=== PATIENT | female | born 1955 | race Caucasian/White ===

== ENCOUNTER → 2016-11-28 | Outpatient (CLI) | payer BC, MEDICARE ==
[~2016-11-28] MED LIST: /CIPR75TA OR; /LINE60TA OR; ACET65TA; ACET65TA OR; ALDA25TA PO; ALDA25TA2 OR; ALDA25TA2 PO; ALPR0.25; AMILORIDE; AUGM875T27 PO; AZIT250T3 PO; BABY81CH; BABY81CH OR; BACT800T; BISA5TAB PO; CALCTAB88 PO; CLEO300C2 PO; CLIN150C OR; ERYTOIN8 OU; FAMO20TA2; FELO10TA; FERR325T OR; FERR325T PO; FEXO30TA OR; FURO40TA2 PO; HUMALOG; INSULANT SC; INSULANT SQ; INSULIN; ISOS60TA2 OR; ISOS60TA2 PO; ITRACONAZOLE PO; K-TA10TA OR; KEPPRA OR; LASI40TA OR; LEVA750T OR; LEVE15SO PO; LINZ290C PO; MAGN64TASA PO; MEDR4PAK PO; MONT10TA2 PO; OMEP20TA7 OR; OMEP40CA2 PO; PERIDEX RINSE MT; POTA10CA PO; PRED10TA2; PRED20TA OR; SING10TA31; SING10TA31 OR; SPIR25TA2 OR; SPORANOX; SPORANOX OR; VALA1TAB PO; VALT500T PO; VERA120C3 OR; VERA240T OR; VERA24TASA PO; VITMTA PO; XOPE1.252; XOPE1.252 IN; ZITH250T; [UNRECOGNIZED DRUG - CODE] PO; [UNRECOGNIZED DRUG - OTHER]; [UNRECOGNIZED DRUG - OTHER] OR
[2016-11-28 18:33] LABS: BASO # 0.1 K/mm3 (0.0-0.2); EOS % 0.3 % (0.0-3.0); LARGE UNSTAINED CELL # 0.3 K/mm3 (0.0-0.4); LARGE UNSTAINED CELL % 2.6 % (0.0-4.0); LYMPH # 2.1 K/mm3 (1.5-4.5); LYMPH % 17.1 % (24.0-44.0); MEAN CORPUSCULAR HEMOGLOBIN 29.6 pg (27.0-33.0); MEAN CORPUSCULAR HGB CONC 31.9 g/dl (32.0-36.5); MONO # 0.6 K/mm3 (0.0-0.8); MONO % 5.6 % (0.0-5.0); NEUTROPHILS # 7.8 K/mm3 (1.8-7.7); NEUTROPHILS % 73.4 % (36.0-66.0); PLATELET COUNT, AUTOMATED 199 k/mm3 (150-450); RED CELL DISTRIBUTION WIDTH 12.9 % (11.5-14.5); WHITE BLOOD COUNT 10.6 K/mm3 (4.0-10.0)
[2016-11-28 19:00] LABS: ALBUMIN 2.3 GM/DL (3.2-5.2); ALKALINE PHOSPHATASE 157 U/L (45-117); ALT/SGPT 22 U/L (12-78); ANION GAP 6 MEQ/L (8-16); AST/SGOT 20 U/L (15-37); BILIRUBIN,TOTAL 0.3 MG/DL (0.2-1.0); BLOOD UREA NITROGEN 8 MG/DL (7-18); CALCIUM LEVEL 7.8 MG/DL (8.5-10.1); CARBON DIOXIDE LEVEL 37 MEQ/L (21-32); CHLORIDE LEVEL 92 MEQ/L (98-107); CREATININE FOR GFR 0.74 MG/DL (0.55-1.02); GLOMERULAR FILTRATION RATE > 60.0 (>51); GLUCOSE, FASTING 105 MG/DL (70-105); POTASSIUM SERUM 4.1 MEQ/L (3.5-5.1); SODIUM LEVEL 135 MEQ/L (136-145); TOTAL PROTEIN 5.6 GM/DL (6.4-8.2)
== END ==
LOC: M LAB 17:16
PROVIDERS: ATTEND Nurse Practitioner Family
DX: E46 Unspecified protein-calorie malnutrition (principal)

== ENCOUNTER → 2016-12-19 | Outpatient (REF) | payer BC, MEDICARE ==
[2016-12-19 13:58] LABS: MEAN CORPUSCULAR HEMOGLOBIN 31.9 pg (27.0-33.0); MEAN CORPUSCULAR HGB CONC 32.9 g/dl (32.0-36.5); MEAN CORPUSCULAR VOLUME 96.7 fl (80.0-96.0); RED CELL DISTRIBUTION WIDTH 14.2 % (11.5-14.5); WHITE BLOOD COUNT 8.5 K/mm3 (4.0-10.0)
[2016-12-19 14:25] LABS: ALBUMIN 2.9 GM/DL (3.2-5.2); ALBUMIN/GLOBULIN RATIO 0.76 (1.00-1.93); ALKALINE PHOSPHATASE 181 U/L (45-117); ALT/SGPT 37 U/L (12-78); ANION GAP 7 MEQ/L (8-16); AST/SGOT 22 U/L (15-37); BILIRUBIN,TOTAL 0.3 MG/DL (0.2-1.0); BLOOD UREA NITROGEN 25 MG/DL (7-18); CALCIUM LEVEL 8.7 MG/DL (8.5-10.1); CARBON DIOXIDE LEVEL 35 MEQ/L (21-32); CHLORIDE LEVEL 95 MEQ/L (98-107); CREATININE FOR GFR 0.49 MG/DL (0.55-1.02); GLOMERULAR FILTRATION RATE > 60.0 (>51); GLUCOSE, FASTING 134 MG/DL (70-105); MAGNESIUM LEVEL 2.6 MG/DL (1.8-2.4); POTASSIUM SERUM 4.5 MEQ/L (3.5-5.1); SODIUM LEVEL 137 MEQ/L (136-145); TOTAL PROTEIN 6.7 GM/DL (6.4-8.2)
== END ==
LOC: M SHH 13:32
PROVIDERS: ATTEND Surgery
DX: E63.9 Nutritional deficiency, unspecified (principal); T73.0XXA Starvation, initial encounter

== ENCOUNTER → 2017-01-02 | Outpatient (REF) | payer BC, MEDICARE ==
[2017-01-02 13:46] LABS: MEAN CORPUSCULAR HEMOGLOBIN 31.4 pg (27.0-33.0); MEAN CORPUSCULAR HGB CONC 32.7 g/dl (32.0-36.5); MEAN CORPUSCULAR VOLUME 95.8 fl (80.0-96.0); RED CELL DISTRIBUTION WIDTH 13.7 % (11.5-14.5); WHITE BLOOD COUNT 7.3 K/mm3 (4.0-10.0)
[2017-01-02 14:16] LABS: ALBUMIN 3.1 GM/DL (3.2-5.2); ALBUMIN/GLOBULIN RATIO 0.91 (1.00-1.93); ALKALINE PHOSPHATASE 152 U/L (45-117); ALT/SGPT 37 U/L (12-78); ANION GAP 6 MEQ/L (8-16); AST/SGOT 27 U/L (15-37); BILIRUBIN,TOTAL 0.2 MG/DL (0.2-1.0); BLOOD UREA NITROGEN 12 MG/DL (7-18); CALCIUM LEVEL 8.2 MG/DL (8.5-10.1); CARBON DIOXIDE LEVEL 39 MEQ/L (21-32); CHLORIDE LEVEL 93 MEQ/L (98-107); CREATININE FOR GFR 0.61 MG/DL (0.55-1.02); GLOMERULAR FILTRATION RATE > 60.0 (>51); GLUCOSE, FASTING 107 MG/DL (70-105); MAGNESIUM LEVEL 2.4 MG/DL (1.8-2.4); PHOSPHORUS LEVEL 3.9 MG/DL (2.5-4.9); POTASSIUM SERUM 4.1 MEQ/L (3.5-5.1); SODIUM LEVEL 138 MEQ/L (136-145); TOTAL PROTEIN 6.5 GM/DL (6.4-8.2)
== END ==
LOC: M SHH 13:15
PROVIDERS: ATTEND Surgery
DX: E63.9 Nutritional deficiency, unspecified (principal); T73.0XXA Starvation, initial encounter

== ENCOUNTER → 2017-01-16 | Outpatient (REF) | payer BC, MEDICARE ==
[2017-01-16 18:21] LABS: ALBUMIN 3.3 GM/DL (3.2-5.2); ALBUMIN/GLOBULIN RATIO 0.94 (1.00-1.93); ALKALINE PHOSPHATASE 211 U/L (45-117); ALT/SGPT 50 U/L (12-78); ANION GAP 9 MEQ/L (8-16); AST/SGOT 35 U/L (15-37); BILIRUBIN,TOTAL 0.3 MG/DL (0.2-1.0); BLOOD UREA NITROGEN 10 MG/DL (7-18); CALCIUM LEVEL 8.7 MG/DL (8.5-10.1); CARBON DIOXIDE LEVEL 40 MEQ/L (21-32); CHLORIDE LEVEL 87 MEQ/L (98-107); GLOMERULAR FILTRATION RATE > 60.0 (>51); GLUCOSE, FASTING 129 MG/DL (70-105); MAGNESIUM LEVEL 2.4 MG/DL (1.8-2.4); PHOSPHORUS LEVEL 3.3 MG/DL (2.5-4.9); POTASSIUM SERUM 3.8 MEQ/L (3.5-5.1); SODIUM LEVEL 136 MEQ/L (136-145); TOTAL PROTEIN 6.8 GM/DL (6.4-8.2)
[2017-01-16 18:37] LABS: MEAN CORPUSCULAR HEMOGLOBIN 33.5 pg (27.0-33.0); MEAN CORPUSCULAR HGB CONC 34.2 g/dl (32.0-36.5); RED CELL DISTRIBUTION WIDTH 12.9 % (11.5-14.5); WHITE BLOOD COUNT 9.2 K/mm3 (4.0-10.0)
== END ==
LOC: M SHH 16:02 → M LAB REF 16:02
PROVIDERS: ATTEND Surgery
DX: E63.9 Nutritional deficiency, unspecified (principal); T73.0XXA Starvation, initial encounter

== ENCOUNTER → 2017-04-01 | Outpatient (REF) | payer BC, MEDICARE | LOC: M LAB REF 13:32 | PROVIDERS: ATTEND Internal Medicine Pulmonary Disease | DX: J47.9 Bronchiectasis, uncomplicated (principal) ==

== ENCOUNTER 2017-07-26 07:16 | Emergency (ER) | payer BC, MEDICARE ==
[~2017-07-26] VITALS: Ht 152.4 cm; Wt 49.5 kg
[~2017-07-26 07:16] MED LIST changes: -AUGM875T27 PO; +AUGM875T28 PO; +AZIT-12 PO; -AZIT250T3 PO; +FERR1TAB8 PO; -FERR325T PO; -VALA1TAB PO; +VALA1TAB2 PO
[2017-07-26] MEDS ORDERED: OXYGEN (07:30)
--- NOTE | 2017-07-26 08:17 | REP ---
CT of the brain without IV contrast: There are no comparisons. There is no subdural hematoma or epidural hematoma. There is no edema, mass effect or midline shift. Ventricles are normal size and midline. The cortical stripe is unremarkable. There is no other intracranial hemorrhage. There is opacification of the left sphenoid sinus compatible with sinusitis. The remainder of the visualized paranasal sinuses are unremarkable. The visualized mastoid air cells opacified bilaterally. This could be congenital variation. There are no air-fluid levels. This is unchanged from a maxillofacial CT dated 03/23/2016. Signed by Tejas Zendejas MD 07/26/2017 08:08 A
[2017-07-26 08:21] LABS: BASO % 0.4 % (0.0-1.0); EOS # 0.2 K/mm3 (0.0-0.50); EOS % 2.9 % (0.0-3.0); LARGE UNSTAINED CELL # 0.1 K/mm3 (0.0-0.4); LARGE UNSTAINED CELL % 1.1 % (0.0-4.0); LYMPH # 0.8 K/mm3 (1.5-4.5); LYMPH % 9.8 % (24.0-44.0); MEAN CORPUSCULAR HEMOGLOBIN 30.2 pg (27.0-33.0); MEAN CORPUSCULAR HGB CONC 32.2 g/dl (32.0-36.5); MONO # 0.4 K/mm3 (0.0-0.8); MONO % 5.7 % (0.0-5.0); NEUTROPHILS # 5.8 K/mm3 (1.8-7.7); NEUTROPHILS % 80.1 % (36.0-66.0); PLATELET COUNT, AUTOMATED 225 k/mm3 (150-450); RED CELL DISTRIBUTION WIDTH 12.9 % (11.5-14.5); WHITE BLOOD COUNT 7.3 K/mm3 (4.0-10.0)
[2017-07-26 08:33] LABS: BLOOD UREA NITROGEN 7 MG/DL (7-18); CALCIUM LEVEL 8.2 MG/DL (8.8-10.2); CHLORIDE LEVEL 91 MEQ/L (98-107); CREATININE FOR GFR 0.55 MG/DL (0.55-1.02); GLOMERULAR FILTRATION RATE > 60.0 (>45); GLUCOSE, FASTING 101 MG/DL (80-110); POTASSIUM SERUM 4.1 MEQ/L (3.5-5.1); SODIUM LEVEL 139 MEQ/L (136-145)
--- NOTE | 2017-07-26 08:54 | REP ---
Lumbar spine CT study without contrast: History: History of a fall. Coccyx pain. Comparison CT data is from October 15, 2013. Technique: Helical scanning is acquired. 4 mm contiguous axial slices are reformatted. Coronal and sagittal multiplanar re-formation images are generated. The scan range extends from mid T12 to mid S2. Findings: There is old partial collapse of the superior endplate of the L4 vertebral body unchanged from the 2013 prior study. Otherwise, vertebral body heights are preserved. Alignment is normal. There is degenerative disc disease at L3-4 with disc space narrowing and osteophyte formation. This is unchanged from the 2013 study as well. Degenerative disc changes with vacuum phenomenon are seen in the L5-S1 disc level. Some posterior osteophytic ridging is seen at L4-5. No paravertebral soft-tissue mass is seen. There are surgical clips adjacent to the aortic bifurcation and scattered in the abdomen. Pedicles and posterior elements are intact. Facets are normally aligned. No fracture is seen. There is central disc bulging at L4-5 producing mild central canal stenosis. No other abnormal disc protrusion is seen. A very small sliver of left pleural fluid is noted. Impression: 1. Old partial collapse of the superior endplate of L4. No acute fracture seen. 2. Degenerative disc changes L3-4, L4-5 and L5-S1. 3. Tiny sliver of left pleural fluid. 4. The study extends down to the mid second sacral segment. The coccyx is not included in the field of view of CT lumbar spine exam. Signed by Kenneth Handley MD 07/26/2017 09:09 A
[2017-07-26 09:09] LABS: CARBON DIOXIDE LEVEL 49 MEQ/L (21-32)
[2017-07-26] MEDS ORDERED: PERCOCET 5MG/325MG TAB PO ONE (09:15)
[2017-07-26 09:55] VITALS: BP 110/56
--- NOTE | 2017-07-26 09:55 | REP ---
SACRUM AND COCCYX: Three views of the sacrum and coccyx are performed. No fracture or dislocation is visualized. There are metallic clips in the right pelvis and in the lower abdomen. IMPRESSION: No radiographic evidence of sacral or coccyx fracture. Signed by Tejas Kate MD 07/26/2017 01:41 P
== END 2017-07-26 10:06 | disposition home or self-care (01) ==
LOC: M ED 07:16 → EDBD 07:16 → M ED 10:06
DX: M54.9 Dorsalgia, unspecified (principal); W18.11XA Fall from or off toilet without subsequent striking against object, initial encounter; Y92.091 Bathroom in other non-institutional residence as the place of occurrence of the external cause; Y93.89 Activity, other specified; Y99.9 Unspecified external cause status

== ENCOUNTER 2017-07-28 06:12 | Inpatient (IN) | payer BC, MEDICARE ==
[~2017-07-28] VITALS: Ht 152.4 cm; Wt 48.3 kg
[~2017-07-28 06:12] MED LIST changes: +OXYGEN
[2017-07-28] MEDS ORDERED: NS 500 ML IV ONE (06:45)
[2017-07-28] MEDS ORDERED: METOCLOPRAMIDE INJ 10MG/2ML VIAL (J2765) IV ONE (06:45)
[2017-07-28 07:18] LABS: VENOUS BASE EXCESS 12.8 (-2.0-2.0); VENOUS PARTIAL PRESSURE CO2 83.7 mmHg (38.0-50.0); VENOUS PARTIAL PRESSURE O2 36.3 mmHg (30.0-50.0); VENOUS STANDARD HCO3 35.7 MEQ/L; VENOUS TOTAL CO2 45.2 MEQ/L (24.0-28.0)
[2017-07-28 07:21] LABS: BASO % 0.6 % (0.0-1.0); EOS # 0.1 K/mm3 (0.0-0.50); EOS % 1.8 % (0.0-3.0); LARGE UNSTAINED CELL # 0.1 K/mm3 (0.0-0.4); LARGE UNSTAINED CELL % 1.8 % (0.0-4.0); LYMPH # 0.5 K/mm3 (1.5-4.5); LYMPH % 7.4 % (24.0-44.0); MEAN CORPUSCULAR HEMOGLOBIN 31.5 pg (27.0-33.0); MEAN CORPUSCULAR HGB CONC 33.8 g/dl (32.0-36.5); MEAN CORPUSCULAR VOLUME 93.2 fl (80.0-96.0); MONO # 0.5 K/mm3 (0.0-0.8); MONO % 6.4 % (0.0-5.0); NEUTROPHILS # 5.7 K/mm3 (1.8-7.7); NEUTROPHILS % 81.9 % (36.0-66.0); PLATELET COUNT, AUTOMATED 202 k/mm3 (150-450); RED CELL DISTRIBUTION WIDTH 12.7 % (11.5-14.5); WHITE BLOOD COUNT 6.9 K/mm3 (4.0-10.0)
[2017-07-28 07:45] LABS: ALBUMIN 2.5 GM/DL (3.2-5.2); ALBUMIN/GLOBULIN RATIO 0.78 (1.00-1.93); ALKALINE PHOSPHATASE 142 U/L (45-117); ALT/SGPT 22 U/L (12-78); AMYLASE 49 U/L (25-115); ANION GAP 5 MEQ/L (8-16); AST/SGOT 23 U/L (15-37); BILIRUBIN,DIRECT 0.2 MG/DL (0.0-0.2); BILIRUBIN,TOTAL 0.4 MG/DL (0.2-1.0); BLOOD UREA NITROGEN 9 MG/DL (7-18); CALCIUM LEVEL 8.5 MG/DL (8.8-10.2); CARBON DIOXIDE LEVEL 43 MEQ/L (21-32); CHLORIDE LEVEL 90 MEQ/L (98-107); CREATININE FOR GFR 0.57 MG/DL (0.55-1.02); GLOMERULAR FILTRATION RATE > 60.0 (>45); GLUCOSE, FASTING 101 MG/DL (80-110); POTASSIUM SERUM 4.2 MEQ/L (3.5-5.1); SODIUM LEVEL 138 MEQ/L (136-145); TOTAL PROTEIN 5.7 GM/DL (6.4-8.2)
--- NOTE | 2017-07-28 08:02 | REP ---
PA and lateral chest: Comparison is with 12/26/2015. There is pleural thickening with effacement of the posterior sulcus on the left on the lateral view with increased density in the adjacent lung. All as interval changes. There is chronic diffuse bilateral interstitial coarsening, unchanged, compatible with fibrosis. Cardiac size is normal. There is a vertebroplasty at the approximate T6 vertebral body. The sara are mildly enlarged, however this is unchanged. No masses are identified. There is diffuse demineralization. Impression: Infiltrate and small effusion/pleural thickening in the posterior sulcus of the left lung. Pulmonary fibrosis. Vertebroplasty. Chronically enlarged sara. Signed by Tejas Zendejas MD 07/28/2017 07:53 A
[2017-07-28] MEDS ORDERED: PERCOCET 5MG/325MG TAB PO ONE (08:45)
[2017-07-28] MEDS: DOCUSATE SODIUM 100 MG CAP PO SCH ×2 (09:00→20:33)
[2017-07-28] MEDS: VERAPAMIL 120 MG SR TAB PO SCH (09:00)
[2017-07-28] MEDS: MAGNESIUM CHLORIDE 64 MG TABCR (SLO MAG) PO SCH ×2 (09:00→20:31)
[2017-07-28] MEDS: OMEPRAZOLE 20 MG CAP PO SCH ×2 (09:00→20:32)
[2017-07-28] MEDS: FUROSEMIDE 40 MG TAB PO SCH ×2 (09:00→20:32)
[2017-07-28] MEDS: SPIRONOLACTONE 25 MG TAB PO SCH (09:00)
[2017-07-28] MEDS: levETIRAcetam 250MG TABLET (KEPPRA) PO SCH ×2 (09:00→20:32)
[2017-07-28] MEDS ORDERED: BACTRIM 160MG/800MG DS TAB PO SCH (09:00)
--- NOTE | 2017-07-28 09:45 | REP ---
CT of the chest without IV contrast: Comparisons are the PA and lateral chest performed earlier today and chest CT of 12/10/2008. There is advanced a bronchiectasis throughout the right and left lungs diffusely, significantly progressed from the prior study. There is diffuse interstitial thickening, bronchiectasis, compatible with fibrosis. There is a focal "tree in bud" pattern in the lingula, left lower lobe, and right lower lobe compatible with pneumonitis. There is almost complete collapse of the right middle lobe, however, this appears unchanged from the prior study. There is a 5 mm nodule, pleural-based, posterior laterally in the lingula on image 59 adjacent to the major fissure, unchanged, likely a granuloma. There is a surgical staple line medially in the left upper lobe and a surgical staple line posterolaterally in the left lower lobe. These are unchanged. There is focal parenchymal density adjacent to the surgical staple line in the left lower lobe as an interval change, likely resulting in the density on the plain film study earlier today. There is a small left pleural effusion, not present on the comparison CT, similar to that described on the plain film study earlier today. There is a vertebroplasty of the T6 vertebral body, unchanged from the comparison CT. Impression: Chronic bronchiectasis that has significantly progressed. Focal new parenchymal density in the left lower lobe and new small left pleural effusion, not present on the comparison CT. Tree-in-bud pattern in the lingula, left lower lobe and right lower lobe compatible with pneumonitis. Surgical staple lines in the left upper lobe left lower lobe, unchanged from the prior CT. T6 vertebroplasty, unchanged. Comparison is the CT on 12/10/08. Signed by Tejas Zendejas MD 07/28/2017 09:36 A
[2017-07-28] MEDS ORDERED: PIPERACILLIN/TAZOBACTAM SOD 3.375 GM in D5W MINI-BAG PLUS 50 ML IV ONE (10:30)
[2017-07-28] MEDS ORDERED: BACTRIM 160MG/800MG DS TAB PO ONE (10:30)
[2017-07-28] MEDS ORDERED: KEPP1TAB PO (10:36)
[2017-07-28] MEDS ORDERED: FURO40TA2 PO (10:36)
[2017-07-28] MEDS ORDERED: SPOR1CAP PO (10:37)
[2017-07-28] MEDS ORDERED: ALBU1.25 INH (10:39)
[2017-07-28] MEDS ORDERED: ALBUTEROL SULFATE 2.5 MG/0.5 ML INH NEB SOLN INH PRN (12:15)
[2017-07-28] MEDS: PERCOCET 5MG/325MG TAB PO PRN ×2 (14:14→20:33)
--- NOTE | 2017-07-28 14:27 | REP ---
MRI lumbar spine without contrast: History: Back pain after a fall. Increased low back pain. Comparison CT study of the lumbar spine July 26, 2017. Technique: Sagittal and axial T1 and T2-weighted scans are acquired in the usual fashion with and without fat saturation. Sequences include spin echo, turbo spin-echo, and STIR imaging sequences. MRI findings: There is a mild recent compression fracture deformity at the superior endplate of the L1 vertebral body. This is not visible on the July 26, 2017 study. There is some cortical buckling and slight loss of vertebral body height which has taken place since that scan. There is approximately 25-30% loss of anterior vertebral body height visible today at L1 and there is 4 mm of retropulsion effacing the ventral subarachnoid space. No evidence of epidural collection to suggest hematoma. Conus medullaris is not compressed and terminates at the L1 level. No other acute fracture is seen. There is some prevertebral edema on STIR images at the L1 level. No evidence of extra vertebral hematoma. There is degenerative disc narrowing at L1-L2 with minimal diffuse disc bulging. At L2-3 there is minimal diffuse disc bulging but no other abnormality. The L3-4 level shows right posterolateral disc bulging and mild right foraminal disc bulging. No significant neural foraminal encroachment is seen. At L4-5, there is posterior osteophytic ridging and diffuse disc bulging indenting the ventral margin of the thecal sac as seen on CT. Some ligamentum flavum and facet hypertrophy is noted. No neural foraminal narrowing. At L5-S1, there is mild facet hypertrophy bilaterally. No other significant finding. Impression: Acute mild wedge compression fracture deformity at the L1 vertebral body with 25-30% loss of vertebral body height and 4 mm of retropulsion from buckling of the posterior cortex. There has been loss of vertebral body height and buckling since the July 26, 2017 CT. In addition, there are degenerative spondylosis changes. There is no evidence of epidural hematoma. Signed by Kenneth Handley MD 07/28/2017 03:22 P
[2017-07-28] MEDS: ISOSORBIDE MON. (IMDUR) 60 MG XR TAB PO SCH (15:54)
[2017-07-28] MEDS: BISACODYL 5 MG TAB PO SCH (15:54)
[2017-07-28 16:00] VITALS: BP 134/75
[2017-07-28] MEDS ORDERED: NS 1,000 ML IV SCH (16:30)
--- NOTE | 2017-07-28 16:59 | HPEPDOC ---
[facility] Medical History & Physical Date of Admission Jul 28, 2017 Primary Care Physician: Jr Bravo Collins Attending Physician: LAKISHA SCHUMACHER MD History and Physical PRIMARY CARE PROVIDER: Dr. Bravo ATTENDING: Dr. 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 Patient states that 3 days ago she was shaving her legs with a razor with one leg elevated, fell to the side, after which her lower back started to hurt. She presented to the ED, had a CAT scan of her lumbar spine, and was sent home. Patient states she still has lower back pain, which has not subsided. No lower extremity weakness. No alarming signs or symptoms. No perianal anesthesia. Patient denies chest pain/shortness of breath/palpitations. No worsening of her chronic cough. No fevers or chills. No sick contacts. The patient initially had a chest x-ray followed by CAT scan in the ED, and was initially thought to have pneumonia. ED physician had spoken to Dr. Price the patient's test manager with recommendations to start Bactrim twice a day, tobramycin twice a day, as well as Zosyn continuous infusion. I have consulted Dr. Barnard, and given the absence of symptoms of pneumonia, as she has spoken with Dr. Price in the plan now is to discontinue the antibiotics and observe the patient. She will have a sputum culture in the meantime. PAST MEDICAL HISTORY: As per HPI PAST SURGICAL HISTORY: Lung biopsy, multiple chemotherapy port, cholecystectomy , appendectomy, gastrojejunal surgery for duodenal stricture, HYST SOCIAL HISTORY: Denies tobacco, alcohol, illicit drugs. FAMILY HISTORY: F- Heart Dz, Sister- pulm HTN, IgE def. ALLERGIES: Please see below. REVIEW OF SYSTEMS: HEENT: Denies sore throat/headache CARDIOVASCULAR: Denies chest pain/palpitations RESPIRATORY: Denies shortness of breath. + cough GASTROINTESTINAL: Denies nausea/vomiting GENITOURINARY: Denies dysuria/urinary urgency. MUSCULOSKELETAL: Denies myalgias/arthralgias NEUROLOGICAL: Denies any focal weakness HOME MEDICATIONS: Please see below. PHYSICAL EXAMINATION: Vitals: (see below) General: No acute distress, laying comfortably in bed. HEENT: Moist mucous membranes. Neck: No JVD or lymphadenopathy Cardiac: RRR, No murmurs Pulm: Coarse crackles right base. + rhonchi/ exp wheezing. Abd: NT/ND + BS Ext: No edema or cyanosis. Strength 5/5 BLE. DTR 2+ b/l. Babinski negative. LABORATORY DATA: See below. IMAGING: CT Chest 07/28/17 Impression: Chronic bronchiectasis that has significantly progressed. Focal new parenchymal density in the left lower lobe and new small left pleural effusion, not present on the comparison CT. Tree-in-bud pattern in the lingula, left lower lobe and right lower lobe compatible with pneumonitis. Surgical staple lines in the left upper lobe left lower lobe, unchanged from the prior CT. T6 vertebroplasty, unchanged. Comparison is the CT on 12/10/08. MRI Lumbar Spine 07/28/17 Impression: Acute mild wedge compression fracture deformity at the L1 vertebral body with 25-30% loss of vertebral body height and 4 mm of retropulsion from buckling of the posterior cortex. There has been loss of vertebral body height and buckling since the July 26, 2017 CT. In addition, there are degenerative spondylosis changes. There is no evidence of epidural hematoma. MICROBIOLOGY: Please see below. ASSESSMENT/PLAN: 1. Progressive bronchiectasis obliterans being evaluated for Lung transplant. H/ o multiple lung infections on Azithro outpt. Prior intubation with an extensive ICU stay. Follows with Dr. Price in [place]. 2. Possible pneumonia vs pneumonitis, although the CAT scan only notes pneumonitis, the patient has no changes in their sputum, no changes in cough or shortness of breath, afebrile, no leukocytosis. Dr. Ignacio has spoken to Dr. Price who recommends starting the patient on Bactrim twice a day, Zosyn continuous infusion of 13.5 g over 24 hours, and IV tobramycin [address] Barnard has spoken to Dr. Price given absence of symptoms, with plan to d/c Abx and observe. 3. Acute Mild Wedge Compression Fx. Strength/sensation preserved. DTR 2+. No alarming symptoms. Pain control. PT. Spoke with Dr. Chandra with recommendations for a TLSO brace for 3 months, and he will follow up with the patient in 2 weeks in the office. 4. Diabetes mellitus- continue current insulin. Sliding scale insulin. 5. Hypertension- controlled continue current meds 6. Chronic aspergillosis 7. History of IgG immunodeficiency subclass 4- patient states she had tried infusions of immunoglobulins and did not tolerate them very well 8. History of iron deficiency anemia 9. History of seizure disorder on Keppra 10. History of zoster Due to prophylaxis- Lovenox Prognosis guarded Vital Signs Vital Signs Date Time Temp Pulse Resp B/P (MAP) Pulse Ox O2 Delivery O2 Flow Rate FiO2 07/28/17 15:54 108/54 07/28/17 15:01 96.6 73 22 Nasal Cannula 4.0 07/28/17 14:37 97 Laboratory Data Labs 24H Laboratory Tests 2 07/28/17 07:09: White Blood Count 6.9, Red Blood Count 4.11, Hemoglobin 12.9, Hematocrit 38.3, Mean Corpuscular Volume 93.2, Mean Corpuscular Hemoglobin 31.5, Mean Corpuscular Hemoglobin Concent 33.8, Red Cell Distribution Width 12.7, Platelet Count 202, Neutrophils (%) (Auto) 81.9H, Lymphocytes (%) (Auto) 7.4L, Monocytes (%) (Auto) 6.4H, Eosinophils (%) (Auto) 1.8, Basophils (%) (Auto) 0.6, Neutrophils # (Auto) 5.7, Lymphocytes # (Auto) 0.5L, Monocytes # (Auto) 0.5, Eosinophils # (Auto) 0.1, Basophils # (Auto) 0.0, Large Unclassified Cells % 1.8 , Large Unclassified Cells # 0.1, Blood Gas Bicarbonate Standard 35.7, Venous Blood pH 7.325L, Venous Blood Partial Pressure CO2 83.7H, Venous Blood Partial Pressure O2 36.3, Venous Blood Total Carbon Dioxide 45.2H, Venous Blood HCO3 42.6H, Venous Blood Oxygen Saturation 65.0, Venous Blood Base Excess 12.8H, Anion Gap 5L, Glomerular Filtration Rate > 60.0, Calcium Level 8.5L, Aspartate Amino Transf (AST/SGOT) 23, Alanine Aminotransferase (ALT/SGPT) 22, Alkaline Phosphatase 142H, Total Bilirubin 0.4, Direct Bilirubin 0.2, C-Reactive Protein , Quantitative 2.12H, Total Protein 5.7L, Albumin 2.5L, Albumin/Globulin Ratio 0.78L, Amylase Level 49, Lipase 76 07/28/17 08:01: Urine Appearance HAZY, Urine Color YELLOW, Urine pH 5.0, Urine Specific [place] 1.020, Urine Protein NEGATIVE, Urine Glucose (UA) NEGATIVE, Urine Ketones NEGATIVE, Urine Urobilinogen 0.2, Urine Bilirubin NEGATIVE, Urine Leukocyte Esterase 2+H, Urine Blood NEGATIVE, Urine Nitrite NEGATIVE, Urine WBC (Auto) 14H , Urine RBC (Auto) 3, Urine Hyaline Casts (Auto) 12, Urine Bacteria (Auto) NEGATIVE, Urine Squamous Epithelial Cells 1, Urine Mucus (Auto) SMALL, Urine Sperm (Auto) CBC/BMP Laboratory Tests 07/28/17 07:09 Red Blood Count 4.11, Mean Corpuscular Volume 93.2, Mean Corpuscular Hemoglobin 31.5, Mean Corpuscular Hemoglobin Concent 33.8, Red Cell Distribution Width 12.7 , Neutrophils (%) (Auto) 81.9 H, Lymphocytes (%) (Auto) 7.4 L, Monocytes (%) ( Auto) 6.4 H, Eosinophils (%) (Auto) 1.8, Basophils (%) (Auto) 0.6, Neutrophils # (Auto) 5.7, Lymphocytes # (Auto) 0.5 L, Monocytes # (Auto) 0.5, Eosinophils # (Auto) 0.1, Basophils # (Auto) 0.0 Microbiology Microbiology 07/28/17 Blood Culture, Received Pending 07/28/17 Blood Culture, Received Pending 07/28/17 Urine Culture, Received Pending Home Medications Scheduled (Calcium Citrate + 315-200 mg-Unit) 1 Tab Tab, 1 TAB PO QPM Azithromycin (Azithromycin) 250 Mg Tab, 250 MG PO QHS Bisacodyl (Bisacodyl EC) 5 Mg Tab, 10 MG PO DAILY Ferrous Sulfate (Ferrous Sulfate) 325 Mg Tab, 325 MG PO QHS Furosemide (Furosemide) 40 Mg Tab, 40 MG PO BID Insulin Glargine (Lantus) 1 Units/0.01 Ml Susp, 7 UNITS SC QHS Isosorbide Mononitrate (Isosorbide Mononitrate ER) 60 Mg Tab, 60 MG PO DAILY Itraconazole (Sporanox) 100 Mg Cap, 200 MG PO QHS Levetiracetam (Keppra) 500 Mg Tab, 500 MG PO BID Linaclotide Base (Linzess) 290 Mcg Cap, 290 MCG PO DAILY Magnesium Chloride (Mag64) 64 Mg Tabcr, 128 MG PO BID Montelukast Sodium (Montelukast Sodium) 10 Mg Tab, 10 MG PO QHS Multivitamins *[facility] STOCKED* (Thera M Plus *[facility] STOCKED*) 1 Tab Tab, 1 TAB PO QPM Omeprazole (Omeprazole) 40 Mg Cap, 40 MG PO BID Potassium Chloride (Klor-Con M10) 10 Meq Tabcr, 20 MEQ PO BID Spironolactone (Aldactone) 25 Mg Tab, 25 MG PO DAILY Verapamil HCl (Verapamil HCl ER) 240 Mg Tabcr, 240 MG PO DAILY Scheduled PRN Albuterol Sulfate (Albuterol Sulfate) 1.25 Mg/3 Ml Neb, 1.25 MG INH BID PRN for SHORTNESS OF BREATH Allergies Coded Allergies: Bacitracin (Verified Allergy, Unknown, 02/12/13) Replaces BACITRACIN/NE Polymyxin B (Verified Allergy, Unknown, 02/12/13) Replaces BACITRACIN/NE Cilastatin (Unverified Adverse Reaction, Mild, PRIMAXIN CAUSES VOMITING, ) Replaces PRIMAXIN IV Erythromycin (Verified Adverse Reaction, Mild, DIARRHEA, N/V, 02/12/13) Quinolones (Verified Adverse Reaction, Mild, TEQUIN - DIARRHEA, N/V, ) N/V LAKISHA SCHUMACHER MD Jul 28, 2017 16:59
[2017-07-28] MEDS ORDERED: PIPERACILLIN IV SCH (17:00)
[2017-07-28] MEDS ORDERED: TAZOBACTAM SOD IV SCH (17:00)
[2017-07-28] MEDS ORDERED: D5W IV SCH ×2 (17:00→18:00)
[2017-07-28] MEDS: NAPROXEN 250 MG TAB PO SCH (17:39)
[2017-07-28] MEDS ORDERED: TOBRAMYCIN SULF IV SCH (18:00)
[2017-07-28] MEDS: ONDANSETRON 4MG/2ML VIAL (J2405) IV PRN (18:14)
[2017-07-28 20:00] VITALS: BP 112/59
[2017-07-28] MEDS: MULTIVITAMINS/MINERALS THERAP 1 TAB PO SCH (20:32)
[2017-07-28] MEDS: ITRACONAZOLE 100 MG CAP (SPORANOX) PO SCH (20:32)
[2017-07-28] MEDS: AZITHROMYCIN 250 MG TAB PO SCH (20:32)
[2017-07-28] MEDS: MONTELUKAST 10 MG TAB PO SCH (20:32)
[2017-07-28] MEDS: LEVEMIR (INSULIN DETEMIR) 1 UNITS/0.01ML SC SCH (20:33)
[2017-07-28] MEDS ORDERED: FERROUS SULFATE 325MG TAB PO SCH (21:00)
--- NOTE | 2017-07-28 22:33 | CR.PDOC ---
[facility] Consultation Consultation DATE OF CONSULTATION: Jul 28, 2017 at 06:12 PRIMARY CARE PHYSICIAN: Dr. Bravo LINE BUILDER: Dr. Price REFERRING PROVIDER: Dr. Schumacher ATTENDING PHYSICIAN: Dr. Randy Barnard REASON FOR CONSULTATION/CHIEF COMPLAINT: Antibiotic infusion. HISTORY OF PRESENT ILLNESS: Ms. Olsen is a 62-year-old female presents to [facility]'s emergency Department with mechanical fall. Past medical history significant for chronic aspergillosis, IgG immunodeficiency, bronchiectasis, on 4 L of oxygen via nasal cannula. She is followed by Dr. Santana Price in [place], [place]. He was previously the patient's daughters cystic fibrosis physician, but has since taken over the patient's care. Patient's daughter approximately 6 years ago at the age of 30, one day after her birthday. Patient states that she is in the process of being evaluated for a possible lung transplant. She states that she only have 20% of remaining viable left lung. Patient is on Pulmozyme, albuterol nebulizer , and azithromycin chronically. She's been on azithromycin for approximately 7 years with no adverse affects to her hearing. She states that she has never been on steroids chronically. She states that she has a cough with increased production of dark green phlegm, but reports that her breathing is otherwise stable. She usually produces phlegm, but this is a change in color for her. She denies fever, night sweats, chills, joint pain, or muscle pain. She recently saw Dr. Price in June and he started her on Pulmozyme. Reason for the patient's current admission is that she sustained a mechanical fall at home a couple days ago. She states that she was shaving and had her leg balanced up on the toilet and she lost her balance and fell. She sustained multiple bruises, one to her arm that she was not aware of and a couple on her back. She notes that she grazed her head, but did not lose consciousness, bowel , or bladder incontinence. She initially presented to [facility] s emergency Department for evaluation. Imaging was obtained and was negative. Patient was discharged with Tylenol for pain. At home patient experienced persistent low back pain along with nausea and vomiting. Patient denies hemoptysis or hematemesis. Admits to a runny nose, but it is not consistent. Patient returned again to [facility]'s emergency Department and was admitted for further medical management. States that up until recently her appetite has been normal; however, over the last day or two her appetite has been diminished and she has only been consuming fluids. Denies dysphagia or odynophagia. Denies weight changes. Reports progressive weakness in lower extremities without numbness, tingling, or altered sensation. Patient does report feeling tired. She notes right ankle and foot edema that she noticed on Monday which has since resolved. She denies extended immobility, but does state that over the years she has been less functionally mobile due to her underlying pulmonary disease Evaluation in the emergency department included obtaining vital signs which are stable, hematologic assessment which is stable, electrolyte assessment which was stable, a chest x-ray which revealed "Infiltrate and small effusion/pleural thickening in the posterior sulcus of the left lung. Pulmonary fibrosis. Vertebroplasty. Chronically enlarged sara." CT of the chest was obtained and revealed "Chronic bronchiectasis that has significantly progressed. Focal new parenchymal density in the left lower lobe and new small left pleural effusion, not present on the comparison CT. Tree-in-bud pattern in the lingula, left lower lobe and right lower lobe compatible with pneumonitis. Surgical staple lines in the left upper lobe left lower lobe, unchanged from the prior CT. T6 vertebroplasty, unchanged." Blood and urine cultures are pending. Reason for consultation is to determine the need for antibiotic infusion. Please see recommendations below. ALLERGIES: Please see below. HOME MEDICATIONS: Please see below. PAST MEDICAL HISTORY: 1. Chronic aspergillosis. 2. IgG immunodeficiency. 3. Bronchiectasis. 4. Congestive heart failure. 5. Hypertension. 6. Gastroesophageal reflux disease. 7. Coronary artery disease. 8. Seizure disorder. 9. Hypokalemia. 10. Iron deficiency anemia. 11. Epidermal inclusion cyst. 12. History fo squamous papilloma. 13. History of Herpes Zoster Virus in V1 dermatome. 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 15. Preseptal cellulitis. PAST SURGICAL HISTORY: 1. Cholecystectomy. 2. Appendectomy. 3. Upper gastrointestinal endoscopy. 4. Colonoscopy. 5. Duodenal nodule biopsy. 6. Gastric biopsy. 7. Rectal biopsy. 8. Left lower back nodule excision. 9. Left port-a-cath insertion. 10. Right port-a-cath removal. FAMILY HISTORY: Father: , 84, heart disease Mother: Alive, 86, diabetes mellitus, hypertension Siblings: - Sister: Alive, 61, healthy - Brother: Alive, 59, cardiac valve replacement - Brother: , 32, suicide - Sister: , 32, Ig deficiency Children: - Daughter, , 30, CF SOCIAL HISTORY: Marital status and/or living arrangements: Lives with Children: - Daughter, , 30, CF Pets: None Employment: Previously employment with disabled persons Travel: [place], [place] Exposures: Aspergillus (2003), ground zero (2000) Tobacco use: Never ETOH: Never Illicit drug use: Never IV drug use: Never REVIEW OF SYSTEMS: CONSTITUTIONAL: Denies fever, night sweats, chills. HEENT: Denies headache, blurry vision, diplopia, transient vision loss, tinnitus , transient hearing loss. CARDIOVASCULAR: Denies chest pain, palpitations. RESPIRATORY: Admits to cough productive of dark green phlegm; denies orthopnea, PND, shortness of breath. GENITOURINARY: Denies dysuria, hematuria, urinary frequency, urinary urgency. MUSCULOSKELETAL: Admits to back pain; denies musculoskeletal pain, joint pain. GASTROINTESTINAL: Admits to nausea, vomiting, abdominal pain secondary to mechanical fall; denies constipation, diarrhea, melena, hematochezia, hematemesis, hemoptysis. SKIN: Admits to right ankle and foot edema now resolved, multiple ecchymoses secondary to mechanical fall; denies skin rashes. NEUROLOGICAL: Denies numbness, tingling, altered sensation. PSYCHIATRIC: Denies emotional lability. ENDOCRINE: Admits to decreased appetite. HEMATOLOGIC/LYMPHATIC: Admits to easy, but explainable bruising; denies skin rashes. ALLERGIC/IMMUNOLOGIC: Admits to a runny nose. PHYSICAL EXAMINATION: VITAL SIGNS: Please see below. GENERAL APPEARANCE: Somewhat frail appearing female, alert and conversant, pleasant, in no acute distress. HEENT: Atraumatic, normocephalic, PERRL, EOMI, wears spectacles, lips are somewhat dry, oral mucosa appears pink and moist, tongue is midline, nasal septum appears midline, nares are patent. RESPIRATORY: Crackles and rhonchi appreciated throughout, but most prominent in the right upper lobe. CARDIOVASCULAR: Regular rate and rhythm, normal S1 and S2, systolic murmur grade II/ appreciated best over the third intercostal space on the left. ABDOMEN: Soft, flat, tender to palpation, bowel sounds appreciated, without guarding or rebound. EXTREMITIES: Warm, dry, intact, without edema; oblong brown ecchymosis noted on the right upper forearm on the ulnar aspect approximately 4 inches in its longest diameter proximal to the wrist; semi-circular red-purple ecchymosis noted on the posterior left shoulder approximately 1 inch proximal to the shoulder; a smaller oval brown-yellow ecchymosis noted on the back left of midline at approximately T4. NEUROLOGICAL: CN II-XII grossly intact. PSYCHIATRIC: Alert and conversant, pleasant. LABORATORY DATA: Please see below. IMAGING: Chest x-ray, two-view IMPRESSION: Infiltrate and small effusion/pleural thickening in the posterior sulcus of the left lung. Pulmonary fibrosis. Vertebroplasty. Chronically enlarged sara. CT chest without contrast IMPRESSION: Chronic bronchiectasis that has significantly progressed. Focal new parenchymal density in the left lower lobe and new small left pleural effusion, not present on the comparison CT. Tree-in-bud pattern in the lingula, left lower lobe and right lower lobe compatible with pneumonitis. Surgical staple lines in the left upper lobe left lower lobe, unchanged from the prior CT. T6 vertebroplasty, unchanged. ASSESSMENT/PLAN: Ms. Olsen is a 62-year-old female with past medical history significant for chronic aspergillosis, bronchiectasis, on 4 L of oxygen by nasal cannula who presents with a mechanical fall, but secondary to her underlying chronic medical conditions and cough with increased sputum production of green phlegm infectious disease was consulted for recommendations regarding continuous antibiotic infusion. After evaluating patient and discussing case with Dr. Price, patient's shipwright helper, it was determined the patient appears to currently be at baseline and to continue current medical management including patient's azithromycin and nebulized albuterol. It is not recommended at this time to start the patient on any other antibiotics unless the patient's clinical picture changes. No steroids indicated at this time. Have requested records from Dr. Price. Obtaining immunoglobin levels, gram stain and culture, and fungal smear and culture. Thank you for the consult. Vital Signs/I&O Vital Signs Date Time Temp Pulse Resp B/P (MAP) Pulse Ox O2 Delivery O2 Flow Rate FiO2 07/28/17 20:33 20 07/28/17 18:52 Nasal Cannula 4.0 07/28/17 16:00 98.0 68 134/75 (94) 95 I&O- Last 24 Hours up to 6 AM 07/29/17 06:00 Intake Total 550 ml Output Total 100 ml Balance 450 ml Laboratory Data Labs 24H Laboratory Tests 2 07/28/17 07:09: White Blood Count 6.9, Red Blood Count 4.11, Hemoglobin 12.9, Hematocrit 38.3, Mean Corpuscular Volume 93.2, Mean Corpuscular Hemoglobin 31.5, Mean Corpuscular Hemoglobin Concent 33.8, Red Cell Distribution Width 12.7, Platelet Count 202, Neutrophils (%) (Auto) 81.9H, Lymphocytes (%) (Auto) 7.4L, Monocytes (%) (Auto) 6.4H, Eosinophils (%) (Auto) 1.8, Basophils (%) (Auto) 0.6, Neutrophils # (Auto) 5.7, Lymphocytes # (Auto) 0.5L, Monocytes # (Auto) 0.5, Eosinophils # (Auto) 0.1, Basophils # (Auto) 0.0, Large Unclassified Cells % 1.8 , Large Unclassified Cells # 0.1, Blood Gas Bicarbonate Standard 35.7, Venous Blood pH 7.325L, Venous Blood Partial Pressure CO2 83.7H, Venous Blood Partial Pressure O2 36.3, Venous Blood Total Carbon Dioxide 45.2H, Venous Blood HCO3 42.6H, Venous Blood Oxygen Saturation 65.0, Venous Blood Base Excess 12.8H, Anion Gap 5L, Glomerular Filtration Rate > 60.0, Calcium Level 8.5L, Aspartate Amino Transf (AST/SGOT) 23, Alanine Aminotransferase (ALT/SGPT) 22, Alkaline Phosphatase 142H, Total Bilirubin 0.4, Direct Bilirubin 0.2, C-Reactive Protein , Quantitative 2.12H, Total Protein 5.7L, Albumin 2.5L, Albumin/Globulin Ratio 0.78L, Amylase Level 49, Lipase 76 07/28/17 08:01: Urine Appearance HAZY, Urine Color YELLOW, Urine pH 5.0, Urine Specific Byron 1.020, Urine Protein NEGATIVE, Urine Glucose (UA) NEGATIVE, Urine Ketones NEGATIVE, Urine Urobilinogen 0.2, Urine Bilirubin NEGATIVE, Urine Leukocyte Esterase 2+H, Urine Blood NEGATIVE, Urine Nitrite NEGATIVE, Urine WBC (Auto) 14H , Urine RBC (Auto) 3, Urine Hyaline Casts (Auto) 12, Urine Bacteria (Auto) NEGATIVE, Urine Squamous Epithelial Cells 1, Urine Mucus (Auto) SMALL, Urine Sperm (Auto) 07/28/17 16:46: Immunoglobulin G (Chem) 934, Immunoglobulin A 165.0, Immunoglobulin M 181 07/28/17 17:13: Bedside Glucose (Misc Panel) 125H CBC/BMP Laboratory Tests 07/28/17 07:09 Red Blood Count 4.11, Mean Corpuscular Volume 93.2, Mean Corpuscular Hemoglobin 31.5, Mean Corpuscular Hemoglobin Concent 33.8, Red Cell Distribution Width 12.7 , Neutrophils (%) (Auto) 81.9 H, Lymphocytes (%) (Auto) 7.4 L, Monocytes (%) ( Auto) 6.4 H, Eosinophils (%) (Auto) 1.8, Basophils (%) (Auto) 0.6, Neutrophils # (Auto) 5.7, Lymphocytes # (Auto) 0.5 L, Monocytes # (Auto) 0.5, Eosinophils # (Auto) 0.1, Basophils # (Auto) 0.0 Microbiology Microbiology 07/28/17 Blood Culture, Received Pending 07/28/17 Blood Culture, Received Pending 07/28/17 Urine Culture, Received Pending Allergies Coded Allergies: Bacitracin (Verified Allergy, Unknown, 02/12/13) Replaces BACITRACIN/NE Polymyxin B (Verified Allergy, Unknown, 02/12/13) Replaces BACITRACIN/NE Cilastatin (Unverified Adverse Reaction, Mild, PRIMAXIN CAUSES VOMITING, ) Replaces PRIMAXIN IV Erythromycin (Verified Adverse Reaction, Mild, DIARRHEA, N/V, 02/12/13) Quinolones (Verified Adverse Reaction, Mild, TEQUIN - DIARRHEA, N/V, ) N/V Home Medications Scheduled (Calcium Citrate + 315-200 mg-Unit) 1 Tab Tab, 1 TAB PO QPM, (Reported) Azithromycin (Azithromycin) 250 Mg Tab, 250 MG PO QHS, (Reported) Bisacodyl (Bisacodyl EC) 5 Mg Tab, 10 MG PO DAILY, (Reported) Ferrous Sulfate (Ferrous Sulfate) 325 Mg Tab, 325 MG PO QHS, (Reported) Furosemide (Furosemide) 40 Mg Tab, 40 MG PO BID, (Reported) Insulin Glargine (Lantus) 1 Units/0.01 Ml Susp, 7 UNITS SC QHS, (Reported) Isosorbide Mononitrate (Isosorbide Mononitrate ER) 60 Mg Tab, 60 MG PO DAILY, ( Reported) Itraconazole (Sporanox) 100 Mg Cap, 200 MG PO QHS, (Reported) Levetiracetam (Keppra) 500 Mg Tab, 500 MG PO BID, (Reported) Linaclotide Base (Linzess) 290 Mcg Cap, 290 MCG PO DAILY, (Reported) Magnesium Chloride (Mag64) 64 Mg Tabcr, 128 MG PO BID, (Reported) Montelukast Sodium (Montelukast Sodium) 10 Mg Tab, 10 MG PO QHS, (Reported) Multivitamins *[facility] STOCKED* (Thera M Plus *[facility] STOCKED*) 1 Tab Tab, 1 TAB PO QPM , (Reported) Omeprazole (Omeprazole) 40 Mg Cap, 40 MG PO BID, (Reported) Potassium Chloride (Klor-Con M10) 10 Meq Tabcr, 20 MEQ PO BID, (Reported) Spironolactone (Aldactone) 25 Mg Tab, 25 MG PO DAILY, #30 Verapamil HCl (Verapamil HCl ER) 240 Mg Tabcr, 240 MG PO DAILY, (Reported) Scheduled PRN Albuterol Sulfate (Albuterol Sulfate) 1.25 Mg/3 Ml Neb, 1.25 MG INH BID PRN for SHORTNESS OF BREATH, (Reported) RUSH VANCE-I Jul 28, 2017 21:47
[2017-07-29] VITALS (12 sets, daily range): BP systolic 96–117; BP diastolic 53–67; O2SAT 90
[2017-07-29] MEDS: PERCOCET 5MG/325MG TAB PO PRN ×2 (05:16→10:59)
[2017-07-29 06:02] LABS: ANION GAP 6 MEQ/L (8-16); BLOOD UREA NITROGEN 11 MG/DL (7-18); CALCIUM LEVEL 7.8 MG/DL (8.8-10.2); CARBON DIOXIDE LEVEL 31 MEQ/L (21-32); CHLORIDE LEVEL 98 MEQ/L (98-107); CREATININE FOR GFR 0.61 MG/DL (0.55-1.02); GLOMERULAR FILTRATION RATE > 60.0 (>45); GLUCOSE, FASTING 88 MG/DL (80-110); POTASSIUM SERUM 3.9 MEQ/L (3.5-5.1); SODIUM LEVEL 135 MEQ/L (136-145)
[2017-07-29 06:08] LABS: BASO % 0.4 % (0.0-1.0); EOS # 0.1 K/mm3 (0.0-0.50); EOS % 1.6 % (0.0-3.0); LARGE UNSTAINED CELL # 0.2 K/mm3 (0.0-0.4); LARGE UNSTAINED CELL % 3.5 % (0.0-4.0); LYMPH # 0.6 K/mm3 (1.5-4.5); LYMPH % 10.9 % (24.0-44.0); MEAN CORPUSCULAR HEMOGLOBIN 30.9 pg (27.0-33.0); MEAN CORPUSCULAR HGB CONC 31.9 g/dl (32.0-36.5); MEAN CORPUSCULAR VOLUME 96.9 fl (80.0-96.0); MONO # 0.4 K/mm3 (0.0-0.8); MONO % 6.8 % (0.0-5.0); NEUTROPHILS # 4.1 K/mm3 (1.8-7.7); NEUTROPHILS % 76.8 % (36.0-66.0); PLATELET COUNT, AUTOMATED 148 k/mm3 (150-450); RED CELL DISTRIBUTION WIDTH 12.6 % (11.5-14.5); WHITE BLOOD COUNT 5.4 K/mm3 (4.0-10.0)
[2017-07-29] MEDS ORDERED: MORPHINE 2 MG/ML 1ML SYRINGE IV PRN (09:15)
[2017-07-29] MEDS: levETIRAcetam 250MG TABLET (KEPPRA) PO SCH (09:39)
[2017-07-29] MEDS: DOCUSATE SODIUM 100 MG CAP PO SCH ×2 (09:39→21:00)
[2017-07-29] MEDS: OMEPRAZOLE 20 MG CAP PO SCH ×2 (09:39→21:00)
[2017-07-29] MEDS: SPIRONOLACTONE 25 MG TAB PO SCH (09:39)
[2017-07-29] MEDS: BISACODYL 5 MG TAB PO SCH (09:39)
[2017-07-29] MEDS: NAPROXEN 250 MG TAB PO SCH ×2 (09:39→21:00)
[2017-07-29] MEDS: VERAPAMIL 120 MG SR TAB PO SCH (09:40)
[2017-07-29] MEDS: MAGNESIUM CHLORIDE 64 MG TABCR (SLO MAG) PO SCH ×2 (09:40→21:00)
[2017-07-29] MEDS: FUROSEMIDE 40 MG TAB PO SCH ×2 (09:40→21:00)
[2017-07-29] MEDS: ISOSORBIDE MON. (IMDUR) 60 MG XR TAB PO SCH (09:40)
[2017-07-29] MEDS: ALBUTEROL SULFATE 2.5 MG/0.5 ML INH NEB SOLN INH SCH ×3 (11:04→19:20)
--- NOTE | 2017-07-29 13:34 | IPNPDOC ---
Text Note Date of Service The patient was seen on 07/29/17. NOTE Subjective: Feels well. No change in resp symptoms. Back pain well controlled. PHYSICAL EXAMINATION: Vitals: (see below) General: No acute distress, laying comfortably in bed. HEENT: Moist mucous membranes. Neck: No JVD or lymphadenopathy Cardiac: RRR, No murmurs Pulm: Coarse crackles right base. + rhonchi/ exp wheezing. Abd: NT/ND + BS Ext: No edema or cyanosis. Strength 5/5 BLE. DTR 2+ b/l. Babinski negative. LABORATORY DATA: See below. IMAGING: CT Chest 07/28/17 Impression: Chronic bronchiectasis that has significantly progressed. Focal new parenchymal density in the left lower lobe and new small left pleural effusion, not present on the comparison CT. Tree-in-bud pattern in the lingula, left lower lobe and right lower lobe compatible with pneumonitis. Surgical staple lines in the left upper lobe left lower lobe, unchanged from the prior CT. T6 vertebroplasty, unchanged. Comparison is the CT on 12/10/08. MRI Lumbar Spine 07/28/17 Impression: Acute mild wedge compression fracture deformity at the L1 vertebral body with 25-30% loss of vertebral body height and 4 mm of retropulsion from buckling of the posterior cortex. There has been loss of vertebral body height and buckling since the July 26, 2017 CT. In addition, there are degenerative spondylosis changes. There is no evidence of epidural hematoma. MICROBIOLOGY: Please see below. ASSESSMENT/PLAN: 1. Progressive bronchiectasis obliterans being evaluated for Lung transplant. H/ o multiple lung infections on Azithro outpt. Prior intubation with an extensive ICU stay. Follows with Dr. Price in [place]. 2. Possible pneumonia vs pneumonitis, although the CAT scan only notes pneumonitis, the patient has no changes in their sputum, no changes in cough or shortness of breath, afebrile, no leukocytosis. Dr. Ignacio has spoken to Dr. Price who recommends starting the patient on Bactrim twice a day, Zosyn continuous infusion of 13.5 g over 24 hours, and IV tobramycin [address] Barnard has spoken to Dr. Price given absence of symptoms, with plan to d/c Abx and observe. 3. Acute Mild Wedge Compression Fx. Strength/sensation preserved. DTR 2+. No alarming symptoms. Pain control. PT. Spoke with Dr. Chandra with recommendations for a TLSO brace for 3 months, and he will follow up with the patient in 2 weeks in the office. Pt has been measured for brace last night. 4. Diabetes mellitus- continue current insulin. Sliding scale insulin. 5. Hypertension- controlled continue current meds 6. Chronic aspergillosis 7. History of IgG immunodeficiency subclass 4- patient states she had tried infusions of immunoglobulins and did not tolerate them very well 8. History of iron deficiency anemia 9. History of seizure disorder on Keppra 10. History of zoster Due to prophylaxis- Lovenox Prognosis guarded VS,Fishbone, I+O VS, Fishbone, I+O Laboratory Tests 07/29/17 05:09 Red Blood Count 4.05, Mean Corpuscular Volume 96.9 H, Mean Corpuscular Hemoglobin 30.9, Mean Corpuscular Hemoglobin Concent 31.9 L, Red Cell Distribution Width 12.6, Neutrophils (%) (Auto) 76.8 H, Lymphocytes (%) (Auto) 10.9 L, Monocytes (%) (Auto) 6.8 H, Eosinophils (%) (Auto) 1.6, Basophils (%) ( Auto) 0.4, Neutrophils # (Auto) 4.1, Lymphocytes # (Auto) 0.6 L, Monocytes # ( Auto) 0.4, Eosinophils # (Auto) 0.1, Basophils # (Auto) 0.0, Calcium Level 7.8 L Vital Signs Date Time Temp Pulse Resp B/P (MAP) Pulse Ox O2 Delivery O2 Flow Rate FiO2 07/29/17 12:00 98.5 79 20 117/58 (77) 90 Room Air 07/29/17 07:41 4.0 I&O- Last 24 Hours up to 6 AM 07/30/17 06:00 Intake Total 1060 ml Output Total 100 ml Balance 960 ml LAKISHA GUERRERO MD Jul 29, 2017 13:34
[2017-07-29] MEDS: ONDANSETRON 4MG/2ML VIAL (J2405) IV PRN ×3 (14:33→22:22)
[2017-07-29 17:00] LABS: ABG BASE EXCESS 2.5 (-2.0-2.0); ABG HCO3 34.8 MEQ/L (22.0-26.0); ABG STANDARD HCO3 26.2 MEQ/L (22.0-26.0); ABG TOTAL CO2 38.1 MEQ/L (23.0-31.0)
[2017-07-29 17:02] LABS: ABG PARTIAL PRESSURE CO2 106.8 mmHg (35.0-45.0); ABG PARTIAL PRESSURE O2 43.1 mmHg (75.0-100.0); ABG pH (ARTERIAL) 7.131 UNITS (7.350-7.450)
[2017-07-29 17:25] LABS: ABG BASE EXCESS 3.8 (-2.0-2.0); ABG HCO3 34.7 MEQ/L (22.0-26.0); ABG PARTIAL PRESSURE O2 57.8 mmHg (75.0-100.0); ABG STANDARD HCO3 27.6 MEQ/L (22.0-26.0); ABG TOTAL CO2 37.6 MEQ/L (23.0-31.0)
[2017-07-29 17:26] LABS: ABG pH (ARTERIAL) 7.189 UNITS (7.350-7.450)
[2017-07-29 17:27] LABS: ABG PARTIAL PRESSURE CO2 93.2 mmHg (35.0-45.0)
[2017-07-29 18:25] LABS: MEAN CORPUSCULAR HEMOGLOBIN 31.2 pg (27.0-33.0); MEAN CORPUSCULAR HGB CONC 32.6 g/dl (32.0-36.5); MEAN CORPUSCULAR VOLUME 95.8 fl (80.0-96.0); RED CELL DISTRIBUTION WIDTH 12.6 % (11.5-14.5); WHITE BLOOD COUNT 8.9 K/mm3 (4.0-10.0)
[2017-07-29 18:45] LABS: ANION GAP 8 MEQ/L (8-16); BLOOD UREA NITROGEN 14 MG/DL (7-18); CALCIUM LEVEL 7.3 MG/DL (8.8-10.2); CARBON DIOXIDE LEVEL 33 MEQ/L (21-32); CHLORIDE LEVEL 94 MEQ/L (98-107); CREATININE FOR GFR 0.89 MG/DL (0.55-1.02); GLOMERULAR FILTRATION RATE > 60.0 (>45); GLUCOSE, FASTING 211 MG/DL (80-110); POTASSIUM SERUM 3.7 MEQ/L (3.5-5.1); SODIUM LEVEL 135 MEQ/L (136-145)
[2017-07-29] MEDS: D5W IV SCH ×2 (19:56→21:02)
[2017-07-29] MEDS: TOBRAMYCIN SULF IV SCH (19:56)
[2017-07-29] MEDS: MULTIVITAMINS/MINERALS THERAP 1 TAB PO SCH (21:00)
[2017-07-29] MEDS: ITRACONAZOLE 100 MG CAP (SPORANOX) PO SCH (21:00)
[2017-07-29] MEDS: AZITHROMYCIN 250 MG TAB PO SCH (21:00)
[2017-07-29] MEDS: LEVEMIR (INSULIN DETEMIR) 1 UNITS/0.01ML SC SCH (21:00)
[2017-07-29] MEDS: PIPERACILLIN IV SCH (21:02)
[2017-07-29] MEDS: TAZOBACTAM SOD IV SCH (21:02)
[2017-07-29 21:10] LABS: ABG BASE EXCESS 8.1 (-2.0-2.0); ABG HCO3 38.5 MEQ/L (22.0-26.0); ABG PARTIAL PRESSURE O2 64.8 mmHg (75.0-100.0); ABG STANDARD HCO3 31.8 MEQ/L (22.0-26.0); ABG TOTAL CO2 41.2 MEQ/L (23.0-31.0); ABG pH (ARTERIAL) 7.251 UNITS (7.350-7.450)
[2017-07-29 21:12] LABS: ABG PARTIAL PRESSURE CO2 89.5 mmHg (35.0-45.0)
--- NOTE | 2017-07-29 21:32 | CCN ---
DATE: 07/29/2017 CRITICAL CARE NOTE: I was called to the intensive care unit to evaluate this 62-year-old female with acute respiratory failure. She has a complex past pulmonary history , has immunoglobulin deficiency, and has had a history of recurring bronchopulmonary infections resulting in bronchiectasis and severe lung scarring. She is oxygen dependent at baseline. Admitted on 07/28 after a fall. She was having low back pain and was found to have a lumbar fracture. She received narcotic analgesics for her pain, was found to be of depressed level of consciousness, and an arterial blood gas was found quite abnormal. She has been transferred now to the intensive care unit. OBJECTIVE: VITAL SIGNS: Her temperature is 97.8, pulse rate 80, respirations 28, blood pressure 117/58. HEENT: Oral mucosa is pink. Her pupils are large and react to light. NECK: Neck is supple without meningismus. CARDIAC: Heart sounds are regular without appreciable murmur. LUNGS: Breath sounds, crepitant rales throughout. Air exchange is appreciated in all lobes. There are no rhonchi. The chest is symmetric. Moves minimally with respiratory effort. ABDOMEN: Soft with intact bowel sounds. Extremities: Show no significant edema. LABORATORY DATA: Diagnostic studies reviewed. Her chest x-ray shows diffuse fibrosis. White cell count is 8.9, hemoglobin 12.8, hematocrit 39.9, platelet count 169,000. Sodium 135, potassium 3.7, chloride 94, CO2 33, BUN 14, creatinine 0.89, glucose 211. Arterial blood gas showed a pH 7.13, pCO2 106, pO2 43. ASSESSMENT: 1. The primary problem requiring critical attention is acute hypoxic and hypercarbic respiratory failure. Will initiate noninvasive ventilation, recheck an arterial blood gas. If her hypercarbia persists or worsens, she may require intubation, and formal mechanical ventilatory support. 2. Lumbar pain. We will need to avoid narcotics due to respiratory suppression. She has been given nonsteroidal; perhaps a topical nonsteroidal would be helpful. 3. Infectious disease consultation has been obtained and multiple antibiotics are infusing. Sputum cultures are pending. 4. Deep venous thrombosis (DVT) prophylaxis will be necessary as she is now bed-bound. Will initiate subcutaneous heparin. 5. The patient is receiving ulcer prophylaxis. I have updated the family at bedside and will initiate aggressive supportive measures. One hour and 27 minutes were spent in provision of bedside critical care and coordination exclusive of any procedure time. [facility]
[2017-07-29] MEDS: HEPARIN SOD (PORCINE) 5000 UNITS/ML VIAL SQ SCH (22:33)
[2017-07-29] MEDS: FERROUS SULFATE 325MG TAB PO SCH (23:00)
[2017-07-30] VITALS (9 sets, daily range): BP systolic 90–139; BP diastolic 52–63; O2SAT 91–92
[2017-07-30] MEDS: ALBUTEROL SULFATE 2.5 MG/0.5 ML INH NEB SOLN INH SCH ×7 (00:19→23:20)
[2017-07-30] MEDS: MONTELUKAST 10 MG TAB PO SCH ×2 (00:34→20:05)
[2017-07-30] MEDS: BACTRIM 160MG/800MG DS TAB PO SCH ×4 (00:34→20:06)
[2017-07-30] MEDS: levETIRAcetam 250MG TABLET (KEPPRA) PO SCH ×4 (00:35→20:09)
[2017-07-30] MEDS: ONDANSETRON 4MG/2ML VIAL (J2405) IV PRN ×2 (02:50→07:49)
[2017-07-30 05:04] LABS: BASO % 0.4 % (0.0-1.0); EOS % 0.3 % (0.0-3.0); LARGE UNSTAINED CELL # 0.1 K/mm3 (0.0-0.4); LARGE UNSTAINED CELL % 1.4 % (0.0-4.0); LYMPH # 0.8 K/mm3 (1.5-4.5); LYMPH % 10.1 % (24.0-44.0); MEAN CORPUSCULAR HEMOGLOBIN 31.5 pg (27.0-33.0); MEAN CORPUSCULAR HGB CONC 33.3 g/dl (32.0-36.5); MEAN CORPUSCULAR VOLUME 94.5 fl (80.0-96.0); MONO # 0.3 K/mm3 (0.0-0.8); NEUTROPHILS # 6.7 K/mm3 (1.8-7.7); NEUTROPHILS % 83.8 % (36.0-66.0); PLATELET COUNT, AUTOMATED 196 k/mm3 (150-450); RED CELL DISTRIBUTION WIDTH 12.4 % (11.5-14.5)
[2017-07-30 05:13] LABS: ANION GAP 5 MEQ/L (8-16); BLOOD UREA NITROGEN 19 MG/DL (7-18); CALCIUM LEVEL 7.8 MG/DL (8.8-10.2); CARBON DIOXIDE LEVEL 37 MEQ/L (21-32); CHLORIDE LEVEL 94 MEQ/L (98-107); CREATININE FOR GFR 0.97 MG/DL (0.55-1.02); GLOMERULAR FILTRATION RATE > 60.0 (>45); GLUCOSE, FASTING 152 MG/DL (80-110); POTASSIUM SERUM 4.1 MEQ/L (3.5-5.1); SODIUM LEVEL 136 MEQ/L (136-145)
[2017-07-30] MEDS: HEPARIN SOD (PORCINE) 5000 UNITS/ML VIAL SQ SCH ×3 (06:15→21:42)
[2017-07-30 06:20] LABS: ABG BASE EXCESS 8.3 (-2.0-2.0); ABG HCO3 38.9 MEQ/L (22.0-26.0); ABG PARTIAL PRESSURE O2 85.3 mmHg (75.0-100.0); ABG STANDARD HCO3 32.1 MEQ/L (22.0-26.0); ABG TOTAL CO2 41.7 MEQ/L (23.0-31.0)
[2017-07-30 06:27] LABS: ABG pH (ARTERIAL) 7.243 UNITS (7.350-7.450)
[2017-07-30 06:28] LABS: ABG PARTIAL PRESSURE CO2 92.2 mmHg (35.0-45.0)
[2017-07-30] MEDS ORDERED: GLUCAGON FOR INJ 1 MG VIAL (J1610) SC PRN ×2 (08:30→16:45)
[2017-07-30] MEDS ORDERED: GLUCOSE 4 GM CHEW TABLET PO PRN ×2 (08:30→16:45)
[2017-07-30] MEDS: OMEPRAZOLE 20 MG CAP PO SCH ×2 (08:35→19:40)
[2017-07-30] MEDS: TOBRAMYCIN SULF IV SCH ×3 (08:35→20:05)
[2017-07-30] MEDS: D5W IV SCH ×4 (08:35→21:42)
[2017-07-30] MEDS: ISOSORBIDE MON. (IMDUR) 60 MG XR TAB PO SCH ×2 (08:36→09:00)
[2017-07-30] MEDS: NAPROXEN 250 MG TAB PO SCH ×2 (09:00→20:07)
[2017-07-30] MEDS: DOCUSATE SODIUM 100 MG CAP PO SCH (09:00)
[2017-07-30] MEDS: BISACODYL 5 MG TAB PO SCH (09:00)
[2017-07-30] MEDS: MAGNESIUM CHLORIDE 64 MG TABCR (SLO MAG) PO SCH ×2 (09:00→19:40)
[2017-07-30] MEDS: FUROSEMIDE 40 MG TAB PO SCH (09:00)
[2017-07-30] MEDS: VERAPAMIL 120 MG SR TAB PO SCH (09:00)
[2017-07-30] MEDS ORDERED: BISACODYL 10 MG SUPP PR ONE (10:00)
[2017-07-30] MEDS: SPIRONOLACTONE 25 MG TAB PO SCH (10:06)
[2017-07-30] MEDS: PROMETHAZINE INJ 25 MG/ML VIAL (J2550) IV PRN (10:13)
[2017-07-30] MEDS: FUROSEMIDE 40 MG/4 ML VIAL (J1940) IV SCH ×2 (11:08→17:02)
[2017-07-30 11:26] LABS: ABG BASE EXCESS 9.4 (-2.0-2.0); ABG HCO3 38.4 MEQ/L (22.0-26.0); ABG PARTIAL PRESSURE O2 131.7 mmHg (75.0-100.0); ABG STANDARD HCO3 33.2 MEQ/L (22.0-26.0); ABG TOTAL CO2 40.8 MEQ/L (23.0-31.0)
[2017-07-30 11:31] LABS: ABG PARTIAL PRESSURE CO2 78.1 mmHg (35.0-45.0)
[2017-07-30] MEDS ORDERED: HumaLOG INSULIN (NovoLOG) PER UNIT SC SCH ×2 (12:00→21:00)
[2017-07-30] MEDS ORDERED: ISOVUE-370 76% 100ML VIAL (Q9967) As Ordered ONE (12:02)
--- NOTE | 2017-07-30 13:20 | REP ---
CHEST, SINGLE VIEW: Single AP view of the chest is performed and compared to prior study of 07/28/2017. Diffuse interstitial fibrosis is again noted. Confluent parenchymal opacities in the lung bases are essentially unchanged with possibly some slight worsening laterally in the left lung base. Cardiomediastinal silhouette is unchanged. IMPRESSION: Essentially stable exam. Signed by Tejas Kate MD 07/30/2017 07:04 P
--- NOTE | 2017-07-30 13:22 | REP ---
KUB ABDOMEN: Portable KUB film of abdomen and pelvis demonstrates moderate air filled distention in the colon diffusely. No dilated small bowel loops are seen. Scattered metallic clips are seen in the abdomen and pelvis. There are mild degenerative changes of the spine. Signed by Tejas Kate MD 07/30/2017 07:15 P
--- NOTE | 2017-07-30 13:22 | REP ---
PORTABLE CHEST: AP portable view of the chest is performed and compared to prior study of 07/29/2017. Patchy parenchymal opacities bilaterally are stable. The cardiomediastinal silhouette is unchanged. IMPRESSION: Stable exam. Signed by Tejas Kate MD 07/30/2017 07:14 P
--- NOTE | 2017-07-30 13:23 | CCN ---
DATE: 07/30/2017 CRITICAL CARE NOTE The patient is seen in the intensive care unit on noninvasive ventilation. This is hospital day #2. She has been on-off the pressure therapy through the night due to nausea and vomiting. When she is not using pressure therapy, her oxygen saturations precipitously fall. At bedside, she is responsive but somnolent. Her temperature is 97.8, pulse rate is 84, respirations 16, blood pressure 108/52. Intake and output for the past 24 hours: 2168 in and 675 out; since midnight 62 and 105 out. She is ill appearing. Her oral mucosa somewhat dry. There is no stridor over the trachea. No adenopathy in the neck. Jugular veins are somewhat distended. Carotid upstroke sluggish. Heart: Sounds regular without appreciable murmur. Breath sounds are diminished globally with crepitance in the bases, left slightly greater than right. chest is symmetric. There is some accessory muscle use, less so with pressure therapy. Abdomen is soft. There are some bowel sounds. Extremities: Show changes of chronic edema. Pulses are diminished but palpable. DIAGNOSTIC STUDIES: Sodium is 136, potassium 4.1, chloride 94, CO2 37, BUN 19, creatinine 0.97, glucose 152. Her calcium is 7.8. Beta natriuretic peptide 2091. White cell count is 8, hemoglobin 12.7, hematocrit 38.2, platelet count 196,000. Differential: White cell count shows 83.8% neutrophils. Arterial blood gases this morning show a pH of 7.24, pCO2 92, pO2 85, this despite noninvasive ventilatory support. Her urine culture shows Pseudomonas. Sputum showed no bacteria and few white cells. Blood cultures are negatives times two. Her chest x-ray shows some interstitial prominence today, more so than yesterday. Formal report is pending. MEDICATIONS REVIEW: The patient is on tobramycin, Zosyn, azithromycin, Sporanox and Septra. She is receiving nebulized albuterol and just prior to my visiting her, received Phenergan for persistence of nausea and vomiting. The primary problem requiring critical attention is acute hypoxic and hypercarbic respiratory failure. The patient has responded to noninvasive positive pressure ventilation, but suboptimally we will adjust the settings and recheck arterial blood gases. Pulmonary edema. I suspect a component of her poor lung compliance is related to interstitial edema, and I have discussed diuretic therapy with the hospitalist. Nausea and vomiting. The patient has had extensive gastrointestinal (GI) surgery according to her . She has just received Phenergan and having discussed this with the hospitalist service, imaging in the abdomen may be necessary. From an infectious disease standpoint, an infectious disease (ID) consult has been placed and multiple antibiotics are infusing. Deep vein thrombosis (DVT) and ulcer prophylaxis are in place. The patient's condition is critical. Pending repeat blood gas sampling, intubation mechanical ventilation may be necessary. Her prognosis is guarded to poor. 1 hour and 15 minutes was spent in the provision of bedside critical care and coordination in exclusion of any time spent doing procedures. STACEY
--- NOTE | 2017-07-30 13:29 | IPNPDOC ---
Text Note Date of Service The patient was seen on 07/30/17. NOTE Subjective: The patient became increasingly lethargic, short of breath, with a productive cough yesterday. She was found to have hypercapnic respiratory failure and was placed on BiPAP. The patient was also transferred to the ICU and Dr. López was consulted for management of her BiPAP. Have also spoken to Dr. Price yesterday with recommendations to restart her antibiotics. This morning, the patient's hypercapnia slightly improving. She is complaining of persistent nausea and vomiting. No abdominal pain. PHYSICAL EXAMINATION: Vitals: (see below) General: No acute distress, laying comfortably in bed. HEENT: Moist mucous membranes. Neck: No JVD or lymphadenopathy Cardiac: RRR, No murmurs Pulm: Coarse crackles bilaterally.. Mild exp wheezing. Abd: NT/ND + BS Ext: No edema or cyanosis. Strength 5/5 BLE. DTR 2+ b/l. Babinski negative. LABORATORY DATA: See below. IMAGING: CT Chest 07/28/17 Impression: Chronic bronchiectasis that has significantly progressed. Focal new parenchymal density in the left lower lobe and new small left pleural effusion, not present on the comparison CT. Tree-in-bud pattern in the lingula, left lower lobe and right lower lobe compatible with pneumonitis. Surgical staple lines in the left upper lobe left lower lobe, unchanged from the prior CT. T6 vertebroplasty, unchanged. Comparison is the CT on 12/10/08. MRI Lumbar Spine 07/28/17 Impression: Acute mild wedge compression fracture deformity at the L1 vertebral body with 25-30% loss of vertebral body height and 4 mm of retropulsion from buckling of the posterior cortex. There has been loss of vertebral body height and buckling since the July 26, 2017 CT. In addition, there are degenerative spondylosis changes. There is no evidence of epidural hematoma. MICROBIOLOGY: Please see below. ASSESSMENT/PLAN: 1. Acute hypercapnic respiratory failure requiring BiPAP - transfer to ICU. Progressive bronchiectasis obliterans being evaluated for Lung transplant. H/o multiple lung infections on Azithro outpt. Prior intubation with an extensive ICU stay. Follows with Dr. Price in [place]. We will avoid narcotics, as the patient's respiratory status is very labile, and she frequently becomes hypercapnic. Her normal BiPAP settings are 20/6. Dr. Reis has been consulted for management of her BiPAP. 2. Possible pneumonia vs pneumonitis- given acute decline in the patient's respiratory status, the patient as well as restarted, as initially recommended by Dr. Price given absence of symptoms, 3. Acute Mild Wedge Compression Fx. Strength/sensation preserved. DTR 2+. No alarming symptoms. Pain control with Tylenol and NSAIDs. Lidocaine patch. PT. Spoke with Dr. Chandra with recommendations for a TLSO brace for 3 months, and he will follow up with the patient in 2 weeks in the office. 4. Diabetes mellitus- continue current insulin. Sliding scale insulin. 5. Hypertension- controlled continue current meds 6. Chronic aspergillosis 7. History of IgG immunodeficiency subclass 4- patient states she had tried infusions of immunoglobulins and did not tolerate them very well 8. History of iron deficiency anemia 9. History of seizure disorder on Keppra 10. History of zoster 11. Persistent nausea and vomiting. Patient likely has ileus versus small bowel obstruction. Abdominal x-ray distended colon. We'll send patient for CAT scan of abdomen pelvis. Will likely need NG tube. 12. Pulmonary congestion- BNP elevated. Chest x-ray with pulmonary congestion. Patient was unable to take her by mouth Lasix. We'll change diuretics to IV Lasix. Due to prophylaxis- Lovenox Prognosis guarded The patient is a high risk for intubation. VS,Fishbone, I+O VS, Fishbone, I+O Laboratory Tests 07/29/17 18:11 Red Blood Count 4.09, Mean Corpuscular Volume 95.8, Mean Corpuscular Hemoglobin 31.2, Mean Corpuscular Hemoglobin Concent 32.6, Red Cell Distribution Width 12.6 , Calcium Level 7.3 L 07/30/17 04:20 Red Blood Count 4.04, Mean Corpuscular Volume 94.5, Mean Corpuscular Hemoglobin 31.5, Mean Corpuscular Hemoglobin Concent 33.3, Red Cell Distribution Width 12.4 , Calcium Level 7.8 L, Neutrophils (%) (Auto) 83.8 H, Lymphocytes (%) (Auto) 10.1 L, Monocytes (%) (Auto) 4.0, Eosinophils (%) (Auto) 0.3, Basophils (%) ( Auto) 0.4, Neutrophils # (Auto) 6.7, Lymphocytes # (Auto) 0.8 L, Monocytes # ( Auto) 0.3, Eosinophils # (Auto) 0.0, Basophils # (Auto) 0.0 Vital Signs Date Time Temp Pulse Resp B/P (MAP) Pulse Ox O2 Delivery O2 Flow Rate FiO2 07/30/17 12:00 96 26 135/60 (85) 96 NIPPV (BIPAP/CPAP) 40 07/30/17 08:00 97.0 07/29/17 16:00 4.0 I&O- Last 24 Hours up to 6 AM 07/31/17 06:00 Intake Total 0 ml Output Total 230 ml Balance -230 ml LAKISHA GUERRERO MD Jul 30, 2017 13:29
--- NOTE | 2017-07-30 14:37 | REP ---
CT ABDOMEN AND PELVIS WITH IV CONTRAST: TECHNIQUE: Axial contrast enhanced images from the lung bases to the pubic symphysis using 100 mL Isovue 370 intravenous contrast material with multiplanar reformations. Small effusions are seen in the visualized lung bases with adjacent bibasilar atelectasis/infiltrate. The liver is unremarkable. The patient has had a prior cholecystectomy. There is no biliary dilatation. Chronic lateral capsular calcifications are seen in the spleen. Bilateral adrenal gland thickening is stable. Pancreas is unremarkable. There is a small cyst seen in the upper pole of the right kidney. There is no hydronephrosis. There is moderate atherosclerotic calcification of the abdominal aorta without aneurysm. I do not see significant adenopathy in the abdomen or pelvis. There is no free air or free fluid. No bowel wall thickening is seen. There is moderate air distention of the colon. No small bowel obstruction is seen. There is no mesenteric edema. The urinary bladder is moderately distended. I see no pelvic mass. IMPRESSION: Bibasilar infiltrates and effusions. Colonic distention of a moderate degree. There is also moderate distention of the urinary bladder. There is no evidence of small bowel obstruction. There is no free air or free fluid. No adenopathy. Signed by Tejas Kate MD 07/30/2017 07:18 P
[2017-07-30] MEDS ORDERED: DEXTROSE 50% 50 ML SYRINGE IV PRN (16:45)
--- NOTE | 2017-07-30 17:35 | ECGEPIP ---
Stationary ECG Study [facility] Test Date: 2017-07-29 Pat Name: ANA CALZADA Department: Room: [place] [address] Gender: F Black Top Raker: : [id number] Requested By: LAKISHA GUERRERO Order Number: [id number] Reading MD: Chuckie Sanderson Measurements Intervals [place] Rate: 83 P: 34 MS: 195 QRS: 53 QRSD: 79 T: 55 QT: 363 QTc: 427 Interpretive Statements Normal sinus rhythm Delayed anterior R wave progression Compared to prior tracing of 11/27/2015, T wave inversion in lead V2 is new Electronically Signed On 07-30-2017 17:34:55 EDT by Chuckie Sanderson
[2017-07-30] MEDS: HumaLOG INSULIN (NovoLOG) PER UNIT SC SCH ×2 (17:54→23:50)
[2017-07-30] MEDS: MULTIVITAMINS/MINERALS THERAP 1 TAB PO SCH (19:41)
[2017-07-30] MEDS: DOCUSATE SOD LIQ 100MG/10ML UDC PO SCH (20:05)
[2017-07-30] MEDS: ITRACONAZOLE 100 MG CAP (SPORANOX) PO SCH (20:06)
[2017-07-30] MEDS: AZITHROMYCIN 250 MG TAB PO SCH (20:06)
[2017-07-30] MEDS: LEVEMIR (INSULIN DETEMIR) 1 UNITS/0.01ML SC SCH (20:07)
[2017-07-30] MEDS: PIPERACILLIN IV SCH (21:42)
[2017-07-30] MEDS: TAZOBACTAM SOD IV SCH (21:42)
[2017-07-30] MEDS: FERROUS SULFATE 325MG TAB PO SCH (21:56)
[2017-07-31] VITALS: BP 119/56
[2017-07-31] MEDS: DEXTROSE 50% 50 ML SYRINGE IV PRN ×3 (00:58→12:46)
[2017-07-31] MEDS: ALBUTEROL SULFATE 2.5 MG/0.5 ML INH NEB SOLN INH SCH ×6 (03:36→23:28)
[2017-07-31 04:00] VITALS: BP 106/51
[2017-07-31 04:49] LABS: BASO # 0.1 K/mm3 (0.0-0.2); BASO % 0.6 % (0.0-1.0); EOS # 0.1 K/mm3 (0.0-0.50); EOS % 0.5 % (0.0-3.0); LARGE UNSTAINED CELL # 0.2 K/mm3 (0.0-0.4); LARGE UNSTAINED CELL % 1.8 % (0.0-4.0); LYMPH # 1.4 K/mm3 (1.5-4.5); LYMPH % 11.6 % (24.0-44.0); MEAN CORPUSCULAR HEMOGLOBIN 31.5 pg (27.0-33.0); MEAN CORPUSCULAR HGB CONC 33.4 g/dl (32.0-36.5); MEAN CORPUSCULAR VOLUME 94.3 fl (80.0-96.0); MONO # 0.7 K/mm3 (0.0-0.8); MONO % 5.9 % (0.0-5.0); NEUTROPHILS # 9.3 K/mm3 (1.8-7.7); NEUTROPHILS % 79.6 % (36.0-66.0); PLATELET COUNT, AUTOMATED 256 k/mm3 (150-450); RED CELL DISTRIBUTION WIDTH 12.8 % (11.5-14.5); WHITE BLOOD COUNT 11.6 K/mm3 (4.0-10.0)
[2017-07-31 04:55] LABS: ANION GAP 4 MEQ/L (8-16); BLOOD UREA NITROGEN 20 MG/DL (7-18); CARBON DIOXIDE LEVEL 43 MEQ/L (21-32); CHLORIDE LEVEL 92 MEQ/L (98-107); CREATININE FOR GFR 0.87 MG/DL (0.55-1.02); GLOMERULAR FILTRATION RATE > 60.0 (>45); POTASSIUM SERUM 3.2 MEQ/L (3.5-5.1); SODIUM LEVEL 139 MEQ/L (136-145)
[2017-07-31 05:11] LABS: GLUCOSE, FASTING 35 MG/DL (80-110)
[2017-07-31] MEDS: HumaLOG INSULIN (NovoLOG) PER UNIT SC SCH ×3 (05:16→17:41)
[2017-07-31] MEDS ORDERED: KCL 40MEQ IN D5/NS 1000ML 1,000 ML IV SCH (05:30)
[2017-07-31] MEDS: HEPARIN SOD (PORCINE) 5000 UNITS/ML VIAL SQ SCH ×3 (05:38→22:06)
--- NOTE | 2017-07-31 05:43 | ECHO ---
DATE OF PROCEDURE: 07/30/2017 AGE: 62 GENDER: Female REFERRING PHYSICIAN: Dr. Adelfo Schumacher. HEIGHT: 60 inches. WEIGHT: 116 pounds. BODY SURFACE AREA: 1.48 sq m. INPATIENT: Intensive care unit (ICU) Room 3202. INDICATION: Edema. Elevated BNP level. MEASUREMENTS: 2D MEASUREMENTS: RV - 4.1 cm LV- 4.1 cm Septum - 1.1 cm Posterior wall - 1.1 cm Aortic root - 2.8 cm LA - 3.6 cm LVEF - 65% DOPPLER MEASUREMENTS: AV - 1.7 m/s LVOT - 1.2 m/s LVOT diameter - 1.9 cm MV-E: 70 A: 88 EA ratio 0.8 Early mitral deacceleration time - 285 ms E-prime - 8.7 A-prime - 13 E/E prime ratio 8 Estimated pulmonary arterial wedge pressure - 15 mmHg PV - 0.8 m/s Pulmonary artery acceleration time - 62 ms PASP - 55 mmHg IVC - 1.7 cm COMMENTS: Normal sinus rhythm without intraventricular conduction disturbance. Left atrial size upper limits of normal. Normal left ventricular size. Right heart chambers were upper limits of normal to borderline increased in size. Pulmonary trunk appeared to be slightly dilated. Normal left ventricular wall thickness. On real-time imaging from the parasternal and apical projections, the proximal portion of this interventricular septum appeared to be flattened suggestive of degree of RV pressure overload. Other left ventricular wall segments move normally or were hyperkinetic. Normal-appearing mitral valvular apparatus and leaflet excursion with no posterior systolic buckling. Three equal size aortic cusps with marginally thickened cusp edges but adequate cusp separation. Normal aortic root size. No apparent intracardiac mass with minuscule posterior echo-free space - question physiologic pericardial. Color flow Doppler study taken from the parasternal and apical projection showed very mild tricuspid but no mitral or aortic insufficiency. There was also a very mild degree of pulmonic insufficiency. Guided continuous wave Doppler of her aortic valve showed a normal peak systolic velocity against LV outflow tract obstruction. Pulsed and continuous wave Doppler of her LV inflow tract taken from the apical four-chamber projection showed normal diastolic filling velocities against mitral stenosis. There was some more prominent late diastolic/atrial dependent filling pattern. A degree of LV diastolic dysfunction was further confirmed by a prolonged early mitral deceleration time and tissue Doppler of her mitral annulus. However, her current estimated mean left atrial pressure was upper limits of normal. Pulsed and continuous wave Doppler of her pulmonary trunk showed a normal peak systolic velocity against RV outflow tract obstruction. However, her early mitral deceleration time was significantly abbreviated consistent with an elevated pulmonary vascular resistance. We attempted to further estimate her right ventricular systolic pressure using guided continuous wave Doppler of her tricuspid valve but could not get a clear spectral envelope. Her inferior vena cava at this time was normal in size with normal respiratory collapse against an elevated central venous pressure. CONCLUSIONS: 1. Normal left ventricular size and wall thickness with localized proximal septal wall motion abnormality - question RV pressure overload, yet preserved global resting left ventricular systolic function. 2. Left atrial size upper limits of normal with Doppler evidence of impairment of LV diastolic function but current estimated mean left atrial pressure upper limits of normal. 3. Borderline right heart chamber enlargement with mildly dilated pulmonary trunk and Doppler sign of at least moderate pulmonary hypertension. 4. Current IVC size was normal with normal respiratory collapse against an elevated central venous pressure. 5. Mild aortic valvular sclerosis without functional valvular abnormality. cc: Amanda Barnard MD
[2017-07-31 06:03] LABS: ABG BASE EXCESS 12.7 (-2.0-2.0); ABG HCO3 41.6 MEQ/L (22.0-26.0); ABG PARTIAL PRESSURE O2 106.8 mmHg (75.0-100.0); ABG STANDARD HCO3 36.4 MEQ/L (22.0-26.0); ABG TOTAL CO2 44.2 MEQ/L (23.0-31.0); ABG pH (ARTERIAL) 7.318 UNITS (7.350-7.450)
[2017-07-31 08:00] VITALS: BP 117/58
[2017-07-31] MEDS: MAGNESIUM CHLORIDE 64 MG TABCR (SLO MAG) PO SCH ×4 (09:00→20:25)
[2017-07-31] MEDS ORDERED: INFLUENZA QUADRIVALENT PF VACCINE 0.5ML SYRINGE (90686) IM ONE (09:00)
--- NOTE | 2017-07-31 09:24 | REP ---
Portable chest, 07/31/2017, 07:13 a.m., single AP view the patient semi upright: Comparison 07/30/2017. The patient is rotated. There are bilateral infiltrates, not significantly change taking into consideration patient position. Cardiac size is normal. There has been interval placement of a nasogastric tube terminating satisfactorily in the upper abdomen. Signed by Tejas Zendejas MD 07/31/2017 09:16 A
[2017-07-31] MEDS: FUROSEMIDE 40 MG/4 ML VIAL (J1940) IV SCH (09:29)
[2017-07-31] MEDS: TOBRAMYCIN SULF IV SCH (09:29)
[2017-07-31] MEDS: OMEPRAZOLE 20 MG CAP PO SCH (09:29)
[2017-07-31] MEDS: DOCUSATE SOD LIQ 100MG/10ML UDC PO SCH ×2 (09:29→20:06)
[2017-07-31] MEDS: D5W IV SCH ×2 (09:29→20:06)
[2017-07-31] MEDS: BACTRIM 160MG/800MG DS TAB PO SCH (09:30)
[2017-07-31] MEDS: BISACODYL 5 MG TAB PO SCH (09:30)
[2017-07-31] MEDS: NAPROXEN 250 MG TAB PO SCH ×2 (09:30→20:05)
[2017-07-31] MEDS: levETIRAcetam 250MG TABLET (KEPPRA) PO SCH ×2 (09:30→20:05)
[2017-07-31] MEDS: ONDANSETRON 4MG/2ML VIAL (J2405) IV PRN (11:07)
[2017-07-31] MEDS: PANTOPRAZOLE 40MG INJ (PROTONIX) (C9113) IV SCH (11:07)
[2017-07-31 12:03] VITALS: BP 126/58
[2017-07-31] MEDS ORDERED: GASTROGRAFIN SOLUTION 30ML PO ONE (12:30)
[2017-07-31] MEDS ORDERED: GASTROGRAFIN SOLUTION 30ML (Q9963) PO ONE (13:00)
--- NOTE | 2017-07-31 15:13 | IPNPDOC ---
Text Note Date of Service The patient was seen on 07/31/17. NOTE Subjective: Pt had episodes of hypoglycemia this am. Had received levemir last night. On D5NS now. Resp status slightly improved. No N/V. This morning, the patient's hypercapnia slightly improving. She is complaining of persistent nausea and vomiting. No abdominal pain. PHYSICAL EXAMINATION: Vitals: (see below) General: No acute distress, laying comfortably in bed. HEENT: Moist mucous membranes. Neck: No JVD or lymphadenopathy Cardiac: RRR, No murmurs Pulm: Coarse crackles bilaterally.. Mild exp wheezing. On BIPAP Abd: NT/ND + BS Ext: No edema or cyanosis. Strength 5/5 BLE. DTR 2+ b/l. Babinski negative. LABORATORY DATA: See below. IMAGING: CT Chest 07/28/17 Impression: Chronic bronchiectasis that has significantly progressed. Focal new parenchymal density in the left lower lobe and new small left pleural effusion, not present on the comparison CT. Tree-in-bud pattern in the lingula, left lower lobe and right lower lobe compatible with pneumonitis. Surgical staple lines in the left upper lobe left lower lobe, unchanged from the prior CT. T6 vertebroplasty, unchanged. Comparison is the CT on 12/10/08. MRI Lumbar Spine 07/28/17 Impression: Acute mild wedge compression fracture deformity at the L1 vertebral body with 25-30% loss of vertebral body height and 4 mm of retropulsion from buckling of the posterior cortex. There has been loss of vertebral body height and buckling since the July 26, 2017 CT. In addition, there are degenerative spondylosis changes. There is no evidence of epidural hematoma. MICROBIOLOGY: Please see below. ASSESSMENT/PLAN: 1. Acute hypercapnic respiratory failure requiring BiPAP - transfer to ICU. Progressive bronchiectasis obliterans being evaluated for Lung transplant. H/o multiple lung infections on Azithro outpt. Prior intubation with an extensive ICU stay. Follows with Dr. Price in [place]. We will avoid narcotics, as the patient's respiratory status is very labile, and she frequently becomes hypercapnic. Her normal BiPAP settings are 20/6. Dr. Reis has been consulted for management of her BiPAP. 2. PNA- given acute decline in the patient's respiratory status, the patient as well as restarted, as initially recommended by Dr. Price given absence of symptoms, consulted for Abx management. 3. Acute Mild Wedge Compression Fx. Strength/sensation preserved. DTR 2+. No alarming symptoms. Pain control with Tylenol and NSAIDs. Lidocaine patch. PT. Spoke with Dr. Chandra with recommendations for a TLSO brace for 3 months, and he will follow up with the patient in 2 weeks in the office. 4. Diabetes mellitus- Hypoglycemia this am. D/c levemir. SSI. Change D5NS to D5W 100cc/hr. BS q2h. 5. Hypertension- controlled continue current meds 6. H/o Aspergillosis 7. History of IgG immunodeficiency subclass 4- patient states she had tried infusions of immunoglobulins and did not tolerate them very well 8. History of iron deficiency anemia 9. History of seizure disorder on Keppra 10. History of zoster 11. Persistent nausea and vomiting. Patient likely has ileus versus small bowel obstruction. Abdominal x-ray distended colon. We'll send patient for CAT scan of abdomen pelvis. Will likely need NG tube. 12. Pulmonary congestion- BNP elevated. Chest x-ray with pulmonary congestion. Patient was unable to take her by mouth Lasix. Cont IV Lasix. 13. Colonic distention - spoke with Dr. Sellers, who believes this is more from the distended bladder. A isaac was placed yesterday. N/V resolved. 14. Abn finding of CAT scan abdomen and pelvis. Discuss with Dr. Kate who believes that this has been there on prior CAT scans and does not represent an acute abnormality nor is an abscess. It is the duodenal bulb. Due to prophylaxis- Lovenox Prognosis guarded The patient is a high risk for intubation. VS,Fishbone, I+O VS, Fishbone, I+O Laboratory Tests 07/31/17 04:12 Red Blood Count 4.03, Mean Corpuscular Volume 94.3, Mean Corpuscular Hemoglobin 31.5, Mean Corpuscular Hemoglobin Concent 33.4, Red Cell Distribution Width 12.8 , Neutrophils (%) (Auto) 79.6 H, Lymphocytes (%) (Auto) 11.6 L, Monocytes (%) ( Auto) 5.9 H, Eosinophils (%) (Auto) 0.5, Basophils (%) (Auto) 0.6, Neutrophils # (Auto) 9.3 H, Lymphocytes # (Auto) 1.4 L, Monocytes # (Auto) 0.7, Eosinophils # (Auto) 0.1, Basophils # (Auto) 0.1, Calcium Level 8.0 L Vital Signs Date Time Temp Pulse Resp B/P (MAP) Pulse Ox O2 Delivery O2 Flow Rate FiO2 07/31/17 13:52 18 97 Nasal Cannula 4.0 07/31/17 13:00 40 07/31/17 12:03 98.0 88 126/58 (80) I&O- Last 24 Hours up to 6 AM 08/01/17 06:00 Intake Total 120 ml Output Total 575 ml Balance -455 ml LAKISHA GUERRERO MD Jul 31, 2017 15:13
[2017-07-31] MEDS ORDERED: FLEET ENEMA PR ONE (15:15)
[2017-07-31] MEDS: D5W 1,000 ML IV SCH (15:42)
[2017-07-31 15:44] VITALS: BP 142/66
[2017-07-31 15:45] LABS: BLOOD UREA NITROGEN 18 MG/DL (7-18); CALCIUM LEVEL 8.1 MG/DL (8.8-10.2); CHLORIDE LEVEL 93 MEQ/L (98-107); CREATININE FOR GFR 0.74 MG/DL (0.55-1.02); GLOMERULAR FILTRATION RATE > 60.0 (>45); GLUCOSE, FASTING 52 MG/DL (80-110); MAGNESIUM LEVEL 2.4 MG/DL (1.8-2.4); POTASSIUM SERUM 3.4 MEQ/L (3.5-5.1); SODIUM LEVEL 139 MEQ/L (136-145)
[2017-07-31 16:08] LABS: CARBON DIOXIDE LEVEL 47 MEQ/L (21-32)
--- NOTE | 2017-07-31 19:25 | IPN ---
DATE: 07/31/2017 Mrs. Olsen was transferred to the ICU over the weekend due to respiratory distress. She was on BiPap but now she is back to 4 liters nasal cannula. She also was having abdominal pain, nausea and vomiting and hypoglycemia. She had an NG tube placed for bowel obstruction. PHYSICAL EXAMINATION: On physical exam she is a pleasant frail looking female in no acute distress. Temperature is 98.5, pulse 78, respirations 18, blood pressure 142/66, O2 sat 95% on 4 liters nasal cannula. Heart: Normal S1-S2. No murmurs appreciated. Lungs: Exterior rhonchi bilaterally, coarse expiratory wheezes on 4 liters nasal cannula. Abdomen is soft, mildly tender. Bowel sounds normoactive. She has an NG tube with 600 mL of green bilious fluid in the canister from this morning over the past 8 hours. Extremities: No clubbing, cyanosis or edema. Oropharynx dry. IMAGING: CT chest showed chronic bronchiectasis with a new parenchymal density in the left lower lobe and left pleural effusion. CT done prior was in 2008. Chest x-ray done on 07/31/2017 which was portable, again bilateral infiltrate not significantly changed. NG tube in place. CT of the abdomen done on 07/30 showed colonic distension of moderate degree and distended urinary bladder. A Mckee catheter has been placed and she has good urine output. LABORATORY DATA: White count is 11.6, hemoglobin 12.7, hematocrit 38, platelets 256, 79% neutrophils, 11% lymphocytes, 6% monocytes. Sodium 139, potassium 3.4, chloride 93, bicarb 47, BUN 18, creatinine 0.7, glucose 52. this morning was 35, calcium 8.1, magnesium 2.4, CRP 2.5. Urine culture had Pseudomonas aeruginosa. Blood cultures two sets were no growth after 72 hours. Sputum was of good quality, a few white cells, no organisms or seen. IMPRESSION: 1. Acute hypercapnic respiratory failure that required BiPap now back to 4 liters nasal cannula. Her sputum was of good quality but no organisms are seen, culture is still pending. Continue IV Zosyn and tobramycin pending the results of culture. Discontinue by mouth Bactrim. There is no gram positive on the sputum. 2. Possible mild pneumonia on new CT findings on IV Zosyn and tobramycin, although her respiratory compromise could have been related to her abdominal distension causing respiratory distress as she is very frail and has very little reserve. 3. Fracture. The patient waiting for a brace to be able to get out of bed. 4. Urinary retention. The patient now has a Mckee catheter. Will need to discontinue his an as the patient is feeling better and out of bed. Urine has Pseudomonas and that should be covered with Zosyn and tobramycin at this point. Urinalysis had 14 white cells, +2 esterase. PLAN: Continue with IV Zosyn and tobramycin pending results of sputum culture, will de-escalate therapy based on clinical improvement. Discontinue Bactrim. 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 Does not seem to be the problem currently. Conservative management for bowel obstruction with NG tube.
[2017-07-31 20:00] VITALS: BP 106/50
[2017-07-31] MEDS: ITRACONAZOLE 100 MG CAP (SPORANOX) PO SCH (20:04)
[2017-07-31] MEDS: MULTIVITAMINS/MINERALS THERAP 1 TAB PO SCH ×2 (20:05→20:26)
[2017-07-31] MEDS: MONTELUKAST 10 MG TAB PO SCH (20:05)
[2017-07-31] MEDS: AZITHROMYCIN 250 MG TAB PO SCH (20:05)
[2017-07-31] MEDS: PIPERACILLIN IV SCH (20:06)
[2017-07-31] MEDS: TAZOBACTAM SOD IV SCH (20:06)
[2017-07-31] MEDS: FERROUS SULFATE 325MG TAB PO SCH (22:07)
[2017-08-01] VITALS (7 sets, daily range): BP systolic 90–140; BP diastolic 42–63
[2017-08-01] MEDS: D5W 1,000 ML IV SCH (01:00)
[2017-08-01] MEDS: ALBUTEROL SULFATE 2.5 MG/0.5 ML INH NEB SOLN INH SCH ×6 (03:26→23:13)
--- NOTE | 2017-08-01 04:14 | REP ---
Clinical: Nausea and vomiting. Comparison: 07/30/2017. Findings: Lung bases demonstrate chronic fibroatelectatic changes, scarring and bronchiectasis along with acute bibasilar atelectasis and small pleural effusions which may be slightly increased from prior examination. Liver, spleen, pancreas, bilateral adrenal glands and kidneys are relatively normal / stable for noncontrast evaluation. The enteric system including stomach, small bowel and colon appear relatively normal and without evidence for obstruction or acute inflammatory process. Pelvis demonstrates a Mckee catheter and gas in partially collapsed bladder along with evidence for prior hysterectomy. No ascites. No free air. No significant adenopathy or obvious focal mass lesion. Moderate atherosclerotic changes of the aorta and vasculature without aneurysm. Musculoskeletal structures demonstrate age-related changes without focal osseous abnormality. Impression: 1. Chronic pleuroparenchymal changes with small bilateral superimposed acute atelectasis and pleural effusions minimally increased from prior examination. 2. No acute abdominopelvic pathology appreciated. Signed by Rafael Chapa MD 08/01/2017 04:05 A
[2017-08-01 05:14] LABS: BASO % 0.4 % (0.0-1.0); EOS # 0.1 10^3/uL (0.0-0.50); EOS % 0.8 % (0.0-3.0); IMMATURE GRANULOCYTE % 0.8 % (0-0); LYMPH % 14.2 % (24.0-44.0); MEAN CORPUSCULAR HGB CONC 33.8 g/dl (32.0-36.5); MEAN CORPUSCULAR VOLUME 97.9 fl (80.0-96.0); MONO # 0.7 10^3/uL (0.0-0.8); MONO % 9.6 % (0.0-5.0); NEUTROPHILS # 5.3 10^3/uL (1.8-7.7); NEUTROPHILS % 74.2 % (36.0-66.0); PLATELET COUNT, AUTOMATED 168 10^3/uL (150-450); RED CELL DISTRIBUTION WIDTH 13.3 % (11.5-14.5); WHITE BLOOD COUNT 7.2 10^3/uL (4.0-10.0)
[2017-08-01 05:38] LABS: ANION GAP 4 MEQ/L (8-16); BLOOD UREA NITROGEN 18 MG/DL (7-18); CALCIUM LEVEL 7.8 MG/DL (8.8-10.2); CARBON DIOXIDE LEVEL 40 MEQ/L (21-32); CHLORIDE LEVEL 88 MEQ/L (98-107); CREATININE FOR GFR 0.73 MG/DL (0.55-1.02); GLOMERULAR FILTRATION RATE > 60.0 (>45); GLUCOSE, FASTING 99 MG/DL (80-110); POTASSIUM SERUM 2.9 MEQ/L (3.5-5.1); SODIUM LEVEL 132 MEQ/L (136-145)
[2017-08-01] MEDS: HEPARIN SOD (PORCINE) 5000 UNITS/ML VIAL SQ SCH ×3 (05:45→21:51)
[2017-08-01] MEDS: HumaLOG INSULIN (NovoLOG) PER UNIT SC SCH ×4 (05:46→17:48)
[2017-08-01] MEDS ORDERED: POTASSIUM CHLORIDE 10% LIQ 20 MEQ/15 ML UDC NG ONE ×2 (06:00→13:00)
[2017-08-01 06:09] LABS: ABG HCO3 43.7 MEQ/L (22.0-26.0); ABG PARTIAL PRESSURE O2 117.9 mmHg (75.0-100.0); ABG STANDARD HCO3 40.9 MEQ/L (22.0-26.0); ABG TOTAL CO2 45.7 MEQ/L (23.0-31.0); ABG pH (ARTERIAL) 7.444 UNITS (7.350-7.450)
[2017-08-01 06:10] LABS: ABG PARTIAL PRESSURE CO2 65.2 mmHg (35.0-45.0)
--- NOTE | 2017-08-01 08:36 | REP ---
Portable chest, 08/01/2017, 07:23 a.m., single AP view, patient sitting: Comparison is 07/31/2017. There are diffuse bilateral infiltrates, unchanged. Cardiac size is normal. The nasogastric tube tip remains in satisfactory location in the upper abdomen. Kyphoplasty of a thoracic vertebral body is again identified, unchanged. Impression: There is no significant interval change. Signed by Tejas Zendejas MD 08/01/2017 08:29 A
[2017-08-01] MEDS: MAGNESIUM CHLORIDE 64 MG TABCR (SLO MAG) PO SCH ×3 (09:00→20:05)
[2017-08-01] MEDS: VERAPAMIL 120 MG SR TAB PO SCH (09:00)
[2017-08-01] MEDS: levETIRAcetam 250MG TABLET (KEPPRA) PO SCH ×2 (09:08→20:00)
[2017-08-01] MEDS: BISACODYL 5 MG TAB PO SCH (09:08)
[2017-08-01] MEDS: ISOSORBIDE MON. (IMDUR) 60 MG XR TAB PO SCH (09:08)
[2017-08-01] MEDS: DOCUSATE SOD LIQ 100MG/10ML UDC PO SCH ×2 (09:08→20:00)
[2017-08-01] MEDS: FUROSEMIDE 40 MG/4 ML VIAL (J1940) IV SCH (09:09)
[2017-08-01] MEDS: PANTOPRAZOLE 40MG INJ (PROTONIX) (C9113) IV SCH (09:09)
[2017-08-01 13:39] LABS: BASO # 0.1 10^3/uL (0.0-0.2); BASO % 0.6 % (0.0-1.0); EOS % 0.4 % (0.0-3.0); IMMATURE GRANULOCYTE % 0.9 % (0-0); LYMPH # 1.1 10^3/uL (1.5-4.5); LYMPH % 13.7 % (24.0-44.0); MEAN CORPUSCULAR HGB CONC 34.9 g/dl (32.0-36.5); MEAN CORPUSCULAR VOLUME 97.4 fl (80.0-96.0); MONO # 0.7 10^3/uL (0.0-0.8); MONO % 8.7 % (0.0-5.0); NEUTROPHILS # 5.9 10^3/uL (1.8-7.7); NEUTROPHILS % 75.7 % (36.0-66.0); PLATELET COUNT, AUTOMATED 209 10^3/uL (150-450); RED CELL DISTRIBUTION WIDTH 14.2 % (11.5-14.5); WHITE BLOOD COUNT 7.8 10^3/uL (4.0-10.0)
[2017-08-01 13:59] LABS: ANION GAP 5 MEQ/L (8-16); BLOOD UREA NITROGEN 16 MG/DL (7-18); CALCIUM LEVEL 8.2 MG/DL (8.8-10.2); CARBON DIOXIDE LEVEL 40 MEQ/L (21-32); CHLORIDE LEVEL 87 MEQ/L (98-107); CREATININE FOR GFR 0.68 MG/DL (0.55-1.02); GLOMERULAR FILTRATION RATE > 60.0 (>45); GLUCOSE, FASTING 92 MG/DL (80-110); POTASSIUM SERUM 3.6 MEQ/L (3.5-5.1); SODIUM LEVEL 132 MEQ/L (136-145)
[2017-08-01 14:12] LABS: IgG SERUM (part of Subclasses) 966 mg/dL (700-1600); IgG Subclass 1 379 mg/dL (248-810); IgG Subclass 2 115 mg/dL (130-555); IgG Subclass 3 58 mg/dL (15-102); IgG Subclass 4 < 1 mg/dL (2-96)
--- NOTE | 2017-08-01 14:47 | IPNPDOC ---
Text Note Date of Service The patient was seen on 08/01/17. 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 She was evaluated in the ER initially and then sent home, however she return to the ER with persistent back pain and was found to have an acute fracture of L1. Patient was admitted for pneumonia, and antibiotics were selected based on her Angio Technologist's recommendation (Dr. Price). Dr. Barnard and Dr. López were consulted. Patient was seen and examined at the bedside. She notes that she is still having back pain, she has been measured for a TLSO brace and will have it placed later today. She notes her nausea is resolving. Will clamp the NG tube today and evaluate. If no issues will have NG tube removed today. Objective: Vitals (See below) General: Lying in bed, no acute distress, comfortable, AAOx3 HEENT: NC, AT CVS: RRR, +S1S2 Lungs: Poor inspiratory effort, Course lung sounds bilaterally, + wheezing Abdomen: Soft, ND, NT Extremities: - Edema, - Calf tenderness Assessment and plan: Acute Hypercapnic respiratory failure on chronic hypoxic respiratory failure - likely 2/2 progressive bronchiolitis obliterans - Had worsening of her breathing requiring BIPAP support - Her currently BIPAP machine is not functioning properly - Hx of multiple lung infections as an outpatient, is currently being evaluate for Lung transplant - ABG 08/01: improvement in pCO2, pH normalized - Labs indicate chronic pCO2 retention - CT chest 07/28: chronic bronchiectasis, significantly progressed, focal new parenchymal density in LLL and new small L pleural effusion, tree-in-bud pattern in lingula / LLL / RLL - compatible with pneumonitis - c/w Zosyn infusion and Tobramycin - Dr. Barnard and Dr. López on consult; appreciate their input Bronchiolitis obliterans - Follows with Dr. Price (Angio Technologist) in [place] - c/w Singulair, Albuterol Pneumonia; likely 2/2 HCAP in susceptible host - see above Pulmonary congestion - 2/2 fluid overload - Elevated BNP - Has remained negative fluid balance throughout hospitalization - c/w Furosemide 40 IV q24 Acute L1 Wedge Compression Fracture - Case was discussed with neurosurgery Dr. Roth; advised for TLSO brace - Currently has had measurements taken, plan for establishing today - will f/u outpatient with Neurosurgery - c/w Pain control with NSAIDS / Lidocaine patch - c/w PT after brace Nausea and Vomiting - Advised that she is not feeling nauseous at this time, has had bowel movements and passed flatus - CT abdomen / pelvis 08/01: chronic pleuroparenchymal changes with small b/l superimposed acute atelectasis, no acute abdominopelvic pathology - XR / CT abdomen + pelvis 07/30: Colonic distention / Bladder distention; Case was discussed with Dr. Sellers, who believes this is more from the distended bladder - s/p NG tube placement - Will clamp NG tube and evaluate symptoms; if no recurrence of symptoms will have NG tube removed Bladder distention - likely 2/2 urinary retention - s/p Mckee catheter Macrocytic anemia - Hg remains stable - f/u H&H at 1300 improved DM2 - 2/2 corticosteroids - c/w ISS; s/p Levemir - Episodes of hypoglycemia - c/w q2 hour glucose checks - Has been started on Dextrose based fluids HTN - BP well controlled - c/w Isosorbide mononitrate and Verapamil Chronic Aspergillosis - c/w Itraconazole Hx of IgG immunodeficiency - Subclass 4 - Could not tolerate Immunoglobulin infusions in past, as per patient Hx of Seizure disorder - c/w Keppra Hx of Zoster GI prophylaxis - c/w Protonix IV DVT prophylaxis - Restarted Heparin VS,Fishbone, I+O VS, Fishbone, I+O Laboratory Tests 07/31/17 15:11 Calcium Level 8.1 L 08/01/17 04:54 Calcium Level 7.8 L, Red Blood Count 3.27 L, Mean Corpuscular Volume 97.9 H, Mean Corpuscular Hemoglobin 33.0, Mean Corpuscular Hemoglobin Concent 33.8, Red Cell Distribution Width 13.3, Neutrophils (%) (Auto) 74.2 H, Lymphocytes (%) ( Auto) 14.2 L, Monocytes (%) (Auto) 9.6 H, Eosinophils (%) (Auto) 0.8, Basophils (%) (Auto) 0.4, Neutrophils # (Auto) 5.3, Lymphocytes # (Auto) 1.0 L, Monocytes # (Auto) 0.7, Eosinophils # (Auto) 0.1, Basophils # (Auto) 0.0 08/01/17 13:16 Calcium Level 8.2 L, Red Blood Count 3.50 L, Mean Corpuscular Volume 97.4 H, Mean Corpuscular Hemoglobin 34.0 H, Mean Corpuscular Hemoglobin Concent 34.9, Red Cell Distribution Width 14.2, Neutrophils (%) (Auto) 75.7 H, Lymphocytes (% ) (Auto) 13.7 L, Monocytes (%) (Auto) 8.7 H, Eosinophils (%) (Auto) 0.4, Basophils (%) (Auto) 0.6, Neutrophils # (Auto) 5.9, Lymphocytes # (Auto) 1.1 L, Monocytes # (Auto) 0.7, Eosinophils # (Auto) 0.0, Basophils # (Auto) 0.1 Vital Signs Date Time Temp Pulse Resp B/P (MAP) Pulse Ox O2 Delivery O2 Flow Rate FiO2 08/01/17 12:30 NIPPV (BIPAP/CPAP) 40 08/01/17 11:45 98.1 93 18 110/58 (75) 96 2.0 I&O- Last 24 Hours up to 6 AM 08/02/17 06:00 Intake Total 671.2 ml Output Total 1650 ml Balance -978.8 ml JAZMYN GARRISON MD Aug 01, 2017 14:47
[2017-08-01] MEDS: DEXTROSE 50% 50 ML SYRINGE IV PRN (18:03)
[2017-08-01] MEDS: D5W/0.45% SODIUM CHLORIDE 1,000 ML IV SCH (18:47)
[2017-08-01] MEDS: D5W IV SCH ×2 (18:49→18:50)
[2017-08-01] MEDS: TOBRAMYCIN SULF IV SCH (18:49)
[2017-08-01] MEDS: TAZOBACTAM SOD IV SCH (18:50)
[2017-08-01] MEDS: PIPERACILLIN IV SCH (18:50)
[2017-08-01] MEDS: MONTELUKAST 10 MG TAB PO SCH (20:00)
[2017-08-01] MEDS: ITRACONAZOLE 100 MG CAP (SPORANOX) PO SCH (20:00)
[2017-08-01] MEDS: MULTIVITAMINS/MINERALS THERAP 1 TAB PO SCH ×2 (20:00→20:06)
[2017-08-01] MEDS: AZITHROMYCIN 250 MG TAB PO SCH (20:00)
[2017-08-01] MEDS: FERROUS SULFATE 325MG TAB PO SCH (22:03)
[2017-08-02] VITALS: BP 93/48
[2017-08-02] MEDS: ALBUTEROL SULFATE 2.5 MG/0.5 ML INH NEB SOLN INH SCH ×6 (03:19→23:32)
[2017-08-02 04:00] VITALS: BP 125/61
[2017-08-02] MEDS: HEPARIN SOD (PORCINE) 5000 UNITS/ML VIAL SQ SCH ×3 (05:09→21:10)
[2017-08-02 05:23] LABS: BASO % 0.5 % (0.0-1.0); EOS % 0.5 % (0.0-3.0); LYMPH % 15.6 % (24.0-44.0); MEAN CORPUSCULAR HGB CONC 33.6 g/dl (32.0-36.5); MEAN CORPUSCULAR VOLUME 95.3 fl (80.0-96.0); MONO # 0.7 10^3/uL (0.0-0.8); MONO % 11.8 % (0.0-5.0); NEUTROPHILS # 4.3 10^3/uL (1.8-7.7); NEUTROPHILS % 70.6 % (36.0-66.0); PLATELET COUNT, AUTOMATED 187 10^3/uL (150-450); RED CELL DISTRIBUTION WIDTH 12.7 % (11.5-14.5); WHITE BLOOD COUNT 6.1 10^3/uL (4.0-10.0)
[2017-08-02 05:41] LABS: ABG HCO3 41.2 MEQ/L (22.0-26.0); ABG PARTIAL PRESSURE CO2 58.7 mmHg (35.0-45.0); ABG PARTIAL PRESSURE O2 92.9 mmHg (75.0-100.0); ABG STANDARD HCO3 38.9 MEQ/L (22.0-26.0); ABG pH (ARTERIAL) 7.464 UNITS (7.350-7.450)
[2017-08-02 05:45] LABS: ANION GAP 1 MEQ/L (8-16); BLOOD UREA NITROGEN 11 MG/DL (7-18); CARBON DIOXIDE LEVEL 42 MEQ/L (21-32); CHLORIDE LEVEL 91 MEQ/L (98-107); CREATININE FOR GFR 0.52 MG/DL (0.55-1.02); GLOMERULAR FILTRATION RATE > 60.0 (>45); GLUCOSE, FASTING 105 MG/DL (80-110); POTASSIUM SERUM 3.6 MEQ/L (3.5-5.1); SODIUM LEVEL 134 MEQ/L (136-145)
[2017-08-02] MEDS: HumaLOG INSULIN (NovoLOG) PER UNIT SC SCH ×5 (06:00→21:00)
[2017-08-02] MEDS: D5W/0.45% SODIUM CHLORIDE 1,000 ML IV SCH (06:21)
[2017-08-02 08:00] VITALS: BP 117/57
[2017-08-02] MEDS: levETIRAcetam 250MG TABLET (KEPPRA) PO SCH ×2 (08:07→21:11)
[2017-08-02] MEDS: BISACODYL 5 MG TAB PO SCH (08:08)
[2017-08-02] MEDS: ISOSORBIDE MON. (IMDUR) 60 MG XR TAB PO SCH (08:08)
[2017-08-02] MEDS: FUROSEMIDE 40 MG/4 ML VIAL (J1940) IV SCH (08:09)
[2017-08-02] MEDS: PANTOPRAZOLE 40MG INJ (PROTONIX) (C9113) IV SCH (08:09)
[2017-08-02] MEDS: DOCUSATE SOD LIQ 100MG/10ML UDC PO SCH ×2 (08:09→21:00)
--- NOTE | 2017-08-02 08:16 | REP ---
Portable chest, 06:45 a.m., single AP view, the patient semi upright: Comparison is 08/01/2017. The bilateral infiltrates are unchanged. Nasogastric tube is in satisfactory location, unchanged. Cardiac size is normal. The left costophrenic angle is mildly effaced compatible with a small left pleural effusion. There has been interval placement of a right upper extremity PICC line with the tip in the superior vena cava. Impression: No interval change except for interval placement of a right upper extremity PICC line. Signed by Tejas Zendejas MD 08/02/2017 08:08 A
[2017-08-02] MEDS: VERAPAMIL 120 MG SR TAB PO SCH (08:57)
[2017-08-02] MEDS: MAGNESIUM CHLORIDE 64 MG TABCR (SLO MAG) PO SCH ×2 (08:58→21:10)
--- NOTE | 2017-08-02 09:31 | REP ---
RIGHT PICC LINE PLACEMENT: The procedure was performed by RAINER Aldana, under the direct supervision of Dr. Kate. The procedure along with its risks, benefits and complications were discussed with the patient prior to the examination. Informed consent was obtained both verbally and written. The patient was identified in the interventional suite and placed in a supine position. The right arm was prepped and draped in the usual sterile fashion. A procedural time out was performed to ensure that the correct patient, site and procedure were being performed. Under ultrasound guidance, the right basilic vein was punctured. A thin guidewire was introduced. The needle was removed and local infiltrative anesthesia was achieved using 2% lidocaine. A break away sheath was placed. Under fluoroscopic observation and via the break away sheath, a 33.5 cm, 5.5 Croatian dual lumen PICC line was placed with its tip at the junction of the distal superior vena cava. The catheter was flushed with heparinized saline and affixed to the patient's skin. The patient tolerated the procedure well and had no immediate complications. IMPRESSION: Uncomplicated placement of right double lumen PICC line. Fluoroscopy time of 0.5 minutes. Reviewed by RAINER Parker 08/02/2017 04:30 PEdited and Signed by Tejas Kate MD 08/02/2017 05:00 P
[2017-08-02] MEDS: ONDANSETRON 4MG/2ML VIAL (J2405) IV PRN (09:35)
--- NOTE | 2017-08-02 11:10 | IPNPDOC ---
Text Note Date of Service The patient was seen on 08/02/17. 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 She was evaluated in the ER initially and then sent home, however she return to the ER with persistent back pain and was found to have an acute fracture of L1. Patient was admitted for pneumonia, and antibiotics were selected based on her Educational/Development Assistant's recommendation (Dr. Price). Dr. Barnard and Dr. López were consulted. Patient was seen and examined at the bedside. her NG tube was clamped yesterday and she notes that she has not had any nausea or vomiting. She notes her breathing is doing better at this time. Objective: Vitals (See below) General: Lying in bed, no acute distress, comfortable, AAOx3 HEENT: NC, AT CVS: RRR, +S1S2 Lungs: Poor inspiratory effort, Course lung sounds bilaterally, mild wheezing Abdomen: Soft, ND, NT Extremities: - Edema, - Calf tenderness Assessment and plan: s/p Acute Hypercapnic respiratory failure on chronic hypoxic respiratory failure - likely 2/2 progressive bronchiolitis obliterans - Had worsening of her breathing requiring BIPAP support in ICU; - She was able to use her own BIPAP machine overnight without issues - Hx of multiple lung infections as an outpatient, is currently being evaluate for Lung transplant - ABG continues to improve and labs indicate chronic pCO2 retention - Sputum culture 07/29: Achromobacter Denitrificans - CT chest 07/28: chronic bronchiectasis, significantly progressed, focal new parenchymal density in LLL and new small L pleural effusion, tree-in-bud pattern in lingula / LLL / RLL - compatible with pneumonitis - c/w Zosyn infusion and Tobramycin - Dr. Barnard and Dr. López on consult; appreciate their input - Will discuss with Dr. Barnard about discontinuing Tobramycin Bronchiolitis obliterans - Follows with Dr. Price (Educational/Development Assistant) in [place] - c/w Singulair, Albuterol Pneumonia; likely 2/2 HCAP in susceptible host - see above Pulmonary congestion - 2/2 fluid overload - Elevated BNP - Has remained negative fluid balance throughout hospitalization - c/w Furosemide 40 IV q24 Acute L1 Wedge Compression Fracture - Case was discussed with neurosurgery Dr. Roth; advised for TLSO brace - Currently has had measurements taken; however brace is still not available at this time - will f/u outpatient with Neurosurgery - c/w Pain control with NSAIDS / Lidocaine patch - c/w PT after brace has been put on s/p Nausea and Vomiting - Reports resolution of N&V, Has passed flatus, No additional bowel movements today - CT abdomen / pelvis 08/01: chronic pleuroparenchymal changes with small b/l superimposed acute atelectasis, no acute abdominopelvic pathology - XR / CT abdomen + pelvis 07/30: Colonic distention / Bladder distention; Case was discussed with Dr. Sellers, who believes this is more from the distended bladder - NG tube to be removed today - Will start clear liquid diet and advance as tolerated Bladder distention - likely 2/2 urinary retention - s/p Mckee catheter Macrocytic anemia - Hg remains stable DM2 - 2/2 corticosteroids - c/w ISS; s/p Levemir - Episodes of hypoglycemia - c/w q4 hour glucose checks - Has been started on Dextrose based fluids; will continue for now and re- evaluate after diet has commenced HTN - BP on lower side of normal - c/w Isosorbide mononitrate and Verapamil - Majority of BP medications not given because BP has been below holding parameters Chronic Aspergillosis - c/w Itraconazole Hx of IgG immunodeficiency - Subclass 4 - Could not tolerate Immunoglobulin infusions in past, as per patient Hx of Seizure disorder - c/w Keppra Hx of Zoster GI prophylaxis - c/w Protonix IV DVT prophylaxis - c/w Heparin Disposition: - Will transfer to PCU status at this point VS,Jimmybone, I+O VS, Fishbone, I+O Laboratory Tests 08/01/17 13:16 Red Blood Count 3.50 L, Mean Corpuscular Volume 97.4 H, Mean Corpuscular Hemoglobin 34.0 H, Mean Corpuscular Hemoglobin Concent 34.9, Red Cell Distribution Width 14.2, Neutrophils (%) (Auto) 75.7 H, Lymphocytes (%) (Auto) 13.7 L, Monocytes (%) (Auto) 8.7 H, Eosinophils (%) (Auto) 0.4, Basophils (%) ( Auto) 0.6, Neutrophils # (Auto) 5.9, Lymphocytes # (Auto) 1.1 L, Monocytes # ( Auto) 0.7, Eosinophils # (Auto) 0.0, Basophils # (Auto) 0.1, Calcium Level 8.2 L 08/02/17 05:06 Red Blood Count 3.22 L, Mean Corpuscular Volume 95.3, Mean Corpuscular Hemoglobin 32.0, Mean Corpuscular Hemoglobin Concent 33.6, Red Cell Distribution Width 12.7, Neutrophils (%) (Auto) 70.6 H, Lymphocytes (%) (Auto) 15.6 L, Monocytes (%) (Auto) 11.8 H, Eosinophils (%) (Auto) 0.5, Basophils (%) ( Auto) 0.5, Neutrophils # (Auto) 4.3, Lymphocytes # (Auto) 1.0 L, Monocytes # ( Auto) 0.7, Eosinophils # (Auto) 0.0, Basophils # (Auto) 0.0, Calcium Level 8.0 L Vital Signs Date Time Temp Pulse Resp B/P (MAP) Pulse Ox O2 Delivery O2 Flow Rate FiO2 08/02/17 08:08 117/57 08/02/17 08:00 98.4 89 18 96 High Flow Cannula 2.0 08/01/17 12:30 40 I&O- Last 24 Hours up to 6 AM 08/03/17 05:59 Intake Total 62.4 ml Output Total 725 ml Balance -662.6 ml JAZMYN GARRISON MD Aug 02, 2017 11:10
[2017-08-02 12:00] VITALS: BP 121/57
[2017-08-02 16:00] VITALS: BP 125/58
[2017-08-02] MEDS: SODIUM CHLORIDE 0.9% INJ 10 ML SYR IV SCH (18:22)
[2017-08-02] MEDS ORDERED: TOBRAMYCIN SULF IV SCH (19:00)
[2017-08-02] MEDS ORDERED: D5W IV SCH (19:00)
[2017-08-02 20:00] VITALS: BP 94/52
[2017-08-02] MEDS: D5W IV SCH (21:10)
[2017-08-02] MEDS: PIPERACILLIN IV SCH (21:10)
[2017-08-02] MEDS: TAZOBACTAM SOD IV SCH (21:10)
[2017-08-02] MEDS: ITRACONAZOLE 100 MG CAP (SPORANOX) PO SCH (21:11)
[2017-08-02] MEDS: MULTIVITAMINS/MINERALS THERAP 1 TAB PO SCH (21:11)
[2017-08-02] MEDS: MONTELUKAST 10 MG TAB PO SCH (21:11)
[2017-08-02] MEDS: FERROUS SULFATE 325MG TAB PO SCH (23:03)
[2017-08-03] VITALS: BP 125/58
[2017-08-03] MEDS: ALBUTEROL SULFATE 2.5 MG/0.5 ML INH NEB SOLN INH SCH ×6 (03:30→23:42)
[2017-08-03 04:00] VITALS: BP 112/53
[2017-08-03] MEDS: HEPARIN SOD (PORCINE) 5000 UNITS/ML VIAL SQ SCH ×3 (05:05→21:20)
[2017-08-03] MEDS: SODIUM CHLORIDE 0.9% INJ 10 ML SYR IV SCH ×2 (05:06→17:16)
[2017-08-03 05:53] LABS: BASO % 0.4 % (0.0-1.0); EOS # 0.1 10^3/uL (0.0-0.50); EOS % 1.4 % (0.0-3.0); IMMATURE GRANULOCYTE % 1.4 % (0-0); LYMPH # 0.9 10^3/uL (1.5-4.5); LYMPH % 17.6 % (24.0-44.0); MEAN CORPUSCULAR HEMOGLOBIN 34.2 pg (27.0-33.0); MEAN CORPUSCULAR HGB CONC 34.7 g/dl (32.0-36.5); MEAN CORPUSCULAR VOLUME 98.7 fl (80.0-96.0); MONO # 0.6 10^3/uL (0.0-0.8); MONO % 12.7 % (0.0-5.0); NEUTROPHILS # 3.3 10^3/uL (1.8-7.7); NEUTROPHILS % 66.5 % (36.0-66.0); PLATELET COUNT, AUTOMATED 161 10^3/uL (150-450); RED CELL DISTRIBUTION WIDTH 14.3 % (11.5-14.5); WHITE BLOOD COUNT 4.9 10^3/uL (4.0-10.0)
[2017-08-03 06:11] LABS: ANION GAP 3 MEQ/L (8-16); BLOOD UREA NITROGEN 7 MG/DL (7-18); CALCIUM LEVEL 8.1 MG/DL (8.8-10.2); CARBON DIOXIDE LEVEL 41 MEQ/L (21-32); CHLORIDE LEVEL 89 MEQ/L (98-107); GLOMERULAR FILTRATION RATE > 60.0 (>45); GLUCOSE, FASTING 88 MG/DL (80-110); POTASSIUM SERUM 2.9 MEQ/L (3.5-5.1); SODIUM LEVEL 133 MEQ/L (136-145)
[2017-08-03] MEDS ORDERED: POTASSIUM CHLORIDE 10 MEQ SR TABLET PO ONE ×2 (06:30→13:00)
[2017-08-03] MEDS: HumaLOG INSULIN (NovoLOG) PER UNIT SC SCH ×4 (07:11→21:00)
--- NOTE | 2017-08-03 07:25 | REP ---
Clinical: Using. Pulmonary edema. Comparison: 08/02/2017. Findings: Mediastinum and cardiac silhouette are within normal limits and stable. Right PICC line with tip in the SVC. The lung cheek demonstrate diffuse chronic interstitial markings which may reflect mild interstitial edema along with small patchy left lower lobe infiltrate. Findings may be minimally improved when compared to prior examination. No new acute consolidation, pneumothorax or definite pleural effusion. Skeletal structures intact. Impression: Chronic interstitial changes. Cannot exclude mild pulmonary edema or subtle left lower lobe infiltrate. Findings may be minimally improved when compared to prior examination. Signed by Rafael Chapa MD 08/03/2017 07:18 A
[2017-08-03 08:00] VITALS: BP 107/52
[2017-08-03] MEDS: DOCUSATE SOD LIQ 100MG/10ML UDC PO SCH (08:18)
[2017-08-03] MEDS: BISACODYL 5 MG TAB PO SCH (08:18)
[2017-08-03] MEDS: VERAPAMIL 120 MG SR TAB PO SCH (08:19)
[2017-08-03] MEDS: PANTOPRAZOLE 40MG TAB (PROTONIX) PO SCH (09:17)
[2017-08-03] MEDS: FUROSEMIDE 40 MG TAB PO SCH (09:17)
[2017-08-03] MEDS: levETIRAcetam 250MG TABLET (KEPPRA) PO SCH ×2 (09:17→21:18)
[2017-08-03] MEDS: ISOSORBIDE MON. (IMDUR) 60 MG XR TAB PO SCH (09:18)
[2017-08-03] MEDS: MAGNESIUM CHLORIDE 64 MG TABCR (SLO MAG) PO SCH ×2 (09:18→21:19)
[2017-08-03 12:00] VITALS: BP 110/56
[2017-08-03 12:57] LABS: ANION GAP 2 MEQ/L (8-16); BLOOD UREA NITROGEN 7 MG/DL (7-18); CALCIUM LEVEL 8.2 MG/DL (8.8-10.2); CARBON DIOXIDE LEVEL 42 MEQ/L (21-32); CHLORIDE LEVEL 90 MEQ/L (98-107); CREATININE FOR GFR 0.41 MG/DL (0.55-1.02); GLOMERULAR FILTRATION RATE > 60.0 (>45); GLUCOSE, FASTING 130 MG/DL (80-110); POTASSIUM SERUM 3.7 MEQ/L (3.5-5.1); SODIUM LEVEL 134 MEQ/L (136-145)
--- NOTE | 2017-08-03 13:08 | IPNPDOC ---
Text Note Date of Service The patient was seen on 08/03/17. 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 She was evaluated in the ER initially and then sent home, however she return to the ER with persistent back pain and was found to have an acute fracture of L1. Patient was admitted for pneumonia, and antibiotics were selected based on her Adoption Agent's recommendation (Dr. Price). Dr. Barnard and Dr. López were consulted. Patient was seen and examined at the bedside. She noted that her breathing is doing better. She has received her back brace yesterday at 500PM and will be starting physical therapy today. Objective: Vitals (See below) General: Lying in bed, no acute distress, comfortable, AAOx3 HEENT: NC, AT CVS: RRR, +S1S2 Lungs: Poor inspiratory effort, No wheezing appreciated Abdomen: Soft, ND, NT Extremities: - Edema, - Calf tenderness Assessment and plan: s/p Acute Hypercapnic respiratory failure on chronic hypoxic respiratory failure - likely 2/2 progressive bronchiolitis obliterans - Had worsening of her breathing requiring BIPAP support in ICU; however now back to home CPAP use - Hx of multiple lung infections and being evaluate for Lung transplant as outpatient - Sputum culture 07/29: Achromobacter Denitrificans - CT chest 07/28: chronic bronchiectasis, significantly progressed, focal new parenchymal density in LLL and new small L pleural effusion, tree-in-bud pattern in lingula / LLL / RLL - compatible with pneumonitis - c/w Zosyn infusion (DDay #6); s/p Tobramycin and TMP-SMX - Dr. Barnard and Dr. López on consult; appreciate their input Bronchiolitis obliterans - Follows with Dr. Price (Adoption Agent) in [place] - c/w Singulair, Albuterol Pneumonia; likely 2/2 HCAP in susceptible host - see above Pulmonary congestion - 2/2 fluid overload - Elevated BNP - Has remained negative fluid balance throughout hospitalization - c/w Furosemide 40 IV q24; will switch to PO lasix now (only QD, not BID) Acute L1 Wedge Compression Fracture - Case was discussed with neurosurgery Dr. Roth; advised for TLSO brace - Brace has arrived and will continue with physical therapy today - will f/u outpatient with Neurosurgery - c/w Pain control with NSAIDS / Lidocaine patch - c/w PT and progress as tolerated s/p Nausea and Vomiting - Reports resolution of N&V, Has passed flatus, No additional bowel movements today - CT abdomen / pelvis 08/01: chronic pleuroparenchymal changes with small b/l superimposed acute atelectasis, no acute abdominopelvic pathology - XR / CT abdomen + pelvis 07/30: Colonic distention / Bladder distention; Case was discussed with Dr. Sellers, who believes this is more from the distended bladder - s/p NG tube - Diet advanced to full liquids and continue to advance as tolerated Bladder distention - likely 2/2 urinary retention - s/p Mckee catheter Macrocytic anemia - Hg remains stable DM2 - 2/2 corticosteroids - c/w ISS; s/p Levemir - s/p Episodes of hypoglycemia - c/w glucose checks ACHS - s/p Dextrose based fluids HTN - BP on lower side of normal - c/w Isosorbide mononitrate and Verapamil - Majority of BP medications not given because BP has been below holding parameters Chronic Aspergillosis - c/w Itraconazole Hx of IgG immunodeficiency - Subclass 4 - Could not tolerate Immunoglobulin infusions in past, as per patient Hx of Seizure disorder - c/w Keppra Hx of Zoster GI prophylaxis - c/w Protonix PO DVT prophylaxis - c/w Heparin Disposition: - Will need to work with physical therapy and determine dispo based on progression VSIggy, I+O VS, Iggy, I+O Laboratory Tests 08/03/17 05:12 Red Blood Count 2.98 L, Mean Corpuscular Volume 98.7 H, Mean Corpuscular Hemoglobin 34.2 H, Mean Corpuscular Hemoglobin Concent 34.7, Red Cell Distribution Width 14.3, Neutrophils (%) (Auto) 66.5 H, Lymphocytes (%) (Auto) 17.6 L, Monocytes (%) (Auto) 12.7 H, Eosinophils (%) (Auto) 1.4, Basophils (%) ( Auto) 0.4, Neutrophils # (Auto) 3.3, Lymphocytes # (Auto) 0.9 L, Monocytes # ( Auto) 0.6, Eosinophils # (Auto) 0.1, Basophils # (Auto) 0.0, Calcium Level 8.1 L 08/03/17 11:58 Calcium Level 8.2 L Vital Signs Date Time Temp Pulse Resp B/P (MAP) Pulse Ox O2 Delivery O2 Flow Rate FiO2 08/03/17 12:00 99.0 101 22 110/56 (74) 96 High Flow Cannula 2.0 08/01/17 12:30 40 I&O- Last 24 Hours up to 6 AM 08/04/17 06:00 Intake Total 580 ml Output Total 455 ml Balance 125 ml JAZMYN GARRISON MD Aug 03, 2017 13:08
[2017-08-03] MEDS ORDERED: POTASSIUM CHLORIDE 10 MEQ SR TABLET As Ordered ONE (15:15)
[2017-08-03 19:59] VITALS: O2SAT 100
[2017-08-03 20:00] VITALS: BP 107/46
[2017-08-03] MEDS: MONTELUKAST 10 MG TAB PO SCH (21:19)
[2017-08-03] MEDS: MULTIVITAMINS/MINERALS THERAP 1 TAB PO SCH (21:19)
[2017-08-03] MEDS: ITRACONAZOLE 100 MG CAP (SPORANOX) PO SCH (21:19)
[2017-08-03] MEDS: TAZOBACTAM SOD IV SCH (21:20)
[2017-08-03] MEDS: D5W IV SCH (21:20)
[2017-08-03] MEDS: PIPERACILLIN IV SCH (21:20)
[2017-08-03] MEDS: FERROUS SULFATE 325MG TAB PO SCH (23:37)
[2017-08-04] VITALS: BP 106/54
[2017-08-04] MEDS: ALBUTEROL SULFATE 2.5 MG/0.5 ML INH NEB SOLN INH SCH ×6 (03:31→23:11)
[2017-08-04 04:00] VITALS: BP 115/58
[2017-08-04] MEDS: SODIUM CHLORIDE 0.9% INJ 10 ML SYR IV SCH ×2 (05:30→17:38)
[2017-08-04] MEDS: HEPARIN SOD (PORCINE) 5000 UNITS/ML VIAL SQ SCH ×3 (05:31→21:16)
[2017-08-04 05:56] LABS: BASO % 0.8 % (0.0-1.0); EOS # 0.1 10^3/uL (0.0-0.50); EOS % 1.2 % (0.0-3.0); IMMATURE GRANULOCYTE % 1.8 % (0-0); LYMPH # 0.9 10^3/uL (1.5-4.5); LYMPH % 18.4 % (24.0-44.0); MEAN CORPUSCULAR HEMOGLOBIN 31.6 pg (27.0-33.0); MEAN CORPUSCULAR HGB CONC 32.7 g/dl (32.0-36.5); MEAN CORPUSCULAR VOLUME 96.6 fl (80.0-96.0); MONO # 0.6 10^3/uL (0.0-0.8); MONO % 12.3 % (0.0-5.0); NEUTROPHILS # 3.2 10^3/uL (1.8-7.7); NEUTROPHILS % 65.5 % (36.0-66.0); PLATELET COUNT, AUTOMATED 181 10^3/uL (150-450); RED CELL DISTRIBUTION WIDTH 12.6 % (11.5-14.5); WHITE BLOOD COUNT 4.9 10^3/uL (4.0-10.0)
[2017-08-04 06:01] LABS: ANION GAP 0 MEQ/L (8-16); BLOOD UREA NITROGEN 6 MG/DL (7-18); CALCIUM LEVEL 8.1 MG/DL (8.8-10.2); CARBON DIOXIDE LEVEL 42 MEQ/L (21-32); CHLORIDE LEVEL 92 MEQ/L (98-107); GLOMERULAR FILTRATION RATE > 60.0 (>45); GLUCOSE, FASTING 95 MG/DL (80-110); POTASSIUM SERUM 4.4 MEQ/L (3.5-5.1); SODIUM LEVEL 134 MEQ/L (136-145)
[2017-08-04] MEDS: HumaLOG INSULIN (NovoLOG) PER UNIT SC SCH ×4 (07:30→20:55)
[2017-08-04 08:00] VITALS: BP 126/60
[2017-08-04] MEDS: ISOSORBIDE MON. (IMDUR) 60 MG XR TAB PO SCH (08:16)
[2017-08-04] MEDS: levETIRAcetam 250MG TABLET (KEPPRA) PO SCH ×2 (08:17→21:15)
[2017-08-04] MEDS: FUROSEMIDE 40 MG TAB PO SCH (08:17)
[2017-08-04] MEDS: PANTOPRAZOLE 40MG TAB (PROTONIX) PO SCH (08:17)
[2017-08-04] MEDS: VERAPAMIL 120 MG SR TAB PO SCH (08:18)
[2017-08-04] MEDS: MAGNESIUM CHLORIDE 64 MG TABCR (SLO MAG) PO SCH ×2 (08:18→21:16)
[2017-08-04] MEDS: PROMETHAZINE INJ 25 MG/ML VIAL (J2550) IV PRN (08:25)
[2017-08-04] MEDS: ACETAMINOPHEN TAB 650MG DOSE (2X325MG) PO PRN ×2 (10:02→21:17)
[2017-08-04 10:19] LABS: ABG BASE EXCESS 14.9 (-2.0-2.0); ABG HCO3 40.9 MEQ/L (22.0-26.0); ABG PARTIAL PRESSURE CO2 56.8 mmHg (35.0-45.0); ABG PARTIAL PRESSURE O2 75.2 mmHg (75.0-100.0); ABG STANDARD HCO3 38.7 MEQ/L (22.0-26.0); ABG TOTAL CO2 42.6 MEQ/L (23.0-31.0); ABG pH (ARTERIAL) 7.475 UNITS (7.350-7.450)
[2017-08-04 12:00] VITALS: BP 97/52
--- NOTE | 2017-08-04 14:37 | IPNPDOC ---
Text Note Date of Service The patient was seen on 08/04/17. 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 She was evaluated in the ER initially and then sent home, however she return to the ER with persistent back pain and was found to have an acute fracture of L1. Patient was admitted for pneumonia, and antibiotics were selected based on her Head Of Mobile's recommendation (Dr. Price). Dr. Barnard and Dr. López were consulted. Patient was seen and examined at the bedside. She was seen sitting up in her chair wearing her TLSO brace and tolerating it. She will continue to work with physical therapy today. Objective: Vitals (See below) General: Lying in bed, no acute distress, comfortable, AAOx3 HEENT: NC, AT CVS: RRR, +S1S2 Lungs: Poor inspiratory effort, No wheezing appreciated Abdomen: Soft, ND, NT Extremities: - Edema, - Calf tenderness Assessment and plan: s/p Acute Hypercapnic respiratory failure on chronic hypoxic respiratory failure - likely 2/2 progressive bronchiolitis obliterans - Had worsening of her breathing requiring BIPAP support in ICU; however now back to home CPAP use - Hx of multiple lung infections and being evaluate for Lung transplant as outpatient - Sputum culture 07/29: Achromobacter Denitrificans - CT chest 07/28: chronic bronchiectasis, significantly progressed, focal new parenchymal density in LLL and new small L pleural effusion, tree-in-bud pattern in lingula / LLL / RLL - compatible with pneumonitis - c/w Zosyn infusion (Day #7 of 7); s/p Tobramycin and TMP-SMX - Dr. Barnard and Dr. López on consult; appreciate their input Bronchiolitis obliterans - Follows with Dr. Price (Head Of Mobile) in [place] - c/w Singulair, Albuterol Pneumonia; likely 2/2 HCAP in susceptible host - see above Pulmonary congestion - 2/2 fluid overload - Elevated BNP - Has remained negative fluid balance throughout hospitalization - c/w Furosemide 40 PO QD, s/p IV Furosemide Acute L1 Wedge Compression Fracture - Case was discussed with neurosurgery Dr. Roth; advised for TLSO brace - Patient was unable to tolerate TLSO brace yesterday because it was too tight yesterday - TLSO has been modified and adjustments to straps have been made; patient better tolerating it today - will f/u outpatient with Neurosurgery - c/w Pain control with NSAIDS / Lidocaine patch - c/w PT and progress as tolerated s/p Nausea and Vomiting - CT abdomen / pelvis 08/01: chronic pleuroparenchymal changes with small b/l superimposed acute atelectasis, no acute abdominopelvic pathology - XR / CT abdomen + pelvis 07/30: Colonic distention / Bladder distention; Case was discussed with Dr. Sellers, who believes this is more from the distended bladder - s/p NG tube - c/w Soft mechanical diet Bladder distention - likely 2/2 urinary retention - s/p Mckee catheter Macrocytic anemia - Hg remains stable DM2 - 2/2 corticosteroids - c/w ISS; s/p Levemir - s/p Episodes of hypoglycemia - c/w glucose checks ACHS - s/p Dextrose based fluids HTN - BP on lower side of normal - c/w Isosorbide mononitrate and Verapamil (Holding parameters continued; majority held) Chronic Aspergillosis - c/w Itraconazole Hx of IgG immunodeficiency - Subclass 4 - Could not tolerate Immunoglobulin infusions in past, as per patient Hx of Seizure disorder - c/w Keppra Hx of Zoster GI prophylaxis - c/w Protonix PO DVT prophylaxis - c/w Heparin Disposition: - Will need to work with physical therapy and determine disposition based on progression Iggy HELM, I+O VSIggy, I+O Laboratory Tests 08/04/17 05:35 Red Blood Count 3.23 L, Mean Corpuscular Volume 96.6 H, Mean Corpuscular Hemoglobin 31.6, Mean Corpuscular Hemoglobin Concent 32.7, Red Cell Distribution Width 12.6, Neutrophils (%) (Auto) 65.5, Lymphocytes (%) (Auto) 18.4 L, Monocytes (%) (Auto) 12.3 H, Eosinophils (%) (Auto) 1.2, Basophils (%) ( Auto) 0.8, Neutrophils # (Auto) 3.2, Lymphocytes # (Auto) 0.9 L, Monocytes # ( Auto) 0.6, Eosinophils # (Auto) 0.1, Basophils # (Auto) 0.0, Calcium Level 8.1 L Vital Signs Date Time Temp Pulse Resp B/P (MAP) Pulse Ox O2 Delivery O2 Flow Rate FiO2 08/04/17 12:00 BIPAP/CPAP 4.0 08/04/17 12:00 97.4 116 24 97/52 (67) 97 08/01/17 12:30 40 I&O- Last 24 Hours up to 6 AM 08/05/17 06:00 Intake Total 600 ml Output Total 1000 ml Balance -400 ml JAZMYN GARRISON MD Aug 04, 2017 14:37
[2017-08-04 16:00] VITALS: BP 120/55
[2017-08-04] MEDS: MULTIVITAMINS/MINERALS THERAP 1 TAB PO SCH (21:15)
[2017-08-04] MEDS: MONTELUKAST 10 MG TAB PO SCH (21:15)
[2017-08-04] MEDS: ITRACONAZOLE 100 MG CAP (SPORANOX) PO SCH (21:15)
[2017-08-04] MEDS: AZITHROMYCIN 250 MG TAB PO SCH (21:15)
[2017-08-04] MEDS: TAZOBACTAM SOD IV SCH (21:16)
[2017-08-04] MEDS: PIPERACILLIN IV SCH (21:16)
[2017-08-04] MEDS: D5W IV SCH (21:16)
[2017-08-04 22:00] VITALS: BP 119/58
[2017-08-04] MEDS: FERROUS SULFATE 325MG TAB PO SCH (22:24)
[2017-08-05 03:00] VITALS: BP 101/55
[2017-08-05] MEDS: HEPARIN SOD (PORCINE) 5000 UNITS/ML VIAL SQ SCH ×3 (05:38→22:21)
[2017-08-05] MEDS: SODIUM CHLORIDE 0.9% INJ 10 ML SYR IV SCH ×2 (05:38→18:00)
[2017-08-05 05:56] LABS: MEAN CORPUSCULAR HEMOGLOBIN 31.2 pg (27.0-33.0); MEAN CORPUSCULAR HGB CONC 32.9 g/dl (32.0-36.5); MEAN CORPUSCULAR VOLUME 94.8 fl (80.0-96.0); RED CELL DISTRIBUTION WIDTH 12.5 % (11.5-14.5); WHITE BLOOD COUNT 5.6 10^3/uL (4.0-10.0)
[2017-08-05 06:00] VITALS: BP 104/51
[2017-08-05 06:18] LABS: ANION GAP 4 MEQ/L (8-16); BLOOD UREA NITROGEN 8 MG/DL (7-18); CALCIUM LEVEL 8.5 MG/DL (8.8-10.2); CARBON DIOXIDE LEVEL 39 MEQ/L (21-32); CHLORIDE LEVEL 90 MEQ/L (98-107); CREATININE FOR GFR 0.52 MG/DL (0.55-1.02); GLOMERULAR FILTRATION RATE > 60.0 (>45); GLUCOSE, FASTING 84 MG/DL (80-110); POTASSIUM SERUM 3.8 MEQ/L (3.5-5.1); SODIUM LEVEL 133 MEQ/L (136-145)
[2017-08-05] MEDS: HumaLOG INSULIN (NovoLOG) PER UNIT SC SCH ×4 (07:25→21:00)
[2017-08-05] MEDS: VERAPAMIL 120 MG SR TAB PO SCH (07:30)
[2017-08-05] MEDS: ALBUTEROL SULFATE 2.5 MG/0.5 ML INH NEB SOLN INH SCH ×4 (07:33→19:46)
[2017-08-05] MEDS: levETIRAcetam 250MG TABLET (KEPPRA) PO SCH ×2 (08:52→20:15)
[2017-08-05] MEDS: FUROSEMIDE 40 MG TAB PO SCH (08:52)
[2017-08-05] MEDS: PANTOPRAZOLE 40MG TAB (PROTONIX) PO SCH (08:52)
[2017-08-05] MEDS: ISOSORBIDE MON. (IMDUR) 60 MG XR TAB PO SCH (08:53)
[2017-08-05] MEDS: MAGNESIUM CHLORIDE 64 MG TABCR (SLO MAG) PO SCH ×2 (08:59→20:14)
[2017-08-05 10:00] VITALS: BP 114/68
--- NOTE | 2017-08-05 11:04 | IPNPDOC ---
Text Note Date of Service The patient was seen on 08/05/17. 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 She was evaluated in the ER initially and then sent home, however she return to the ER with persistent back pain and was found to have an acute fracture of L1. Patient was admitted for pneumonia, and antibiotics were selected based on her School Childcare Attendant's recommendation (Dr. Price). Dr. Barnard and Dr. López were consulted. Patient was seen and examined at the bedside. She notes that she has been tolerating the brace and working with physical therapy. Yesterday her was concerned about her back. He was not present at bedside when I discussed with her and her mother about the neurosurgical plan, they expressed understanding of the plan and are content. Objective: Vitals (See below) General: Lying in bed, no acute distress, comfortable, AAOx3 HEENT: NC, AT CVS: RRR, +S1S2 Lungs: Poor inspiratory effort, No wheezing appreciated Abdomen: Soft, ND, NT Extremities: - Edema, - Calf tenderness Assessment and plan: s/p Acute Hypercapnic respiratory failure on chronic hypoxic respiratory failure - likely 2/2 progressive bronchiolitis obliterans - Required additional BIPAP support initially in ICU; now resolved and on home BIPAP settings - Currently beign evaluate as an outpatient for lung transplant - Sputum culture 07/29: Achromobacter Denitrificans - CT chest 07/28: chronic bronchiectasis, significantly progressed, focal new parenchymal density in LLL and new small L pleural effusion, tree-in-bud pattern in lingula / LLL / RLL - compatible with pneumonitis - c/w Zosyn infusion (Day #8); s/p Tobramycin and TMP-SMX - Dr. Barnard and Dr. López on consult; appreciate their input Bronchiolitis obliterans - Follows with Dr. Price (School Childcare Attendant) in [place] - c/w Singulair and Albuterol Pneumonia; likely 2/2 HCAP in susceptible host - see above Pulmonary congestion - 2/2 fluid overload - Elevated BNP - Has remained negative fluid balance throughout hospitalization - c/w Furosemide 40 PO QD, s/p IV Furosemide Acute L1 Wedge Compression Fracture - Case was discussed with neurosurgery Dr. Roth; advised for TLSO brace - c/w Adjust TLSO brace and physical therapy until clearance provided - c/w Pain control with NSAIDS / Lidocaine patch - will f/u outpatient with Neurosurgery s/p Nausea and Vomiting - CT abdomen / pelvis 08/01: chronic pleuroparenchymal changes with small b/l superimposed acute atelectasis, no acute abdominopelvic pathology - XR / CT abdomen + pelvis 07/30: Colonic distention / Bladder distention; Case was discussed with Dr. Sellers, who believes this is more from the distended bladder - s/p NG tube - c/w Soft mechanical diet Bladder distention - likely 2/2 urinary retention - s/p Mckee catheter Macrocytic anemia - Hg remains stable DM2 - 2/2 corticosteroids - s/p Episodes of hypoglycemia - c/w ISS; s/p Levemir HTN - BP on lower side of normal - c/w Isosorbide mononitrate and Verapamil (Holding parameters continued; majority held) Chronic Aspergillosis - c/w Itraconazole Hx of IgG immunodeficiency - Subclass 4 - Could not tolerate Immunoglobulin infusions in past, as per patient Hx of Seizure disorder - c/w Keppra Hx of Zoster GI prophylaxis - c/w Protonix DVT prophylaxis - c/w Heparin Disposition: - c/w TLSO brace and physical therapy VS,Fishbone, I+O VS, Fishbone, I+O Laboratory Tests 08/05/17 05:47 Red Blood Count 3.27 L, Mean Corpuscular Volume 94.8, Mean Corpuscular Hemoglobin 31.2, Mean Corpuscular Hemoglobin Concent 32.9, Red Cell Distribution Width 12.5, Calcium Level 8.5 L Vital Signs Date Time Temp Pulse Resp B/P (MAP) Pulse Ox O2 Delivery O2 Flow Rate FiO2 08/05/17 08:53 104/51 08/05/17 07:30 77 08/05/17 06:00 98.7 18 92 NIPPV (BIPAP/CPAP) 08/04/17 22:00 2.0 08/01/17 12:30 40 JAZMYN GARRISON MD Aug 05, 2017 11:04
[2017-08-05 18:00] VITALS: BP 100/49
[2017-08-05] MEDS: ITRACONAZOLE 100 MG CAP (SPORANOX) PO SCH (20:15)
[2017-08-05] MEDS: TAZOBACTAM SOD IV SCH (20:15)
[2017-08-05] MEDS: PIPERACILLIN IV SCH (20:15)
[2017-08-05] MEDS: D5W IV SCH (20:15)
[2017-08-05] MEDS: AZITHROMYCIN 250 MG TAB PO SCH (20:15)
[2017-08-05] MEDS: ACETAMINOPHEN TAB 650MG DOSE (2X325MG) PO PRN (20:16)
[2017-08-05] MEDS: MULTIVITAMINS/MINERALS THERAP 1 TAB PO SCH (20:16)
[2017-08-05] MEDS: MONTELUKAST 10 MG TAB PO SCH (20:16)
[2017-08-05 22:00] VITALS: BP 107/53
[2017-08-05] MEDS: FERROUS SULFATE 325MG TAB PO SCH (22:21)
[2017-08-06 02:00] VITALS: BP 120/59
[2017-08-06] MEDS: ALBUTEROL SULFATE 2.5 MG/0.5 ML INH NEB SOLN INH SCH ×7 (04:00→23:53)
[2017-08-06] MEDS: SODIUM CHLORIDE 0.9% INJ 10 ML SYR IV SCH ×2 (05:53→17:36)
[2017-08-06] MEDS: HEPARIN SOD (PORCINE) 5000 UNITS/ML VIAL SQ SCH ×3 (05:53→22:21)
[2017-08-06 06:00] VITALS: BP 120/56
[2017-08-06 06:17] LABS: MEAN CORPUSCULAR HEMOGLOBIN 33.3 pg (27.0-33.0); MEAN CORPUSCULAR HGB CONC 34.7 g/dl (32.0-36.5); RED CELL DISTRIBUTION WIDTH 13.1 % (11.5-14.5); WHITE BLOOD COUNT 6.2 10^3/uL (4.0-10.0)
[2017-08-06 06:32] LABS: ANION GAP 6 MEQ/L (8-16); BLOOD UREA NITROGEN 9 MG/DL (7-18); CALCIUM LEVEL 7.9 MG/DL (8.8-10.2); CARBON DIOXIDE LEVEL 35 MEQ/L (21-32); CHLORIDE LEVEL 92 MEQ/L (98-107); CREATININE FOR GFR 0.46 MG/DL (0.55-1.02); GLOMERULAR FILTRATION RATE > 60.0 (>45); GLUCOSE, FASTING 78 MG/DL (80-110); POTASSIUM SERUM 3.2 MEQ/L (3.5-5.1); SODIUM LEVEL 133 MEQ/L (136-145)
[2017-08-06] MEDS ORDERED: POTASSIUM CHLORIDE 10 MEQ SR TABLET PO ONE (07:00)
[2017-08-06] MEDS: HumaLOG INSULIN (NovoLOG) PER UNIT SC SCH ×4 (07:30→21:00)
[2017-08-06] MEDS: VERAPAMIL 120 MG SR TAB PO SCH (08:40)
[2017-08-06] MEDS: ISOSORBIDE MON. (IMDUR) 60 MG XR TAB PO SCH (08:41)
[2017-08-06] MEDS: FUROSEMIDE 40 MG TAB PO SCH (08:41)
[2017-08-06] MEDS: MAGNESIUM CHLORIDE 64 MG TABCR (SLO MAG) PO SCH ×2 (08:41→20:55)
[2017-08-06] MEDS: PANTOPRAZOLE 40MG TAB (PROTONIX) PO SCH (08:41)
[2017-08-06] MEDS: levETIRAcetam 250MG TABLET (KEPPRA) PO SCH ×2 (08:41→20:53)
[2017-08-06 10:00] VITALS: BP 120/61
--- NOTE | 2017-08-06 12:07 | IPNPDOC ---
Text Note Date of Service The patient was seen on 08/06/17. 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 She was evaluated in the ER initially and then sent home, however she return to the ER with persistent back pain and was found to have an acute fracture of L1. Patient was admitted for pneumonia, and antibiotics were selected based on her Die Casting Supervisor's recommendation (Dr. Price). Dr. Barnard and Dr. López were consulted. Patient was seen and examined at the bedside. Her was present at bedside. They are pleased with the progress she is making. They will be continuing to pursue lung transplant after this acute event has resolved. Objective: Vitals (See below) General: Lying in bed, no acute distress, comfortable, AAOx3 HEENT: NC, AT CVS: RRR, +S1S2 Lungs: Poor inspiratory effort, No wheezing appreciated Abdomen: Soft, ND, NT Extremities: - Edema, - Calf tenderness Assessment and plan: Acute L1 Wedge Compression Fracture - Case was discussed with neurosurgery Dr. Roth; advised for TLSO brace and outpatient follow up - c/w Adjust TLSO brace - c/w Pain control with NSAIDS / Lidocaine patch - Outpatient follow up with Neurosurgery - c/w Physical therapy, has made progress, awaiting clearance s/p Acute Hypercapnic respiratory failure on chronic hypoxic respiratory failure - likely 2/2 progressive bronchiolitis obliterans and pneumonia (HCAP) - Required additional BIPAP support initially in ICU; now resolved and on home BIPAP settings - Has outpatient follow up for lung transplant evaluation - Sputum culture 07/29: Achromobacter Denitrificans - CT chest 07/28: chronic bronchiectasis, significantly progressed, focal new parenchymal density in LLL and new small L pleural effusion, tree-in-bud pattern in lingula / LLL / RLL - compatible with pneumonitis - c/w Zosyn infusion (Day #9); s/p Tobramycin and TMP-SMX - Dr. Barnard and Dr. López on consult; appreciate their input Bronchiolitis obliterans - Follows with Dr. Price (Die Casting Supervisor) in [place] - c/w Singulair and Albuterol Pulmonary congestion - 2/2 fluid overload - Elevated BNP - Has remained negative fluid balance throughout hospitalization - c/w Furosemide 40 PO QD, s/p IV Furosemide s/p Nausea and Vomiting - CT abdomen / pelvis 08/01: chronic pleuroparenchymal changes with small b/l superimposed acute atelectasis, no acute abdominopelvic pathology - XR / CT abdomen + pelvis 07/30: Colonic distention / Bladder distention; Case was discussed with Dr. Sellers, who believes this is more from the distended bladder - s/p NG tube - c/w Soft mechanical diet Bladder distention - likely 2/2 urinary retention - s/p Mckee catheter Macrocytic anemia - Hg remains stable DM2 - 2/2 corticosteroids - s/p Episodes of hypoglycemia - c/w ISS; s/p Levemir HTN - BP on lower side of normal - c/w Isosorbide mononitrate and Verapamil (Holding parameters continued; majority held) Chronic Aspergillosis - c/w Itraconazole Hx of IgG immunodeficiency - Subclass 4 - Could not tolerate Immunoglobulin infusions in past, as per patient Hx of Seizure disorder - c/w Keppra Hx of Zoster GI prophylaxis - c/w Protonix DVT prophylaxis - c/w Heparin Disposition: - c/w TLSO brace and physical therapy VS,Iggy, I+O VS, Iggy, I+O Laboratory Tests 08/06/17 05:51 Red Blood Count 2.97 L, Mean Corpuscular Volume 96.0, Mean Corpuscular Hemoglobin 33.3 H, Mean Corpuscular Hemoglobin Concent 34.7, Red Cell Distribution Width 13.1, Calcium Level 7.9 L Vital Signs Date Time Temp Pulse Resp B/P (MAP) Pulse Ox O2 Delivery O2 Flow Rate FiO2 08/06/17 08:41 120/56 08/06/17 08:40 75 08/06/17 06:00 97.2 18 98 NIPPV (BIPAP/CPAP) 3.0 08/01/17 12:30 40 I&O- Last 24 Hours up to 6 AM 08/07/17 05:59 Intake Total 120 ml Output Total 450 ml Balance -330 ml JAZMYN GARRISON MD Aug 06, 2017 12:07
[2017-08-06 14:00] VITALS: BP 118/59
[2017-08-06 18:00] VITALS: BP 104/52
[2017-08-06] MEDS: PIPERACILLIN IV SCH (20:53)
[2017-08-06] MEDS: D5W IV SCH (20:53)
[2017-08-06] MEDS: AZITHROMYCIN 250 MG TAB PO SCH (20:53)
[2017-08-06] MEDS: TAZOBACTAM SOD IV SCH (20:53)
[2017-08-06] MEDS: MULTIVITAMINS/MINERALS THERAP 1 TAB PO SCH (20:54)
[2017-08-06] MEDS: MONTELUKAST 10 MG TAB PO SCH (20:54)
[2017-08-06] MEDS: ITRACONAZOLE 100 MG CAP (SPORANOX) PO SCH (20:54)
[2017-08-06 22:00] VITALS: BP 125/58
[2017-08-06] MEDS: FERROUS SULFATE 325MG TAB PO SCH (22:21)
[2017-08-07] VITALS (7 sets, daily range): BP systolic 112–140; BP diastolic 56–63
[2017-08-07] MEDS: ALBUTEROL SULFATE 2.5 MG/0.5 ML INH NEB SOLN INH SCH ×6 (01:49→23:58)
[2017-08-07] MEDS: SODIUM CHLORIDE 0.9% INJ 10 ML SYR IV SCH ×2 (05:43→17:42)
[2017-08-07] MEDS: HEPARIN SOD (PORCINE) 5000 UNITS/ML VIAL SQ SCH ×3 (05:43→22:08)
[2017-08-07 06:06] LABS: MEAN CORPUSCULAR HEMOGLOBIN 30.7 pg (27.0-33.0); MEAN CORPUSCULAR HGB CONC 32.8 g/dl (32.0-36.5); MEAN CORPUSCULAR VOLUME 93.7 fl (80.0-96.0); RED CELL DISTRIBUTION WIDTH 12.7 % (11.5-14.5); WHITE BLOOD COUNT 6.4 10^3/uL (4.0-10.0)
[2017-08-07 06:34] LABS: ANION GAP 5 MEQ/L (8-16); BLOOD UREA NITROGEN 8 MG/DL (7-18); CALCIUM LEVEL 8.2 MG/DL (8.8-10.2); CARBON DIOXIDE LEVEL 37 MEQ/L (21-32); CHLORIDE LEVEL 93 MEQ/L (98-107); CREATININE FOR GFR 0.54 MG/DL (0.55-1.02); GLOMERULAR FILTRATION RATE > 60.0 (>45); GLUCOSE, FASTING 80 MG/DL (80-110); POTASSIUM SERUM 3.7 MEQ/L (3.5-5.1); SODIUM LEVEL 135 MEQ/L (136-145)
[2017-08-07] MEDS: HumaLOG INSULIN (NovoLOG) PER UNIT SC SCH ×4 (07:30→20:35)
[2017-08-07] MEDS: levETIRAcetam 250MG TABLET (KEPPRA) PO SCH ×2 (08:35→22:07)
[2017-08-07] MEDS: VERAPAMIL 120 MG SR TAB PO SCH (08:35)
[2017-08-07] MEDS: PANTOPRAZOLE 40MG TAB (PROTONIX) PO SCH (08:35)
[2017-08-07] MEDS: MAGNESIUM CHLORIDE 64 MG TABCR (SLO MAG) PO SCH ×2 (08:35→22:07)
[2017-08-07] MEDS: ISOSORBIDE MON. (IMDUR) 60 MG XR TAB PO SCH (08:35)
[2017-08-07] MEDS: FUROSEMIDE 40 MG TAB PO SCH (08:57)
--- NOTE | 2017-08-07 10:55 | IPNPDOC ---
Text Note Date of Service The patient was seen on 08/07/17. 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 She was evaluated in the ER initially and then sent home, however she return to the ER with persistent back pain and was found to have an acute fracture of L1. Patient was admitted for pneumonia, and antibiotics were selected based on her Machine Tailer's recommendation (Dr. Price). Dr. Barnard and Dr. López were consulted. Patient was seen and examined at the bedside. She notes that she has been experiencing swelling of her legs. She continues to make progress on her own, she will continue to work with physical therapy today. She denies any difficulty breathing, chest pain or palpitations. She does have a mild cough. Objective: Vitals (See below) General: Lying in bed, no acute distress, comfortable, AAOx3 HEENT: NC, AT CVS: RRR, +S1S2 Lungs: Poor inspiratory effort, No wheezing appreciated Abdomen: Soft, ND, NT Extremities: Trace Edema, - Calf tenderness Assessment and plan: Acute L1 Wedge Compression Fracture - Case was discussed with neurosurgery Dr. Roth; advised for TLSO brace and outpatient follow up - c/w Adjust TLSO brace - c/w Pain control with NSAIDS / Lidocaine patch - Outpatient follow up with Neurosurgery (Dr. Roth) - Has been making progress over the weekend with her and nursing staff, will c/w physical therapy today s/p Acute Hypercapnic respiratory failure on chronic hypoxic respiratory failure - likely 2/2 progressive bronchiolitis obliterans and pneumonia (HCAP) - Required additional BIPAP support initially in ICU; now resolved and on home BIPAP settings - Has outpatient follow up for lung transplant evaluation - Sputum culture 07/29: Achromobacter Denitrificans - CT chest 07/28: chronic bronchiectasis, significantly progressed, focal new parenchymal density in LLL and new small L pleural effusion, tree-in-bud pattern in lingula / LLL / RLL - compatible with pneumonitis - c/w Zosyn infusion (Day #10); s/p Tobramycin and TMP-SMX - Will likely discontinue antibiotics today - Dr. Barnard and Dr. López on consult; appreciate their input Bronchiolitis obliterans - Follows with Dr. Price (Machine Tailer) in [place] - c/w Singulair and Albuterol Pulmonary congestion - 2/2 fluid overload - Elevated BNP on admission - Trace LE edema currently - Has remained negative fluid balance throughout hospitalization - c/w Furosemide, will increase dose to 40 PO BID (home dose) s/p Nausea and Vomiting - CT abdomen / pelvis 08/01: chronic pleuroparenchymal changes with small b/l superimposed acute atelectasis, no acute abdominopelvic pathology - XR / CT abdomen + pelvis 07/30: Colonic distention / Bladder distention; Case was discussed with Dr. Sellers, who believes this is more from the distended bladder - s/p NG tube - c/w Soft mechanical diet Bladder distention - likely 2/2 urinary retention - s/p Mckee catheter Macrocytic anemia - Hg remains stable DM2 - 2/2 corticosteroids - s/p Episodes of hypoglycemia - c/w ISS; s/p Levemir HTN - BP on lower side of normal - c/w Isosorbide mononitrate and Verapamil (Holding parameters continued; majority held) Chronic Aspergillosis - c/w Itraconazole Hx of IgG immunodeficiency - Subclass 4 - Could not tolerate Immunoglobulin infusions in past, as per patient Hx of Seizure disorder - c/w Keppra Hx of Zoster GI prophylaxis - c/w Protonix DVT prophylaxis - c/w Heparin Disposition: - c/w TLSO brace and physical therapy VS,Fishstephaniee, I+O VS, Fishbone, I+O Laboratory Tests 08/07/17 05:41 Red Blood Count 3.19 L, Mean Corpuscular Volume 93.7, Mean Corpuscular Hemoglobin 30.7, Mean Corpuscular Hemoglobin Concent 32.8, Red Cell Distribution Width 12.7, Calcium Level 8.2 L Vital Signs Date Time Temp Pulse Resp B/P (MAP) Pulse Ox O2 Delivery O2 Flow Rate FiO2 08/07/17 08:35 89 140/63 08/07/17 08:32 98.2 18 96 Nasal Cannula 2.0 08/01/17 12:30 40 I&O- Last 24 Hours up to 6 AM 08/08/17 06:00 Intake Total 340 ml Output Total 400 ml Balance -60 ml JAZMYN GARRISON MD Aug 07, 2017 10:55
[2017-08-07] MEDS: FUROSEMIDE 40 MG/4 ML VIAL (J1940) IV SCH (17:42)
--- NOTE | 2017-08-07 18:05 | IPNPDOC ---
Date Seen The patient was seen on 08/07/17. Progress Note SUBJECTIVE: Patient is a 62-year-old female with back pain status- post "acute mild wedge compression fracture deformity at the L1 vertebral body with 25-30% loss of vertebral body height and 4 mm of retropulsion from buckling of the posterior cortex" with TLSO brace per neurosurgery and underlying brochiolitis obliterans and pulmonary fibrosis. Patient states that she is feeling much better. States that depending on who fits the brace will depend on how well it fits for the day. Has some difficulty eating with the brace on as it is constricting. The urinary catheter has been removed. She says she felt a little "wobbly" on her feet the first time she got up to the use the restroom on her own, but she feels a little more confident on her feet today. Continues to work with physical therapy and has not been cleared by them at this time. OBJECTIVE PHYSICAL EXAMINATION: VITAL SIGNS: Please see below. GENERAL: Frail appearing female, laying in the supine position during evaluation, appears stated age, in no acute distress HEENT: Atraumatic, normocephalic, PERRL, EOMI, wears spectacles, oral mucosa appears pink and moist, lips are moisturized, nasal septum appears midline, nares are patent CARDIOVASCULAR: Regular rate and rhythm, normal S1 and S2, no murmur, rub, click RESPIRATORY: Inspiratory wheeze appreciated on the anterior chest, crackles appreciated bilaterally R > L, ecchymoses on back are improving ABDOMINAL: Soft, flat, non-tender, non-distended EXTREMITIES: Peripheral pulses appreciated bilaterally, equal, symmetrical, +2/4 , +1 pitting edema appreciated in bilateral lower extremities NEUROLOGICAL: CN II-XII grossly intact PSYCHOLOGICAL: Alert and conversant, pleasant LABORATORY DATA: Please see below. MICROBIOLOGY: Please see below. DVT prophylaxis ordered?: Heparin 5,000 units SC every 8 hours. ASSESSMENT AND PLAN: This is a 62-year-old female with persistent back pain status-post wedge compression fracture of L1 and bronchiolitis obliterans and underlying pulmonary fibrosis. PROBLEMS: 1. Bronchiolitis obliterans and pulmonary fibrosis: Patient appears clinically stable. Has remained on 2-3 L of oxygen via nasal cannula for the last 24 hours. Zosyn can be discontinued at this time. Patient has completed 10 days of therapy. Discussed with primary team. Continue with Azithromycin for immunomodulation. DISPOSITION: Patient is clinically stable from an infectious disease standpoint. Please defer to primary team for continued medical management. Thank you for involving infectious disease in the care of this patient. It has been a pleasure to do so. VS, I&O, 24H, Fishbone Vital Signs/I&O Vital Signs Date Time Temp Pulse Resp B/P (MAP) Pulse Ox O2 Delivery O2 Flow Rate FiO2 08/07/17 14:00 98.0 103 18 112/58 (76) 96 Nasal Cannula 2.0 08/01/17 12:30 40 I&O- Last 24 Hours up to 6 AM 08/08/17 06:00 Intake Total 841.4 ml Output Total 1050 ml Balance -208.6 ml Laboratory Data 24H LABS Laboratory Tests 2 08/06/17 20:12: Bedside Glucose (Misc Panel) 128H 08/07/17 05:41: Anion Gap 5L, Glomerular Filtration Rate > 60.0, Blood Urea Nitrogen 8, Creatinine 0.54L, Sodium Level 135L, Potassium Level 3.7, Chloride Level 93L, Carbon Dioxide Level 37H, Calcium Level 8.2L, C-Reactive Protein, Quantitative < 0.30 08/07/17 11:38: Bedside Glucose (Misc Panel) 101 08/07/17 16:43: Bedside Glucose (Misc Panel) 149H CBC/BMP Laboratory Tests 08/07/17 05:41 Red Blood Count 3.19 L, Mean Corpuscular Volume 93.7, Mean Corpuscular Hemoglobin 30.7, Mean Corpuscular Hemoglobin Concent 32.8, Red Cell Distribution Width 12.7, Calcium Level 8.2 L Microbiology Microbiology 07/28/17 Blood Culture - Final, Complete NO GROWTH AFTER 5 DAYS 07/28/17 Blood Culture - Final, Complete NO GROWTH AFTER 5 DAYS 08/02/17 Stool Occult Blood (MATTHEW) - Final, Complete 07/29/17 Gram Stain - Final, Complete 07/29/17 Sputum Culture - Final, Complete Achromobacter Denitrificans 07/28/17 Urine Culture - Final, Complete Pseudomonas Aeruginosa 08/04/17 Gram Stain - Final, Complete 08/04/17 Wound Culture - Final, Complete Staphylococcus Sp Coag Neg Corynebacterium Species RUSH VANCE-I Aug 07, 2017 18:05
[2017-08-07] MEDS ORDERED: FUROSEMIDE 40 MG TAB PO SCH (21:00)
[2017-08-07] MEDS: MONTELUKAST 10 MG TAB PO SCH (22:07)
[2017-08-07] MEDS: FERROUS SULFATE 325MG TAB PO SCH (22:07)
[2017-08-07] MEDS: SODIUM CHLORIDE 0.9% INJ 10 ML SYR IV PRN (22:07)
[2017-08-07] MEDS: MULTIVITAMINS/MINERALS THERAP 1 TAB PO SCH (22:07)
[2017-08-07] MEDS: AZITHROMYCIN 250 MG TAB PO SCH (22:07)
[2017-08-07] MEDS: ITRACONAZOLE 100 MG CAP (SPORANOX) PO SCH (22:07)
[2017-08-07] MEDS: ACETAMINOPHEN TAB 650MG DOSE (2X325MG) PO PRN (22:08)
[2017-08-08] VITALS (7 sets, daily range): BP systolic 115–132; BP diastolic 56–66
[2017-08-08] MEDS: ALBUTEROL SULFATE 2.5 MG/0.5 ML INH NEB SOLN INH SCH ×6 (04:00→23:29)
[2017-08-08] MEDS: HEPARIN SOD (PORCINE) 5000 UNITS/ML VIAL SQ SCH ×3 (05:07→21:09)
[2017-08-08] MEDS: SODIUM CHLORIDE 0.9% INJ 10 ML SYR IV SCH ×2 (05:07→17:24)
[2017-08-08 05:21] LABS: MEAN CORPUSCULAR HEMOGLOBIN 31.2 pg (27.0-33.0); MEAN CORPUSCULAR HGB CONC 33.8 g/dl (32.0-36.5); MEAN CORPUSCULAR VOLUME 92.2 fl (80.0-96.0); RED CELL DISTRIBUTION WIDTH 12.7 % (11.5-14.5); WHITE BLOOD COUNT 6.7 10^3/uL (4.0-10.0)
[2017-08-08 06:08] LABS: ANION GAP 4 MEQ/L (8-16); BLOOD UREA NITROGEN 8 MG/DL (7-18); CALCIUM LEVEL 8.3 MG/DL (8.8-10.2); CARBON DIOXIDE LEVEL 37 MEQ/L (21-32); CHLORIDE LEVEL 93 MEQ/L (98-107); CREATININE FOR GFR 0.46 MG/DL (0.55-1.02); GLOMERULAR FILTRATION RATE > 60.0 (>45); GLUCOSE, FASTING 81 MG/DL (80-110); POTASSIUM SERUM 3.5 MEQ/L (3.5-5.1); SODIUM LEVEL 134 MEQ/L (136-145)
[2017-08-08] MEDS: HumaLOG INSULIN (NovoLOG) PER UNIT SC SCH ×4 (07:30→21:00)
[2017-08-08] MEDS: SODIUM CHLORIDE 0.9% INJ 10 ML SYR IV PRN (08:47)
[2017-08-08] MEDS: VERAPAMIL 120 MG SR TAB PO SCH (09:00)
[2017-08-08] MEDS: FUROSEMIDE 40 MG/4 ML VIAL (J1940) IV SCH (09:00)
[2017-08-08] MEDS: MAGNESIUM CHLORIDE 64 MG TABCR (SLO MAG) PO SCH ×2 (09:11→21:09)
[2017-08-08] MEDS: PANTOPRAZOLE 40MG TAB (PROTONIX) PO SCH (09:11)
[2017-08-08] MEDS: levETIRAcetam 250MG TABLET (KEPPRA) PO SCH ×2 (09:12→21:08)
[2017-08-08] MEDS: ISOSORBIDE MON. (IMDUR) 60 MG XR TAB PO SCH (09:12)
--- NOTE | 2017-08-08 13:39 | IPNPDOC ---
Text Note Date of Service The patient was seen on 08/08/17. NOTE Subjective:Pt feels well. Denies any complaints. States she is willing to participate with physical therapy. She has been getting out of bed to the chair in the bathroom. She is also wearing her TLSO brace. PHYSICAL EXAMINATION: Vitals: (see below) General: No acute distress, laying comfortably in bed. HEENT: Moist mucous membranes. Neck: No JVD or lymphadenopathy Cardiac: RRR, No murmurs Pulm: Coarse crackles bilaterally.. No wheezing or rhonchi. Abd: NT/ND + BS Ext: No edema or cyanosis. Strength 5/5 BLE. DTR 2+ b/l. Babinski negative. LABORATORY DATA: See below. IMAGING: CT Chest 07/28/17 Impression: Chronic bronchiectasis that has significantly progressed. Focal new parenchymal density in the left lower lobe and new small left pleural effusion, not present on the comparison CT. Tree-in-bud pattern in the lingula, left lower lobe and right lower lobe compatible with pneumonitis. Surgical staple lines in the left upper lobe left lower lobe, unchanged from the prior CT. T6 vertebroplasty, unchanged. Comparison is the CT on 12/10/08. MRI Lumbar Spine 07/28/17 Impression: Acute mild wedge compression fracture deformity at the L1 vertebral body with 25-30% loss of vertebral body height and 4 mm of retropulsion from buckling of the posterior cortex. There has been loss of vertebral body height and buckling since the July 26, 2017 CT. In addition, there are degenerative spondylosis changes. There is no evidence of epidural hematoma. MICROBIOLOGY: Please see below. ASSESSMENT/PLAN: 1. S/p Acute hypercapnic respiratory failure requiring BiPAP - transfer to ICU. Progressive bronchiectasis obliterans being evaluated for Lung transplant. H/o multiple lung infections on Azithro outpt. Prior intubation with an extensive ICU stay. Follows with Dr. Price in [place]. We will avoid narcotics, as the patient's respiratory status is very labile, and she frequently becomes hypercapnic. Appreciate pulmonary input. 2. PNA- Completed course of Abx with zosyn, tobramycin, Bactrim. 3. Acute Mild Wedge Compression Fx. Strength/sensation preserved. DTR 2+. No alarming symptoms. Pain control with Tylenol and NSAIDs. Lidocaine patch. PT. Spoke with Dr. Chandra, who will see patient. A TLSO brace has been recommended for 3 months 4. Diabetes mellitus- HLevemir. SSI. 5. Hypertension- controlled continue current meds 6. H/o Aspergillosis 7. History of IgG immunodeficiency subclass 4- patient states she had tried infusions of immunoglobulins and did not tolerate them very well 8. History of iron deficiency anemia 9. History of seizure disorder on Keppra 10. History of zoster 11.S/p ileus from urinary retention, s/p NG tube, tolerating diet. 12. Pulmonary congestion- BNP elevated. Chest x-ray with pulmonary congestion. Cont IV Lasix. Due to prophylaxis- Lovenox Prognosis guarded Will need more work with PT. May require subacute rehab. VS,Fishbone, I+O VS, Fishbone, I+O Laboratory Tests 08/08/17 05:06 Red Blood Count 3.08 L, Mean Corpuscular Volume 92.2, Mean Corpuscular Hemoglobin 31.2, Mean Corpuscular Hemoglobin Concent 33.8, Red Cell Distribution Width 12.7, Calcium Level 8.3 L Vital Signs Date Time Temp Pulse Resp B/P (MAP) Pulse Ox O2 Delivery O2 Flow Rate FiO2 08/08/17 10:00 98.9 97 18 126/56 (79) 95 Nasal Cannula 2.0 I&O- Last 24 Hours up to 6 AM 08/09/17 06:00 Intake Total 620 ml Output Total 700 ml Balance -80 ml LAKISHA GUERRERO MD Aug 08, 2017 13:39
[2017-08-08] MEDS: FUROSEMIDE 20 MG TAB PO SCH (16:37)
[2017-08-08] MEDS: MONTELUKAST 10 MG TAB PO SCH (21:08)
[2017-08-08] MEDS: MULTIVITAMINS/MINERALS THERAP 1 TAB PO SCH (21:08)
[2017-08-08] MEDS: ITRACONAZOLE 100 MG CAP (SPORANOX) PO SCH (21:08)
[2017-08-08] MEDS: AZITHROMYCIN 250 MG TAB PO SCH (21:09)
[2017-08-08] MEDS: FERROUS SULFATE 325MG TAB PO SCH (22:27)
[2017-08-09] VITALS (7 sets, daily range): BP systolic 110–134; BP diastolic 51–63
[2017-08-09] MEDS: ALBUTEROL SULFATE 2.5 MG/0.5 ML INH NEB SOLN INH SCH ×6 (03:22→23:20)
[2017-08-09] MEDS: HEPARIN SOD (PORCINE) 5000 UNITS/ML VIAL SQ SCH ×3 (04:57→22:02)
[2017-08-09] MEDS: SODIUM CHLORIDE 0.9% INJ 10 ML SYR IV SCH ×2 (04:57→18:01)
[2017-08-09 05:12] LABS: MEAN CORPUSCULAR HEMOGLOBIN 30.4 pg (27.0-33.0); MEAN CORPUSCULAR HGB CONC 32.8 g/dl (32.0-36.5); MEAN CORPUSCULAR VOLUME 92.7 fl (80.0-96.0); RED CELL DISTRIBUTION WIDTH 12.5 % (11.5-14.5); WHITE BLOOD COUNT 6.6 10^3/uL (4.0-10.0)
[2017-08-09 05:47] LABS: ANION GAP 6 MEQ/L (8-16); BLOOD UREA NITROGEN 7 MG/DL (7-18); CALCIUM LEVEL 8.4 MG/DL (8.8-10.2); CARBON DIOXIDE LEVEL 36 MEQ/L (21-32); CHLORIDE LEVEL 94 MEQ/L (98-107); GLOMERULAR FILTRATION RATE > 60.0 (>45); GLUCOSE, FASTING 77 MG/DL (80-110); POTASSIUM SERUM 3.2 MEQ/L (3.5-5.1); SODIUM LEVEL 136 MEQ/L (136-145)
[2017-08-09] MEDS: HumaLOG INSULIN (NovoLOG) PER UNIT SC SCH ×4 (07:30→21:00)
[2017-08-09] MEDS ORDERED: POTASSIUM CHLORIDE 10 MEQ SR TABLET PO ONE (09:00)
[2017-08-09] MEDS: ACETAMINOPHEN TAB 650MG DOSE (2X325MG) PO PRN ×2 (09:41→17:58)
[2017-08-09] MEDS: FUROSEMIDE 20 MG TAB PO SCH ×2 (09:42→18:02)
[2017-08-09] MEDS: levETIRAcetam 250MG TABLET (KEPPRA) PO SCH ×2 (09:42→20:05)
[2017-08-09] MEDS: PANTOPRAZOLE 40MG TAB (PROTONIX) PO SCH (09:42)
[2017-08-09] MEDS: ISOSORBIDE MON. (IMDUR) 60 MG XR TAB PO SCH (09:43)
[2017-08-09] MEDS: VERAPAMIL 120 MG SR TAB PO SCH (09:45)
[2017-08-09] MEDS: MAGNESIUM CHLORIDE 64 MG TABCR (SLO MAG) PO SCH ×2 (09:45→20:04)
--- NOTE | 2017-08-09 14:00 | IPNPDOC ---
Text Note Date of Service The patient was seen on 08/09/17. NOTE Subjective:Pt feels well. Has been ambulating more with PT. PHYSICAL EXAMINATION: Vitals: (see below) General: No acute distress, laying comfortably in bed. HEENT: Moist mucous membranes. Neck: No JVD or lymphadenopathy Cardiac: RRR, No murmurs Pulm: Coarse crackles bilaterally.. No wheezing or rhonchi. Abd: NT/ND + BS Ext: No edema or cyanosis. Strength 5/5 BLE. DTR 2+ b/l. Babinski negative. LABORATORY DATA: See below. IMAGING: CT Chest 07/28/17 Impression: Chronic bronchiectasis that has significantly progressed. Focal new parenchymal density in the left lower lobe and new small left pleural effusion, not present on the comparison CT. Tree-in-bud pattern in the lingula, left lower lobe and right lower lobe compatible with pneumonitis. Surgical staple lines in the left upper lobe left lower lobe, unchanged from the prior CT. T6 vertebroplasty, unchanged. Comparison is the CT on 12/10/08. MRI Lumbar Spine 07/28/17 Impression: Acute mild wedge compression fracture deformity at the L1 vertebral body with 25-30% loss of vertebral body height and 4 mm of retropulsion from buckling of the posterior cortex. There has been loss of vertebral body height and buckling since the July 26, 2017 CT. In addition, there are degenerative spondylosis changes. There is no evidence of epidural hematoma. MICROBIOLOGY: Please see below. ASSESSMENT/PLAN: 1. S/p Acute hypercapnic respiratory failure requiring BiPAP - transfer to ICU. Progressive bronchiectasis obliterans being evaluated for Lung transplant. H/o multiple lung infections on Azithro outpt. Prior intubation with an extensive ICU stay. Follows with Dr. Price in [place]. We will avoid narcotics, as the patient's respiratory status is very labile, and she frequently becomes hypercapnic. Appreciate pulmonary input. 2. PNA- Completed course of Abx with zosyn, tobramycin, Bactrim. 3. Acute Mild Wedge Compression Fx. Strength/sensation preserved. DTR 2+. No alarming symptoms. Pain control with Tylenol and NSAIDs. Lidocaine patch. PT. Spoke with Dr. Chandra, who will see patient. A TLSO brace has been recommended for 3 months 4. Diabetes mellitus- HLevemir. SSI. 5. Hypertension- controlled continue current meds 6. H/o Aspergillosis 7. History of IgG immunodeficiency subclass 4- patient states she had tried infusions of immunoglobulins and did not tolerate them very well 8. History of iron deficiency anemia 9. History of seizure disorder on Keppra 10. History of zoster 11.S/p ileus from urinary retention, s/p NG tube, tolerating diet. 12. Pulmonary congestion- BNP elevated. Chest x-ray with pulmonary congestion. Cont IV Lasix. Due to prophylaxis- Lovenox Prognosis guarded Will need more work with PT. May require subacute rehab. VS,Fishbone, I+O VS, Fishbone, I+O Laboratory Tests 08/09/17 04:58 Red Blood Count 3.16 L, Mean Corpuscular Volume 92.7, Mean Corpuscular Hemoglobin 30.4, Mean Corpuscular Hemoglobin Concent 32.8, Red Cell Distribution Width 12.5, Calcium Level 8.4 L Vital Signs Date Time Temp Pulse Resp B/P (MAP) Pulse Ox O2 Delivery O2 Flow Rate FiO2 08/09/17 13:49 97.6 92 19 110/51 (70) 94 Nasal Cannula 2.0 I&O- Last 24 Hours up to 6 AM 08/10/17 06:00 Intake Total 500 ml Output Total 450 ml Balance 50 ml LAKISHA GUERRERO MD Aug 09, 2017 14:00
[2017-08-09] MEDS: NYSTATIN 100,000 UNITS/GM TOPICAL PWD 15 GM TOP SCH (20:04)
[2017-08-09] MEDS: MULTIVITAMINS/MINERALS THERAP 1 TAB PO SCH (20:05)
[2017-08-09] MEDS: ITRACONAZOLE 100 MG CAP (SPORANOX) PO SCH (20:05)
[2017-08-09] MEDS: MONTELUKAST 10 MG TAB PO SCH (20:05)
[2017-08-09] MEDS: AZITHROMYCIN 250 MG TAB PO SCH (20:05)
[2017-08-09] MEDS: FERROUS SULFATE 325MG TAB PO SCH (22:02)
[2017-08-10 02:00] VITALS: BP 130/60
[2017-08-10] MEDS: ALBUTEROL SULFATE 2.5 MG/0.5 ML INH NEB SOLN INH SCH ×5 (03:10→20:17)
[2017-08-10] MEDS: SODIUM CHLORIDE 0.9% INJ 10 ML SYR IV SCH ×2 (05:13→17:26)
[2017-08-10] MEDS: HEPARIN SOD (PORCINE) 5000 UNITS/ML VIAL SQ SCH ×3 (05:13→22:15)
[2017-08-10 05:23] LABS: MEAN CORPUSCULAR HEMOGLOBIN 30.5 pg (27.0-33.0); MEAN CORPUSCULAR HGB CONC 32.4 g/dl (32.0-36.5); RED CELL DISTRIBUTION WIDTH 12.8 % (11.5-14.5)
[2017-08-10 05:46] LABS: ANION GAP 7 MEQ/L (8-16); BLOOD UREA NITROGEN 8 MG/DL (7-18); CALCIUM LEVEL 8.2 MG/DL (8.8-10.2); CARBON DIOXIDE LEVEL 33 MEQ/L (21-32); CHLORIDE LEVEL 98 MEQ/L (98-107); CREATININE FOR GFR 0.39 MG/DL (0.55-1.02); GLOMERULAR FILTRATION RATE > 60.0 (>45); GLUCOSE, FASTING 79 MG/DL (80-110); POTASSIUM SERUM 3.7 MEQ/L (3.5-5.1); SODIUM LEVEL 138 MEQ/L (136-145)
[2017-08-10 06:00] VITALS: BP 125/58
[2017-08-10] MEDS: HumaLOG INSULIN (NovoLOG) PER UNIT SC SCH ×4 (07:05→21:00)
[2017-08-10] MEDS: NYSTATIN 100,000 UNITS/GM TOPICAL PWD 15 GM TOP SCH ×2 (09:00→21:07)
[2017-08-10] MEDS: MAGNESIUM CHLORIDE 64 MG TABCR (SLO MAG) PO SCH ×2 (09:00→21:06)
[2017-08-10] MEDS: VERAPAMIL 120 MG SR TAB PO SCH (09:02)
[2017-08-10] MEDS: ISOSORBIDE MON. (IMDUR) 60 MG XR TAB PO SCH (09:02)
[2017-08-10] MEDS: PANTOPRAZOLE 40MG TAB (PROTONIX) PO SCH (09:02)
[2017-08-10] MEDS: levETIRAcetam 250MG TABLET (KEPPRA) PO SCH ×2 (09:03→21:06)
[2017-08-10] MEDS: FUROSEMIDE 20 MG TAB PO SCH ×2 (09:03→17:26)
[2017-08-10 10:00] VITALS: BP 132/60
[2017-08-10] MEDS: ACETAMINOPHEN TAB 650MG DOSE (2X325MG) PO PRN ×2 (10:40→17:26)
[2017-08-10 14:01] VITALS: BP 130/63
--- NOTE | 2017-08-10 15:24 | IPNPDOC ---
Text Note Date of Service The patient was seen on 08/10/17. NOTE Subjective:Pt feels well. Progressing with PT. Not dyspneic. PHYSICAL EXAMINATION: Vitals: (see below) General: No acute distress, laying comfortably in bed. HEENT: Moist mucous membranes. Neck: No JVD or lymphadenopathy Cardiac: RRR, No murmurs Pulm: Coarse crackles bilaterally.. No wheezing or rhonchi. Abd: NT/ND + BS Ext: No edema or cyanosis. Strength 5/5 BLE. DTR 2+ b/l. Babinski negative. LABORATORY DATA: See below. IMAGING: CT Chest 07/28/17 Impression: Chronic bronchiectasis that has significantly progressed. Focal new parenchymal density in the left lower lobe and new small left pleural effusion, not present on the comparison CT. Tree-in-bud pattern in the lingula, left lower lobe and right lower lobe compatible with pneumonitis. Surgical staple lines in the left upper lobe left lower lobe, unchanged from the prior CT. T6 vertebroplasty, unchanged. Comparison is the CT on 12/10/08. MRI Lumbar Spine 07/28/17 Impression: Acute mild wedge compression fracture deformity at the L1 vertebral body with 25-30% loss of vertebral body height and 4 mm of retropulsion from buckling of the posterior cortex. There has been loss of vertebral body height and buckling since the July 26, 2017 CT. In addition, there are degenerative spondylosis changes. There is no evidence of epidural hematoma. MICROBIOLOGY: Please see below. ASSESSMENT/PLAN: 1. S/p Acute hypercapnic respiratory failure requiring BiPAP -Progressive bronchiectasis obliterans being evaluated for Lung transplant. H/o multiple lung infections on Azithro outpt. Prior intubation with an extensive ICU stay. Follows with Dr. Price in [place]. We will avoid narcotics, as the patient's respiratory status is very labile, and she frequently becomes hypercapnic. Appreciate pulmonary input. 2. PNA- Completed course of Abx with zosyn, tobramycin, Bactrim. 3. Acute Mild Wedge Compression Fx. Strength/sensation preserved. DTR 2+. No alarming symptoms. Pain control with Tylenol and NSAIDs. Lidocaine patch. PT. Spoke with Dr. Chandra, who will see patient. A TLSO brace has been recommended for 3 months 4. Diabetes mellitus- HLevemir. SSI. 5. Hypertension- controlled continue current meds 6. H/o Aspergillosis 7. History of IgG immunodeficiency subclass 4- patient states she had tried infusions of immunoglobulins and did not tolerate them very well 8. History of iron deficiency anemia 9. History of seizure disorder on Keppra 10. History of zoster 11.S/p ileus from urinary retention, s/p NG tube, tolerating diet. 12. Pulmonary congestion- BNP elevated. Chest x-ray with pulmonary congestion. Cont IV Lasix. Due to prophylaxis- Lovenox Prognosis guarded Will need more work with PT. May require subacute rehab. VS,Fishbone, I+O VS, Fishbone, I+O Laboratory Tests 08/10/17 05:08 Red Blood Count 3.02 L, Mean Corpuscular Volume 94.0, Mean Corpuscular Hemoglobin 30.5, Mean Corpuscular Hemoglobin Concent 32.4, Red Cell Distribution Width 12.8, Calcium Level 8.2 L Vital Signs Date Time Temp Pulse Resp B/P (MAP) Pulse Ox O2 Delivery O2 Flow Rate FiO2 08/10/17 14:01 97.1 88 18 130/63 (85) 96 2.0 08/10/17 09:00 Nasal Cannula I&O- Last 24 Hours up to 6 AM 08/11/17 06:00 Intake Total 720 ml Output Total 700 ml Balance 20 ml LAKISHA GUERRERO MD Aug 10, 2017 15:24
[2017-08-10 18:00] VITALS: BP 119/58
[2017-08-10 19:50] VITALS: BP 126/58
[2017-08-10] MEDS: AZITHROMYCIN 250 MG TAB PO SCH (21:06)
[2017-08-10] MEDS: ITRACONAZOLE 100 MG CAP (SPORANOX) PO SCH (21:06)
[2017-08-10] MEDS: MONTELUKAST 10 MG TAB PO SCH (21:06)
[2017-08-10] MEDS: MULTIVITAMINS/MINERALS THERAP 1 TAB PO SCH (21:06)
[2017-08-10] MEDS: FERROUS SULFATE 325MG TAB PO SCH (22:15)
[2017-08-11] MEDS: ALBUTEROL SULFATE 2.5 MG/0.5 ML INH NEB SOLN INH SCH ×7 (03:45→23:12)
[2017-08-11 05:00] VITALS: BP 115/53
[2017-08-11] MEDS: SODIUM CHLORIDE 0.9% INJ 10 ML SYR IV SCH ×2 (05:39→17:07)
[2017-08-11] MEDS: HEPARIN SOD (PORCINE) 5000 UNITS/ML VIAL SQ SCH ×3 (05:40→22:37)
[2017-08-11 06:04] LABS: MEAN CORPUSCULAR HEMOGLOBIN 31.9 pg (27.0-33.0); MEAN CORPUSCULAR HGB CONC 33.3 g/dl (32.0-36.5); MEAN CORPUSCULAR VOLUME 95.8 fl (80.0-96.0); RED CELL DISTRIBUTION WIDTH 12.7 % (11.5-14.5); WHITE BLOOD COUNT 5.3 10^3/uL (4.0-10.0)
[2017-08-11 06:20] LABS: ANION GAP 7 MEQ/L (8-16); BLOOD UREA NITROGEN 8 MG/DL (7-18); CALCIUM LEVEL 8.1 MG/DL (8.8-10.2); CARBON DIOXIDE LEVEL 35 MEQ/L (21-32); CHLORIDE LEVEL 96 MEQ/L (98-107); CREATININE FOR GFR 0.35 MG/DL (0.55-1.02); GLOMERULAR FILTRATION RATE > 60.0 (>45); GLUCOSE, FASTING 92 MG/DL (80-110); POTASSIUM SERUM 3.1 MEQ/L (3.5-5.1); SODIUM LEVEL 138 MEQ/L (136-145)
[2017-08-11] MEDS: HumaLOG INSULIN (NovoLOG) PER UNIT SC SCH ×4 (07:30→20:33)
[2017-08-11] MEDS ORDERED: POTASSIUM CHLORIDE 10 MEQ SR TABLET PO ONE (08:00)
[2017-08-11] MEDS: NYSTATIN 100,000 UNITS/GM TOPICAL PWD 15 GM TOP SCH ×2 (08:34→20:32)
[2017-08-11] MEDS: FUROSEMIDE 20 MG TAB PO SCH (08:35)
[2017-08-11] MEDS: ISOSORBIDE MON. (IMDUR) 60 MG XR TAB PO SCH (08:35)
[2017-08-11] MEDS: PANTOPRAZOLE 40MG TAB (PROTONIX) PO SCH (08:35)
[2017-08-11] MEDS: levETIRAcetam 250MG TABLET (KEPPRA) PO SCH ×2 (08:35→20:33)
[2017-08-11] MEDS: VERAPAMIL 120 MG SR TAB PO SCH (08:36)
[2017-08-11] MEDS: MAGNESIUM CHLORIDE 64 MG TABCR (SLO MAG) PO SCH ×2 (08:37→20:33)
[2017-08-11 10:00] VITALS: BP 117/59
--- NOTE | 2017-08-11 11:08 | IPNPDOC ---
Text Note Date of Service The patient was seen on 08/11/17. NOTE Subjective: No acute changes overnight. Did not work with PT yesterday. PHYSICAL EXAMINATION: Vitals: (see below) General: No acute distress, laying comfortably in bed. HEENT: Moist mucous membranes. Neck: No JVD or lymphadenopathy Cardiac: RRR, No murmurs Pulm: Coarse crackles bilaterally.. No wheezing or rhonchi. Abd: NT/ND + BS Ext: No edema or cyanosis. Strength 5/5 BLE. DTR 2+ b/l. Babinski negative. LABORATORY DATA: See below. IMAGING: CT Chest 07/28/17 Impression: Chronic bronchiectasis that has significantly progressed. Focal new parenchymal density in the left lower lobe and new small left pleural effusion, not present on the comparison CT. Tree-in-bud pattern in the lingula, left lower lobe and right lower lobe compatible with pneumonitis. Surgical staple lines in the left upper lobe left lower lobe, unchanged from the prior CT. T6 vertebroplasty, unchanged. Comparison is the CT on 12/10/08. MRI Lumbar Spine 07/28/17 Impression: Acute mild wedge compression fracture deformity at the L1 vertebral body with 25-30% loss of vertebral body height and 4 mm of retropulsion from buckling of the posterior cortex. There has been loss of vertebral body height and buckling since the July 26, 2017 CT. In addition, there are degenerative spondylosis changes. There is no evidence of epidural hematoma. MICROBIOLOGY: Please see below. ASSESSMENT/PLAN: 1. S/p Acute hypercapnic respiratory failure requiring BiPAP -Progressive bronchiectasis obliterans being evaluated for Lung transplant. H/o multiple lung infections on Azithro outpt. Prior intubation with an extensive ICU stay. Follows with Dr. Price in [place]. We will avoid narcotics, as the patient's respiratory status is very labile, and she frequently becomes hypercapnic. Appreciate pulmonary input. 2. PNA- Completed course of Abx with zosyn, tobramycin, Bactrim. 3. Acute Mild Wedge Compression Fx. Strength/sensation preserved. DTR 2+. No alarming symptoms. Pain control with Tylenol and NSAIDs. Lidocaine patch. PT. Spoke with Dr. Chandra, who will see patient. A TLSO brace has been recommended for 3 months 4. Diabetes mellitus- HLevemir. SSI. 5. Hypertension- controlled continue current meds 6. H/o Aspergillosis 7. History of IgG immunodeficiency subclass 4- patient states she had tried infusions of immunoglobulins and did not tolerate them very well 8. History of iron deficiency anemia 9. History of seizure disorder on Keppra 10. History of zoster 11.S/p ileus from urinary retention, s/p NG tube, tolerating diet. 12. Pulmonary congestion- BNP elevated. Chest x-ray with pulmonary congestion. Cont IV Lasix. Due to prophylaxis- Lovenox Prognosis guarded Will need more work with PT. May require subacute rehab. VS,Fishbone, I+O VS, Fishbone, I+O Laboratory Tests 08/11/17 05:34 Red Blood Count 2.85 L, Mean Corpuscular Volume 95.8, Mean Corpuscular Hemoglobin 31.9, Mean Corpuscular Hemoglobin Concent 33.3, Red Cell Distribution Width 12.7, Calcium Level 8.1 L Vital Signs Date Time Temp Pulse Resp B/P (MAP) Pulse Ox O2 Delivery O2 Flow Rate FiO2 08/11/17 08:36 96 120/55 08/11/17 05:00 99.5 18 95 NIPPV (BIPAP/CPAP) 08/10/17 23:06 3.0 LAKISHA GUERRERO MD Aug 11, 2017 11:08
[2017-08-11] MEDS: ACETAMINOPHEN TAB 650MG DOSE (2X325MG) PO PRN (11:28)
[2017-08-11 12:04] VITALS: O2SAT 90
[2017-08-11 14:00] VITALS: BP 109/57
[2017-08-11] MEDS: FUROSEMIDE 80 MG TAB PO SCH (17:07)
[2017-08-11 18:00] VITALS: BP 106/54
[2017-08-11] MEDS: MONTELUKAST 10 MG TAB PO SCH (20:32)
[2017-08-11] MEDS: MULTIVITAMINS/MINERALS THERAP 1 TAB PO SCH (20:32)
[2017-08-11] MEDS: AZITHROMYCIN 250 MG TAB PO SCH (20:32)
[2017-08-11] MEDS: ITRACONAZOLE 100 MG CAP (SPORANOX) PO SCH (20:32)
[2017-08-11 21:07] VITALS: BP 117/56
[2017-08-11] MEDS: FERROUS SULFATE 325MG TAB PO SCH (22:37)
[2017-08-12 01:30] VITALS: BP 119/57
[2017-08-12] MEDS: ALBUTEROL SULFATE 2.5 MG/0.5 ML INH NEB SOLN INH SCH ×6 (04:00→23:57)
[2017-08-12 05:25] VITALS: BP 114/55
[2017-08-12] MEDS: HEPARIN SOD (PORCINE) 5000 UNITS/ML VIAL SQ SCH ×3 (05:41→22:06)
[2017-08-12] MEDS: SODIUM CHLORIDE 0.9% INJ 10 ML SYR IV SCH ×2 (05:42→18:00)
[2017-08-12] MEDS: HumaLOG INSULIN (NovoLOG) PER UNIT SC SCH ×4 (07:30→20:06)
[2017-08-12] MEDS: PANTOPRAZOLE 40MG TAB (PROTONIX) PO SCH (08:07)
[2017-08-12] MEDS: ACETAMINOPHEN TAB 650MG DOSE (2X325MG) PO PRN (08:08)
[2017-08-12] MEDS: levETIRAcetam 250MG TABLET (KEPPRA) PO SCH ×2 (08:08→20:04)
[2017-08-12] MEDS: VERAPAMIL 120 MG SR TAB PO SCH (08:10)
[2017-08-12] MEDS: FUROSEMIDE 80 MG TAB PO SCH ×2 (08:10→17:59)
[2017-08-12] MEDS: ISOSORBIDE MON. (IMDUR) 60 MG XR TAB PO SCH (08:10)
[2017-08-12] MEDS: NYSTATIN 100,000 UNITS/GM TOPICAL PWD 15 GM TOP SCH ×2 (08:11→20:06)
[2017-08-12] MEDS: MAGNESIUM CHLORIDE 64 MG TABCR (SLO MAG) PO SCH ×2 (08:12→20:04)
[2017-08-12] MEDS: SODIUM CHLORIDE 0.9% INJ 10 ML SYR IV PRN (08:12)
[2017-08-12 09:05] LABS: ANION GAP 5 MEQ/L (8-16); BLOOD UREA NITROGEN 8 MG/DL (7-18); CALCIUM LEVEL 8.1 MG/DL (8.8-10.2); CARBON DIOXIDE LEVEL 38 MEQ/L (21-32); CHLORIDE LEVEL 95 MEQ/L (98-107); CREATININE FOR GFR 0.35 MG/DL (0.55-1.02); GLOMERULAR FILTRATION RATE > 60.0 (>45); GLUCOSE, FASTING 89 MG/DL (80-110); MAGNESIUM LEVEL 2.3 MG/DL (1.8-2.4); POTASSIUM SERUM 3.7 MEQ/L (3.5-5.1); SODIUM LEVEL 138 MEQ/L (136-145)
[2017-08-12 09:07] LABS: MEAN CORPUSCULAR HEMOGLOBIN 34.4 pg (27.0-33.0); MEAN CORPUSCULAR HGB CONC 35.1 g/dl (32.0-36.5); MEAN CORPUSCULAR VOLUME 97.9 fl (80.0-96.0); RED CELL DISTRIBUTION WIDTH 13.2 % (11.5-14.5); WHITE BLOOD COUNT 6.5 10^3/uL (4.0-10.0)
[2017-08-12 10:00] VITALS: BP 134/74
[2017-08-12 14:00] VITALS: BP 128/73
--- NOTE | 2017-08-12 14:23 | IPNPDOC ---
Text Note Date of Service The patient was seen on 08/12/17. NOTE Subjective: No acute changes overnight. PHYSICAL EXAMINATION: Vitals: (see below) General: No acute distress, laying comfortably in bed. HEENT: Moist mucous membranes. Neck: No JVD or lymphadenopathy Cardiac: RRR, No murmurs Pulm: Coarse crackles bilaterally.. No wheezing or rhonchi. Abd: NT/ND + BS Ext: 1+ edema BLE. Nocyanosis. Strength 5/5 BLE. DTR 2+ b/l. Babinski negative. LABORATORY DATA: See below. IMAGING: CT Chest 07/28/17 Impression: Chronic bronchiectasis that has significantly progressed. Focal new parenchymal density in the left lower lobe and new small left pleural effusion, not present on the comparison CT. Tree-in-bud pattern in the lingula, left lower lobe and right lower lobe compatible with pneumonitis. Surgical staple lines in the left upper lobe left lower lobe, unchanged from the prior CT. T6 vertebroplasty, unchanged. Comparison is the CT on 12/10/08. MRI Lumbar Spine 07/28/17 Impression: Acute mild wedge compression fracture deformity at the L1 vertebral body with 25-30% loss of vertebral body height and 4 mm of retropulsion from buckling of the posterior cortex. There has been loss of vertebral body height and buckling since the July 26, 2017 CT. In addition, there are degenerative spondylosis changes. There is no evidence of epidural hematoma. MICROBIOLOGY: Please see below. ASSESSMENT/PLAN: 1. S/p Acute hypercapnic respiratory failure requiring BiPAP -Progressive bronchiectasis obliterans being evaluated for Lung transplant. H/o multiple lung infections on Azithro outpt. Prior intubation with an extensive ICU stay. Follows with Dr. Price in [place]. We will avoid narcotics, as the patient's respiratory status is very labile, and she frequently becomes hypercapnic. Appreciate pulmonary input. 2. PNA- Completed course of Abx with zosyn, tobramycin, Bactrim. 3. Acute Mild Wedge Compression Fx. Strength/sensation preserved. DTR 2+. No alarming symptoms. Pain control with Tylenol and NSAIDs. Lidocaine patch. PT. Spoke with Dr. Chandra, who will see patient. A TLSO brace has been recommended for 3 months 4. Diabetes mellitus- Levemir. SSI. 5. Hypertension- controlled continue current meds 6. H/o Aspergillosis 7. History of IgG immunodeficiency subclass 4- patient states she had tried infusions of immunoglobulins and did not tolerate them very well 8. History of iron deficiency anemia 9. History of seizure disorder on Keppra 10. History of zoster 11.S/p ileus from urinary retention, s/p NG tube, tolerating diet. 12. Pulmonary congestion- BNP elevated. Chest x-ray with pulmonary congestion. Cont IV Lasix. Due to prophylaxis- Lovenox Prognosis guarded Will need more work with PT. May require subacute rehab. VS,Fishbone, I+O VS, Fishbone, I+O Laboratory Tests 08/12/17 08:18 Red Blood Count 2.88 L, Mean Corpuscular Volume 97.9 H, Mean Corpuscular Hemoglobin 34.4 H, Mean Corpuscular Hemoglobin Concent 35.1, Red Cell Distribution Width 13.2, Calcium Level 8.1 L Vital Signs Date Time Temp Pulse Resp B/P (MAP) Pulse Ox O2 Delivery O2 Flow Rate FiO2 08/12/17 10:00 98.0 95 18 134/74 (94) 94 Nasal Cannula 2.0 I&O- Last 24 Hours up to 6 AM 08/13/17 06:00 Intake Total 420 ml Output Total 300 ml Balance 120 ml LAKISHA GUERRERO MD Aug 12, 2017 14:23
[2017-08-12] MEDS: ONDANSETRON 4MG/2ML VIAL (J2405) IV PRN (16:01)
[2017-08-12 18:00] VITALS: BP 114/62
[2017-08-12] MEDS: ITRACONAZOLE 100 MG CAP (SPORANOX) PO SCH (20:04)
[2017-08-12] MEDS: MONTELUKAST 10 MG TAB PO SCH (20:04)
[2017-08-12] MEDS: MULTIVITAMINS/MINERALS THERAP 1 TAB PO SCH (20:04)
[2017-08-12] MEDS: AZITHROMYCIN 250 MG TAB PO SCH (20:04)
[2017-08-12 22:00] VITALS: BP 113/56
[2017-08-12] MEDS: FERROUS SULFATE 325MG TAB PO SCH (22:05)
[2017-08-13 02:00] VITALS: BP 115/56
[2017-08-13] MEDS: SODIUM CHLORIDE 0.9% INJ 10 ML SYR IV SCH ×2 (05:29→17:02)
[2017-08-13] MEDS: HEPARIN SOD (PORCINE) 5000 UNITS/ML VIAL SQ SCH ×3 (05:29→21:59)
[2017-08-13 05:44] LABS: BASO % 0.7 % (0.0-1.0); EOS # 0.1 10^3/uL (0.0-0.50); EOS % 2.2 % (0.0-3.0); IMMATURE GRANULOCYTE % 0.7 % (0-0); LYMPH # 0.9 10^3/uL (1.5-4.5); MEAN CORPUSCULAR HEMOGLOBIN 32.3 pg (27.0-33.0); MEAN CORPUSCULAR HGB CONC 33.5 g/dl (32.0-36.5); MEAN CORPUSCULAR VOLUME 96.6 fl (80.0-96.0); MONO # 0.5 10^3/uL (0.0-0.8); MONO % 8.9 % (0.0-5.0); NEUTROPHILS # 3.9 10^3/uL (1.8-7.7); NEUTROPHILS % 71.5 % (36.0-66.0); PLATELET COUNT, AUTOMATED 216 10^3/uL (150-450); WHITE BLOOD COUNT 5.5 10^3/uL (4.0-10.0)
[2017-08-13 06:00] VITALS: BP 102/51
[2017-08-13 06:10] LABS: ANION GAP 3 MEQ/L (8-16); BLOOD UREA NITROGEN 9 MG/DL (7-18); CALCIUM LEVEL 8.5 MG/DL (8.8-10.2); CARBON DIOXIDE LEVEL 41 MEQ/L (21-32); CHLORIDE LEVEL 93 MEQ/L (98-107); CREATININE FOR GFR 0.46 MG/DL (0.55-1.02); GLOMERULAR FILTRATION RATE > 60.0 (>45); GLUCOSE, FASTING 93 MG/DL (80-110); MAGNESIUM LEVEL 2.3 MG/DL (1.8-2.4); POTASSIUM SERUM 3.1 MEQ/L (3.5-5.1); SODIUM LEVEL 137 MEQ/L (136-145)
[2017-08-13] MEDS: HumaLOG INSULIN (NovoLOG) PER UNIT SC SCH ×4 (06:32→21:26)
[2017-08-13] MEDS: ALBUTEROL SULFATE 2.5 MG/0.5 ML INH NEB SOLN INH SCH ×5 (07:31→23:51)
[2017-08-13] MEDS: VERAPAMIL 120 MG SR TAB PO SCH (08:09)
[2017-08-13] MEDS: ISOSORBIDE MON. (IMDUR) 60 MG XR TAB PO SCH (08:10)
[2017-08-13] MEDS: ACETAMINOPHEN TAB 650MG DOSE (2X325MG) PO PRN ×2 (08:10→20:50)
[2017-08-13] MEDS: levETIRAcetam 250MG TABLET (KEPPRA) PO SCH ×2 (08:10→20:49)
[2017-08-13] MEDS: PANTOPRAZOLE 40MG TAB (PROTONIX) PO SCH (08:10)
[2017-08-13] MEDS: MAGNESIUM CHLORIDE 64 MG TABCR (SLO MAG) PO SCH ×2 (08:11→20:50)
[2017-08-13] MEDS: FUROSEMIDE 80 MG TAB PO SCH ×3 (08:11→17:32)
[2017-08-13] MEDS: NYSTATIN 100,000 UNITS/GM TOPICAL PWD 15 GM TOP SCH ×2 (08:12→20:50)
[2017-08-13] MEDS ORDERED: POTASSIUM CHLORIDE 10 MEQ SR TABLET PO ONE (08:15)
--- NOTE | 2017-08-13 09:53 | IPNPDOC ---
Text Note Date of Service The patient was seen on 08/13/17. NOTE Subjective: No acute changes overnight. PHYSICAL EXAMINATION: Vitals: (see below) General: No acute distress, laying comfortably in bed. HEENT: Moist mucous membranes. Neck: No JVD or lymphadenopathy Cardiac: RRR, No murmurs Pulm: Coarse crackles bilaterally.. No wheezing or rhonchi. Abd: NT/ND + BS Ext: 1+ edema BLE. Nocyanosis. Strength 5/5 BLE. DTR 2+ b/l. Babinski negative. LABORATORY DATA: See below. IMAGING: CT Chest 07/28/17 Impression: Chronic bronchiectasis that has significantly progressed. Focal new parenchymal density in the left lower lobe and new small left pleural effusion, not present on the comparison CT. Tree-in-bud pattern in the lingula, left lower lobe and right lower lobe compatible with pneumonitis. Surgical staple lines in the left upper lobe left lower lobe, unchanged from the prior CT. T6 vertebroplasty, unchanged. Comparison is the CT on 12/10/08. MRI Lumbar Spine 07/28/17 Impression: Acute mild wedge compression fracture deformity at the L1 vertebral body with 25-30% loss of vertebral body height and 4 mm of retropulsion from buckling of the posterior cortex. There has been loss of vertebral body height and buckling since the July 26, 2017 CT. In addition, there are degenerative spondylosis changes. There is no evidence of epidural hematoma. MICROBIOLOGY: Please see below. ASSESSMENT/PLAN: 1. S/p Acute hypercapnic respiratory failure requiring BiPAP -Progressive bronchiectasis obliterans being evaluated for Lung transplant. H/o multiple lung infections on Azithro outpt. Prior intubation with an extensive ICU stay. Follows with Dr. Price in [place]. We will avoid narcotics, as the patient's respiratory status is very labile, and she frequently becomes hypercapnic. Appreciate pulmonary input. 2. PNA- Completed course of Abx with zosyn, tobramycin, Bactrim. 3. Acute Mild Wedge Compression Fx. Strength/sensation preserved. DTR 2+. No alarming symptoms. Pain control with Tylenol and NSAIDs. Lidocaine patch. PT. Spoke with Dr. Chandra, who will see patient. A TLSO brace has been recommended for 3 months 4. Diabetes mellitus- Levemir. SSI. 5. Hypertension- controlled continue current meds 6. H/o Aspergillosis 7. History of IgG immunodeficiency subclass 4- patient states she had tried infusions of immunoglobulins and did not tolerate them very well 8. History of iron deficiency anemia 9. History of seizure disorder on Keppra 10. History of zoster 11.S/p ileus from urinary retention, s/p NG tube, tolerating diet. 12. Pulmonary congestion- BNP elevated. Chest x-ray with pulmonary congestion. Cont IV Lasix. Due to prophylaxis- Lovenox Prognosis guarded Will need more work with PT. May require subacute rehab. VS,Fishbone, I+O VS, Fishbone, I+O Laboratory Tests 08/13/17 05:32 Red Blood Count 2.91 L, Mean Corpuscular Volume 96.6 H, Mean Corpuscular Hemoglobin 32.3, Mean Corpuscular Hemoglobin Concent 33.5, Red Cell Distribution Width 13.0, Neutrophils (%) (Auto) 71.5 H, Lymphocytes (%) (Auto) 16.0 L, Monocytes (%) (Auto) 8.9 H, Eosinophils (%) (Auto) 2.2, Basophils (%) ( Auto) 0.7, Neutrophils # (Auto) 3.9, Lymphocytes # (Auto) 0.9 L, Monocytes # ( Auto) 0.5, Eosinophils # (Auto) 0.1, Basophils # (Auto) 0.0 08/13/17 05:35 Calcium Level 8.5 L Vital Signs Date Time Temp Pulse Resp B/P (MAP) Pulse Ox O2 Delivery O2 Flow Rate FiO2 08/13/17 08:10 111/62 08/13/17 08:09 90 08/13/17 07:31 Nasal Cannula 2.0 08/13/17 06:00 97.3 18 92 I&O- Last 24 Hours up to 6 AM 08/14/17 06:00 Intake Total 300 ml Output Total 0 ml Balance 300 ml LAKISHA GUERRERO MD Aug 13, 2017 09:53
[2017-08-13 10:00] VITALS: BP 109/60
[2017-08-13] MEDS: MONTELUKAST 10 MG TAB PO SCH (20:49)
[2017-08-13] MEDS: ITRACONAZOLE 100 MG CAP (SPORANOX) PO SCH (20:49)
[2017-08-13] MEDS: MULTIVITAMINS/MINERALS THERAP 1 TAB PO SCH (20:49)
[2017-08-13] MEDS: AZITHROMYCIN 250 MG TAB PO SCH (20:49)
[2017-08-13] MEDS: FERROUS SULFATE 325MG TAB PO SCH (21:59)
[2017-08-14] MEDS: ALBUTEROL SULFATE 2.5 MG/0.5 ML INH NEB SOLN INH SCH ×6 (04:00→23:27)
[2017-08-14] MEDS: SODIUM CHLORIDE 0.9% INJ 10 ML SYR IV SCH (05:14)
[2017-08-14] MEDS: HEPARIN SOD (PORCINE) 5000 UNITS/ML VIAL SQ SCH ×3 (05:14→22:18)
[2017-08-14 05:50] LABS: BASO % 0.5 % (0.0-1.0); EOS # 0.1 10^3/uL (0.0-0.50); EOS % 2.7 % (0.0-3.0); IMMATURE GRANULOCYTE % 0.7 % (0-0); LYMPH # 0.8 10^3/uL (1.5-4.5); LYMPH % 18.6 % (24.0-44.0); MEAN CORPUSCULAR HEMOGLOBIN 33.5 pg (27.0-33.0); MEAN CORPUSCULAR VOLUME 98.5 fl (80.0-96.0); MONO # 0.4 10^3/uL (0.0-0.8); MONO % 10.7 % (0.0-5.0); NEUTROPHILS # 2.7 10^3/uL (1.8-7.7); NEUTROPHILS % 66.8 % (36.0-66.0); PLATELET COUNT, AUTOMATED 197 10^3/uL (150-450); RED CELL DISTRIBUTION WIDTH 13.2 % (11.5-14.5)
[2017-08-14 06:00] VITALS: BP 118/58
[2017-08-14 06:14] LABS: ANION GAP 4 MEQ/L (8-16); BLOOD UREA NITROGEN 10 MG/DL (7-18); CALCIUM LEVEL 8.2 MG/DL (8.8-10.2); CARBON DIOXIDE LEVEL 41 MEQ/L (21-32); CHLORIDE LEVEL 93 MEQ/L (98-107); CREATININE FOR GFR 0.46 MG/DL (0.55-1.02); GLOMERULAR FILTRATION RATE > 60.0 (>45); GLUCOSE, FASTING 90 MG/DL (80-110); MAGNESIUM LEVEL 2.3 MG/DL (1.8-2.4); POTASSIUM SERUM 3.3 MEQ/L (3.5-5.1); SODIUM LEVEL 138 MEQ/L (136-145)
[2017-08-14] MEDS: HumaLOG INSULIN (NovoLOG) PER UNIT SC SCH ×4 (06:15→21:00)
[2017-08-14] MEDS: ACETAMINOPHEN TAB 650MG DOSE (2X325MG) PO PRN (09:50)
[2017-08-14] MEDS: VERAPAMIL 120 MG SR TAB PO SCH (09:57)
[2017-08-14] MEDS: ISOSORBIDE MON. (IMDUR) 60 MG XR TAB PO SCH (09:57)
[2017-08-14] MEDS: NYSTATIN 100,000 UNITS/GM TOPICAL PWD 15 GM TOP SCH ×2 (09:58→21:37)
[2017-08-14] MEDS: levETIRAcetam 250MG TABLET (KEPPRA) PO SCH ×2 (09:58→21:36)
[2017-08-14] MEDS: PANTOPRAZOLE 40MG TAB (PROTONIX) PO SCH (09:58)
[2017-08-14] MEDS: MAGNESIUM CHLORIDE 64 MG TABCR (SLO MAG) PO SCH ×2 (09:58→22:18)
[2017-08-14] MEDS: FUROSEMIDE 80 MG TAB PO SCH ×2 (09:58→17:57)
--- NOTE | 2017-08-14 15:45 | DS.PDOC ---
Discharge Summary General Date of Admission Jul 28, 2017 at 11:43 Date of Discharge 08/15/17 Attending Physician: LAKISHA GUERRERO MD Specialist/Consultants Involve: Amanda Barnard MD Specialist/Consultants Involve Dr. López Discharge Summary PROCEDURES PERFORMED DURING STAY: ADMITTING/DISCHARGE DIAGNOSES: 1. Status post acute hypercapnic respiratory failure 2. Pneumonia status post Zosyn/tobramycin/Bactrim 3. Acute which compression fracture now with TLSO brace 4. Diabetes mellitus 5. Hypertension 6. History of aspergillosis 7. History of IgG immunodeficiency 8. Iron deficiency anemia 9. History of seizure disorder 10. History of zoster 11. Status post ileus from urinary retention 13. Congestive heart failure COMPLICATIONS/CHIEF COMPLAINT: Shortness of breath HISTORY OF PRESENT ILLNESS/HOSPITAL COURSE: This is a 62-year-old female past medical history of progressive bronchiectasis obliterans who is being evaluated for lung transplant who presents complaining of dyspnea. Patient was admitted and her manager of hospital Dr. Price was called. Dr. Barnard our infectious disease specialist was consulted on admission. The patient initially complained of acute on chronic back pain status post fall. Her CAT scan was initially negative however her MRI and noted an acute mild wedge compression fracture in the lumbar region. Dr. Rayo was called and recommended a TLSO brace for 3 months and outpatient follow-up. During the course of hospitalization, the patient developed acute hypercapnic respiratory failure and required BiPAP. She was placed on Zosyn/tobramycin/ Bactrim as recommended by Dr. Price and she completed her therapy. Respiratory status significantly improved after completion of antibiotic therapy. The patient also participated with physical therapy and has been cleared for discharge. She has been written a prescription for a hospital bed, commode, rolling walker. DISCHARGE MEDICATIONS: Please see below. ALLERGIES: Please see below. PHYSICAL EXAMINATION ON DISCHARGE: Vitals: (see below) General: No acute distress, laying comfortably in bed. HEENT: Moist mucous membranes. Neck: No JVD or lymphadenopathy Cardiac: RRR, No murmurs Pulm: Coarse crackles bilaterally.. No wheezing or rhonchi. Abd: NT/ND + BS Ext: Trace to 1+ edema BLE. Nocyanosis. Strength 5/5 BLE. DTR 2+ b/l. Babinski negative. LABORATORY DATA: Please see below. IMAGING: CT Chest 07/28/17 Impression: Chronic bronchiectasis that has significantly progressed. Focal new parenchymal density in the left lower lobe and new small left pleural effusion, not present on the comparison CT. Tree-in-bud pattern in the lingula, left lower lobe and right lower lobe compatible with pneumonitis. Surgical staple lines in the left upper lobe left lower lobe, unchanged from the prior CT. T6 vertebroplasty, unchanged. Comparison is the CT on 12/10/08. MRI Lumbar Spine 07/28/17 Impression: Acute mild wedge compression fracture deformity at the L1 vertebral body with 25-30% loss of vertebral body height and 4 mm of retropulsion from buckling of the posterior cortex. There has been loss of vertebral body height and buckling since the July 26, 2017 CT. In addition, there are degenerative spondylosis changes. There is no evidence of epidural hematoma. PROGNOSIS: Guarded ACTIVITY: As tolerated. DIET: Low-sodium diet DISCHARGE PLAN/DISPOSITION: Home with home services DISCHARGE INSTRUCTIONS: 1. Follow-up with PCP and pulmonary in 1 week. DISCHARGE CONDITION: Stable. TIME SPENT ON DISCHARGE: Greater than 30 minutes. Vital Signs/I&Os Vital Signs Date Time Temp Pulse Resp B/P (MAP) Pulse Ox O2 Delivery O2 Flow Rate FiO2 08/14/17 10:00 Nasal Cannula 2.0 08/14/17 09:57 74 114/58 08/14/17 06:00 98.4 16 94 I&O- Last 24 Hours up to 6 AM 08/15/17 06:00 Intake Total 760 ml Output Total 650 ml Balance 110 ml Laboratory Data Labs 24H Laboratory Tests 2 08/13/17 16:22: Bedside Glucose (Misc Panel) 147H 08/13/17 20:40: Bedside Glucose (Misc Panel) 154H 08/14/17 05:14: Immature Granulocyte % (Auto) 0.7H, White Blood Count 4.0, Red Blood Count 2.69L , Hemoglobin 9.0L, Hematocrit 26.5L, Mean Corpuscular Volume 98.5H, Mean Corpuscular Hemoglobin 33.5H, Mean Corpuscular Hemoglobin Concent 34.0, Red Cell Distribution Width 13.2, Platelet Count 197, Neutrophils (%) (Auto) 66.8H, Lymphocytes (%) (Auto) 18.6L, Monocytes (%) (Auto) 10.7H, Eosinophils (%) (Auto ) 2.7, Basophils (%) (Auto) 0.5, Neutrophils # (Auto) 2.7, Lymphocytes # (Auto) 0.8L, Monocytes # (Auto) 0.4, Eosinophils # (Auto) 0.1, Basophils # (Auto) 0.0, Immature Granulocyte # (Auto) 0.0, Nucleated Red Blood Cells % (auto) 0.0, Anion Gap 4L, Glomerular Filtration Rate > 60.0, Blood Urea Nitrogen 10, Creatinine 0.46L, Sodium Level 138, Potassium Level 3.3L, Chloride Level 93L, Carbon Dioxide Level 41H, Calcium Level 8.2L, Magnesium Level 2.3 08/14/17 12:26: Bedside Glucose (Misc Panel) 166H CBC/BMP Laboratory Tests 08/14/17 05:14 Red Blood Count 2.69 L, Mean Corpuscular Volume 98.5 H, Mean Corpuscular Hemoglobin 33.5 H, Mean Corpuscular Hemoglobin Concent 34.0, Red Cell Distribution Width 13.2, Neutrophils (%) (Auto) 66.8 H, Lymphocytes (%) (Auto) 18.6 L, Monocytes (%) (Auto) 10.7 H, Eosinophils (%) (Auto) 2.7, Basophils (%) ( Auto) 0.5, Neutrophils # (Auto) 2.7, Lymphocytes # (Auto) 0.8 L, Monocytes # ( Auto) 0.4, Eosinophils # (Auto) 0.1, Basophils # (Auto) 0.0, Calcium Level 8.2 L FSBS Laboratory Tests Test 08/13/17 16:22 08/13/17 20:40 08/14/17 12:26 Range/Units Bedside Glucose (Misc Panel) 147 154 166 80-115 MG/DL Microbiology Microbiology 08/04/17 Gram Stain - Final, Complete 08/04/17 Wound Culture - Final, Complete Staphylococcus Sp Coag Neg Corynebacterium Species Discharge Medications Scheduled (Calcium Citrate + 315-200 mg-Unit) 1 Tab Tab, 1 TAB PO QPM, (Reported) Azithromycin (Azithromycin) 250 Mg Tab, 250 MG PO QHS, (Reported) Bisacodyl (Bisacodyl EC) 5 Mg Tab, 10 MG PO DAILY, (Reported) Ferrous Sulfate (Ferrous Sulfate) 325 Mg Tab, 325 MG PO QHS, (Reported) Furosemide (Furosemide) 40 Mg Tab, 40 MG PO BID, (Reported) Insulin Glargine (Lantus) 1 Units/0.01 Ml Susp, 7 UNITS SC QHS, (Reported) Isosorbide Mononitrate (Isosorbide Mononitrate ER) 60 Mg Tab, 60 MG PO DAILY, ( Reported) Itraconazole (Sporanox) 100 Mg Cap, 200 MG PO QHS, (Reported) Levetiracetam (Keppra) 500 Mg Tab, 500 MG PO BID, (Reported) Linaclotide Base (Linzess) 290 Mcg Cap, 290 MCG PO DAILY, (Reported) Magnesium Chloride (Mag64) 64 Mg Tabcr, 128 MG PO BID, (Reported) Montelukast Sodium (Montelukast Sodium) 10 Mg Tab, 10 MG PO QHS, (Reported) Multivitamins *[facility] STOCKED* (Thera M Plus *[facility] STOCKED*) 1 Tab Tab, 1 TAB PO QPM , (Reported) Omeprazole (Omeprazole) 40 Mg Cap, 40 MG PO BID, (Reported) Potassium Chloride (Klor-Con M10) 10 Meq Tabcr, 20 MEQ PO BID, (Reported) Spironolactone (Aldactone) 25 Mg Tab, 25 MG PO DAILY Verapamil HCl (Verapamil HCl ER) 240 Mg Tabcr, 240 MG PO DAILY, (Reported) Scheduled PRN Albuterol Sulfate (Albuterol Sulfate) 1.25 Mg/3 Ml Neb, 1.25 MG INH BID PRN for SHORTNESS OF BREATH, (Reported) Allergies Coded Allergies: Bacitracin (Verified Allergy, Unknown, 02/12/13) Replaces BACITRACIN/NE Polymyxin B (Verified Allergy, Unknown, 02/12/13) Replaces BACITRACIN/NE Cilastatin (Unverified Adverse Reaction, Mild, PRIMAXIN CAUSES VOMITING, ) Replaces PRIMAXIN IV Erythromycin (Verified Adverse Reaction, Mild, DIARRHEA, N/V, 02/12/13) Quinolones (Verified Adverse Reaction, Mild, TEQUIN - DIARRHEA, N/V, ) N/V LAKISHA GUERRERO MD Aug 14, 2017 15:45
[2017-08-14 17:58] VITALS: BP 129/62
[2017-08-14] MEDS: MONTELUKAST 10 MG TAB PO SCH (21:36)
[2017-08-14] MEDS: AZITHROMYCIN 250 MG TAB PO SCH (21:36)
[2017-08-14] MEDS: MULTIVITAMINS/MINERALS THERAP 1 TAB PO SCH (21:36)
[2017-08-14 22:00] VITALS: BP 117/58
[2017-08-14] MEDS: ITRACONAZOLE 100 MG CAP (SPORANOX) PO SCH (22:17)
[2017-08-14] MEDS: FERROUS SULFATE 325MG TAB PO SCH (22:18)
[2017-08-15] MEDS: ALBUTEROL SULFATE 2.5 MG/0.5 ML INH NEB SOLN INH SCH ×3 (04:00→12:00)
[2017-08-15] MEDS: HEPARIN SOD (PORCINE) 5000 UNITS/ML VIAL SQ SCH (05:20)
[2017-08-15 06:00] VITALS: BP 120/56
[2017-08-15] MEDS: levETIRAcetam 250MG TABLET (KEPPRA) PO SCH (08:46)
[2017-08-15] MEDS: HumaLOG INSULIN (NovoLOG) PER UNIT SC SCH ×2 (08:46→11:52)
[2017-08-15] MEDS: ACETAMINOPHEN TAB 650MG DOSE (2X325MG) PO PRN (08:46)
[2017-08-15 08:49] VITALS: BP 128/62
[2017-08-15] MEDS: ISOSORBIDE MON. (IMDUR) 60 MG XR TAB PO SCH (08:49)
[2017-08-15] MEDS: PANTOPRAZOLE 40MG TAB (PROTONIX) PO SCH (08:49)
[2017-08-15] MEDS: VERAPAMIL 120 MG SR TAB PO SCH (08:49)
[2017-08-15] MEDS: FUROSEMIDE 80 MG TAB PO SCH (08:50)
[2017-08-15] MEDS: NYSTATIN 100,000 UNITS/GM TOPICAL PWD 15 GM TOP SCH (08:50)
[2017-08-15] MEDS: MAGNESIUM CHLORIDE 64 MG TABCR (SLO MAG) PO SCH (08:50)
[2017-08-15 08:58] LABS: BASO % 0.4 % (0.0-1.0); EOS # 0.1 10^3/uL (0.0-0.50); EOS % 2.3 % (0.0-3.0); IMMATURE GRANULOCYTE % 0.4 % (0-0); LYMPH % 21.9 % (24.0-44.0); MEAN CORPUSCULAR HEMOGLOBIN 33.5 pg (27.0-33.0); MEAN CORPUSCULAR HGB CONC 34.4 g/dl (32.0-36.5); MEAN CORPUSCULAR VOLUME 97.5 fl (80.0-96.0); MONO # 0.5 10^3/uL (0.0-0.8); MONO % 9.9 % (0.0-5.0); NEUTROPHILS # 3.1 10^3/uL (1.8-7.7); NEUTROPHILS % 65.1 % (36.0-66.0); PLATELET COUNT, AUTOMATED 216 10^3/uL (150-450); RED CELL DISTRIBUTION WIDTH 13.3 % (11.5-14.5); WHITE BLOOD COUNT 4.8 10^3/uL (4.0-10.0)
[2017-08-15 09:11] LABS: ANION GAP 3 MEQ/L (8-16); BLOOD UREA NITROGEN 10 MG/DL (7-18); CALCIUM LEVEL 9.1 MG/DL (8.8-10.2); CARBON DIOXIDE LEVEL 43 MEQ/L (21-32); CHLORIDE LEVEL 90 MEQ/L (98-107); GLOMERULAR FILTRATION RATE > 60.0 (>45); GLUCOSE, FASTING 102 MG/DL (80-110); MAGNESIUM LEVEL 2.5 MG/DL (1.8-2.4); POTASSIUM SERUM 3.3 MEQ/L (3.5-5.1); SODIUM LEVEL 136 MEQ/L (136-145)
[2017-08-15] MEDS ORDERED: POTASSIUM CHLORIDE 10 MEQ SR TABLET PO ONE (09:45)
== END 2017-08-15 13:25 | disposition home health service (06) | DRG 137 ==
LOC: M ED 06:12 → M ED INP 11:43 → M PCU 14:44 → M ICU 07-29 18:40 → M MSPAV 08-04 15:47
PROVIDERS: ADMIT Internal Medicine; ATTEND Internal Medicine
PROC: 02HV33Z Insertion of Infusion Device into Superior Vena Cava, Percutaneous Approach (ICD-10-PCS; principal; 2017-08-01)
DX: J15.6 Pneumonia due to other Gram-negative bacteria (principal); J96.01 Acute respiratory failure with hypoxia; B44.1 Other pulmonary aspergillosis; S32.000A Wedge compression fracture of unspecified lumbar vertebra, initial encounter for closed fracture; D80.3 Selective deficiency of immunoglobulin G [IgG] subclasses; Z99.81 Dependence on supplemental oxygen; J96.02 Acute respiratory failure with hypercapnia; J47.9 Bronchiectasis, uncomplicated; I10 Essential (primary) hypertension; K21.9 Gastro-esophageal reflux disease without esophagitis; B95.7 Other staphylococcus as the cause of diseases classified elsewhere; G40.909 Epilepsy, unspecified, not intractable, without status epilepticus; E09.9 Drug or chemical induced diabetes mellitus without complications; Z90.49 Acquired absence of other specified parts of digestive tract; Z90.710 Acquired absence of both cervix and uterus; Z79.4 Long term (current) use of insulin; Z79.899 Other long term (current) drug therapy; Z88.1 Allergy status to other antibiotic agents; Z88.8 Allergy status to other drugs, medicaments and biological substances; Z95.828 Presence of other vascular implants and grafts; W01.0XXA Fall on same level from slipping, tripping and stumbling without subsequent striking against object, initial encounter; Y92.9 Unspecified place or not applicable; Y99.9 Unspecified external cause status; Y93.9 Activity, unspecified; R33.9 Retention of urine, unspecified

== ENCOUNTER → 2017-09-26 | Outpatient (REF) | payer BC, MEDICARE ==
[~2017-09-26] MED LIST changes: +ALBU1.25 INH; +KEPP1TAB PO; +SPOR1CAP PO
== END ==
LOC: M LAB REF 10:59
PROVIDERS: ATTEND Physician Assistant Medical
DX: R56.9 Unspecified convulsions (principal)

== ENCOUNTER 2017-12-29 08:33 | Outpatient (RCR) | payer BC, MEDICARE ==
[2017-12-29 10:23] LABS: BEDSIDE GLUCOSE 107 MG/DL (80-115)
== END 2018-01-03 ==
LOC: M CR 08:33
DX: J47.1 Bronchiectasis with (acute) exacerbation (principal); Z51.89 Encounter for other specified aftercare

== ENCOUNTER → 2018-01-06 | Outpatient (CLI) | payer BC, MEDICARE ==
[2018-01-06 09:21] LABS: BASO % 0.2 % (0.0-1.0); EOS # 0.1 10^3/uL (0.0-0.50); EOS % 2.9 % (0.0-3.0); HEMATOCRIT 37.8 % (36.0-47.0); HEMOGLOBIN 12.2 g/dl (12.0-16.0); IMMATURE GRANULOCYTE % 0.2 % (0-3.0); LYMPH # 0.7 10^3/uL (1.5-4.5); MEAN CORPUSCULAR HGB CONC 32.3 g/dl (32.0-36.5); MEAN CORPUSCULAR VOLUME 96.2 fl (80.0-96.0); MONO # 0.4 10^3/uL (0.0-0.8); NEUTROPHILS # 3.2 10^3/uL (1.8-7.7); NEUTROPHILS % 71.7 % (36.0-66.0); PLATELET COUNT, AUTOMATED 151 10^3/uL (150-450); RED BLOOD COUNT 3.93 10^6/uL (4.00-5.40); RED CELL DISTRIBUTION WIDTH 11.5 % (11.5-14.5); WHITE BLOOD COUNT 4.4 10^3/uL (4.0-10.0)
[2018-01-06 09:47] LABS: ALBUMIN 3.1 GM/DL (3.2-5.2); ALKALINE PHOSPHATASE 103 U/L (45-117); ALT/SGPT 18 U/L (12-78); ANION GAP 1 MEQ/L (8-16); AST/SGOT 19 U/L (7-37); BILIRUBIN,TOTAL 0.3 MG/DL (0.2-1.0); BLOOD UREA NITROGEN 11 MG/DL (7-18); CALCIUM LEVEL 8.4 MG/DL (8.8-10.2); CARBON DIOXIDE LEVEL 44 MEQ/L (21-32); CHLORIDE LEVEL 95 MEQ/L (98-107); CHOLESTEROL LEVEL 154 MG/DL (<200); CHOLESTEROL RISK RATIO 2.655 (<5); CREATININE FOR GFR 0.59 MG/DL (0.55-1.30); GLOMERULAR FILTRATION RATE > 60.0 (>45); GLUCOSE, FASTING 91 MG/DL (70-100); HDL CHOLESTEROL 58 MG/DL (>40); NON-HDL-C 96 MG/DL; POTASSIUM SERUM 4.5 MEQ/L (3.5-5.1); SODIUM LEVEL 140 MEQ/L (136-145); TOTAL PROTEIN 6.2 GM/DL (6.4-8.2); TRIGLYCERIDES LEVEL 130 MG/DL (<150)
[2018-01-06 10:24] LABS: ESTIMATED AVERAGE GLUCOSE 103 MG/DL (60-110); HEMOGLOBIN A1c 5.2 %
== END ==
LOC: M LAB 08:32
DX: I10 Essential (primary) hypertension (principal); E11.9 Type 2 diabetes mellitus without complications
CPT/HCPCS: 80053

== ENCOUNTER 2018-01-17 14:41 | Outpatient (RCR) | payer BC, MEDICARE | END 2018-02-03 | LOC: M PR 14:41 | DX: Z51.89 Encounter for other specified aftercare (principal); J47.1 Bronchiectasis with (acute) exacerbation ==

== ENCOUNTER 2018-02-07 14:23 | Outpatient (RCR) | payer BC, MEDICARE | END 2018-03-05 | LOC: M PR 14:23 | DX: Z51.89 Encounter for other specified aftercare (principal); J47.1 Bronchiectasis with (acute) exacerbation ==

== ENCOUNTER → 2018-03-11 | Outpatient (CLI) | payer BC, MEDICARE ==
[2018-03-11 08:30] LABS: BASO % 0.2 % (0.0-1.0); EOS # 0.1 10^3/uL (0.0-0.50); EOS % 2.5 % (0.0-3.0); HEMATOCRIT 35.2 % (36.0-47.0); HEMOGLOBIN 11.7 g/dl (12.0-15.5); IMMATURE GRANULOCYTE % 0.5 % (0-3.0); LYMPH # 0.8 10^3/uL (1.5-4.5); MEAN CORPUSCULAR HEMOGLOBIN 31.3 pg (27.0-33.0); MEAN CORPUSCULAR HGB CONC 33.2 g/dl (32.0-36.5); MEAN CORPUSCULAR VOLUME 94.1 fl (80.0-96.0); MONO # 0.4 10^3/uL (0.0-0.8); MONO % 9.9 % (0.0-5.0); NEUTROPHILS % 68.9 % (36.0-66.0); PLATELET COUNT, AUTOMATED 136 10^3/uL (150-450); RED BLOOD COUNT 3.74 10^6/uL (4.00-5.40); WHITE BLOOD COUNT 4.3 10^3/uL (4.0-10.0)
[2018-03-11 09:00] LABS: ALBUMIN/GLOBULIN RATIO 0.97 (1.00-1.93); ALKALINE PHOSPHATASE 101 U/L (45-117); ALT/SGPT 16 U/L (12-78); AST/SGOT 21 U/L (7-37); BILIRUBIN,TOTAL 0.3 MG/DL (0.2-1.0); BLOOD UREA NITROGEN 11 MG/DL (7-18); CALCIUM LEVEL 8.3 MG/DL (8.8-10.2); CHLORIDE LEVEL 93 MEQ/L (98-107); CHOLESTEROL LEVEL 163 MG/DL (<200); CHOLESTEROL RISK RATIO 3.395 (<5); CREATININE FOR GFR 0.59 MG/DL (0.55-1.30); GLOMERULAR FILTRATION RATE > 60.0 (>45); GLUCOSE, FASTING 91 MG/DL (70-100); HDL CHOLESTEROL 48 MG/DL (>40); NON-HDL-C 115 MG/DL; POTASSIUM SERUM 4.2 MEQ/L (3.5-5.1); SODIUM LEVEL 140 MEQ/L (136-145); TOTAL PROTEIN 6.1 GM/DL (6.4-8.2); TRIGLYCERIDES LEVEL 140 MG/DL (<150)
[2018-03-11 09:04] LABS: ESTIMATED AVERAGE GLUCOSE 85 MG/DL (60-110); HEMOGLOBIN A1c 4.6 %
[2018-03-11 09:16] LABS: ANION GAP 4 MEQ/L (8-16); CARBON DIOXIDE LEVEL 43 MEQ/L (21-32)
== END ==
LOC: M LAB 08:05
DX: E11.9 Type 2 diabetes mellitus without complications (principal); I10 Essential (primary) hypertension
CPT/HCPCS: 80053

== ENCOUNTER 2018-03-14 14:48 | Outpatient (RCR) | payer BC, MEDICARE | END 2018-04-05 | LOC: M PR 14:48 | DX: Z51.89 Encounter for other specified aftercare (principal); J47.1 Bronchiectasis with (acute) exacerbation ==

== ENCOUNTER → 2018-03-24 | Outpatient (REF) | payer BC, MEDICARE | LOC: M LAB REF 07:54 | DX: J47.9 Bronchiectasis, uncomplicated (principal) | CPT/HCPCS: 87116 ==

== ENCOUNTER 2018-04-25 13:45 | Outpatient (CLI) | payer BC, MEDICARE ==
[2018-04-25] MEDS: ZOLEDRONIC ACID 5 MG in APPROPRIATE DILUENT 1 EA IV (14:08)
== END 2018-04-25 15:00 | disposition home or self-care (01) ==
LOC: M INFU 13:45
DX: M81.0 Age-related osteoporosis without current pathological fracture (principal); F32.9 Major depressive disorder, single episode, unspecified; F41.9 Anxiety disorder, unspecified; I11.0 Hypertensive heart disease with heart failure; I50.9 Heart failure, unspecified; E11.9 Type 2 diabetes mellitus without complications; M54.5 Low back pain; Z79.4 Long term (current) use of insulin; Z79.899 Other long term (current) drug therapy; Z86.14 Personal history of Methicillin resistant Staphylococcus aureus infection; Z85.43 Personal history of malignant neoplasm of ovary; Z90.710 Acquired absence of both cervix and uterus; Z86.69 Personal history of other diseases of the nervous system and sense organs
CPT/HCPCS: J3489

== ENCOUNTER → 2018-07-20 | Outpatient (CLI) | payer BC, MEDICARE ==
[2018-07-20 08:44] LABS: ESTIMATED AVERAGE GLUCOSE 97 MG/DL (60-110)
[2018-07-20 08:51] LABS: ALBUMIN/GLOBULIN RATIO 0.97 (1.00-1.93); ALKALINE PHOSPHATASE 82 U/L (45-117); ALT/SGPT 21 U/L (12-78); ANION GAP 4 MEQ/L (8-16); AST/SGOT 20 U/L (7-37); BILIRUBIN,TOTAL 0.3 MG/DL (0.2-1.0); BLOOD UREA NITROGEN 9 MG/DL (7-18); CALCIUM LEVEL 8.8 MG/DL (8.8-10.2); CARBON DIOXIDE LEVEL 43 MEQ/L (21-32); CHLORIDE LEVEL 93 MEQ/L (98-107); CHOLESTEROL LEVEL 181 MG/DL (<200); CREATININE FOR GFR 0.56 MG/DL (0.55-1.30); GLOMERULAR FILTRATION RATE > 60.0 (>45); GLUCOSE, FASTING 93 MG/DL (70-100); HDL CHOLESTEROL 58 MG/DL (>40); LDL CHOLESTEROL 99 MG/DL (<100); NON-HDL-C 123 MG/DL; POTASSIUM SERUM 3.9 MEQ/L (3.5-5.1); SODIUM LEVEL 140 MEQ/L (136-145); TOTAL PROTEIN 6.1 GM/DL (6.4-8.2); TRIGLYCERIDES LEVEL 122 MG/DL (<150)
== END ==
LOC: M LAB 07:29
DX: I11.0 Hypertensive heart disease with heart failure (principal); E11.9 Type 2 diabetes mellitus without complications
CPT/HCPCS: 80053

== ENCOUNTER → 2018-08-17 | Outpatient (CLI) | payer BC, MEDICARE ==
[2018-08-17 16:17] LABS: ABG BASE EXCESS 15.7 (-2.0-2.0); ABG HCO3 44.3 MEQ/L (22.0-26.0); ABG O2 SATURATION 93.8 % (95.0-99.0); ABG PARTIAL PRESSURE O2 69.2 mmHg (75.0-100.0); ABG STANDARD HCO3 39.6 MEQ/L (22.0-26.0); ABG TOTAL CO2 46.6 MEQ/L (23.0-31.0)
[2018-08-17 16:20] LABS: ABG PARTIAL PRESSURE CO2 76.6 mmHg (35.0-45.0)
== END ==
LOC: M LAB 15:50
DX: J84.112 Idiopathic pulmonary fibrosis (principal)
CPT/HCPCS: 82803

== ENCOUNTER → 2018-10-01 | Outpatient (REF) | payer BC, MEDICARE ==
[2018-10-04 14:20] LABS: LEVETIRACETAM (KEPPRA) 29.9 ug/mL (10.0-40.0)
== END ==
LOC: M LABNEURO 10:52
DX: G40.909 Epilepsy, unspecified, not intractable, without status epilepticus (principal)
CPT/HCPCS: 36415

== ENCOUNTER → 2018-10-26 | Outpatient (CLI) | payer BC, MEDICARE ==
[~2018-10-26] MED LIST changes: -ALDA25TA PO; +KLOR10TA76 PO; +MIRA3350 PO; -POTA10CA PO; +PULM1SOL INH; +SLOWTAB2 PO; +SODI7NEB3 INH; +SPIR1TAB34 PO; +TOBR1NEB INH; +TRAZ-160 PO; +oxygen
[2018-10-26 11:03] LABS: VENOUS BASE EXCESS 12.3 (-2.0-2.0); VENOUS HCO3 42.4 MEQ/L (23.0-27.0); VENOUS O2 SATURATION 75.5 % (60.0-80.0); VENOUS PARTIAL PRESSURE CO2 83.1 mmHg (38.0-50.0); VENOUS PARTIAL PRESSURE O2 40.9 mmHg (30.0-50.0); VENOUS PH 7.326 UNITS (7.330-7.430); VENOUS STANDARD HCO3 35.5 MEQ/L
[2018-10-26 11:04] LABS: IONIZED CALCIUM 4.3 MG/DL (4.5-5.3)
[2018-10-26 11:05] LABS: BASO % 0.5 % (0.0-1.0); EOS # 0.1 10^3/uL (0.0-0.50); EOS % 1.4 % (0.0-3.0); HEMATOCRIT 40.8 % (36.0-47.0); HEMOGLOBIN 13.6 g/dl (12.0-15.5); LYMPH # 0.8 10^3/uL (1.5-4.5); MEAN CORPUSCULAR HEMOGLOBIN 30.8 pg (27.0-33.0); MEAN CORPUSCULAR HGB CONC 33.3 g/dl (32.0-36.5); MEAN CORPUSCULAR VOLUME 92.5 fl (80.0-96.0); MONO # 0.5 10^3/uL (0.0-0.8); MONO % 7.9 % (0.0-5.0); NEUTROPHILS # 4.5 10^3/uL (1.8-7.7); NEUTROPHILS % 76.5 % (36.0-66.0); PLATELET COUNT, AUTOMATED 148 10^3/uL (150-450); RED BLOOD COUNT 4.41 10^6/uL (4.00-5.40); WHITE BLOOD COUNT 5.9 10^3/uL (4.0-10.0)
[2018-10-26 11:38] LABS: ALBUMIN 3.1 GM/DL (3.2-5.2); ALT/SGPT 22 U/L (12-78); BILIRUBIN,TOTAL 0.3 MG/DL (0.2-1.0); BLOOD UREA NITROGEN 11 MG/DL (7-18); CALCIUM LEVEL 8.4 MG/DL (8.8-10.2); CARBON DIOXIDE LEVEL 42 MEQ/L (21-32); CHLORIDE LEVEL 89 MEQ/L (98-107); CREATININE FOR GFR 0.75 MG/DL (0.55-1.30); GLOMERULAR FILTRATION RATE > 60.0 (>45); GLUCOSE, FASTING 103 MG/DL (70-100); MAGNESIUM LEVEL 2.3 MG/DL (1.8-2.4); PHOSPHORUS LEVEL 4.2 MG/DL (2.5-4.9); POTASSIUM SERUM 4.5 MEQ/L (3.5-5.1); SODIUM LEVEL 135 MEQ/L (136-145); TOTAL PROTEIN 6.5 GM/DL (6.4-8.2)
== END ==
LOC: M LAB 10:43
PROVIDERS: ATTEND Internal Medicine Critical Care Medicine
DX: R20.0 Anesthesia of skin (principal); R20.2 Paresthesia of skin

== ENCOUNTER → 2019-02-14 | Outpatient (REF) | payer BC, MEDICARE ==
[~2019-02-14] MED LIST changes: -/LINE60TA OR; -LEVE15SO PO; +LEVE15SO2 PO; +ZYVO100T OR
[2019-02-14 14:00] LABS: ALBUMIN 2.8 GM/DL (3.2-5.2); ALT/SGPT 19 U/L (12-78); BILIRUBIN,TOTAL 0.3 MG/DL (0.2-1.0); BLOOD UREA NITROGEN 9 MG/DL (7-18); CALCIUM LEVEL 8.3 MG/DL (8.8-10.2); CARBON DIOXIDE LEVEL 38 MEQ/L (21-32); CHLORIDE LEVEL 89 MEQ/L (98-107); CREATININE FOR GFR 0.61 MG/DL (0.55-1.30); GLOMERULAR FILTRATION RATE > 60.0 (>45); GLUCOSE, FASTING 98 MG/DL (70-100); POTASSIUM SERUM 4.4 MEQ/L (3.5-5.1); SODIUM LEVEL 133 MEQ/L (136-145); TOTAL PROTEIN 5.8 GM/DL (6.4-8.2)
== END ==
LOC: M SHH 12:32
PROVIDERS: ATTEND Internal Medicine Critical Care Medicine
DX: J47.1 Bronchiectasis with (acute) exacerbation (principal)

== ENCOUNTER → 2019-02-14 | Outpatient (REF) | payer BC, MEDICARE | LOC: M LAB REF 12:34 | PROVIDERS: ATTEND Internal Medicine Critical Care Medicine | DX: J47.1 Bronchiectasis with (acute) exacerbation (principal) ==

== ENCOUNTER → 2019-02-20 | Outpatient (REF) | payer BC, MEDICARE ==
[2019-02-20 14:19] LABS: ALBUMIN 2.5 GM/DL (3.2-5.2); ALT/SGPT 18 U/L (12-78); BILIRUBIN,TOTAL 0.2 MG/DL (0.2-1.0); BLOOD UREA NITROGEN 7 MG/DL (7-18); CARBON DIOXIDE LEVEL 38 MEQ/L (21-32); CHLORIDE LEVEL 86 MEQ/L (98-107); CREATININE FOR GFR 0.57 MG/DL (0.55-1.30); GLOMERULAR FILTRATION RATE > 60.0 (>45); GLUCOSE, FASTING 92 MG/DL (70-100); POTASSIUM SERUM 4.3 MEQ/L (3.5-5.1); SODIUM LEVEL 129 MEQ/L (136-145); TOTAL PROTEIN 5.3 GM/DL (6.4-8.2)
== END ==
LOC: M LAB REF 12:58 → M SHH 12:58
PROVIDERS: ATTEND Internal Medicine Critical Care Medicine
DX: J47.1 Bronchiectasis with (acute) exacerbation (principal)

== ENCOUNTER → 2019-03-19 | Outpatient (REF) | payer BC, MEDICARE ==
[2019-03-19 19:14] LABS: PERCENT SATURATION 12.6 % (13.2-45.0)
== END ==
LOC: M LAB REF 18:32
PROVIDERS: ATTEND Internal Medicine
DX: D50.9 Iron deficiency anemia, unspecified (principal)

== ENCOUNTER → 2019-09-23 | Outpatient (CLI) | payer MEDICARE, BC ==
[~2019-09-23] MED LIST changes: -OMEP40CA2 PO; +OMEP40CA97 PO; -TRAZ-160 PO; +TRAZ-252 PO
[2019-09-23 13:34] LABS: BASO % 0.3 % (0.0-1.0); EOS # 0.1 10^3/uL (0.0-0.5); EOS % 1.2 % (0.0-3.0); HEMATOCRIT 37.2 % (36.0-47.0); HEMOGLOBIN 12.3 g/dl (12.0-15.5); LYMPH # 0.8 10^3/uL (1.5-5.0); LYMPH % 12.6 % (24.0-44.0); MEAN CORPUSCULAR HEMOGLOBIN 30.8 pg (27.0-33.0); MEAN CORPUSCULAR HGB CONC 33.1 g/dl (32.0-36.5); MONO # 0.5 10^3/uL (0.0-0.8); MONO % 8.7 % (0.0-5.0); NEUTROPHILS # 4.6 10^3/uL (1.5-8.5); NEUTROPHILS % 76.9 % (36.0-66.0); PLATELET COUNT, AUTOMATED 173 10^3/uL (150-450)
[2019-09-23 14:40] LABS: BLOOD UREA NITROGEN 10 MG/DL (7-18); CREATININE FOR GFR 0.75 MG/DL (0.55-1.30); GLUCOSE, FASTING 109 MG/DL (70-100)
[2019-09-23 14:41] LABS: ALBUMIN 3.1 GM/DL (3.2-5.2); ALT/SGPT 23 U/L (12-78); BILIRUBIN,TOTAL 0.3 MG/DL (0.2-1.0); CALCIUM LEVEL 8.4 MG/DL (8.8-10.2); CARBON DIOXIDE LEVEL 34 MEQ/L (21-32); CHLORIDE LEVEL 94 MEQ/L (98-107); GLOMERULAR FILTRATION RATE > 60.0 (>45); MAGNESIUM LEVEL 2.3 MG/DL (1.8-2.4); POTASSIUM SERUM 4.4 MEQ/L (3.5-5.1); SODIUM LEVEL 134 MEQ/L (136-145); TOTAL PROTEIN 6.3 GM/DL (6.4-8.2)
== END ==
LOC: M LAB 12:25
PROVIDERS: ATTEND Internal Medicine
DX: I10 Essential (primary) hypertension (principal)

== ENCOUNTER 2019-09-30 13:06 | Outpatient (CLI) | payer MEDICARE, BC ==
[~2019-09-30] VITALS: Ht 152.4 cm; Wt 52.2 kg
[2019-09-30 13:10] VITALS: BP 113/54
[2019-09-30] MEDS ORDERED: ZOLEDRONIC ACID 5 MG in IV 1 EA IV ONE (14:00)
[2019-09-30 14:29] VITALS: BP 108/54
== END 2019-09-30 14:30 | disposition home or self-care (01) ==
LOC: M INFU 13:06
PROVIDERS: ATTEND Internal Medicine
DX: M81.0 Age-related osteoporosis without current pathological fracture (principal)
CPT/HCPCS: 96365; J3489

== ENCOUNTER → 2020-05-22 | Outpatient (CLI) | payer BC, MEDICARE ==
[~2020-05-22] MED LIST changes: -MONT10TA2 PO; +MONT10TA4 PO; -VALA1TAB2 PO; +VALA1TAB5 PO
[2020-05-22 07:22] LABS: ABG BASE EXCESS 8.3 (-2.0-2.0); ABG HCO3 34.8 MEQ/L (22.0-26.0); ABG O2 SATURATION 99.7 % (95.0-99.0); ABG PARTIAL PRESSURE CO2 57.5 mmHg (35.0-45.0); ABG PARTIAL PRESSURE O2 212.8 mmHg (75.0-100.0); ABG STANDARD HCO3 32.1 MEQ/L (22.0-26.0); ABG TOTAL CO2 36.6 MEQ/L (23.0-31.0)
== END ==
LOC: M LAB 06:31
PROVIDERS: ATTEND Internal Medicine Critical Care Medicine
DX: J44.9 Chronic obstructive pulmonary disease, unspecified (principal)

== ENCOUNTER → 2020-05-22 | Outpatient (CLI) | payer BC, MEDICARE ==
[2020-05-22 07:07] LABS: BASO % 0.2 % (0.0-1.0); EOS # 0.1 10^3/uL (0.0-0.5); EOS % 2.7 % (0.0-3.0); HEMATOCRIT 37.6 % (36.0-47.0); HEMOGLOBIN 12.2 g/dl (12.0-15.5); LYMPH # 0.9 10^3/uL (1.5-5.0); LYMPH % 21.8 % (24.0-44.0); MEAN CORPUSCULAR HEMOGLOBIN 30.5 pg (27.0-33.0); MEAN CORPUSCULAR HGB CONC 32.4 g/dl (32.0-36.5); MONO # 0.5 10^3/uL (0.0-0.8); NEUTROPHILS # 2.5 10^3/uL (1.5-8.5); NEUTROPHILS % 62.3 % (36.0-66.0); PLATELET COUNT, AUTOMATED 186 10^3/uL (150-450); WHITE BLOOD COUNT 4.1 10^3/uL (4.0-10.0)
[2020-05-22 07:30] LABS: ALBUMIN 2.6 GM/DL (3.2-5.2); ALT/SGPT 15 U/L (12-78); BILIRUBIN,TOTAL 0.4 MG/DL (0.2-1.0); BLOOD UREA NITROGEN 9 MG/DL (7-18); CALCIUM LEVEL 8.4 MG/DL (8.8-10.2); CARBON DIOXIDE LEVEL 36 MEQ/L (21-32); CHLORIDE LEVEL 98 MEQ/L (98-107); CHOLESTEROL LEVEL 170 MG/DL (<200); CHOLESTEROL RISK RATIO 2.881 (<5); CREATININE FOR GFR 0.78 MG/DL (0.55-1.30); GLOMERULAR FILTRATION RATE > 60.0 (>45); GLUCOSE, FASTING 96 MG/DL (70-100); HDL CHOLESTEROL 59 MG/DL (>40); LDL CHOLESTEROL 92 MG/DL (<100); NON-HDL-C 111 MG/DL; POTASSIUM SERUM 3.8 MEQ/L (3.5-5.1); SODIUM LEVEL 141 MEQ/L (136-145); TRIGLYCERIDES LEVEL 94 MG/DL (<150)
[2020-05-22 09:15] LABS: HEMOGLOBIN A1c 5.3 %
== END ==
LOC: M LAB 06:25
PROVIDERS: ATTEND Internal Medicine
DX: D50.9 Iron deficiency anemia, unspecified (principal); D11.9 Benign neoplasm of major salivary gland, unspecified; I10 Essential (primary) hypertension; D80.0 Hereditary hypogammaglobulinemia; E78.00 Pure hypercholesterolemia, unspecified; G40.401 Other generalized epilepsy and epileptic syndromes, not intractable, with status epilepticus; J44.9 Chronic obstructive pulmonary disease, unspecified; Z79.899 Other long term (current) drug therapy

== ENCOUNTER 2020-07-15 10:04 | Outpatient (RCR) | payer BC, MEDICARE | END 2020-08-05 | LOC: M ST 10:04 | PROVIDERS: ATTEND Internal Medicine Critical Care Medicine | DX: T17.800A Unspecified foreign body in other parts of respiratory tract causing asphyxiation, initial encounter (principal) ==

== ENCOUNTER → 2021-03-08 | Outpatient (CLI) | payer MEDICARE, BC ==
[~2021-03-08] MED LIST changes: +ISOS1TAB36 PO; -ISOS60TA2 PO; +MONT10TA10 PO; -MONT10TA4 PO
--- NOTE | 2021-03-08 14:14 | REP ---
INDICATION: RT MEDICAL CALF LUMP ? MASS VS CYST. COMPARISON: None. TECHNIQUE: Real-time sonographic evaluation of right lower leg soft tissues performed at the site of a reported palpable lump medially. FINDINGS: There is a subcutaneous complex cystic appearing structure measuring 13 x 2 x 7 mm, with a somewhat crescent shape. With Doppler evaluation there is no significant internal blood flow. IMPRESSION: Nonspecific superficial subcutaneous complex cystic structure with a somewhat crescent shape at the site of the palpable lump, measuring 13 x 2 x 7 mm. <Electronically signed by Tejas Kate > 03/08/21 [id number]
== END ==
LOC: M RAD 11:14
PROVIDERS: ATTEND Nurse Practitioner Adult Health
DX: R22.41 Localized swelling, mass and lump, right lower limb (principal)

== ENCOUNTER → 2021-03-09 | Outpatient (REF) | payer MEDICARE, BC | LOC: M LAB REF 14:58 | PROVIDERS: ATTEND Internal Medicine Pulmonary Disease | DX: J47.1 Bronchiectasis with (acute) exacerbation (principal) ==

== ENCOUNTER → 2021-04-06 | Outpatient (REF) | payer MEDICARE, BC | LOC: M LAB REF 19:08 | PROVIDERS: ATTEND Surgery | DX: L57.0 Actinic keratosis (principal) ==

== ENCOUNTER → 2021-05-31 | Outpatient (REF) | payer MEDICARE, BC ==
[~2021-05-31] MED LIST changes: +OMEP40CA4 PO; -OMEP40CA97 PO
== END ==
LOC: M LAB REF 16:56
PROVIDERS: ATTEND Internal Medicine
DX: G40.401 Other generalized epilepsy and epileptic syndromes, not intractable, with status epilepticus (principal)

== ENCOUNTER 2021-07-28 11:00 | Outpatient (CLI) | payer MEDICARE, BC ==
[~2021-07-28 11:00] MED LIST changes: -KLOR10TA76 PO; +POTA-136 PO; +ZOLEDRONIC ACID 5 MG in IV 1 EA IV ONE
[2021-07-28 11:05] VITALS: BP 107/51
[2021-07-28 11:45] VITALS: BP 106/57
== END 2021-07-28 12:10 | disposition home or self-care (01) ==
LOC: M INFU 11:00
PROVIDERS: ATTEND Internal Medicine
DX: M81.0 Age-related osteoporosis without current pathological fracture (principal); Z88.1 Allergy status to other antibiotic agents; Z88.8 Allergy status to other drugs, medicaments and biological substances
CPT/HCPCS: 96365; J3489

== ENCOUNTER → 2021-09-24 | Outpatient (CLI) | payer MEDICARE, BC ==
[~2021-09-24] MED LIST changes: +VERA240T65 PO; -VERA24TASA PO; -ZOLEDRONIC ACID 5 MG in IV 1 EA IV ONE
[2021-09-24 13:26] LABS: RED BLOOD COUNT 3.76 10^6/uL (4.00-5.40); WHITE BLOOD COUNT 10.2 10^3/uL (4.0-10.0)
[2021-09-24 13:27] LABS: BASO % 0.4 % (0.0-1.0); EOS # 0.1 10^3/uL (0.0-0.5); EOS % 0.7 % (0.0-3.0); HEMOGLOBIN 11.5 g/dl (12.0-15.5); LYMPH # 0.7 10^3/uL (1.5-5.0); LYMPH % 6.7 % (24.0-44.0); MEAN CORPUSCULAR HEMOGLOBIN 30.6 pg (27.0-33.0); MEAN CORPUSCULAR HGB CONC 31.9 g/dl (32.0-36.5); MEAN CORPUSCULAR VOLUME 95.7 fl (80.0-96.0); MONO # 0.6 10^3/uL (0.0-0.8); MONO % 6.1 % (2.0-8.0); NEUTROPHILS # 8.7 10^3/uL (1.5-8.5); NEUTROPHILS % 85.3 % (36.0-66.0); PLATELET COUNT, AUTOMATED 259 10^3/uL (150-450)
[2021-09-24 14:10] LABS: ALBUMIN 2.4 GM/DL (3.2-5.2); ALT/SGPT 18 U/L (12-78); BILIRUBIN,TOTAL 0.3 MG/DL (0.2-1.0); BLOOD UREA NITROGEN 11 MG/DL (7-18); CALCIUM LEVEL 8.5 MG/DL (8.8-10.2); CARBON DIOXIDE LEVEL 37 MEQ/L (21-32); CHLORIDE LEVEL 92 MEQ/L (98-107); CREATININE FOR GFR 0.88 MG/DL (0.55-1.30); GLOMERULAR FILTRATION RATE > 60.0 (>45); GLUCOSE, FASTING 111 MG/DL (70-100); POTASSIUM SERUM 4.2 MEQ/L (3.5-5.1); SODIUM LEVEL 134 MEQ/L (136-145); TOTAL PROTEIN 6.4 GM/DL (6.4-8.2)
== END ==
LOC: M PLALAB 10:53
PROVIDERS: ATTEND Physician Assistant Medical
DX: R56.9 Unspecified convulsions (principal)

== ENCOUNTER → 2021-10-04 | Outpatient (REF) | payer MEDICARE, BC ==
[~2021-10-04] MED LIST changes: -MONT10TA10 PO; +MONT10TA97 PO
== END ==
LOC: M LAB REF 16:20
PROVIDERS: ATTEND Internal Medicine
DX: R21 Rash and other nonspecific skin eruption (principal)

== ENCOUNTER → 2021-11-03 | Outpatient (CLI) | payer BC, MEDICARE ==
[~2021-11-03] MED LIST changes: +MONT10TA10 PO; -MONT10TA97 PO
--- NOTE | 2021-11-03 12:24 | REP ---
INDICATION: PAIN AFTER FALL COMPARISON: None. TECHNIQUE: AP, lateral, bilateral oblique views. FINDINGS: Diffuse soft tissue swelling is appreciated and nonspecific. Osseous structures demonstrate age-related osteopenia and mild degenerative changes. Ankle mortise appears intact. No obvious acute fracture identified IMPRESSION: Significant soft tissue swelling without obvious acute fracture or dislocation appreciated. If the patient remains symptomatic consider re-evaluation in 5-7 days. <Electronically signed by Rafael Chapa > 11/03/21 [id number]
--- NOTE | 2021-11-03 12:27 | REP ---
INDICATION: PAIN AFTER FALL COMPARISON: None. TECHNIQUE: AP, lateral, bilateral oblique and sunrise views. FINDINGS: Age-related osteopenia and degenerative changes. No obvious acute fracture or dislocation identified. Moderate swelling. Possible effusion cannot be excluded. IMPRESSION: No obvious acute fracture or dislocation appreciated. <Electronically signed by Rafael Chpaa > 11/03/21 [id number]
== END ==
LOC: M PLAIMG 11:39
PROVIDERS: ATTEND Internal Medicine
DX: M25.762 Osteophyte, left knee (principal); M17.12 Unilateral primary osteoarthritis, left knee; M25.462 Effusion, left knee

== ENCOUNTER → 2021-11-04 | Outpatient (CLI) | payer MEDICARE ==
--- NOTE | 2021-11-04 12:46 | REP ---
INDICATION: LT LEG PAIN SWELLING ? DVT COMPARISON: None. TECHNIQUE: Kate scale and color Doppler evaluation using linear high frequency transducer. FINDINGS: Ultrasound examination of the left lower extremity deep venous structures from the common femoral vein through the popliteal vein demonstrates normal compressibility, flow and wave patterns in response to respiration and augmentation. Evaluation of the calf veins demonstrates normal posterior tibial vein, but nonvisualization of the peroneal vein. There is no evidence for deep venous thrombosis. Contralateral CFV is patent and normal. There is a Ramsey's cyst in the popliteal fossa measuring 4.1 x 2.1 x 3.0 cm. Subcutaneous edema in the lower extremity limits evaluation of the calf. IMPRESSION: No evidence for deep venous thrombosis. <Electronically signed by Rafael Chapa > 11/04/21 [id number]
== END ==
LOC: M RAD 11:55
PROVIDERS: ATTEND Internal Medicine
DX: M79.89 Other specified soft tissue disorders (principal); M79.662 Pain in left lower leg; M71.22 Synovial cyst of popliteal space [Baker], left knee; R60.0 Localized edema

== ENCOUNTER → 2021-11-15 | Outpatient (CLI) | payer MEDICARE ==
[~2021-11-15] MED LIST changes: -MONT10TA10 PO; +MONT10TA97 PO
== END ==
LOC: M PLAIMG 12:50
PROVIDERS: ATTEND Internal Medicine
DX: J84.10 Pulmonary fibrosis, unspecified (principal); I50.9 Heart failure, unspecified; R06.00 Dyspnea, unspecified; J90 Pleural effusion, not elsewhere classified

== ENCOUNTER → 2021-11-18 | Outpatient (REF) | payer MEDICARE | LOC: M LAB REF 13:59 | PROVIDERS: ATTEND Internal Medicine | DX: J47.9 Bronchiectasis, uncomplicated (principal); J96.11 Chronic respiratory failure with hypoxia ==

== ENCOUNTER → 2021-11-29 | Outpatient (CLI) | payer MEDICARE, BC ==
[2021-11-29 13:51] LABS: BASO % 0.4 % (0.0-1.0); EOS # 0.1 10^3/uL (0.0-0.5); EOS % 0.8 % (0.0-3.0); HEMATOCRIT 35.2 % (36.0-47.0); LYMPH # 0.6 10^3/uL (1.5-5.0); LYMPH % 8.2 % (24.0-44.0); MEAN CORPUSCULAR HEMOGLOBIN 31.1 pg (27.0-33.0); MEAN CORPUSCULAR HGB CONC 31.3 g/dl (32.0-36.5); MEAN CORPUSCULAR VOLUME 99.4 fl (80.0-96.0); MONO # 0.6 10^3/uL (0.0-0.8); MONO % 7.8 % (2.0-8.0); NEUTROPHILS # 6.1 10^3/uL (1.5-8.5); PLATELET COUNT, AUTOMATED 204 10^3/uL (150-450); RED BLOOD COUNT 3.54 10^6/uL (4.00-5.40); WHITE BLOOD COUNT 7.4 10^3/uL (4.0-10.0)
[2021-11-29 14:14] LABS: ERYTHROCYTE SEDIMENTATION RATE 52 mm/hr (0-30)
[2021-11-29 14:16] LABS: C REACTIVE PROTEIN QUANTITATIV 0.94 MG/DL (0.00-0.30)
[2021-11-29 15:12] LABS: IMMUNOGLOBULIN E 17.3 IU/ML (<100)
== END ==
LOC: M PLALAB 11:51
PROVIDERS: ATTEND Internal Medicine Infectious Disease
DX: J47.1 Bronchiectasis with (acute) exacerbation (principal); R76.8 Other specified abnormal immunological findings in serum

== ENCOUNTER → 2021-12-01 | Outpatient (REF) | payer MEDICARE, BC | LOC: M LAB REF 12:16 | PROVIDERS: ATTEND Internal Medicine | DX: G40.401 Other generalized epilepsy and epileptic syndromes, not intractable, with status epilepticus (principal) ==

== ENCOUNTER → 2021-12-07 | Outpatient (REF) | payer MEDICARE, BC ==
[~2021-12-07] MED LIST changes: +BISAC5TA PO; +CALC500T68 PO; +ISOS1TAB35 PO; +MIRT-62 PO; +PRED10TA2 PO; +SPIR-10 PO; +STIO1AER INH; +TORS20TA2 PO
== END ==
LOC: M SFHCPLAZ 14:45
PROVIDERS: ATTEND Internal Medicine Infectious Disease
DX: J47.1 Bronchiectasis with (acute) exacerbation (principal); Z86.19 Personal history of other infectious and parasitic diseases

== ENCOUNTER → 2021-12-13 | Outpatient (CLI) | payer MEDICARE, BC ==
[2021-12-13 13:39] LABS: BASO # 0.1 10^3/uL (0.0-0.2); BASO % 0.2 % (0.0-1.0); HEMOGLOBIN 11.4 g/dl (12.0-15.5); LYMPH # 0.5 10^3/uL (1.5-5.0); MEAN CORPUSCULAR HEMOGLOBIN 31.5 pg (27.0-33.0); MEAN CORPUSCULAR HGB CONC 32.6 g/dl (32.0-36.5); MEAN CORPUSCULAR VOLUME 96.7 fl (80.0-96.0); MONO # 0.4 10^3/uL (0.0-0.8); MONO % 1.5 % (2.0-8.0); NEUTROPHILS # 23.4 10^3/uL (1.5-8.5); NEUTROPHILS % 94.3 % (36.0-66.0); PLATELET COUNT, AUTOMATED 262 10^3/uL (150-450); RED BLOOD COUNT 3.62 10^6/uL (4.00-5.40); WHITE BLOOD COUNT 24.8 10^3/uL (4.0-10.0)
[2021-12-13 14:10] LABS: ERYTHROCYTE SEDIMENTATION RATE 31 mm/hr (0-30)
[2021-12-13 14:14] LABS: C REACTIVE PROTEIN QUANTITATIV 0.3 MG/DL (0.00-0.30); CALCIUM LEVEL 8.8 MG/DL (8.8-10.2); CREATININE FOR GFR 1.33 MG/DL (0.55-1.30); GLOMERULAR FILTRATION RATE 42.8 (>45); POTASSIUM SERUM 4.6 MEQ/L (3.5-5.1)
== END ==
LOC: M PLALAB 11:28
PROVIDERS: ATTEND Internal Medicine Infectious Disease
DX: J47.1 Bronchiectasis with (acute) exacerbation (principal); I27.81 Cor pulmonale (chronic); I50.32 Chronic diastolic (congestive) heart failure

== ENCOUNTER → 2021-12-20 | Outpatient (REF) | payer MEDICARE, BC ==
[~2021-12-20] MED LIST changes: -BISAC5TA PO; -CALC500T68 PO; -ISOS1TAB35 PO; -MIRT-62 PO; -PRED10TA2 PO; -SPIR-10 PO; -STIO1AER INH; -TORS20TA2 PO
[2021-12-20 21:26] LABS: ATYPICAL LYMPH 1 % (0-5); LYMPHOCYTES 5 % (16-44); MONOCYTES 2 % (0-5); NEUTROPHILS 92 % (28-66)
[2021-12-20 21:28] LABS: PLATELET ESTIMATE NORMAL (NORMAL)
== END ==
LOC: M LAB REF 16:12
PROVIDERS: ATTEND Internal Medicine
DX: D72.9 Disorder of white blood cells, unspecified (principal)

== ENCOUNTER 2022-01-03 14:10 | Inpatient (IN) | payer MEDICARE, BC ==
[~2022-01-03 14:10] MED LIST changes: -BISAC5TA PO; -CALC500T68 PO; -ISOS1TAB35 PO; -MIRT-62 PO; -PRED10TA2 PO; -SPIR-10 PO; -STIO1AER INH; -TORS20TA2 PO
[2022-01-03 14:59] VITALS: BP 133/69
[2022-01-03] MEDS ORDERED: ACETAMINOPHEN TAB 650MG DOSE (2X325MG) PO PRN (16:05)
[2022-01-03] MEDS ORDERED: CALC500T68 PO (16:19)
[2022-01-03] MEDS ORDERED: MIRT-62 PO (16:19)
[2022-01-03] MEDS ORDERED: SPIR-10 PO (16:19)
[2022-01-03] MEDS ORDERED: PRED10TA2 PO (16:19)
[2022-01-03] MEDS ORDERED: ISOS1TAB35 PO (16:19)
[2022-01-03] MEDS ORDERED: BISAC5TA PO (16:19)
[2022-01-03] MEDS ORDERED: TORS20TA2 PO (16:19)
[2022-01-03] MEDS ORDERED: STIO1AER INH (16:19)
[2022-01-03] MEDS ORDERED: HOME MED LIST COMPLETE! XX SCH (16:20)
[2022-01-03] MEDS ORDERED: MIRALAX *UNIT DOSE* 17GM PACKET PO PRN (17:05)
[2022-01-03] MEDS ORDERED: ALBUTEROL SULFATE 2.5 MG/0.5 ML INH NEB SOLN INH PRN (17:05)
[2022-01-03] MEDS ORDERED: BISACODYL 5 MG TAB PO PRN (17:05)
[2022-01-03 17:12] LABS: HEMATOCRIT 35.9 % (36.0-47.0); HEMOGLOBIN 11.6 g/dl (12.0-15.5); MEAN CORPUSCULAR HEMOGLOBIN 31.7 pg (27.0-33.0); MEAN CORPUSCULAR HGB CONC 32.3 g/dl (32.0-36.5); MEAN CORPUSCULAR VOLUME 98.1 fl (80.0-96.0); PLATELET COUNT, AUTOMATED 132 10^3/uL (150-450); RED BLOOD COUNT 3.66 10^6/uL (4.00-5.40); WHITE BLOOD COUNT 8.3 10^3/uL (4.0-10.0)
[2022-01-03 17:27] LABS: ALBUMIN 3.2 GM/DL (3.2-5.2); ALT/SGPT 25 U/L (12-78); BILIRUBIN,TOTAL < 0.1 MG/DL (0.2-1.0); BLOOD UREA NITROGEN 16 MG/DL (7-18); C REACTIVE PROTEIN QUANTITATIV 1.48 MG/DL (0.00-0.30); CALCIUM LEVEL 8.6 MG/DL (8.8-10.2); CARBON DIOXIDE LEVEL 40 MEQ/L (21-32); CHLORIDE LEVEL 92 MEQ/L (98-107); CREATININE FOR GFR 1.06 MG/DL (0.55-1.30); GLOMERULAR FILTRATION RATE 55.6 (>45); GLUCOSE, FASTING 129 MG/DL (70-100); POTASSIUM SERUM 4.8 MEQ/L (3.5-5.1); SODIUM LEVEL 132 MEQ/L (136-145); TOTAL PROTEIN 6.5 GM/DL (6.4-8.2)
[2022-01-03 17:29] LABS: INR 0.97; PARTIAL THROMBOPLASTIN TIME 26.8 SECONDS (25.9-37.0); PROTHROMBIN TIME 13.3 SECONDS (12.7-14.5)
[2022-01-03] MEDS ORDERED: PILL CUTTER 1 EACH XX PRN (17:30)
[2022-01-03 19:29] LABS: ERYTHROCYTE SEDIMENTATION RATE 22 mm/hr (0-30)
[2022-01-03] MEDS: FORMOTEROL FUMARATE 20 MCG/2 ML INHALATION SOLUTION (PERFOROMIST) INH SCH (20:29)
[2022-01-03] MEDS: FERROUS SULFATE 325MG TAB PO SCH (20:35)
[2022-01-03] MEDS: MULTIVITAMINS/MINERALS THERAP 1 TAB PO SCH (20:35)
[2022-01-03] MEDS: levETIRAcetam 250MG TABLET (KEPPRA) PO SCH (20:35)
[2022-01-03] MEDS: traZODone 50 MG TAB PO SCH (20:36)
[2022-01-03] MEDS: OMEPRAZOLE 20MG CAP PO SCH (20:36)
[2022-01-03] MEDS: AZITHROMYCIN 250MG TABLET PO SCH (20:36)
[2022-01-03] MEDS: POTASSIUM CL 10 MEQ PO SCH (20:36)
[2022-01-03] MEDS: MIRTAZAPINE 15 MG TAB PO SCH (20:36)
[2022-01-03] MEDS: MONTELUKAST 10 MG TAB PO SCH (20:36)
[2022-01-03] MEDS ORDERED: POTASSIUM CHLORIDE 10MEQ SR TABLET PO SCH (21:00)
[2022-01-03 22:00] VITALS: BP 126/67
[2022-01-04 06:00] VITALS: BP 125/65
[2022-01-04 06:32] LABS: HEMOGLOBIN 10.2 g/dl (12.0-15.5); MEAN CORPUSCULAR HEMOGLOBIN 31.8 pg (27.0-33.0); MEAN CORPUSCULAR HGB CONC 32.9 g/dl (32.0-36.5); MEAN CORPUSCULAR VOLUME 96.6 fl (80.0-96.0); PLATELET COUNT, AUTOMATED 136 10^3/uL (150-450); RED BLOOD COUNT 3.21 10^6/uL (4.00-5.40); WHITE BLOOD COUNT 5.1 10^3/uL (4.0-10.0)
[2022-01-04 06:47] LABS: HEMOGLOBIN A1c 5.1 %
[2022-01-04 06:59] LABS: BLOOD UREA NITROGEN 13 MG/DL (7-18); CALCIUM LEVEL 8.4 MG/DL (8.8-10.2); CARBON DIOXIDE LEVEL 39 MEQ/L (21-32); CHLORIDE LEVEL 95 MEQ/L (98-107); CREATININE FOR GFR 0.67 MG/DL (0.55-1.30); GLOMERULAR FILTRATION RATE > 60.0 (>45); GLUCOSE, FASTING 101 MG/DL (70-100); MAGNESIUM LEVEL 2.3 MG/DL (1.8-2.4); POTASSIUM SERUM 4.7 MEQ/L (3.5-5.1); SODIUM LEVEL 136 MEQ/L (136-145)
[2022-01-04] MEDS: FORMOTEROL FUMARATE 20 MCG/2 ML INHALATION SOLUTION (PERFOROMIST) INH SCH (07:31)
[2022-01-04] MEDS ORDERED: TIOTROPIUM INHALER/CAPSULE (SPIRIVA) INH SCH (08:00)
[2022-01-04] MEDS: levETIRAcetam 250MG TABLET (KEPPRA) PO SCH ×2 (09:22→21:06)
[2022-01-04] MEDS: OMEPRAZOLE 20MG CAP PO SCH ×2 (09:22→21:06)
[2022-01-04] MEDS: MAGNESIUM GLUCONATE 500 MG TAB PO SCH (09:22)
[2022-01-04] MEDS: POTASSIUM CL 10 MEQ PO SCH ×2 (09:22→21:07)
[2022-01-04] MEDS: SPIRONOLACTONE 25 MG TAB PO SCH (09:22)
[2022-01-04] MEDS: TORSEMIDE 20 MG TAB PO SCH (09:23)
[2022-01-04] MEDS: predniSONE 20 MG TAB PO SCH (09:23)
[2022-01-04] MEDS: CALCIUM CARBONATE 500 MG CHEW U/D PO SCH (09:23)
[2022-01-04] MEDS: VERAPAMIL 120MG SR TAB PO SCH (09:23)
[2022-01-04] MEDS: ISOSORBIDE MON. (IMDUR) 30 MG XR TAB PO SCH (09:24)
[2022-01-04] MEDS: CEFIDEROCOL SULFATE TOSYLATE 2 GM in D5W 100 ML IV SCH ×2 (13:42→21:07)
[2022-01-04 14:00] VITALS: BP 135/64
[2022-01-04] MEDS: ALBUTEROL 90 MCG/ACT 8GM HFA INHALER INH SCH ×2 (17:10→20:46)
[2022-01-04] MEDS: SODIUM CHLORIDE HYPERTONIC 3% 15ML NEB SOL INH SCH (20:46)
[2022-01-04] MEDS: MULTIVITAMINS/MINERALS THERAP 1 TAB PO SCH (21:06)
[2022-01-04] MEDS: MONTELUKAST 10 MG TAB PO SCH (21:06)
[2022-01-04] MEDS: MIRTAZAPINE 15 MG TAB PO SCH (21:06)
[2022-01-04] MEDS: AZITHROMYCIN 250MG TABLET PO SCH (21:06)
[2022-01-04] MEDS: FERROUS SULFATE 325MG TAB PO SCH (21:06)
[2022-01-04] MEDS: traZODone 50 MG TAB PO SCH (21:06)
[2022-01-04 22:00] VITALS: BP 119/59
[2022-01-05] MEDS: ALBUTEROL 90 MCG/ACT 8GM HFA INHALER INH SCH ×4 (01:50→19:58)
[2022-01-05] MEDS: CEFIDEROCOL SULFATE TOSYLATE 2 GM in D5W 100 ML IV SCH ×3 (04:56→22:15)
[2022-01-05 05:09] LABS: HEMATOCRIT 29.4 % (36.0-47.0); HEMOGLOBIN 9.6 g/dl (12.0-15.5); MEAN CORPUSCULAR HEMOGLOBIN 31.6 pg (27.0-33.0); MEAN CORPUSCULAR HGB CONC 32.7 g/dl (32.0-36.5); MEAN CORPUSCULAR VOLUME 96.7 fl (80.0-96.0); PLATELET COUNT, AUTOMATED 133 10^3/uL (150-450); RED BLOOD COUNT 3.04 10^6/uL (4.00-5.40); WHITE BLOOD COUNT 5.4 10^3/uL (4.0-10.0)
[2022-01-05 05:36] LABS: BLOOD UREA NITROGEN 14 MG/DL (7-18); CALCIUM LEVEL 8.3 MG/DL (8.8-10.2); CARBON DIOXIDE LEVEL 44 MEQ/L (21-32); CHLORIDE LEVEL 93 MEQ/L (98-107); CREATININE FOR GFR 0.67 MG/DL (0.55-1.30); GLOMERULAR FILTRATION RATE > 60.0 (>45); GLUCOSE, FASTING 94 MG/DL (70-100); MAGNESIUM LEVEL 2.2 MG/DL (1.8-2.4); POTASSIUM SERUM 4.7 MEQ/L (3.5-5.1); SODIUM LEVEL 136 MEQ/L (136-145)
[2022-01-05 06:00] VITALS: BP 127/59
[2022-01-05] MEDS: SODIUM CHLORIDE HYPERTONIC 3% 15ML NEB SOL INH SCH ×2 (07:35→19:57)
[2022-01-05 07:42] VITALS: O2SAT 99
[2022-01-05 09:00] VITALS: BP 120/56
[2022-01-05] MEDS ORDERED: NON-FORMULARY 1 EA EA INH SCH (09:00)
[2022-01-05] MEDS: POTASSIUM CL 10 MEQ PO SCH ×2 (09:00→21:00)
[2022-01-05] MEDS: SPIRONOLACTONE 25 MG TAB PO SCH (09:40)
[2022-01-05] MEDS: levETIRAcetam 250MG TABLET (KEPPRA) PO SCH ×2 (09:41→22:09)
[2022-01-05] MEDS: CALCIUM CARBONATE 500 MG CHEW U/D PO SCH (09:41)
[2022-01-05] MEDS: OMEPRAZOLE 20MG CAP PO SCH ×2 (09:41→22:07)
[2022-01-05] MEDS: TORSEMIDE 20 MG TAB PO SCH (09:41)
[2022-01-05] MEDS: ISOSORBIDE MON. (IMDUR) 30 MG XR TAB PO SCH (09:41)
[2022-01-05] MEDS: predniSONE 20 MG TAB PO SCH (09:42)
[2022-01-05] MEDS: VERAPAMIL 120MG SR TAB PO SCH (09:42)
[2022-01-05] MEDS: MAGNESIUM GLUCONATE 500 MG TAB PO SCH (11:35)
[2022-01-05] MEDS ORDERED: LIDOCAINE 1% MDV 20ML VIAL As Ordered ONE (13:41)
[2022-01-05 14:00] VITALS: BP 112/46
[2022-01-05] MEDS: SODIUM CHLORIDE 0.9% INJ 10 ML SYR IV SCH (17:39)
[2022-01-05] MEDS: SODIUM CHLORIDE 0.9% INJ 10 ML SYR IV PRN (18:58)
[2022-01-05 22:00] VITALS: BP 133/67
[2022-01-05] MEDS: traZODone 50 MG TAB PO SCH (22:08)
[2022-01-05] MEDS: FERROUS SULFATE 325MG TAB PO SCH (22:08)
[2022-01-05] MEDS: MONTELUKAST 10 MG TAB PO SCH (22:08)
[2022-01-05] MEDS: MULTIVITAMINS/MINERALS THERAP 1 TAB PO SCH (22:08)
[2022-01-05] MEDS: AZITHROMYCIN 250MG TABLET PO SCH (22:09)
[2022-01-05] MEDS: MIRTAZAPINE 15 MG TAB PO SCH (22:13)
[2022-01-06] MEDS: ALBUTEROL 90 MCG/ACT 8GM HFA INHALER INH SCH ×3 (02:00→13:23)
[2022-01-06] MEDS: CEFIDEROCOL SULFATE TOSYLATE 2 GM in D5W 100 ML IV SCH ×3 (05:54→20:27)
[2022-01-06 06:00] VITALS: BP 122/58
[2022-01-06] MEDS: SODIUM CHLORIDE 0.9% INJ 10 ML SYR IV SCH ×2 (06:00→17:21)
[2022-01-06 07:14] LABS: HEMOGLOBIN 10.2 g/dl (12.0-15.5); MEAN CORPUSCULAR HEMOGLOBIN 31.4 pg (27.0-33.0); MEAN CORPUSCULAR HGB CONC 31.9 g/dl (32.0-36.5); MEAN CORPUSCULAR VOLUME 98.5 fl (80.0-96.0); PLATELET COUNT, AUTOMATED 140 10^3/uL (150-450); RED BLOOD COUNT 3.25 10^6/uL (4.00-5.40); WHITE BLOOD COUNT 4.9 10^3/uL (4.0-10.0)
[2022-01-06 07:55] LABS: BLOOD UREA NITROGEN 10 MG/DL (7-18); CALCIUM LEVEL 8.3 MG/DL (8.8-10.2); CARBON DIOXIDE LEVEL 44 MEQ/L (21-32); CHLORIDE LEVEL 94 MEQ/L (98-107); CREATININE FOR GFR 0.65 MG/DL (0.55-1.30); GLOMERULAR FILTRATION RATE > 60.0 (>45); GLUCOSE, FASTING 94 MG/DL (70-100); MAGNESIUM LEVEL 2.2 MG/DL (1.8-2.4); POTASSIUM SERUM 3.7 MEQ/L (3.5-5.1); SODIUM LEVEL 137 MEQ/L (136-145)
[2022-01-06 08:00] VITALS: BP 136/66
[2022-01-06] MEDS: SODIUM CHLORIDE HYPERTONIC 3% 15ML NEB SOL INH SCH ×2 (08:01→20:49)
[2022-01-06] MEDS: CALCIUM CARBONATE 500 MG CHEW U/D PO SCH (08:45)
[2022-01-06] MEDS: OMEPRAZOLE 20MG CAP PO SCH ×2 (08:45→20:25)
[2022-01-06] MEDS: MAGNESIUM GLUCONATE 500 MG TAB PO SCH (08:45)
[2022-01-06] MEDS: ISOSORBIDE MON. (IMDUR) 30 MG XR TAB PO SCH (08:46)
[2022-01-06] MEDS: SPIRONOLACTONE 25 MG TAB PO SCH (08:46)
[2022-01-06] MEDS: VERAPAMIL 120MG SR TAB PO SCH (08:46)
[2022-01-06] MEDS: predniSONE 20 MG TAB PO SCH (08:47)
[2022-01-06] MEDS: levETIRAcetam 250MG TABLET (KEPPRA) PO SCH ×2 (08:47→20:26)
[2022-01-06] MEDS: TORSEMIDE 20 MG TAB PO SCH (08:47)
[2022-01-06] MEDS: POTASSIUM CL 10 MEQ PO SCH ×2 (08:58→20:26)
[2022-01-06] MEDS: SODIUM CHLORIDE 0.9% INJ 10 ML SYR IV PRN (09:34)
[2022-01-06] MEDS ORDERED: ALBUTEROL 90 MCG/ACT 8GM HFA INHALER INH PRN (17:25)
[2022-01-06] MEDS: AZITHROMYCIN 250MG TABLET PO SCH (20:25)
[2022-01-06] MEDS: MIRTAZAPINE 15 MG TAB PO SCH (20:25)
[2022-01-06] MEDS: MULTIVITAMINS/MINERALS THERAP 1 TAB PO SCH (20:25)
[2022-01-06] MEDS: MONTELUKAST 10 MG TAB PO SCH (20:25)
[2022-01-06] MEDS: traZODone 50 MG TAB PO SCH (20:25)
[2022-01-06] MEDS: FERROUS SULFATE 325MG TAB PO SCH (20:25)
[2022-01-06] MEDS: IPRATROPIUM 0.5MG/ALBUTEROL 2.5MG INH SOL UD 3ML (DUONEB) NEB SCH (20:48)
[2022-01-07] MEDS: CEFIDEROCOL SULFATE TOSYLATE 2 GM in D5W 100 ML IV SCH ×3 (05:43→21:05)
[2022-01-07 06:00] VITALS: BP 138/68
[2022-01-07] MEDS: SODIUM CHLORIDE HYPERTONIC 3% 15ML NEB SOL INH SCH (07:28)
[2022-01-07] MEDS: IPRATROPIUM 0.5MG/ALBUTEROL 2.5MG INH SOL UD 3ML (DUONEB) NEB SCH ×2 (07:28→19:31)
[2022-01-07] MEDS: SODIUM CHLORIDE 0.9% INJ 10 ML SYR IV SCH ×2 (07:47→17:19)
[2022-01-07] MEDS: OMEPRAZOLE 20MG CAP PO SCH ×2 (08:59→21:05)
[2022-01-07] MEDS: SPIRONOLACTONE 25 MG TAB PO SCH (08:59)
[2022-01-07] MEDS: levETIRAcetam 250MG TABLET (KEPPRA) PO SCH ×2 (08:59→21:05)
[2022-01-07] MEDS: POTASSIUM CL 10 MEQ PO SCH ×2 (08:59→21:06)
[2022-01-07] MEDS: CALCIUM CARBONATE 500 MG CHEW U/D PO SCH (08:59)
[2022-01-07] MEDS: predniSONE 20 MG TAB PO SCH (08:59)
[2022-01-07] MEDS: MAGNESIUM GLUCONATE 500 MG TAB PO SCH (08:59)
[2022-01-07] MEDS: ISOSORBIDE MON. (IMDUR) 30 MG XR TAB PO SCH (09:00)
[2022-01-07] MEDS: TORSEMIDE 20 MG TAB PO SCH (09:00)
[2022-01-07] MEDS: VERAPAMIL 120MG SR TAB PO SCH (09:08)
[2022-01-07] MEDS: SODIUM CHLORIDE 0.9% INJ 10 ML SYR IV PRN (09:21)
[2022-01-07] MEDS: guaiFENesin ER 600 MG TAB PO SCH ×2 (11:47→21:05)
[2022-01-07 14:00] VITALS: BP 114/56
[2022-01-07] MEDS: AZITHROMYCIN 250MG TABLET PO SCH (21:05)
[2022-01-07] MEDS: MONTELUKAST 10 MG TAB PO SCH (21:05)
[2022-01-07] MEDS: MIRTAZAPINE 15 MG TAB PO SCH (21:05)
[2022-01-07] MEDS: MULTIVITAMINS/MINERALS THERAP 1 TAB PO SCH (21:05)
[2022-01-07] MEDS: traZODone 100 MG TAB PO SCH (21:05)
[2022-01-07] MEDS: FERROUS SULFATE 325MG TAB PO SCH (21:05)
[2022-01-07 22:00] VITALS: BP 141/75
[2022-01-08] MEDS: SODIUM CHLORIDE 0.9% INJ 10 ML SYR IV PRN ×3 (00:28→18:40)
[2022-01-08] MEDS: CEFIDEROCOL SULFATE TOSYLATE 2 GM in D5W 100 ML IV SCH ×3 (05:02→20:56)
[2022-01-08] MEDS: SODIUM CHLORIDE 0.9% INJ 10 ML SYR IV SCH ×2 (05:11→18:00)
[2022-01-08 06:00] VITALS: BP 116/56
[2022-01-08] MEDS: IPRATROPIUM 0.5MG/ALBUTEROL 2.5MG INH SOL UD 3ML (DUONEB) NEB SCH ×2 (07:22→20:29)
[2022-01-08] MEDS: OMEPRAZOLE 20MG CAP PO SCH ×2 (09:56→20:55)
[2022-01-08] MEDS: MAGNESIUM GLUCONATE 500 MG TAB PO SCH (09:56)
[2022-01-08] MEDS: POTASSIUM CL 10 MEQ PO SCH ×2 (09:56→20:56)
[2022-01-08] MEDS: SPIRONOLACTONE 25 MG TAB PO SCH (09:56)
[2022-01-08] MEDS: levETIRAcetam 250MG TABLET (KEPPRA) PO SCH ×2 (09:56→20:55)
[2022-01-08] MEDS: guaiFENesin ER 600 MG TAB PO SCH ×2 (09:57→20:55)
[2022-01-08] MEDS: CALCIUM CARBONATE 500 MG CHEW U/D PO SCH (09:57)
[2022-01-08] MEDS: predniSONE 20 MG TAB PO SCH (09:57)
[2022-01-08] MEDS: TORSEMIDE 20 MG TAB PO SCH (09:57)
[2022-01-08] MEDS: ISOSORBIDE MON. (IMDUR) 30 MG XR TAB PO SCH (09:59)
[2022-01-08] MEDS: VERAPAMIL 120MG SR TAB PO SCH (10:06)
[2022-01-08] MEDS: MONTELUKAST 10 MG TAB PO SCH (20:55)
[2022-01-08] MEDS: MULTIVITAMINS/MINERALS THERAP 1 TAB PO SCH (20:55)
[2022-01-08] MEDS: AZITHROMYCIN 250MG TABLET PO SCH (20:55)
[2022-01-08] MEDS: traZODone 100 MG TAB PO SCH (20:55)
[2022-01-08] MEDS: MIRTAZAPINE 15 MG TAB PO SCH (20:55)
[2022-01-08] MEDS: FERROUS SULFATE 325MG TAB PO SCH (20:55)
[2022-01-09] MEDS: CEFIDEROCOL SULFATE TOSYLATE 2 GM in D5W 100 ML IV SCH ×3 (04:59→21:13)
[2022-01-09] MEDS: SODIUM CHLORIDE 0.9% INJ 10 ML SYR IV SCH ×2 (05:45→17:14)
[2022-01-09 06:00] VITALS: BP 128/60
[2022-01-09] MEDS: IPRATROPIUM 0.5MG/ALBUTEROL 2.5MG INH SOL UD 3ML (DUONEB) NEB SCH ×2 (07:21→18:08)
[2022-01-09] MEDS: POTASSIUM CL 10 MEQ PO SCH ×2 (09:00→21:13)
[2022-01-09] MEDS: OMEPRAZOLE 20MG CAP PO SCH ×2 (09:01→21:12)
[2022-01-09] MEDS: CALCIUM CARBONATE 500 MG CHEW U/D PO SCH (09:01)
[2022-01-09] MEDS: SPIRONOLACTONE 25 MG TAB PO SCH (09:01)
[2022-01-09] MEDS: MAGNESIUM GLUCONATE 500 MG TAB PO SCH (09:01)
[2022-01-09] MEDS: TORSEMIDE 20 MG TAB PO SCH (09:02)
[2022-01-09] MEDS: VERAPAMIL 120MG SR TAB PO SCH (09:02)
[2022-01-09] MEDS: levETIRAcetam 250MG TABLET (KEPPRA) PO SCH ×2 (09:03→21:13)
[2022-01-09] MEDS: guaiFENesin ER 600 MG TAB PO SCH ×2 (09:03→21:12)
[2022-01-09] MEDS: predniSONE 20 MG TAB PO SCH (09:03)
[2022-01-09] MEDS: ISOSORBIDE MON. (IMDUR) 30 MG XR TAB PO SCH (09:04)
[2022-01-09] MEDS: AZITHROMYCIN 250MG TABLET PO SCH (21:12)
[2022-01-09] MEDS: MULTIVITAMINS/MINERALS THERAP 1 TAB PO SCH (21:12)
[2022-01-09] MEDS: MONTELUKAST 10 MG TAB PO SCH (21:13)
[2022-01-09] MEDS: MIRTAZAPINE 15 MG TAB PO SCH (21:13)
[2022-01-09] MEDS: traZODone 100 MG TAB PO SCH (21:13)
[2022-01-09] MEDS: FERROUS SULFATE 325MG TAB PO SCH (21:13)
[2022-01-10] MEDS: CEFIDEROCOL SULFATE TOSYLATE 2 GM in D5W 100 ML IV SCH ×3 (05:05→20:42)
[2022-01-10] MEDS: SODIUM CHLORIDE 0.9% INJ 10 ML SYR IV SCH ×2 (05:25→16:43)
[2022-01-10 06:00] VITALS: BP 135/70
[2022-01-10] MEDS: IPRATROPIUM 0.5MG/ALBUTEROL 2.5MG INH SOL UD 3ML (DUONEB) NEB SCH ×2 (07:49→19:26)
[2022-01-10] MEDS: SPIRONOLACTONE 25 MG TAB PO SCH (08:30)
[2022-01-10] MEDS: CALCIUM CARBONATE 500 MG CHEW U/D PO SCH (08:30)
[2022-01-10] MEDS: VERAPAMIL 120MG SR TAB PO SCH (08:30)
[2022-01-10] MEDS: POTASSIUM CL 10 MEQ PO SCH ×2 (08:30→20:40)
[2022-01-10] MEDS: predniSONE 20 MG TAB PO SCH (08:31)
[2022-01-10] MEDS: TORSEMIDE 20 MG TAB PO SCH (08:31)
[2022-01-10] MEDS: levETIRAcetam 250MG TABLET (KEPPRA) PO SCH ×2 (08:31→20:42)
[2022-01-10] MEDS: guaiFENesin ER 600 MG TAB PO SCH ×2 (08:32→20:42)
[2022-01-10] MEDS: ISOSORBIDE MON. (IMDUR) 30 MG XR TAB PO SCH (08:32)
[2022-01-10] MEDS: OMEPRAZOLE 20MG CAP PO SCH ×2 (08:33→20:41)
[2022-01-10] MEDS: MAGNESIUM GLUCONATE 500 MG TAB PO SCH (08:33)
[2022-01-10] MEDS: traZODone 100 MG TAB PO SCH (20:41)
[2022-01-10] MEDS: MULTIVITAMINS/MINERALS THERAP 1 TAB PO SCH (20:41)
[2022-01-10] MEDS: MIRTAZAPINE 15 MG TAB PO SCH (20:41)
[2022-01-10] MEDS: AZITHROMYCIN 250MG TABLET PO SCH (20:41)
[2022-01-10] MEDS: MONTELUKAST 10 MG TAB PO SCH (20:41)
[2022-01-10] MEDS: FERROUS SULFATE 325MG TAB PO SCH (20:44)
[2022-01-11] MEDS: CEFIDEROCOL SULFATE TOSYLATE 2 GM in D5W 100 ML IV SCH ×3 (05:13→21:38)
[2022-01-11 06:00] VITALS: BP 123/54
[2022-01-11] MEDS: IPRATROPIUM 0.5MG/ALBUTEROL 2.5MG INH SOL UD 3ML (DUONEB) NEB SCH ×2 (06:09→20:00)
[2022-01-11 06:26] LABS: BASO % 0.4 % (0.0-1.0); EOS # 0.1 10^3/uL (0.0-0.5); EOS % 1.1 % (0.0-3.0); HEMATOCRIT 33.9 % (36.0-47.0); HEMOGLOBIN 10.8 g/dl (12.0-15.5); LYMPH # 1.4 10^3/uL (1.5-5.0); LYMPH % 16.3 % (24.0-44.0); MEAN CORPUSCULAR HEMOGLOBIN 31.3 pg (27.0-33.0); MEAN CORPUSCULAR HGB CONC 31.9 g/dl (32.0-36.5); MEAN CORPUSCULAR VOLUME 98.3 fl (80.0-96.0); MONO # 0.6 10^3/uL (0.0-0.8); MONO % 7.4 % (2.0-8.0); NEUTROPHILS % 72.7 % (36.0-66.0); PLATELET COUNT, AUTOMATED 180 10^3/uL (150-450); RED BLOOD COUNT 3.45 10^6/uL (4.00-5.40); WHITE BLOOD COUNT 8.3 10^3/uL (4.0-10.0)
[2022-01-11 06:51] LABS: BLOOD UREA NITROGEN 18 MG/DL (7-18); C REACTIVE PROTEIN QUANTITATIV < 0.30 MG/DL (0.00-0.30); CALCIUM LEVEL 8.6 MG/DL (8.8-10.2); CARBON DIOXIDE LEVEL 43 MEQ/L (21-32); CHLORIDE LEVEL 94 MEQ/L (98-107); CREATININE FOR GFR 0.74 MG/DL (0.55-1.30); GLOMERULAR FILTRATION RATE > 60.0 (>45); GLUCOSE, FASTING 91 MG/DL (70-100); POTASSIUM SERUM 4.1 MEQ/L (3.5-5.1); SODIUM LEVEL 136 MEQ/L (136-145)
[2022-01-11] MEDS: POTASSIUM CL 10 MEQ PO SCH ×2 (09:35→21:42)
[2022-01-11] MEDS: predniSONE 5 MG TAB PO SCH (09:35)
[2022-01-11] MEDS: ISOSORBIDE MON. (IMDUR) 30 MG XR TAB PO SCH (09:36)
[2022-01-11] MEDS: guaiFENesin ER 600 MG TAB PO SCH ×2 (09:36→21:38)
[2022-01-11] MEDS: VERAPAMIL 120MG SR TAB PO SCH (09:36)
[2022-01-11] MEDS: CALCIUM CARBONATE 500 MG CHEW U/D PO SCH (09:37)
[2022-01-11] MEDS: TORSEMIDE 20 MG TAB PO SCH (09:37)
[2022-01-11] MEDS: levETIRAcetam 250MG TABLET (KEPPRA) PO SCH ×2 (09:37→21:38)
[2022-01-11] MEDS: MAGNESIUM GLUCONATE 500 MG TAB PO SCH (09:37)
[2022-01-11] MEDS: OMEPRAZOLE 20MG CAP PO SCH ×2 (09:38→21:39)
[2022-01-11] MEDS: SODIUM CHLORIDE 0.9% INJ 10 ML SYR IV SCH ×2 (09:38→18:15)
[2022-01-11] MEDS: SPIRONOLACTONE 25 MG TAB PO SCH (09:38)
[2022-01-11] MEDS: traZODone 100 MG TAB PO SCH (21:38)
[2022-01-11] MEDS: MONTELUKAST 10 MG TAB PO SCH (21:38)
[2022-01-11] MEDS: AZITHROMYCIN 250MG TABLET PO SCH (21:38)
[2022-01-11] MEDS: FERROUS SULFATE 325MG TAB PO SCH (21:39)
[2022-01-11] MEDS: MULTIVITAMINS/MINERALS THERAP 1 TAB PO SCH (21:39)
[2022-01-11] MEDS: MIRTAZAPINE 15 MG TAB PO SCH (21:39)
[2022-01-12] MEDS: SODIUM CHLORIDE 0.9% INJ 10 ML SYR IV PRN (01:16)
[2022-01-12] MEDS: CEFIDEROCOL SULFATE TOSYLATE 2 GM in D5W 100 ML IV SCH ×3 (05:15→20:27)
[2022-01-12 06:00] VITALS: BP 134/95
[2022-01-12] MEDS: IPRATROPIUM 0.5MG/ALBUTEROL 2.5MG INH SOL UD 3ML (DUONEB) NEB SCH ×2 (08:03→18:28)
[2022-01-12] MEDS: predniSONE 5 MG TAB PO SCH (09:11)
[2022-01-12] MEDS: SODIUM CHLORIDE 0.9% INJ 10 ML SYR IV SCH ×2 (09:11→16:53)
[2022-01-12] MEDS: TORSEMIDE 20 MG TAB PO SCH (09:11)
[2022-01-12] MEDS: VERAPAMIL 120MG SR TAB PO SCH (09:12)
[2022-01-12] MEDS: ISOSORBIDE MON. (IMDUR) 30 MG XR TAB PO SCH (09:12)
[2022-01-12] MEDS: guaiFENesin ER 600 MG TAB PO SCH ×2 (09:12→20:28)
[2022-01-12] MEDS: levETIRAcetam 250MG TABLET (KEPPRA) PO SCH ×2 (09:12→20:28)
[2022-01-12] MEDS: SPIRONOLACTONE 25 MG TAB PO SCH (09:13)
[2022-01-12] MEDS: CALCIUM CARBONATE 500 MG CHEW U/D PO SCH (09:13)
[2022-01-12] MEDS: OMEPRAZOLE 20MG CAP PO SCH ×2 (09:13→20:28)
[2022-01-12] MEDS: MAGNESIUM GLUCONATE 500 MG TAB PO SCH (09:13)
[2022-01-12] MEDS: POTASSIUM CL 10 MEQ PO SCH ×2 (09:14→20:29)
[2022-01-12] MEDS: AZITHROMYCIN 250MG TABLET PO SCH (20:28)
[2022-01-12] MEDS: MONTELUKAST 10 MG TAB PO SCH (20:28)
[2022-01-12] MEDS: MULTIVITAMINS/MINERALS THERAP 1 TAB PO SCH (20:28)
[2022-01-12] MEDS: MIRTAZAPINE 15 MG TAB PO SCH (20:28)
[2022-01-12] MEDS: FERROUS SULFATE 325MG TAB PO SCH (20:28)
[2022-01-12] MEDS: traZODone 100 MG TAB PO SCH (20:28)
[2022-01-13] MEDS: CEFIDEROCOL SULFATE TOSYLATE 2 GM in D5W 100 ML IV SCH ×3 (05:30→20:41)
[2022-01-13] MEDS: SODIUM CHLORIDE 0.9% INJ 10 ML SYR IV SCH ×2 (05:33→17:33)
[2022-01-13 06:00] VITALS: BP 127/51
[2022-01-13] MEDS: IPRATROPIUM 0.5MG/ALBUTEROL 2.5MG INH SOL UD 3ML (DUONEB) NEB SCH ×2 (07:40→19:14)
[2022-01-13] MEDS: POTASSIUM CL 10 MEQ PO SCH ×2 (08:35→20:39)
[2022-01-13] MEDS: SPIRONOLACTONE 25 MG TAB PO SCH (08:36)
[2022-01-13] MEDS: predniSONE 5 MG TAB PO SCH (08:36)
[2022-01-13] MEDS: OMEPRAZOLE 20MG CAP PO SCH ×2 (08:36→20:40)
[2022-01-13] MEDS: TORSEMIDE 20 MG TAB PO SCH (08:37)
[2022-01-13] MEDS: guaiFENesin ER 600 MG TAB PO SCH ×2 (08:38→20:40)
[2022-01-13] MEDS: VERAPAMIL 120MG SR TAB PO SCH (08:38)
[2022-01-13] MEDS: MAGNESIUM GLUCONATE 500 MG TAB PO SCH (08:38)
[2022-01-13] MEDS: CALCIUM CARBONATE 500 MG CHEW U/D PO SCH (08:39)
[2022-01-13] MEDS: levETIRAcetam 250MG TABLET (KEPPRA) PO SCH ×2 (08:39→20:40)
[2022-01-13] MEDS: ISOSORBIDE MON. (IMDUR) 30 MG XR TAB PO SCH (08:39)
[2022-01-13] MEDS: SODIUM CHLORIDE 0.9% INJ 10 ML SYR IV PRN (09:22)
[2022-01-13] MEDS: MONTELUKAST 10 MG TAB PO SCH (20:40)
[2022-01-13] MEDS: traZODone 100 MG TAB PO SCH (20:41)
[2022-01-13] MEDS: AZITHROMYCIN 250MG TABLET PO SCH (20:41)
[2022-01-13] MEDS: MULTIVITAMINS/MINERALS THERAP 1 TAB PO SCH (20:41)
[2022-01-13] MEDS: MIRTAZAPINE 15 MG TAB PO SCH (20:41)
[2022-01-13] MEDS: FERROUS SULFATE 325MG TAB PO SCH (20:41)
[2022-01-14 06:00] VITALS: BP 126/50
[2022-01-14] MEDS: SODIUM CHLORIDE 0.9% INJ 10 ML SYR IV SCH ×2 (06:07→17:01)
[2022-01-14] MEDS: CEFIDEROCOL SULFATE TOSYLATE 2 GM in D5W 100 ML IV SCH ×3 (06:07→22:42)
[2022-01-14] MEDS: IPRATROPIUM 0.5MG/ALBUTEROL 2.5MG INH SOL UD 3ML (DUONEB) NEB SCH ×2 (07:36→19:48)
[2022-01-14] MEDS: CALCIUM CARBONATE 500 MG CHEW U/D PO SCH (09:47)
[2022-01-14] MEDS: OMEPRAZOLE 20MG CAP PO SCH ×2 (09:47→22:42)
[2022-01-14] MEDS: guaiFENesin ER 600 MG TAB PO SCH ×2 (09:47→22:41)
[2022-01-14] MEDS: TORSEMIDE 20 MG TAB PO SCH (09:47)
[2022-01-14] MEDS: levETIRAcetam 250MG TABLET (KEPPRA) PO SCH ×2 (09:48→22:41)
[2022-01-14] MEDS: VERAPAMIL 120MG SR TAB PO SCH (09:48)
[2022-01-14] MEDS: predniSONE 5 MG TAB PO SCH (09:49)
[2022-01-14] MEDS: MAGNESIUM GLUCONATE 500 MG TAB PO SCH (09:49)
[2022-01-14] MEDS: ISOSORBIDE MON. (IMDUR) 30 MG XR TAB PO SCH (09:49)
[2022-01-14] MEDS: SPIRONOLACTONE 25 MG TAB PO SCH (09:49)
[2022-01-14] MEDS: POTASSIUM CL 10 MEQ PO SCH ×2 (09:50→22:43)
[2022-01-14] MEDS: MIRTAZAPINE 15 MG TAB PO SCH (22:40)
[2022-01-14] MEDS: AZITHROMYCIN 250MG TABLET PO SCH (22:41)
[2022-01-14] MEDS: traZODone 100 MG TAB PO SCH (22:41)
[2022-01-14] MEDS: FERROUS SULFATE 325MG TAB PO SCH (22:42)
[2022-01-14] MEDS: MONTELUKAST 10 MG TAB PO SCH (22:42)
[2022-01-14] MEDS: MULTIVITAMINS/MINERALS THERAP 1 TAB PO SCH (22:42)
[2022-01-15] MEDS: SODIUM CHLORIDE 0.9% INJ 10 ML SYR IV PRN ×2 (02:13→20:20)
[2022-01-15] MEDS: CEFIDEROCOL SULFATE TOSYLATE 2 GM in D5W 100 ML IV SCH ×3 (05:54→20:18)
[2022-01-15] MEDS: SODIUM CHLORIDE 0.9% INJ 10 ML SYR IV SCH ×2 (05:55→16:53)
[2022-01-15 06:00] VITALS: BP 112/60
[2022-01-15] MEDS: IPRATROPIUM 0.5MG/ALBUTEROL 2.5MG INH SOL UD 3ML (DUONEB) NEB SCH ×2 (07:50→18:08)
[2022-01-15] MEDS: CALCIUM CARBONATE 500 MG CHEW U/D PO SCH (08:43)
[2022-01-15] MEDS: MAGNESIUM GLUCONATE 500 MG TAB PO SCH (08:44)
[2022-01-15] MEDS: SPIRONOLACTONE 25 MG TAB PO SCH (08:44)
[2022-01-15] MEDS: POTASSIUM CL 10 MEQ PO SCH ×2 (08:44→20:17)
[2022-01-15] MEDS: TORSEMIDE 20 MG TAB PO SCH (08:44)
[2022-01-15] MEDS: levETIRAcetam 250MG TABLET (KEPPRA) PO SCH ×2 (08:44→20:19)
[2022-01-15] MEDS: predniSONE 5 MG TAB PO SCH (08:44)
[2022-01-15] MEDS: OMEPRAZOLE 20MG CAP PO SCH ×2 (08:45→20:19)
[2022-01-15] MEDS: ISOSORBIDE MON. (IMDUR) 30 MG XR TAB PO SCH (08:45)
[2022-01-15] MEDS: VERAPAMIL 120MG SR TAB PO SCH (08:45)
[2022-01-15] MEDS: guaiFENesin ER 600 MG TAB PO SCH ×2 (08:46→20:18)
[2022-01-15] MEDS: MONTELUKAST 10 MG TAB PO SCH (20:18)
[2022-01-15] MEDS: AZITHROMYCIN 250MG TABLET PO SCH (20:18)
[2022-01-15] MEDS: MULTIVITAMINS/MINERALS THERAP 1 TAB PO SCH (20:18)
[2022-01-15] MEDS: traZODone 100 MG TAB PO SCH (20:19)
[2022-01-15] MEDS: FERROUS SULFATE 325MG TAB PO SCH (20:19)
[2022-01-15] MEDS: MIRTAZAPINE 15 MG TAB PO SCH (20:20)
[2022-01-16] MEDS: CEFIDEROCOL SULFATE TOSYLATE 2 GM in D5W 100 ML IV SCH ×3 (05:25→19:58)
[2022-01-16] MEDS: SODIUM CHLORIDE 0.9% INJ 10 ML SYR IV SCH ×2 (05:27→16:50)
[2022-01-16 06:00] VITALS: BP 117/56
[2022-01-16] MEDS: IPRATROPIUM 0.5MG/ALBUTEROL 2.5MG INH SOL UD 3ML (DUONEB) NEB SCH ×2 (07:55→19:27)
[2022-01-16] MEDS: VERAPAMIL 120MG SR TAB PO SCH (08:44)
[2022-01-16] MEDS: POTASSIUM CL 10 MEQ PO SCH ×2 (08:45→19:58)
[2022-01-16] MEDS: OMEPRAZOLE 20MG CAP PO SCH ×2 (08:45→20:00)
[2022-01-16] MEDS: SPIRONOLACTONE 25 MG TAB PO SCH (08:45)
[2022-01-16] MEDS: MAGNESIUM GLUCONATE 500 MG TAB PO SCH (08:45)
[2022-01-16] MEDS: TORSEMIDE 20 MG TAB PO SCH (08:46)
[2022-01-16] MEDS: guaiFENesin ER 600 MG TAB PO SCH ×2 (08:46→19:59)
[2022-01-16] MEDS: ISOSORBIDE MON. (IMDUR) 30 MG XR TAB PO SCH (08:46)
[2022-01-16] MEDS: predniSONE 5 MG TAB PO SCH (08:46)
[2022-01-16] MEDS: levETIRAcetam 250MG TABLET (KEPPRA) PO SCH ×2 (08:46→20:00)
[2022-01-16] MEDS: CALCIUM CARBONATE 500 MG CHEW U/D PO SCH (08:46)
[2022-01-16] MEDS: AZITHROMYCIN 250MG TABLET PO SCH (19:59)
[2022-01-16] MEDS: MONTELUKAST 10 MG TAB PO SCH (20:00)
[2022-01-16] MEDS: MIRTAZAPINE 15 MG TAB PO SCH (20:00)
[2022-01-16] MEDS: traZODone 100 MG TAB PO SCH (20:00)
[2022-01-16] MEDS: MULTIVITAMINS/MINERALS THERAP 1 TAB PO SCH (20:00)
[2022-01-16] MEDS: FERROUS SULFATE 325MG TAB PO SCH (20:00)
[2022-01-16 21:00] VITALS: BP 130/61
[2022-01-17] MEDS: CEFIDEROCOL SULFATE TOSYLATE 2 GM in D5W 100 ML IV SCH ×2 (05:27→12:30)
[2022-01-17] MEDS: SODIUM CHLORIDE 0.9% INJ 10 ML SYR IV SCH (05:27)
[2022-01-17 05:59] VITALS: BP 134/72
[2022-01-17] MEDS: IPRATROPIUM 0.5MG/ALBUTEROL 2.5MG INH SOL UD 3ML (DUONEB) NEB SCH (07:29)
[2022-01-17 08:07] VITALS: BP 134/72
[2022-01-17] MEDS: SPIRONOLACTONE 25 MG TAB PO SCH (08:07)
[2022-01-17] MEDS: VERAPAMIL 120MG SR TAB PO SCH (08:07)
[2022-01-17] MEDS: CALCIUM CARBONATE 500 MG CHEW U/D PO SCH (08:07)
[2022-01-17] MEDS: levETIRAcetam 250MG TABLET (KEPPRA) PO SCH (08:08)
[2022-01-17] MEDS: TORSEMIDE 20 MG TAB PO SCH (08:08)
[2022-01-17] MEDS: MAGNESIUM GLUCONATE 500 MG TAB PO SCH (08:08)
[2022-01-17] MEDS: OMEPRAZOLE 20MG CAP PO SCH (08:08)
[2022-01-17] MEDS: guaiFENesin ER 600 MG TAB PO SCH (08:08)
[2022-01-17] MEDS: ISOSORBIDE MON. (IMDUR) 30 MG XR TAB PO SCH (08:08)
[2022-01-17] MEDS: POTASSIUM CL 10 MEQ PO SCH (08:09)
[2022-01-17] MEDS ORDERED: predniSONE 10 MG TAB PO SCH (09:00)
[2022-01-17] MEDS ORDERED: PRED10TA2 PO (13:32)
== END 2022-01-17 16:52 | disposition home or self-care (01) | DRG 178 ==
LOC: M MSPAV 14:37
PROVIDERS: ADMIT Internal Medicine; ATTEND Internal Medicine
PROC: 02HV33Z Insertion of Infusion Device into Superior Vena Cava, Percutaneous Approach (ICD-10-PCS; principal; 2022-01-05 15:00)
DX: J15.6 Pneumonia due to other Gram-negative bacteria (principal); D84.9 Immunodeficiency, unspecified; J47.1 Bronchiectasis with (acute) exacerbation; J96.11 Chronic respiratory failure with hypoxia; R64 Cachexia; K21.9 Gastro-esophageal reflux disease without esophagitis; G40.909 Epilepsy, unspecified, not intractable, without status epilepticus; I11.0 Hypertensive heart disease with heart failure; Z99.81 Dependence on supplemental oxygen; F32.A Depression, unspecified; M81.0 Age-related osteoporosis without current pathological fracture; I50.9 Heart failure, unspecified; Z79.899 Other long term (current) drug therapy; Z88.1 Allergy status to other antibiotic agents; Z88.8 Allergy status to other drugs, medicaments and biological substances; E78.5 Hyperlipidemia, unspecified; I27.81 Cor pulmonale (chronic); Z90.49 Acquired absence of other specified parts of digestive tract; Z90.79 Acquired absence of other genital organ(s); E11.43 Type 2 diabetes mellitus with diabetic autonomic (poly)neuropathy; Z20.822 Contact with and (suspected) exposure to COVID-19

== ENCOUNTER → 2022-01-03 | Outpatient (REF) | payer MEDICARE, BC ==
[~2022-01-03] MED LIST changes: +BISAC5TA PO; +CALC500T68 PO; +ISOS1TAB35 PO; +MIRT-62 PO; +PRED10TA2 PO; +SPIR-10 PO; +STIO1AER INH; +TORS20TA2 PO
== END ==
LOC: M LAB REF 16:07
PROVIDERS: ATTEND Internal Medicine
DX: J47.9 Bronchiectasis, uncomplicated (principal)

== ENCOUNTER → 2022-01-24 | Outpatient (REF) | payer MEDICARE, BC ==
[~2022-01-24] MED LIST changes: +ASPI81TA26 PO; +BISAC5TA PO; +CALC500T68 PO; +IPRA0.00 NEB; +ISOS1TAB35 PO; +LANTINJ4 SC; +MIRT-10 PO; +MIRT-62 PO; +PRED10TA2 PO; +SODI4VIA9 INH; -SODI7NEB3 INH; +SPIR-10 PO; +STIO1AER INH; +TORS20TA2 PO
== END ==
LOC: M SFHCDERM 09:17
PROVIDERS: ATTEND Nurse Practitioner Family
DX: D04.39 Carcinoma in situ of skin of other parts of face (principal)
CPT/HCPCS: 11102; 88305; G0463

== ENCOUNTER → 2022-02-01 | Outpatient (REF) | payer MEDICARE, BC ==
[~2022-02-01] MED LIST changes: -ASPI81TA26 PO; -IPRA0.00 NEB; -LANTINJ4 SC; -MIRT-10 PO; -SODI4VIA9 INH; +SODI7NEB3 INH
== END ==
LOC: M LAB REF 14:54
PROVIDERS: ATTEND Internal Medicine
DX: J47.0 Bronchiectasis with acute lower respiratory infection (principal)

== ENCOUNTER → 2022-03-05 | Outpatient (REF) | payer MEDICARE, BC | LOC: M LAB REF 13:21 | PROVIDERS: ATTEND Internal Medicine | DX: J47.0 Bronchiectasis with acute lower respiratory infection (principal) ==

== ENCOUNTER → 2022-04-01 | Outpatient (REF) | payer MEDICARE, BC | LOC: M LAB REF 16:59 | PROVIDERS: ATTEND Internal Medicine Pulmonary Disease | DX: J47.9 Bronchiectasis, uncomplicated (principal) ==

== ENCOUNTER 2022-04-13 11:37 | Outpatient (CLI) | payer MEDICARE, BC ==
[~2022-04-13] VITALS: Ht 152.4 cm; Wt 52.0 kg
[~2022-04-13 11:37] MED LIST changes: +ALBUTEROL 90 MCG/ACT 8GM HFA INHALER INH PRN; +ALBUTEROL SULFATE 2.5 MG/0.5 ML INH NEB SOLN INH PRN; +EPINEPHrine INJ 1 MG/ML 1ML AMP IM PRN; +NS 1,000 ML IV SCH; +SODI4VIA9 INH; -SODI7NEB3 INH; +TIXAGEVIMAB/CILGAVIMAB (EVUSHELD) 150MG-150MG 3ML VIAL (EUA) IM NO SITE ONE; +diphenhydrAMINE 50MG/ML VIAL (J1200) IV PRN; +methylPREDNISolone 125MG 2ML VIAL IV PRN
[2022-04-13 12:23] VITALS: BP 142/68
[2022-04-13 13:10] VITALS: BP 136/62
== END 2022-04-13 13:10 | disposition home or self-care (01) ==
LOC: M INFU 11:37
PROVIDERS: ATTEND Internal Medicine
DX: D80.3 Selective deficiency of immunoglobulin G [IgG] subclasses (principal); J47.9 Bronchiectasis, uncomplicated; J96.01 Acute respiratory failure with hypoxia; Z88.1 Allergy status to other antibiotic agents; Z88.8 Allergy status to other drugs, medicaments and biological substances

== ENCOUNTER → 2022-04-18 | Outpatient (CLI) | payer MEDICARE, BC ==
[~2022-04-18] MED LIST changes: -ALBUTEROL 90 MCG/ACT 8GM HFA INHALER INH PRN; -ALBUTEROL SULFATE 2.5 MG/0.5 ML INH NEB SOLN INH PRN; -EPINEPHrine INJ 1 MG/ML 1ML AMP IM PRN; -NS 1,000 ML IV SCH; -TIXAGEVIMAB/CILGAVIMAB (EVUSHELD) 150MG-150MG 3ML VIAL (EUA) IM NO SITE ONE; -diphenhydrAMINE 50MG/ML VIAL (J1200) IV PRN; -methylPREDNISolone 125MG 2ML VIAL IV PRN
== END ==
LOC: M PLAIMG 13:40
DX: T17.808A Unspecified foreign body in other parts of respiratory tract causing other injury, initial encounter (principal); J84.10 Pulmonary fibrosis, unspecified; I51.7 Cardiomegaly; Y92.9 Unspecified place or not applicable

== ENCOUNTER 2022-04-22 11:07 | Inpatient (IN) | payer MEDICARE, BC ==
[~2022-04-22] VITALS: Ht 162.6 cm; Wt 55.6 kg
[~2022-04-22 11:07] MED LIST changes: +MIRALAX *UNIT DOSE* 17GM PACKET PO PRN
[2022-04-22] MEDS: COMBIVENT RESPIMAT 100-20MCG INHALER 4GM INH SCH ×3 (12:16→13:00)
[2022-04-22 12:33] LABS: BASO % 0.4 % (0.0-1.0); EOS # 0.1 10^3/uL (0.0-0.5); HEMATOCRIT 39.6 % (36.0-47.0); HEMOGLOBIN 12.8 g/dl (12.0-15.5); LYMPH # 0.8 10^3/uL (1.5-5.0); MEAN CORPUSCULAR HEMOGLOBIN 31.7 pg (27.0-33.0); MEAN CORPUSCULAR HGB CONC 32.3 g/dl (32.0-36.5); MONO # 0.6 10^3/uL (0.0-0.8); MONO % 9.1 % (2.0-8.0); NEUTROPHILS # 5.1 10^3/uL (1.5-8.5); NEUTROPHILS % 76.9 % (36.0-66.0); PLATELET COUNT, AUTOMATED 170 10^3/uL (150-450); RED BLOOD COUNT 4.04 10^6/uL (4.00-5.40); WHITE BLOOD COUNT 6.7 10^3/uL (4.0-10.0)
[2022-04-22 12:42] LABS: ABG BASE EXCESS 10.6 (-2.0-2.0); ABG HCO3 41.5 MEQ/L (22.0-26.0); ABG O2 SATURATION 84.1 % (95.0-99.0); ABG PARTIAL PRESSURE O2 54.1 mmHg (75.0-100.0); ABG TOTAL CO2 44.5 MEQ/L (23.0-31.0)
[2022-04-22 12:45] LABS: ABG PARTIAL PRESSURE CO2 96.8 mmHg (35.0-45.0)
[2022-04-22] MEDS ORDERED: NS 500 ML IV ONE (13:05)
[2022-04-22 13:17] LABS: ALBUMIN 3.3 GM/DL (3.2-5.2); ALT/SGPT 19 U/L (12-78); BILIRUBIN,DIRECT < 0.1 MG/DL (0.0-0.2); BILIRUBIN,TOTAL 0.3 MG/DL (0.2-1.0); BLOOD UREA NITROGEN 12 MG/DL (7-18); CALCIUM LEVEL 8.8 MG/DL (8.8-10.2); CARBON DIOXIDE LEVEL 41 MEQ/L (21-32); CHLORIDE LEVEL 93 MEQ/L (98-107); CREATININE FOR GFR 0.88 MG/DL (0.55-1.30); GLOMERULAR FILTRATION RATE > 60.0 (>45); GLUCOSE, FASTING 115 MG/DL (70-100); POTASSIUM SERUM 4.5 MEQ/L (3.5-5.1); SODIUM LEVEL 137 MEQ/L (136-145); TOTAL PROTEIN 6.9 GM/DL (6.4-8.2)
[2022-04-22] MEDS ORDERED: IPRA0.00 NEB (13:56)
[2022-04-22] MEDS ORDERED: MIRT-10 PO (13:56)
[2022-04-22] MEDS ORDERED: NON-FORMULARY 1 EA EA IV SCH (14:05)
[2022-04-22] MEDS ORDERED: HOME MED LIST COMPLETE! XX SCH (14:20)
[2022-04-22] MEDS ORDERED: ASPI81TA26 PO (14:20)
[2022-04-22] MEDS ORDERED: LANTINJ4 SC (14:20)
[2022-04-22 14:35] LABS: ABG BASE EXCESS 12.6 (-2.0-2.0); ABG HCO3 40.9 MEQ/L (22.0-26.0); ABG O2 SATURATION 89.2 % (95.0-99.0); ABG PARTIAL PRESSURE O2 56.3 mmHg (75.0-100.0); ABG STANDARD HCO3 36.2 MEQ/L (22.0-26.0); ABG TOTAL CO2 43.1 MEQ/L (23.0-31.0); ABG pH (ARTERIAL) 7.366 UNITS (7.350-7.450)
[2022-04-22] MEDS ORDERED: CEFIDEROCOL SULFATE TOSYLATE 2 GM in D5W 100 ML IV SCH (15:00)
[2022-04-22] MEDS ORDERED: ALBUTEROL SULFATE 2.5 MG/0.5 ML INH NEB SOLN NEB PRN (16:20)
[2022-04-22] MEDS ORDERED: CEFIDEROCOL SULFATE TOSYLATE 2 GM in D5W 100 ML IV ONE (17:00)
[2022-04-22] MEDS: D5W/0.9% SODIUM CHLORIDE 1,000 ML IV SCH (18:50)
[2022-04-22] MEDS ORDERED: CALCIUM CARBONATE 500 MG CHEW U/D PO PRN (19:00)
[2022-04-22 19:03] VITALS: BP 137/64
[2022-04-22] MEDS: IPRATROPIUM 0.5MG/ALBUTEROL 2.5MG INH SOL UD 3ML (DUONEB) NEB SCH ×2 (19:13→23:38)
[2022-04-22 19:16] LABS: MAGNESIUM LEVEL 2.6 MG/DL (1.8-2.4); PHOSPHORUS LEVEL 4.4 MG/DL (2.5-4.9)
[2022-04-22 20:00] VITALS: BP 132/61
[2022-04-22 21:00] VITALS: BP 139/62
[2022-04-22] MEDS: POTASSIUM CHLORIDE 10MEQ SR TABLET PO SCH ×2 (21:00→21:01)
[2022-04-22] MEDS: FERROUS SULFATE 325MG TAB PO SCH (21:00)
[2022-04-22] MEDS: CHLORHEXIDINE GLUCONATE 0.12 % 15ML UDC (PERIDEX ORAL RINSE) MT SCH (21:00)
[2022-04-22] MEDS: MIRTAZAPINE 15 MG TAB PO SCH (21:01)
[2022-04-22] MEDS: levETIRAcetam 250MG TABLET (KEPPRA) PO SCH (21:01)
[2022-04-22] MEDS: MONTELUKAST 10 MG TAB PO SCH (21:01)
[2022-04-22] MEDS: LEVEMIR (INSULIN DETEMIR) 1 UNITS/0.01ML SC SCH (21:02)
[2022-04-22 21:03] LABS: VENOUS BASE EXCESS 8.5 (-2.0-2.0); VENOUS HCO3 37.7 MEQ/L (23.0-27.0); VENOUS O2 SATURATION 96.9 % (60.0-80.0); VENOUS PARTIAL PRESSURE CO2 78.5 mmHg (38.0-50.0); VENOUS PARTIAL PRESSURE O2 95.4 mmHg (30.0-50.0); VENOUS PH 7.299 UNITS (7.330-7.430); VENOUS STANDARD HCO3 32.3 MEQ/L; VENOUS TOTAL CO2 40.1 MEQ/L (24.0-28.0)
[2022-04-22] MEDS: TORSEMIDE 20 MG TAB PO SCH (21:10)
[2022-04-22] MEDS: methylPREDNISolone 40MG 1ML VIAL IV SCH (21:55)
[2022-04-22] MEDS: MAGNESIUM GLUCONATE 500 MG TAB PO SCH (21:55)
[2022-04-22 22:00] VITALS: BP 126/58
[2022-04-22 23:00] VITALS: BP 120/60
[2022-04-23] VITALS (18 sets, daily range): BP systolic 113–149; BP diastolic 49–67; O2SAT 96–98
[2022-04-23] MEDS: D5W/0.9% SODIUM CHLORIDE 1,000 ML IV SCH ×2 (00:59→07:20)
[2022-04-23] MEDS ORDERED: GLUCAGON INJ 1MG VIAL SC PRN (03:40)
[2022-04-23] MEDS ORDERED: GLUCOSE 4GM CHEW TABLET PO PRN (03:40)
[2022-04-23] MEDS ORDERED: DEXTROSE 50% 50 ML SYRINGE IV PRN (03:40)
[2022-04-23] MEDS: methylPREDNISolone 40MG 1ML VIAL IV SCH ×4 (04:00→21:05)
[2022-04-23] MEDS: IPRATROPIUM 0.5MG/ALBUTEROL 2.5MG INH SOL UD 3ML (DUONEB) NEB SCH ×6 (04:33→23:37)
[2022-04-23 05:56] LABS: ABG BASE EXCESS 10.3 (-2.0-2.0); ABG O2 SATURATION 95.7 % (95.0-99.0); ABG TOTAL CO2 43.8 MEQ/L (23.0-31.0); ABG pH (ARTERIAL) 7.259 UNITS (7.350-7.450)
[2022-04-23 05:59] LABS: ABG PARTIAL PRESSURE CO2 93.6 mmHg (35.0-45.0)
[2022-04-23] MEDS ORDERED: INSULIN LISPRO (NovoLOG) PER UNIT SC SCH ×3 (07:30→21:00)
[2022-04-23] MEDS: CEFIDEROCOL SULFATE TOSYLATE 2 GM in D5W 100 ML IV SCH ×2 (08:16→16:34)
[2022-04-23] MEDS: POTASSIUM CHLORIDE 10MEQ SR TABLET PO SCH (09:00)
[2022-04-23] MEDS: MAGNESIUM GLUCONATE 500 MG TAB PO SCH (09:00)
[2022-04-23] MEDS: PANTOPRAZOLE 40MG VIAL IV SCH (09:36)
[2022-04-23] MEDS: ENOXAPARIN 40MG/0.4ML SYRINGE (J1650 PER 10MG) SC SCH (09:37)
[2022-04-23] MEDS: TORSEMIDE 20 MG TAB PO SCH ×2 (09:37→16:34)
[2022-04-23] MEDS: CHLORHEXIDINE GLUCONATE 0.12 % 15ML UDC (PERIDEX ORAL RINSE) MT SCH ×2 (09:37→20:23)
[2022-04-23] MEDS: levETIRAcetam 250MG TABLET (KEPPRA) PO SCH ×2 (09:37→20:23)
[2022-04-23] MEDS: ASPIRIN 81 MG CHEW TABLET PO SCH (09:38)
[2022-04-23] MEDS: ISOSORBIDE MON. (IMDUR) 30MG XR TAB PO SCH (09:38)
[2022-04-23] MEDS: SPIRONOLACTONE 25 MG TAB PO SCH (09:38)
[2022-04-23] MEDS: AZITHROMYCIN 250MG TABLET PO SCH (09:38)
[2022-04-23 10:22] LABS: ABG BASE EXCESS 9.5 (-2.0-2.0); ABG HCO3 37.4 MEQ/L (22.0-26.0); ABG O2 SATURATION 96.2 % (95.0-99.0); ABG PARTIAL PRESSURE O2 80.9 mmHg (75.0-100.0); ABG STANDARD HCO3 33.2 MEQ/L (22.0-26.0); ABG TOTAL CO2 39.5 MEQ/L (23.0-31.0); ABG pH (ARTERIAL) 7.354 UNITS (7.350-7.450)
[2022-04-23 10:23] LABS: ABG PARTIAL PRESSURE CO2 68.7 mmHg (35.0-45.0)
[2022-04-23] MEDS: INSULIN LISPRO (NovoLOG) PER UNIT SC SCH ×3 (13:01→20:24)
[2022-04-23] MEDS: MONTELUKAST 10 MG TAB PO SCH (20:23)
[2022-04-23] MEDS: MIRTAZAPINE 15 MG TAB PO SCH (20:23)
[2022-04-23] MEDS: FERROUS SULFATE 325MG TAB PO SCH (20:23)
[2022-04-23] MEDS: LEVEMIR (INSULIN DETEMIR) 1 UNITS/0.01ML SC SCH (20:24)
[2022-04-23] MEDS: ITRACONAZOLE 100 MG PO SCH (20:24)
[2022-04-23] MEDS: LACTOBACILLUS ACIDOPHILUS CAP (BACID) PO SCH (20:24)
[2022-04-24] VITALS (16 sets, daily range): BP systolic 107–143; BP diastolic 53–65; O2SAT 100
[2022-04-24] MEDS: CEFIDEROCOL SULFATE TOSYLATE 2 GM in D5W 100 ML IV SCH ×4 (00:02→23:38)
[2022-04-24] MEDS: IPRATROPIUM 0.5MG/ALBUTEROL 2.5MG INH SOL UD 3ML (DUONEB) NEB SCH ×5 (03:34→19:54)
[2022-04-24] MEDS: methylPREDNISolone 40MG 1ML VIAL IV SCH ×4 (04:21→22:06)
[2022-04-24 05:02] LABS: HEMATOCRIT 35.3 % (36.0-47.0); HEMOGLOBIN 11.5 g/dl (12.0-15.5); MEAN CORPUSCULAR HEMOGLOBIN 31.3 pg (27.0-33.0); MEAN CORPUSCULAR HGB CONC 32.6 g/dl (32.0-36.5); MEAN CORPUSCULAR VOLUME 96.2 fl (80.0-96.0); PLATELET COUNT, AUTOMATED 145 10^3/uL (150-450); RED BLOOD COUNT 3.67 10^6/uL (4.00-5.40)
[2022-04-24 05:11] LABS: BLOOD UREA NITROGEN 13 MG/DL (7-18); CALCIUM LEVEL 8.1 MG/DL (8.8-10.2); CARBON DIOXIDE LEVEL 33 MEQ/L (21-32); CHLORIDE LEVEL 102 MEQ/L (98-107); CREATININE FOR GFR 0.67 MG/DL (0.55-1.30); GLOMERULAR FILTRATION RATE > 60.0 (>45); GLUCOSE, FASTING 187 MG/DL (70-100); POTASSIUM SERUM 3.7 MEQ/L (3.5-5.1); SODIUM LEVEL 141 MEQ/L (136-145)
[2022-04-24 06:00] LABS: ABG BASE EXCESS 9.9 (-2.0-2.0); ABG HCO3 36.1 MEQ/L (22.0-26.0); ABG O2 SATURATION 97.7 % (95.0-99.0); ABG PARTIAL PRESSURE CO2 56.5 mmHg (35.0-45.0); ABG PARTIAL PRESSURE O2 97.1 mmHg (75.0-100.0); ABG STANDARD HCO3 33.7 MEQ/L (22.0-26.0); ABG TOTAL CO2 37.8 MEQ/L (23.0-31.0); ABG pH (ARTERIAL) 7.423 UNITS (7.350-7.450)
[2022-04-24] MEDS: INSULIN LISPRO (NovoLOG) PER UNIT SC SCH ×4 (07:21→21:00)
[2022-04-24] MEDS: CHLORHEXIDINE GLUCONATE 0.12 % 15ML UDC (PERIDEX ORAL RINSE) MT SCH ×2 (08:45→20:54)
[2022-04-24] MEDS: PANTOPRAZOLE 40MG VIAL IV SCH (08:45)
[2022-04-24] MEDS: SPIRONOLACTONE 25 MG TAB PO SCH (08:46)
[2022-04-24] MEDS: AZITHROMYCIN 250MG TABLET PO SCH (08:46)
[2022-04-24] MEDS: levETIRAcetam 250MG TABLET (KEPPRA) PO SCH ×2 (08:46→20:54)
[2022-04-24] MEDS: LACTOBACILLUS ACIDOPHILUS CAP (BACID) PO SCH (08:46)
[2022-04-24] MEDS: ASPIRIN 81 MG CHEW TABLET PO SCH (08:46)
[2022-04-24] MEDS: ENOXAPARIN 40MG/0.4ML SYRINGE (J1650 PER 10MG) SC SCH (08:46)
[2022-04-24] MEDS: TORSEMIDE 20 MG TAB PO SCH ×2 (08:47→18:02)
[2022-04-24] MEDS: ISOSORBIDE MON. (IMDUR) 30MG XR TAB PO SCH (08:47)
[2022-04-24 12:40] LABS: MAGNESIUM LEVEL 2.7 MG/DL (1.8-2.4); PHOSPHORUS LEVEL 2.6 MG/DL (2.5-4.9)
[2022-04-24 14:53] LABS: BLOOD UREA NITROGEN 19 MG/DL (7-18); CALCIUM LEVEL 8.5 MG/DL (8.8-10.2); CARBON DIOXIDE LEVEL 39 MEQ/L (21-32); CHLORIDE LEVEL 97 MEQ/L (98-107); CREATININE FOR GFR 0.95 MG/DL (0.55-1.30); GLOMERULAR FILTRATION RATE > 60.0 (>45); GLUCOSE, FASTING 198 MG/DL (70-100); POTASSIUM SERUM 3.3 MEQ/L (3.5-5.1); SODIUM LEVEL 141 MEQ/L (136-145)
[2022-04-24] MEDS: KCL 10MEQ/100ML SWI (KRUN) 10 MEQ in IV 1 EA IV SCH ×4 (15:40→19:51)
[2022-04-24] MEDS ORDERED: POTASSIUM CHLORIDE 10MEQ SR TABLET PO ONE (16:00)
[2022-04-24] MEDS: FERROUS SULFATE 325MG TAB PO SCH (20:54)
[2022-04-24] MEDS: traZODone 100 MG TAB PO SCH (20:54)
[2022-04-24] MEDS: ITRACONAZOLE 100 MG PO SCH (20:54)
[2022-04-24] MEDS: MIRTAZAPINE 15 MG TAB PO SCH (20:54)
[2022-04-24] MEDS: MONTELUKAST 10 MG TAB PO SCH (20:54)
[2022-04-24] MEDS: LEVEMIR (INSULIN DETEMIR) 1 UNITS/0.01ML SC SCH (20:55)
[2022-04-24] MEDS ORDERED: MIRTAZAPINE 15 MG TAB PO SCH (21:00)
[2022-04-24 22:50] LABS: BLOOD UREA NITROGEN 22 MG/DL (7-18); CALCIUM LEVEL 7.9 MG/DL (8.8-10.2); CARBON DIOXIDE LEVEL 39 MEQ/L (21-32); CHLORIDE LEVEL 96 MEQ/L (98-107); CREATININE FOR GFR 0.96 MG/DL (0.55-1.30); GLOMERULAR FILTRATION RATE > 60.0 (>45); GLUCOSE, FASTING 242 MG/DL (70-100); MAGNESIUM LEVEL 2.6 MG/DL (1.8-2.4); POTASSIUM SERUM 4.2 MEQ/L (3.5-5.1); SODIUM LEVEL 137 MEQ/L (136-145)
[2022-04-25] VITALS (9 sets, daily range): BP systolic 110–162; BP diastolic 56–78; O2SAT 98
[2022-04-25] MEDS: IPRATROPIUM 0.5MG/ALBUTEROL 2.5MG INH SOL UD 3ML (DUONEB) NEB SCH ×6 (00:21→20:02)
[2022-04-25] MEDS: methylPREDNISolone 40MG 1ML VIAL IV SCH ×4 (03:47→22:07)
[2022-04-25 05:08] LABS: HEMATOCRIT 35.2 % (36.0-47.0); HEMOGLOBIN 11.5 g/dl (12.0-15.5); MEAN CORPUSCULAR HEMOGLOBIN 31.9 pg (27.0-33.0); MEAN CORPUSCULAR HGB CONC 32.7 g/dl (32.0-36.5); MEAN CORPUSCULAR VOLUME 97.8 fl (80.0-96.0); PLATELET COUNT, AUTOMATED 178 10^3/uL (150-450); WHITE BLOOD COUNT 8.7 10^3/uL (4.0-10.0)
[2022-04-25 05:36] LABS: BLOOD UREA NITROGEN 21 MG/DL (7-18); CALCIUM LEVEL 8.2 MG/DL (8.8-10.2); CARBON DIOXIDE LEVEL 40 MEQ/L (21-32); CHLORIDE LEVEL 100 MEQ/L (98-107); CREATININE FOR GFR 0.84 MG/DL (0.55-1.30); GLOMERULAR FILTRATION RATE > 60.0 (>45); GLUCOSE, FASTING 159 MG/DL (70-100); MAGNESIUM LEVEL 2.7 MG/DL (1.8-2.4); POTASSIUM SERUM 4.4 MEQ/L (3.5-5.1); SODIUM LEVEL 144 MEQ/L (136-145)
[2022-04-25 05:47] LABS: ABG BASE EXCESS 11.1 (-2.0-2.0); ABG HCO3 38.3 MEQ/L (22.0-26.0); ABG O2 SATURATION 96.9 % (95.0-99.0); ABG PARTIAL PRESSURE CO2 64.6 mmHg (35.0-45.0); ABG PARTIAL PRESSURE O2 91.1 mmHg (75.0-100.0); ABG STANDARD HCO3 34.8 MEQ/L (22.0-26.0); ABG TOTAL CO2 40.3 MEQ/L (23.0-31.0); ABG pH (ARTERIAL) 7.391 UNITS (7.350-7.450)
[2022-04-25] MEDS: CHLORHEXIDINE GLUCONATE 0.12 % 15ML UDC (PERIDEX ORAL RINSE) MT SCH ×2 (08:48→20:22)
[2022-04-25] MEDS: PANTOPRAZOLE 40MG VIAL IV SCH (08:48)
[2022-04-25] MEDS: LACTOBACILLUS ACIDOPHILUS CAP (BACID) PO SCH (08:49)
[2022-04-25] MEDS: SPIRONOLACTONE 25 MG TAB PO SCH (08:49)
[2022-04-25] MEDS: levETIRAcetam 250MG TABLET (KEPPRA) PO SCH ×2 (08:49→20:22)
[2022-04-25] MEDS: ISOSORBIDE MON. (IMDUR) 30MG XR TAB PO SCH (08:49)
[2022-04-25] MEDS: ASPIRIN 81 MG CHEW TABLET PO SCH (08:49)
[2022-04-25] MEDS: POTASSIUM CHLORIDE 10MEQ SR TABLET PO SCH ×2 (08:50→20:22)
[2022-04-25] MEDS: TORSEMIDE 20 MG TAB PO SCH ×2 (08:50→17:59)
[2022-04-25] MEDS: AZITHROMYCIN 250MG TABLET PO SCH (08:50)
[2022-04-25] MEDS: INSULIN LISPRO (NovoLOG) PER UNIT SC SCH ×4 (08:51→20:12)
[2022-04-25] MEDS: ENOXAPARIN 40MG/0.4ML SYRINGE (J1650 PER 10MG) SC SCH (08:52)
[2022-04-25] MEDS: CEFIDEROCOL SULFATE TOSYLATE 2 GM in D5W 100 ML IV SCH ×2 (08:52→15:49)
[2022-04-25] MEDS: MAGNESIUM GLUCONATE 500 MG TAB PO SCH ×2 (11:06→20:22)
[2022-04-25 17:56] LABS: NT-PRO BNP 1700 PG/ML (<125)
[2022-04-25] MEDS: SODIUM CHLORIDE HYPERTONIC 3% 15ML NEB SOL INH SCH (18:33)
[2022-04-25] MEDS: LEVEMIR (INSULIN DETEMIR) 1 UNITS/0.01ML SC SCH (20:21)
[2022-04-25] MEDS: FERROUS SULFATE 325MG TAB PO SCH (20:22)
[2022-04-25] MEDS: traZODone 100 MG TAB PO SCH (20:22)
[2022-04-25] MEDS: MONTELUKAST 10 MG TAB PO SCH (20:22)
[2022-04-25] MEDS: MIRTAZAPINE 15 MG TAB PO SCH (20:23)
[2022-04-25] MEDS: ITRACONAZOLE 100 MG PO SCH (20:23)
[2022-04-26] VITALS: BP 124/58
[2022-04-26] MEDS: CEFIDEROCOL SULFATE TOSYLATE 2 GM in D5W 100 ML IV SCH ×3 (00:48→15:53)
[2022-04-26 04:00] VITALS: BP 121/60
[2022-04-26] MEDS: IPRATROPIUM 0.5MG/ALBUTEROL 2.5MG INH SOL UD 3ML (DUONEB) NEB SCH ×6 (04:00→20:25)
[2022-04-26] MEDS: methylPREDNISolone 40MG 1ML VIAL IV SCH ×4 (04:44→21:48)
[2022-04-26 06:04] LABS: ABG BASE EXCESS 14.2 (-2.0-2.0); ABG HCO3 39.4 MEQ/L (22.0-26.0); ABG O2 SATURATION 92.7 % (95.0-99.0); ABG PARTIAL PRESSURE O2 62.5 mmHg (75.0-100.0); ABG STANDARD HCO3 37.9 MEQ/L (22.0-26.0); ABG pH (ARTERIAL) 7.497 UNITS (7.350-7.450)
[2022-04-26] MEDS: SODIUM CHLORIDE HYPERTONIC 3% 15ML NEB SOL INH SCH ×3 (07:31→16:06)
[2022-04-26] MEDS: POTASSIUM CHLORIDE 10MEQ SR TABLET PO SCH ×2 (08:02→20:29)
[2022-04-26] MEDS: LACTOBACILLUS ACIDOPHILUS CAP (BACID) PO SCH (08:02)
[2022-04-26] MEDS: SPIRONOLACTONE 25 MG TAB PO SCH (08:02)
[2022-04-26] MEDS: AZITHROMYCIN 250MG TABLET PO SCH (08:02)
[2022-04-26] MEDS: ENOXAPARIN 40MG/0.4ML SYRINGE (J1650 PER 10MG) SC SCH (08:02)
[2022-04-26] MEDS: MAGNESIUM GLUCONATE 500 MG TAB PO SCH ×2 (08:02→21:47)
[2022-04-26] MEDS: ASPIRIN 81 MG CHEW TABLET PO SCH (08:02)
[2022-04-26] MEDS: levETIRAcetam 250MG TABLET (KEPPRA) PO SCH ×2 (08:02→20:29)
[2022-04-26] MEDS: INSULIN LISPRO (NovoLOG) PER UNIT SC SCH ×4 (08:03→20:16)
[2022-04-26] MEDS: PANTOPRAZOLE 40MG VIAL IV SCH (08:05)
[2022-04-26] MEDS: TORSEMIDE 20 MG TAB PO SCH ×2 (08:05→17:17)
[2022-04-26 08:12] VITALS: BP_SYST 118; BP_SYST 134; BP_DIAS 59; BP_DIAS 72
[2022-04-26] MEDS: CHLORHEXIDINE GLUCONATE 0.12 % 15ML UDC (PERIDEX ORAL RINSE) MT SCH ×2 (09:38→20:29)
[2022-04-26] MEDS: ISOSORBIDE MON. (IMDUR) 30MG XR TAB PO SCH (09:38)
[2022-04-26 12:12] VITALS: BP 117/59
[2022-04-26 16:22] VITALS: BP 122/60
[2022-04-26 20:00] VITALS: BP 110/59
[2022-04-26] MEDS: LEVEMIR (INSULIN DETEMIR) 1 UNITS/0.01ML SC SCH (20:28)
[2022-04-26] MEDS: traZODone 100 MG TAB PO SCH (20:29)
[2022-04-26] MEDS: MIRTAZAPINE 15 MG TAB PO SCH (20:29)
[2022-04-26] MEDS: FERROUS SULFATE 325MG TAB PO SCH (20:29)
[2022-04-26] MEDS: MONTELUKAST 10 MG TAB PO SCH (20:29)
[2022-04-26] MEDS: ITRACONAZOLE 100 MG PO SCH (20:30)
[2022-04-27] VITALS: BP 105/58
[2022-04-27] MEDS: CEFIDEROCOL SULFATE TOSYLATE 2 GM in D5W 100 ML IV SCH ×3 (00:18→16:48)
[2022-04-27] MEDS: IPRATROPIUM 0.5MG/ALBUTEROL 2.5MG INH SOL UD 3ML (DUONEB) NEB SCH ×6 (00:20→19:43)
[2022-04-27 04:00] VITALS: BP 118/59
[2022-04-27] MEDS: methylPREDNISolone 40MG 1ML VIAL IV SCH ×4 (04:15→22:17)
[2022-04-27 06:03] LABS: ABG BASE EXCESS 15.3 (-2.0-2.0); ABG HCO3 40.4 MEQ/L (22.0-26.0); ABG O2 SATURATION 92.6 % (95.0-99.0); ABG PARTIAL PRESSURE CO2 52.2 mmHg (35.0-45.0); ABG pH (ARTERIAL) 7.507 UNITS (7.350-7.450)
[2022-04-27 07:44] LABS: HEMATOCRIT 38.1 % (36.0-47.0); HEMOGLOBIN 12.4 g/dl (12.0-15.5); MEAN CORPUSCULAR HEMOGLOBIN 31.1 pg (27.0-33.0); MEAN CORPUSCULAR HGB CONC 32.5 g/dl (32.0-36.5); MEAN CORPUSCULAR VOLUME 95.5 fl (80.0-96.0); PLATELET COUNT, AUTOMATED 206 10^3/uL (150-450); RED BLOOD COUNT 3.99 10^6/uL (4.00-5.40); WHITE BLOOD COUNT 9.4 10^3/uL (4.0-10.0)
[2022-04-27 08:00] VITALS: BP 150/64
[2022-04-27] MEDS: SODIUM CHLORIDE HYPERTONIC 3% 15ML NEB SOL INH SCH ×3 (08:00→15:51)
[2022-04-27] MEDS: PANTOPRAZOLE 40MG VIAL IV SCH (08:09)
[2022-04-27] MEDS: INSULIN LISPRO (NovoLOG) PER UNIT SC SCH ×4 (08:09→21:00)
[2022-04-27] MEDS: CHLORHEXIDINE GLUCONATE 0.12 % 15ML UDC (PERIDEX ORAL RINSE) MT SCH ×2 (08:10→22:45)
[2022-04-27] MEDS: ENOXAPARIN 40MG/0.4ML SYRINGE (J1650 PER 10MG) SC SCH (08:10)
[2022-04-27] MEDS: ASPIRIN 81 MG CHEW TABLET PO SCH (08:11)
[2022-04-27] MEDS: LACTOBACILLUS ACIDOPHILUS CAP (BACID) PO SCH (08:11)
[2022-04-27] MEDS: levETIRAcetam 250MG TABLET (KEPPRA) PO SCH ×2 (08:11→22:23)
[2022-04-27] MEDS: POTASSIUM CHLORIDE 10MEQ SR TABLET PO SCH ×2 (08:11→22:22)
[2022-04-27] MEDS: MAGNESIUM GLUCONATE 500 MG TAB PO SCH ×2 (08:11→21:00)
[2022-04-27] MEDS: SPIRONOLACTONE 25 MG TAB PO SCH (08:12)
[2022-04-27] MEDS: TORSEMIDE 20 MG TAB PO SCH ×2 (08:12→16:49)
[2022-04-27] MEDS: AZITHROMYCIN 250MG TABLET PO SCH (08:12)
[2022-04-27] MEDS: ISOSORBIDE MON. (IMDUR) 30MG XR TAB PO SCH (08:14)
[2022-04-27 08:21] LABS: BLOOD UREA NITROGEN 26 MG/DL (7-18); CALCIUM LEVEL 8.6 MG/DL (8.8-10.2); CARBON DIOXIDE LEVEL 42 MEQ/L (21-32); CHLORIDE LEVEL 94 MEQ/L (98-107); CREATININE FOR GFR 0.91 MG/DL (0.55-1.30); GLOMERULAR FILTRATION RATE > 60.0 (>45); GLUCOSE, FASTING 179 MG/DL (70-100); MAGNESIUM LEVEL 2.6 MG/DL (1.8-2.4); POTASSIUM SERUM 3.3 MEQ/L (3.5-5.1); SODIUM LEVEL 141 MEQ/L (136-145)
[2022-04-27 12:00] VITALS: BP 133/60
[2022-04-27 16:00] VITALS: BP 133/66
[2022-04-27 20:00] VITALS: BP 129/58
[2022-04-27] MEDS: FERROUS SULFATE 325MG TAB PO SCH (22:18)
[2022-04-27] MEDS: traZODone 100 MG TAB PO SCH (22:19)
[2022-04-27] MEDS: MONTELUKAST 10 MG TAB PO SCH (22:22)
[2022-04-27] MEDS: MIRTAZAPINE 15 MG TAB PO SCH (22:22)
[2022-04-27] MEDS: LEVEMIR (INSULIN DETEMIR) 1 UNITS/0.01ML SC SCH (22:23)
[2022-04-27] MEDS: ITRACONAZOLE 100 MG PO SCH (22:23)
[2022-04-28] VITALS: BP 128/60
[2022-04-28] MEDS: CEFIDEROCOL SULFATE TOSYLATE 2 GM in D5W 100 ML IV SCH ×3 (01:35→16:17)
[2022-04-28 04:00] VITALS: BP 120/59
[2022-04-28] MEDS: IPRATROPIUM 0.5MG/ALBUTEROL 2.5MG INH SOL UD 3ML (DUONEB) NEB SCH ×7 (04:00→23:54)
[2022-04-28] MEDS: methylPREDNISolone 40MG 1ML VIAL IV SCH ×2 (04:55→16:18)
[2022-04-28 05:24] LABS: HEMATOCRIT 33.4 % (36.0-47.0); HEMOGLOBIN 11.2 g/dl (12.0-15.5); MEAN CORPUSCULAR HEMOGLOBIN 31.5 pg (27.0-33.0); MEAN CORPUSCULAR HGB CONC 33.5 g/dl (32.0-36.5); MEAN CORPUSCULAR VOLUME 93.8 fl (80.0-96.0); PLATELET COUNT, AUTOMATED 185 10^3/uL (150-450); RED BLOOD COUNT 3.56 10^6/uL (4.00-5.40); WHITE BLOOD COUNT 8.5 10^3/uL (4.0-10.0)
[2022-04-28 05:46] LABS: BLOOD UREA NITROGEN 30 MG/DL (7-18); CALCIUM LEVEL 8.4 MG/DL (8.8-10.2); CARBON DIOXIDE LEVEL 42 MEQ/L (21-32); CHLORIDE LEVEL 94 MEQ/L (98-107); CREATININE FOR GFR 0.81 MG/DL (0.55-1.30); GLOMERULAR FILTRATION RATE > 60.0 (>45); GLUCOSE, FASTING 200 MG/DL (70-100); MAGNESIUM LEVEL 2.6 MG/DL (1.8-2.4); POTASSIUM SERUM 3.4 MEQ/L (3.5-5.1); SODIUM LEVEL 140 MEQ/L (136-145)
[2022-04-28] MEDS ORDERED: POTASSIUM CHLORIDE 10MEQ SR TABLET PO ONE (07:00)
[2022-04-28] MEDS: SODIUM CHLORIDE HYPERTONIC 3% 15ML NEB SOL INH SCH ×4 (07:42→23:54)
[2022-04-28 08:00] VITALS: BP 147/66
[2022-04-28] MEDS: ASPIRIN 81 MG CHEW TABLET PO SCH (08:51)
[2022-04-28] MEDS: MAGNESIUM GLUCONATE 500 MG TAB PO SCH ×3 (08:51→20:26)
[2022-04-28] MEDS: LACTOBACILLUS ACIDOPHILUS CAP (BACID) PO SCH (08:52)
[2022-04-28] MEDS: ISOSORBIDE MON. (IMDUR) 30MG XR TAB PO SCH (08:53)
[2022-04-28] MEDS: AZITHROMYCIN 250MG TABLET PO SCH (08:53)
[2022-04-28] MEDS: TORSEMIDE 20 MG TAB PO SCH ×2 (08:53→16:18)
[2022-04-28] MEDS: ENOXAPARIN 40MG/0.4ML SYRINGE (J1650 PER 10MG) SC SCH (08:54)
[2022-04-28] MEDS: levETIRAcetam 250MG TABLET (KEPPRA) PO SCH ×2 (08:54→20:26)
[2022-04-28] MEDS: POTASSIUM CHLORIDE 10MEQ SR TABLET PO SCH ×2 (08:55→20:26)
[2022-04-28] MEDS: PANTOPRAZOLE 40MG VIAL IV SCH (08:55)
[2022-04-28] MEDS: INSULIN LISPRO (NovoLOG) PER UNIT SC SCH ×4 (08:56→20:12)
[2022-04-28] MEDS: CHLORHEXIDINE GLUCONATE 0.12 % 15ML UDC (PERIDEX ORAL RINSE) MT SCH ×2 (09:00→20:24)
[2022-04-28] MEDS: SPIRONOLACTONE 25 MG TAB PO SCH (09:00)
[2022-04-28 12:00] VITALS: BP 144/66
[2022-04-28 19:56] VITALS: BP 130/61
[2022-04-28] MEDS: LEVEMIR (INSULIN DETEMIR) 1 UNITS/0.01ML SC SCH (20:24)
[2022-04-28] MEDS: MONTELUKAST 10 MG TAB PO SCH (20:25)
[2022-04-28] MEDS: ITRACONAZOLE 100 MG PO SCH ×2 (20:25→21:00)
[2022-04-28] MEDS: MIRTAZAPINE 15 MG TAB PO SCH (20:25)
[2022-04-28] MEDS: traZODone 100 MG TAB PO SCH (20:26)
[2022-04-28] MEDS: FERROUS SULFATE 325MG TAB PO SCH (20:26)
[2022-04-28 23:41] VITALS: BP 131/62
[2022-04-29] MEDS: CEFIDEROCOL SULFATE TOSYLATE 2 GM in D5W 100 ML IV SCH ×3 (00:26→16:57)
[2022-04-29] MEDS: IPRATROPIUM 0.5MG/ALBUTEROL 2.5MG INH SOL UD 3ML (DUONEB) NEB SCH ×6 (03:10→23:22)
[2022-04-29 03:54] VITALS: BP 121/59
[2022-04-29] MEDS: methylPREDNISolone 40MG 1ML VIAL IV SCH ×2 (04:59→16:56)
[2022-04-29 05:39] LABS: HEMATOCRIT 32.8 % (36.0-47.0); HEMOGLOBIN 10.8 g/dl (12.0-15.5); MEAN CORPUSCULAR HEMOGLOBIN 30.7 pg (27.0-33.0); MEAN CORPUSCULAR HGB CONC 32.9 g/dl (32.0-36.5); MEAN CORPUSCULAR VOLUME 93.2 fl (80.0-96.0); PLATELET COUNT, AUTOMATED 214 10^3/uL (150-450); RED BLOOD COUNT 3.52 10^6/uL (4.00-5.40); WHITE BLOOD COUNT 12.1 10^3/uL (4.0-10.0)
[2022-04-29 05:59] LABS: BLOOD UREA NITROGEN 34 MG/DL (7-18); CALCIUM LEVEL 7.6 MG/DL (8.8-10.2); CARBON DIOXIDE LEVEL 43 MEQ/L (21-32); CHLORIDE LEVEL 93 MEQ/L (98-107); CREATININE FOR GFR 0.86 MG/DL (0.55-1.30); GLOMERULAR FILTRATION RATE > 60.0 (>45); GLUCOSE, FASTING 128 MG/DL (70-100); MAGNESIUM LEVEL 2.3 MG/DL (1.8-2.4); POTASSIUM SERUM 3.6 MEQ/L (3.5-5.1); SODIUM LEVEL 139 MEQ/L (136-145)
[2022-04-29] MEDS: SODIUM CHLORIDE HYPERTONIC 3% 15ML NEB SOL INH SCH ×2 (07:13→15:34)
[2022-04-29 07:39] VITALS: BP 130/60
[2022-04-29] MEDS: CHLORHEXIDINE GLUCONATE 0.12 % 15ML UDC (PERIDEX ORAL RINSE) MT SCH ×2 (08:06→21:00)
[2022-04-29] MEDS: INSULIN LISPRO (NovoLOG) PER UNIT SC SCH ×4 (08:07→21:00)
[2022-04-29] MEDS: PANTOPRAZOLE 40MG VIAL IV SCH (08:07)
[2022-04-29] MEDS: ENOXAPARIN 40MG/0.4ML SYRINGE (J1650 PER 10MG) SC SCH (08:07)
[2022-04-29] MEDS: MAGNESIUM GLUCONATE 500 MG TAB PO SCH ×2 (08:08→21:41)
[2022-04-29] MEDS: AZITHROMYCIN 250MG TABLET PO SCH (08:08)
[2022-04-29] MEDS: LACTOBACILLUS ACIDOPHILUS CAP (BACID) PO SCH (08:08)
[2022-04-29] MEDS: ISOSORBIDE MON. (IMDUR) 30MG XR TAB PO SCH (08:08)
[2022-04-29] MEDS: SPIRONOLACTONE 25 MG TAB PO SCH (08:09)
[2022-04-29] MEDS: ASPIRIN 81 MG CHEW TABLET PO SCH (08:09)
[2022-04-29] MEDS: TORSEMIDE 20 MG TAB PO SCH ×2 (08:09→16:56)
[2022-04-29] MEDS: POTASSIUM CHLORIDE 10MEQ SR TABLET PO SCH ×2 (08:09→21:41)
[2022-04-29] MEDS: levETIRAcetam 250MG TABLET (KEPPRA) PO SCH ×2 (08:10→21:42)
[2022-04-29 14:00] VITALS: BP 124/62
[2022-04-29 20:22] VITALS: BP 121/66
[2022-04-29] MEDS: MONTELUKAST 10 MG TAB PO SCH (21:39)
[2022-04-29] MEDS: FERROUS SULFATE 325MG TAB PO SCH (21:41)
[2022-04-29] MEDS: traZODone 100 MG TAB PO SCH (21:41)
[2022-04-29] MEDS: MIRTAZAPINE 15 MG TAB PO SCH (21:41)
[2022-04-29] MEDS: ITRACONAZOLE 100 MG PO SCH (21:42)
[2022-04-29] MEDS: LEVEMIR (INSULIN DETEMIR) 1 UNITS/0.01ML SC SCH (21:42)
[2022-04-30] MEDS: CEFIDEROCOL SULFATE TOSYLATE 2 GM in D5W 100 ML IV SCH ×3 (00:51→16:10)
[2022-04-30] MEDS: IPRATROPIUM 0.5MG/ALBUTEROL 2.5MG INH SOL UD 3ML (DUONEB) NEB SCH ×6 (04:00→23:42)
[2022-04-30] MEDS: methylPREDNISolone 40MG 1ML VIAL IV SCH (04:49)
[2022-04-30 05:39] VITALS: BP 156/89
[2022-04-30 07:29] LABS: HEMATOCRIT 33.4 % (36.0-47.0); HEMOGLOBIN 10.9 g/dl (12.0-15.5); MEAN CORPUSCULAR HEMOGLOBIN 31.2 pg (27.0-33.0); MEAN CORPUSCULAR HGB CONC 32.6 g/dl (32.0-36.5); MEAN CORPUSCULAR VOLUME 95.7 fl (80.0-96.0); PLATELET COUNT, AUTOMATED 239 10^3/uL (150-450); RED BLOOD COUNT 3.49 10^6/uL (4.00-5.40); WHITE BLOOD COUNT 16.3 10^3/uL (4.0-10.0)
[2022-04-30] MEDS: SODIUM CHLORIDE HYPERTONIC 3% 15ML NEB SOL INH SCH ×4 (07:44→23:42)
[2022-04-30 07:55] LABS: BLOOD UREA NITROGEN 33 MG/DL (7-18); CALCIUM LEVEL 8.5 MG/DL (8.8-10.2); CARBON DIOXIDE LEVEL 44 MEQ/L (21-32); CHLORIDE LEVEL 93 MEQ/L (98-107); CREATININE FOR GFR 0.81 MG/DL (0.55-1.30); GLOMERULAR FILTRATION RATE > 60.0 (>45); GLUCOSE, FASTING 111 MG/DL (70-100); MAGNESIUM LEVEL 2.6 MG/DL (1.8-2.4); POTASSIUM SERUM 3.6 MEQ/L (3.5-5.1); SODIUM LEVEL 141 MEQ/L (136-145)
[2022-04-30] MEDS: PANTOPRAZOLE 40MG VIAL IV SCH (08:32)
[2022-04-30] MEDS: INSULIN LISPRO (NovoLOG) PER UNIT SC SCH ×4 (08:32→21:00)
[2022-04-30] MEDS: POTASSIUM CHLORIDE 10MEQ SR TABLET PO SCH ×2 (08:33→22:26)
[2022-04-30] MEDS: LACTOBACILLUS ACIDOPHILUS CAP (BACID) PO SCH (08:33)
[2022-04-30] MEDS: AZITHROMYCIN 250MG TABLET PO SCH (08:33)
[2022-04-30] MEDS: predniSONE 10 MG TAB PO SCH (08:34)
[2022-04-30] MEDS: ENOXAPARIN 40MG/0.4ML SYRINGE (J1650 PER 10MG) SC SCH (08:34)
[2022-04-30] MEDS: TORSEMIDE 20 MG TAB PO SCH ×2 (08:35→17:04)
[2022-04-30] MEDS: ISOSORBIDE MON. (IMDUR) 30MG XR TAB PO SCH (08:35)
[2022-04-30] MEDS: MAGNESIUM GLUCONATE 500 MG TAB PO SCH ×4 (08:35→22:27)
[2022-04-30] MEDS: SPIRONOLACTONE 25 MG TAB PO SCH (08:36)
[2022-04-30] MEDS: ASPIRIN 81 MG CHEW TABLET PO SCH (08:36)
[2022-04-30] MEDS: levETIRAcetam 250MG TABLET (KEPPRA) PO SCH ×2 (08:36→22:27)
[2022-04-30] MEDS: ITRACONAZOLE 100 MG PO SCH (22:25)
[2022-04-30] MEDS: LEVEMIR (INSULIN DETEMIR) 1 UNITS/0.01ML SC SCH (22:26)
[2022-04-30] MEDS: MIRTAZAPINE 15 MG TAB PO SCH (22:26)
[2022-04-30] MEDS: MONTELUKAST 10 MG TAB PO SCH (22:26)
[2022-04-30] MEDS: FERROUS SULFATE 325MG TAB PO SCH (22:27)
[2022-04-30] MEDS: traZODone 100 MG TAB PO SCH (22:27)
[2022-05-01] MEDS: CEFIDEROCOL SULFATE TOSYLATE 2 GM in D5W 100 ML IV SCH ×3 (02:28→17:01)
[2022-05-01] MEDS: IPRATROPIUM 0.5MG/ALBUTEROL 2.5MG INH SOL UD 3ML (DUONEB) NEB SCH ×5 (04:00→19:09)
[2022-05-01 06:00] VITALS: BP 123/66
[2022-05-01 07:26] LABS: HEMATOCRIT 33.9 % (36.0-47.0); HEMOGLOBIN 11.2 g/dl (12.0-15.5); MEAN CORPUSCULAR HEMOGLOBIN 31.5 pg (27.0-33.0); MEAN CORPUSCULAR VOLUME 95.2 fl (80.0-96.0); PLATELET COUNT, AUTOMATED 275 10^3/uL (150-450); RED BLOOD COUNT 3.56 10^6/uL (4.00-5.40); WHITE BLOOD COUNT 19.7 10^3/uL (4.0-10.0)
[2022-05-01] MEDS: SODIUM CHLORIDE HYPERTONIC 3% 15ML NEB SOL INH SCH ×2 (07:30→14:30)
[2022-05-01 07:50] LABS: BLOOD UREA NITROGEN 28 MG/DL (7-18); CALCIUM LEVEL 8.3 MG/DL (8.8-10.2); CARBON DIOXIDE LEVEL 44 MEQ/L (21-32); CHLORIDE LEVEL 93 MEQ/L (98-107); CREATININE FOR GFR 0.84 MG/DL (0.55-1.30); GLOMERULAR FILTRATION RATE > 60.0 (>45); GLUCOSE, FASTING 63 MG/DL (70-100); MAGNESIUM LEVEL 2.5 MG/DL (1.8-2.4); POTASSIUM SERUM 3.5 MEQ/L (3.5-5.1); SODIUM LEVEL 140 MEQ/L (136-145)
[2022-05-01] MEDS: SPIRONOLACTONE 25 MG TAB PO SCH ×2 (08:09→09:00)
[2022-05-01] MEDS: ENOXAPARIN 40MG/0.4ML SYRINGE (J1650 PER 10MG) SC SCH (08:09)
[2022-05-01] MEDS: predniSONE 10 MG TAB PO SCH (08:10)
[2022-05-01] MEDS: AZITHROMYCIN 250MG TABLET PO SCH (08:10)
[2022-05-01] MEDS: ASPIRIN 81 MG CHEW TABLET PO SCH (08:10)
[2022-05-01] MEDS: LACTOBACILLUS ACIDOPHILUS CAP (BACID) PO SCH (08:10)
[2022-05-01] MEDS: POTASSIUM CHLORIDE 10MEQ SR TABLET PO SCH ×2 (08:11→21:32)
[2022-05-01] MEDS: levETIRAcetam 250MG TABLET (KEPPRA) PO SCH ×2 (08:11→21:31)
[2022-05-01] MEDS: PANTOPRAZOLE 40MG VIAL IV SCH (08:11)
[2022-05-01] MEDS: TORSEMIDE 20 MG TAB PO SCH ×3 (08:23→17:06)
[2022-05-01] MEDS: ISOSORBIDE MON. (IMDUR) 30MG XR TAB PO SCH ×2 (08:24→09:00)
[2022-05-01] MEDS: INSULIN LISPRO (NovoLOG) PER UNIT SC SCH ×4 (08:42→21:00)
[2022-05-01] MEDS: MAGNESIUM GLUCONATE 500 MG TAB PO SCH (21:00)
[2022-05-01] MEDS: LEVEMIR (INSULIN DETEMIR) 1 UNITS/0.01ML SC SCH (21:30)
[2022-05-01] MEDS: traZODone 100 MG TAB PO SCH (21:31)
[2022-05-01] MEDS: MIRTAZAPINE 15 MG TAB PO SCH (21:32)
[2022-05-01] MEDS: FERROUS SULFATE 325MG TAB PO SCH (21:32)
[2022-05-01] MEDS: MONTELUKAST 10 MG TAB PO SCH (21:32)
[2022-05-01] MEDS: ITRACONAZOLE 100 MG PO SCH (21:32)
[2022-05-02] MEDS: CEFIDEROCOL SULFATE TOSYLATE 2 GM in D5W 100 ML IV SCH ×3 (00:37→16:26)
[2022-05-02] MEDS: IPRATROPIUM 0.5MG/ALBUTEROL 2.5MG INH SOL UD 3ML (DUONEB) NEB SCH ×6 (03:43→19:56)
[2022-05-02 06:00] VITALS: BP 100/45
[2022-05-02 06:05] LABS: HEMOGLOBIN 10.9 g/dl (12.0-15.5); MEAN CORPUSCULAR HEMOGLOBIN 31.4 pg (27.0-33.0); MEAN CORPUSCULAR VOLUME 95.1 fl (80.0-96.0); PLATELET COUNT, AUTOMATED 234 10^3/uL (150-450); RED BLOOD COUNT 3.47 10^6/uL (4.00-5.40); WHITE BLOOD COUNT 13.4 10^3/uL (4.0-10.0)
[2022-05-02 06:23] LABS: BLOOD UREA NITROGEN 24 MG/DL (7-18); C REACTIVE PROTEIN QUANTITATIV 0.33 MG/DL (0.00-0.30); CALCIUM LEVEL 8.6 MG/DL (8.8-10.2); CARBON DIOXIDE LEVEL 44 MEQ/L (21-32); CHLORIDE LEVEL 96 MEQ/L (98-107); CREATININE FOR GFR 0.76 MG/DL (0.55-1.30); GLOMERULAR FILTRATION RATE > 60.0 (>45); GLUCOSE, FASTING 64 MG/DL (70-100); MAGNESIUM LEVEL 2.5 MG/DL (1.8-2.4); POTASSIUM SERUM 3.9 MEQ/L (3.5-5.1); SODIUM LEVEL 142 MEQ/L (136-145)
[2022-05-02] MEDS: INSULIN LISPRO (NovoLOG) PER UNIT SC SCH ×4 (07:30→20:51)
[2022-05-02] MEDS: SODIUM CHLORIDE HYPERTONIC 3% 15ML NEB SOL INH SCH ×3 (08:01→16:13)
[2022-05-02] MEDS: predniSONE 10 MG TAB PO SCH (08:51)
[2022-05-02] MEDS: LACTOBACILLUS ACIDOPHILUS CAP (BACID) PO SCH (08:51)
[2022-05-02] MEDS: ASPIRIN 81 MG CHEW TABLET PO SCH (08:51)
[2022-05-02] MEDS: SPIRONOLACTONE 25 MG TAB PO SCH (08:52)
[2022-05-02] MEDS: levETIRAcetam 250MG TABLET (KEPPRA) PO SCH ×2 (08:53→20:49)
[2022-05-02] MEDS: POTASSIUM CHLORIDE 10MEQ SR TABLET PO SCH ×2 (08:53→20:50)
[2022-05-02] MEDS: MAGNESIUM GLUCONATE 500 MG TAB PO SCH ×2 (08:53→20:51)
[2022-05-02] MEDS: ISOSORBIDE MON. (IMDUR) 30MG XR TAB PO SCH (08:54)
[2022-05-02] MEDS: ENOXAPARIN 40MG/0.4ML SYRINGE (J1650 PER 10MG) SC SCH (08:55)
[2022-05-02] MEDS: AZITHROMYCIN 250MG TABLET PO SCH (08:55)
[2022-05-02] MEDS: TORSEMIDE 20 MG TAB PO SCH ×2 (08:55→17:13)
[2022-05-02] MEDS: PANTOPRAZOLE 40MG TAB (PROTONIX) PO SCH (08:55)
[2022-05-02] MEDS: MIRTAZAPINE 15 MG TAB PO SCH (20:49)
[2022-05-02] MEDS: ITRACONAZOLE 100 MG PO SCH (20:49)
[2022-05-02] MEDS: FERROUS SULFATE 325MG TAB PO SCH (20:50)
[2022-05-02] MEDS: MONTELUKAST 10 MG TAB PO SCH (20:50)
[2022-05-02] MEDS: LEVEMIR (INSULIN DETEMIR) 1 UNITS/0.01ML SC SCH (20:51)
[2022-05-02] MEDS: traZODone 100 MG TAB PO SCH (20:51)
[2022-05-03] MEDS: CEFIDEROCOL SULFATE TOSYLATE 2 GM in D5W 100 ML IV SCH ×3 (00:56→15:23)
[2022-05-03] MEDS: IPRATROPIUM 0.5MG/ALBUTEROL 2.5MG INH SOL UD 3ML (DUONEB) NEB SCH ×7 (02:48→23:49)
[2022-05-03 04:50] VITALS: BP 126/62
[2022-05-03 06:07] LABS: HEMATOCRIT 30.2 % (36.0-47.0); MEAN CORPUSCULAR HEMOGLOBIN 31.2 pg (27.0-33.0); MEAN CORPUSCULAR HGB CONC 33.1 g/dl (32.0-36.5); MEAN CORPUSCULAR VOLUME 94.1 fl (80.0-96.0); PLATELET COUNT, AUTOMATED 219 10^3/uL (150-450); RED BLOOD COUNT 3.21 10^6/uL (4.00-5.40); WHITE BLOOD COUNT 14.7 10^3/uL (4.0-10.0)
[2022-05-03 06:35] LABS: BLOOD UREA NITROGEN 22 MG/DL (7-18); CALCIUM LEVEL 7.9 MG/DL (8.8-10.2); CARBON DIOXIDE LEVEL 41 MEQ/L (21-32); CHLORIDE LEVEL 93 MEQ/L (98-107); CREATININE FOR GFR 0.74 MG/DL (0.55-1.30); GLOMERULAR FILTRATION RATE > 60.0 (>45); GLUCOSE, FASTING 56 MG/DL (70-100); MAGNESIUM LEVEL 2.4 MG/DL (1.8-2.4); POTASSIUM SERUM 3.8 MEQ/L (3.5-5.1); SODIUM LEVEL 138 MEQ/L (136-145)
[2022-05-03] MEDS: INSULIN LISPRO (NovoLOG) PER UNIT SC SCH ×4 (07:30→21:00)
[2022-05-03] MEDS: SODIUM CHLORIDE HYPERTONIC 3% 15ML NEB SOL INH SCH ×4 (07:43→23:49)
[2022-05-03] MEDS: ENOXAPARIN 40MG/0.4ML SYRINGE (J1650 PER 10MG) SC SCH (08:25)
[2022-05-03] MEDS: AZITHROMYCIN 250MG TABLET PO SCH (08:25)
[2022-05-03] MEDS: predniSONE 10 MG TAB PO SCH (08:26)
[2022-05-03] MEDS: PANTOPRAZOLE 40MG TAB (PROTONIX) PO SCH (08:26)
[2022-05-03] MEDS: TORSEMIDE 20 MG TAB PO SCH ×2 (08:26→17:33)
[2022-05-03] MEDS: SPIRONOLACTONE 25 MG TAB PO SCH (08:26)
[2022-05-03] MEDS: LACTOBACILLUS ACIDOPHILUS CAP (BACID) PO SCH (08:26)
[2022-05-03] MEDS: levETIRAcetam 250MG TABLET (KEPPRA) PO SCH ×2 (08:26→21:16)
[2022-05-03] MEDS: ASPIRIN 81 MG CHEW TABLET PO SCH (08:26)
[2022-05-03] MEDS: POTASSIUM CHLORIDE 10MEQ SR TABLET PO SCH ×2 (08:27→21:15)
[2022-05-03] MEDS: ISOSORBIDE MON. (IMDUR) 30MG XR TAB PO SCH (08:29)
[2022-05-03] MEDS: MAGNESIUM GLUCONATE 500 MG TAB PO SCH ×2 (08:29→21:00)
[2022-05-03] MEDS: MONTELUKAST 10 MG TAB PO SCH (21:15)
[2022-05-03] MEDS: FERROUS SULFATE 325MG TAB PO SCH (21:15)
[2022-05-03] MEDS: MIRTAZAPINE 15 MG TAB PO SCH (21:15)
[2022-05-03] MEDS: LEVEMIR (INSULIN DETEMIR) 1 UNITS/0.01ML SC SCH (21:16)
[2022-05-03] MEDS: traZODone 100 MG TAB PO SCH (21:16)
[2022-05-03] MEDS: ITRACONAZOLE 100 MG PO SCH (21:16)
[2022-05-04] MEDS: CEFIDEROCOL SULFATE TOSYLATE 2 GM in D5W 100 ML IV SCH ×4 (00:36→23:57)
[2022-05-04] MEDS: IPRATROPIUM 0.5MG/ALBUTEROL 2.5MG INH SOL UD 3ML (DUONEB) NEB SCH ×5 (03:58→20:31)
[2022-05-04 06:00] VITALS: BP 120/61
[2022-05-04 06:36] LABS: HEMATOCRIT 29.9 % (36.0-47.0); HEMOGLOBIN 9.9 g/dl (12.0-15.5); MEAN CORPUSCULAR HEMOGLOBIN 30.9 pg (27.0-33.0); MEAN CORPUSCULAR HGB CONC 33.1 g/dl (32.0-36.5); MEAN CORPUSCULAR VOLUME 93.4 fl (80.0-96.0); PLATELET COUNT, AUTOMATED 200 10^3/uL (150-450); WHITE BLOOD COUNT 13.7 10^3/uL (4.0-10.0)
[2022-05-04 07:09] LABS: BLOOD UREA NITROGEN 20 MG/DL (7-18); C REACTIVE PROTEIN QUANTITATIV 0.75 MG/DL (0.00-0.30); CARBON DIOXIDE LEVEL 42 MEQ/L (21-32); CHLORIDE LEVEL 94 MEQ/L (98-107); CREATININE FOR GFR 0.72 MG/DL (0.55-1.30); GLOMERULAR FILTRATION RATE > 60.0 (>45); GLUCOSE, FASTING 106 MG/DL (70-100); MAGNESIUM LEVEL 2.4 MG/DL (1.8-2.4); POTASSIUM SERUM 3.6 MEQ/L (3.5-5.1); SODIUM LEVEL 138 MEQ/L (136-145)
[2022-05-04] MEDS: SODIUM CHLORIDE HYPERTONIC 3% 15ML NEB SOL INH SCH ×2 (08:25→15:08)
[2022-05-04] MEDS: INSULIN LISPRO (NovoLOG) PER UNIT SC SCH ×4 (08:26→21:00)
[2022-05-04] MEDS: POTASSIUM CHLORIDE 10MEQ SR TABLET PO SCH ×2 (08:27→21:12)
[2022-05-04] MEDS: AZITHROMYCIN 250MG TABLET PO SCH (08:27)
[2022-05-04] MEDS: ENOXAPARIN 40MG/0.4ML SYRINGE (J1650 PER 10MG) SC SCH (08:27)
[2022-05-04] MEDS: PANTOPRAZOLE 40MG TAB (PROTONIX) PO SCH (08:28)
[2022-05-04] MEDS: levETIRAcetam 250MG TABLET (KEPPRA) PO SCH ×2 (08:28→21:13)
[2022-05-04] MEDS: ASPIRIN 81 MG CHEW TABLET PO SCH (08:28)
[2022-05-04] MEDS: predniSONE 10 MG TAB PO SCH (08:28)
[2022-05-04] MEDS: LACTOBACILLUS ACIDOPHILUS CAP (BACID) PO SCH (08:29)
[2022-05-04] MEDS: MAGNESIUM GLUCONATE 500 MG TAB PO SCH ×2 (08:29→21:13)
[2022-05-04] MEDS: SPIRONOLACTONE 25 MG TAB PO SCH (08:44)
[2022-05-04] MEDS: ISOSORBIDE MON. (IMDUR) 30MG XR TAB PO SCH (08:45)
[2022-05-04] MEDS: TORSEMIDE 20 MG TAB PO SCH ×2 (08:45→17:00)
[2022-05-04] MEDS: MONTELUKAST 10 MG TAB PO SCH (21:12)
[2022-05-04] MEDS: FERROUS SULFATE 325MG TAB PO SCH (21:12)
[2022-05-04] MEDS: LEVEMIR (INSULIN DETEMIR) 1 UNITS/0.01ML SC SCH (21:13)
[2022-05-04] MEDS: MIRTAZAPINE 15 MG TAB PO SCH (21:13)
[2022-05-04] MEDS: traZODone 100 MG TAB PO SCH (21:13)
[2022-05-04] MEDS: ITRACONAZOLE 100 MG PO SCH (21:25)
[2022-05-05] MEDS: IPRATROPIUM 0.5MG/ALBUTEROL 2.5MG INH SOL UD 3ML (DUONEB) NEB SCH ×6 (00:29→20:35)
[2022-05-05] MEDS: SODIUM CHLORIDE HYPERTONIC 3% 15ML NEB SOL INH SCH ×3 (00:29→15:13)
[2022-05-05 05:47] VITALS: BP 120/60
[2022-05-05] MEDS: INSULIN LISPRO (NovoLOG) PER UNIT SC SCH ×4 (07:30→21:00)
[2022-05-05 07:34] VITALS: BP 130/58
[2022-05-05] MEDS: ISOSORBIDE MON. (IMDUR) 30MG XR TAB PO SCH (09:00)
[2022-05-05] MEDS: CEFIDEROCOL SULFATE TOSYLATE 2 GM in D5W 100 ML IV SCH ×3 (09:16→23:46)
[2022-05-05] MEDS: ENOXAPARIN 40MG/0.4ML SYRINGE (J1650 PER 10MG) SC SCH (09:18)
[2022-05-05] MEDS: predniSONE 10 MG TAB PO SCH (09:48)
[2022-05-05] MEDS: levETIRAcetam 250MG TABLET (KEPPRA) PO SCH ×2 (09:48→21:32)
[2022-05-05] MEDS: MAGNESIUM GLUCONATE 500 MG TAB PO SCH ×2 (09:48→21:33)
[2022-05-05] MEDS: ASPIRIN 81 MG CHEW TABLET PO SCH (09:48)
[2022-05-05] MEDS: LACTOBACILLUS ACIDOPHILUS CAP (BACID) PO SCH (09:48)
[2022-05-05] MEDS: PANTOPRAZOLE 40MG TAB (PROTONIX) PO SCH (09:48)
[2022-05-05] MEDS: AZITHROMYCIN 250MG TABLET PO SCH (09:48)
[2022-05-05] MEDS: TORSEMIDE 20 MG TAB PO SCH ×2 (09:49→16:51)
[2022-05-05] MEDS: POTASSIUM CHLORIDE 10MEQ SR TABLET PO SCH ×2 (09:52→21:32)
[2022-05-05] MEDS: SPIRONOLACTONE 25 MG TAB PO SCH (09:52)
[2022-05-05] MEDS: FERROUS SULFATE 325MG TAB PO SCH (21:26)
[2022-05-05 21:30] VITALS: BP 118/62
[2022-05-05] MEDS: MONTELUKAST 10 MG TAB PO SCH (21:32)
[2022-05-05] MEDS: MIRTAZAPINE 15 MG TAB PO SCH (21:32)
[2022-05-05] MEDS: traZODone 100 MG TAB PO SCH (21:33)
[2022-05-05] MEDS: ITRACONAZOLE 100 MG PO SCH (21:33)
[2022-05-05] MEDS: LEVEMIR (INSULIN DETEMIR) 1 UNITS/0.01ML SC SCH (21:34)
[2022-05-06] MEDS: IPRATROPIUM 0.5MG/ALBUTEROL 2.5MG INH SOL UD 3ML (DUONEB) NEB SCH ×7 (04:00→23:14)
[2022-05-06 06:10] VITALS: BP 128/70
[2022-05-06] MEDS: SODIUM CHLORIDE HYPERTONIC 3% 15ML NEB SOL INH SCH ×4 (07:19→23:15)
[2022-05-06] MEDS: INSULIN LISPRO (NovoLOG) PER UNIT SC SCH ×4 (07:30→20:35)
[2022-05-06] MEDS: CEFIDEROCOL SULFATE TOSYLATE 2 GM in D5W 100 ML IV SCH ×2 (07:57→16:34)
[2022-05-06] MEDS: SPIRONOLACTONE 25 MG TAB PO SCH (07:57)
[2022-05-06] MEDS: AZITHROMYCIN 250MG TABLET PO SCH (07:57)
[2022-05-06] MEDS: TORSEMIDE 20 MG TAB PO SCH ×2 (07:58→16:47)
[2022-05-06] MEDS: POTASSIUM CHLORIDE 10MEQ SR TABLET PO SCH ×2 (07:58→20:35)
[2022-05-06] MEDS: levETIRAcetam 250MG TABLET (KEPPRA) PO SCH ×2 (07:58→20:35)
[2022-05-06] MEDS: predniSONE 10 MG TAB PO SCH (07:59)
[2022-05-06] MEDS: LACTOBACILLUS ACIDOPHILUS CAP (BACID) PO SCH (07:59)
[2022-05-06] MEDS: MAGNESIUM GLUCONATE 500 MG TAB PO SCH ×2 (07:59→08:01)
[2022-05-06] MEDS: ENOXAPARIN 40MG/0.4ML SYRINGE (J1650 PER 10MG) SC SCH (08:00)
[2022-05-06] MEDS: ASPIRIN 81 MG CHEW TABLET PO SCH (08:00)
[2022-05-06] MEDS: PANTOPRAZOLE 40MG TAB (PROTONIX) PO SCH (08:00)
[2022-05-06] MEDS: ISOSORBIDE MON. (IMDUR) 30MG XR TAB PO SCH (08:02)
[2022-05-06] MEDS: traZODone 100 MG TAB PO SCH (20:34)
[2022-05-06] MEDS: MONTELUKAST 10 MG TAB PO SCH (20:34)
[2022-05-06] MEDS: FERROUS SULFATE 325MG TAB PO SCH (20:34)
[2022-05-06] MEDS: MIRTAZAPINE 15 MG TAB PO SCH (20:34)
[2022-05-06] MEDS: LEVEMIR (INSULIN DETEMIR) 1 UNITS/0.01ML SC SCH (20:35)
[2022-05-06] MEDS: ITRACONAZOLE 100 MG PO SCH (20:36)
[2022-05-07] MEDS: CEFIDEROCOL SULFATE TOSYLATE 2 GM in D5W 100 ML IV SCH ×3 (00:42→14:00)
[2022-05-07] MEDS: IPRATROPIUM 0.5MG/ALBUTEROL 2.5MG INH SOL UD 3ML (DUONEB) NEB SCH ×4 (03:11→15:45)
[2022-05-07 06:03] VITALS: BP 150/82
[2022-05-07] MEDS: INSULIN LISPRO (NovoLOG) PER UNIT SC SCH ×3 (07:30→16:52)
[2022-05-07] MEDS: SODIUM CHLORIDE HYPERTONIC 3% 15ML NEB SOL INH SCH ×2 (07:41→15:45)
[2022-05-07 07:55] VITALS: BP 112/58
[2022-05-07] MEDS: POTASSIUM CHLORIDE 10MEQ SR TABLET PO SCH (08:11)
[2022-05-07] MEDS: levETIRAcetam 250MG TABLET (KEPPRA) PO SCH (08:11)
[2022-05-07] MEDS: predniSONE 10 MG TAB PO SCH (08:12)
[2022-05-07] MEDS: SPIRONOLACTONE 25 MG TAB PO SCH (08:57)
[2022-05-07] MEDS: ASPIRIN 81 MG CHEW TABLET PO SCH (08:57)
[2022-05-07] MEDS: LACTOBACILLUS ACIDOPHILUS CAP (BACID) PO SCH (08:57)
[2022-05-07] MEDS: PANTOPRAZOLE 40MG TAB (PROTONIX) PO SCH (08:58)
[2022-05-07] MEDS: AZITHROMYCIN 250MG TABLET PO SCH (08:58)
[2022-05-07] MEDS: ENOXAPARIN 40MG/0.4ML SYRINGE (J1650 PER 10MG) SC SCH (08:59)
[2022-05-07] MEDS: ISOSORBIDE MON. (IMDUR) 30MG XR TAB PO SCH (09:00)
[2022-05-07] MEDS: TORSEMIDE 20 MG TAB PO SCH ×2 (09:00→17:00)
[2022-05-07] MEDS: MAGNESIUM GLUCONATE 500 MG TAB PO SCH (09:00)
[2022-05-07] MEDS ORDERED: PRED10TA2 PO (09:42)
[2022-05-07] MEDS ORDERED: ISOS1TAB35 PO (09:42)
[2022-05-07] MEDS ORDERED: DILT30TA PO (09:44)
[2022-05-07 13:59] VITALS: BP 134/64
== END 2022-05-07 17:40 | disposition home health service (06) | DRG 177 ==
LOC: M ED 11:07 → M ED INP 16:17 → EEVIPCON 16:17 → ENRESERV 17:01 → M ICU 18:53 → M PCU 04-25 19:45 → M MS5PR 04-29 13:15
PROVIDERS: ADMIT Internal Medicine; ATTEND Internal Medicine
PROC: 5A09457 Assistance with Respiratory Ventilation, 24-96 Consecutive Hours, Continuous Positive Airway Pressure (ICD-10-PCS; principal; 2022-04-22)
DX: J15.6 Pneumonia due to other Gram-negative bacteria (principal); J96.21 Acute and chronic respiratory failure with hypoxia; J96.22 Acute and chronic respiratory failure with hypercapnia; D80.3 Selective deficiency of immunoglobulin G [IgG] subclasses; I47.1 Supraventricular tachycardia; I50.32 Chronic diastolic (congestive) heart failure; J47.0 Bronchiectasis with acute lower respiratory infection; B96.89 Other specified bacterial agents as the cause of diseases classified elsewhere; Z79.82 Long term (current) use of aspirin; Z79.2 Long term (current) use of antibiotics; Z79.899 Other long term (current) drug therapy; Z99.81 Dependence on supplemental oxygen; Z20.822 Contact with and (suspected) exposure to COVID-19; Z88.1 Allergy status to other antibiotic agents; Z88.8 Allergy status to other drugs, medicaments and biological substances; K21.9 Gastro-esophageal reflux disease without esophagitis; M19.90 Unspecified osteoarthritis, unspecified site; E11.65 Type 2 diabetes mellitus with hyperglycemia; T38.0X5A Adverse effect of glucocorticoids and synthetic analogues, initial encounter; E83.41 Hypermagnesemia; G40.909 Epilepsy, unspecified, not intractable, without status epilepticus; I11.0 Hypertensive heart disease with heart failure; E78.5 Hyperlipidemia, unspecified; I48.0 Paroxysmal atrial fibrillation; I27.81 Cor pulmonale (chronic)

== ENCOUNTER 2022-06-06 17:50 | Inpatient (IN) | payer MEDICARE, BC ==
[~2022-06-06] VITALS: Ht 149.9 cm; Wt 50.3 kg
[~2022-06-06 17:50] MED LIST changes: -BACITAB PO; -DILT120C31 PO; -OYST500T92 PO
[2022-06-06 18:40] LABS: BASO # 0.1 10^3/uL (0.0-0.2); BASO % 0.6 % (0.0-1.0); EOS # 0.1 10^3/uL (0.0-0.5); EOS % 0.7 % (0.0-3.0); HEMATOCRIT 42.1 % (36.0-47.0); HEMOGLOBIN 13.6 g/dl (12.0-15.5); LYMPH # 0.9 10^3/uL (1.5-5.0); LYMPH % 8.8 % (24.0-44.0); MEAN CORPUSCULAR HEMOGLOBIN 31.7 pg (27.0-33.0); MEAN CORPUSCULAR HGB CONC 32.3 g/dl (32.0-36.5); MEAN CORPUSCULAR VOLUME 98.1 fl (80.0-96.0); MONO # 0.7 10^3/uL (0.0-0.8); MONO % 7.3 % (2.0-8.0); NEUTROPHILS # 7.9 10^3/uL (1.5-8.5); NEUTROPHILS % 81.9 % (36.0-66.0); PLATELET COUNT, AUTOMATED 251 10^3/uL (150-450); RED BLOOD COUNT 4.29 10^6/uL (4.00-5.40); WHITE BLOOD COUNT 9.6 10^3/uL (4.0-10.0)
[2022-06-06 19:13] LABS: ALBUMIN 3.3 GM/DL (3.2-5.2); ALT/SGPT 16 U/L (12-78); BILIRUBIN,DIRECT 0.1 MG/DL (0.0-0.2); BILIRUBIN,TOTAL 0.3 MG/DL (0.2-1.0); BLOOD UREA NITROGEN 11 MG/DL (7-18); CALCIUM LEVEL 8.9 MG/DL (8.8-10.2); CARBON DIOXIDE LEVEL 40 MEQ/L (21-32); CHLORIDE LEVEL 93 MEQ/L (98-107); CREATININE FOR GFR 0.94 MG/DL (0.55-1.30); GLOMERULAR FILTRATION RATE > 60.0 (>45); GLUCOSE, FASTING 165 MG/DL (70-100); NT-PRO BNP 129 PG/ML (<125); SODIUM LEVEL 137 MEQ/L (136-145); THYROXINE (T4) 9.2 UG/DL (4.5-12.0); TOTAL PROTEIN 6.9 GM/DL (6.4-8.2)
[2022-06-06 20:16] LABS: ABG BASE EXCESS 14.3 (-2.0-2.0); ABG HCO3 41.5 MEQ/L (22.0-26.0); ABG O2 SATURATION 95.3 % (95.0-99.0); ABG PARTIAL PRESSURE O2 80.9 mmHg (75.0-100.0); ABG STANDARD HCO3 38.1 MEQ/L (22.0-26.0); ABG TOTAL CO2 43.5 MEQ/L (23.0-31.0); ABG pH (ARTERIAL) 7.422 UNITS (7.350-7.450)
[2022-06-06 20:17] LABS: ABG PARTIAL PRESSURE CO2 65.1 mmHg (35.0-45.0)
[2022-06-06] MEDS ORDERED: methylPREDNISolone 125MG 2ML VIAL IV ONE (20:45)
[2022-06-06] MEDS ORDERED: OYST500T92 PO (22:43)
[2022-06-06] MEDS ORDERED: FERR1TAB8 PO (22:43)
[2022-06-06] MEDS ORDERED: DILT120C31 PO (22:43)
[2022-06-06] MEDS ORDERED: TORS20TA2 PO (22:43)
[2022-06-06] MEDS ORDERED: ISOS1TAB35 PO (22:43)
[2022-06-06] MEDS ORDERED: BACITAB PO (22:45)
[2022-06-06] MEDS ORDERED: HOME MED LIST COMPLETE! XX SCH (22:45)
[2022-06-06] MEDS ORDERED: IPRATROPIUM 0.5MG/ALBUTEROL 2.5MG INH SOL UD 3ML (DUONEB) NEB ONE (22:55)
[2022-06-06] MEDS ORDERED: ALBUTEROL SULFATE 2.5 MG/0.5 ML INH NEB SOLN NEB PRN (22:55)
[2022-06-06] MEDS ORDERED: ACETAMINOPHEN TAB 650MG DOSE (2X325MG) PO PRN (22:55)
[2022-06-06] MEDS ORDERED: NS 500 ML IV ONE (22:55)
[2022-06-06] MEDS ORDERED: GLUCOSE 4GM CHEW TABLET PO PRN (22:55)
[2022-06-06] MEDS ORDERED: DEXTROSE 50% 50 ML SYRINGE IV PRN (22:55)
[2022-06-06] MEDS ORDERED: NS 1,000 ML IV SCH (22:55)
[2022-06-06] MEDS ORDERED: GLUCAGON INJ 1MG VIAL SC PRN (22:55)
[2022-06-07] VITALS (22 sets, daily range): BP systolic 111–164; BP diastolic 56–79; O2SAT 95–99
[2022-06-07] MEDS: traZODone 100 MG TAB PO SCH ×2 (00:53→20:23)
[2022-06-07] MEDS: MIRTAZAPINE 15 MG TAB PO SCH ×2 (00:54→20:24)
[2022-06-07] MEDS: AZITHROMYCIN 250MG TABLET PO SCH ×2 (00:55→20:24)
[2022-06-07] MEDS: IPRATROPIUM 0.5MG/ALBUTEROL 2.5MG INH SOL UD 3ML (DUONEB) NEB SCH ×4 (02:06→19:38)
[2022-06-07] MEDS ORDERED: INSULIN LISPRO (NovoLOG) PER UNIT SC SCH (06:00)
[2022-06-07] MEDS: HEPARIN SOD (PORCINE) 5000UNITS/ML 1ML VIAL/SYRINGE SC SCH ×3 (06:10→22:39)
[2022-06-07] MEDS: methylPREDNISolone 40MG 1ML VIAL IV SCH ×3 (06:10→22:39)
[2022-06-07 06:12] LABS: ABG BASE EXCESS 7.9 (-2.0-2.0); ABG HCO3 35.4 MEQ/L (22.0-26.0); ABG O2 SATURATION 94.9 % (95.0-99.0); ABG PARTIAL PRESSURE O2 81.5 mmHg (75.0-100.0); ABG STANDARD HCO3 31.6 MEQ/L (22.0-26.0); ABG TOTAL CO2 37.4 MEQ/L (23.0-31.0); ABG pH (ARTERIAL) 7.363 UNITS (7.350-7.450)
[2022-06-07 06:16] LABS: ABG PARTIAL PRESSURE CO2 63.7 mmHg (35.0-45.0)
[2022-06-07 06:43] LABS: BLOOD UREA NITROGEN 13 MG/DL (7-18); CALCIUM LEVEL 8.9 MG/DL (8.8-10.2); CARBON DIOXIDE LEVEL 33 MEQ/L (21-32); CHLORIDE LEVEL 97 MEQ/L (98-107); CREATININE FOR GFR 0.76 MG/DL (0.55-1.30); GLOMERULAR FILTRATION RATE > 60.0 (>45); GLUCOSE, FASTING 208 MG/DL (70-100); POTASSIUM SERUM 4.9 MEQ/L (3.5-5.1); SODIUM LEVEL 137 MEQ/L (136-145)
[2022-06-07] MEDS: TIOTROPIUM INHALER/CAPSULE (SPIRIVA) INH SCH ×2 (08:00→09:55)
[2022-06-07 08:21] LABS: MAGNESIUM LEVEL 2.3 MG/DL (1.8-2.4)
[2022-06-07] MEDS: OMEPRAZOLE 20MG CAP PO SCH ×2 (08:26→20:24)
[2022-06-07] MEDS: levETIRAcetam 250MG TABLET (KEPPRA) PO SCH ×2 (08:26→20:23)
[2022-06-07] MEDS: FERROUS SULFATE 325MG TAB PO SCH (08:26)
[2022-06-07] MEDS: LACTOBACILLUS ACIDOPHILUS CAP (BACID) PO SCH (08:26)
[2022-06-07] MEDS: SPIRONOLACTONE 25 MG TAB PO SCH (08:26)
[2022-06-07] MEDS: ISOSORBIDE MON. (IMDUR) 30MG XR TAB PO SCH (08:27)
[2022-06-07] MEDS ORDERED: FUROSEMIDE 20MG/2ML VIAL (J1940) IV ONE (08:35)
[2022-06-07] MEDS: INSULIN LISPRO (NovoLOG) PER UNIT SC SCH ×3 (12:21→20:24)
[2022-06-07 12:32] LABS: BLOOD UREA NITROGEN 15 MG/DL (7-18); CALCIUM LEVEL 8.6 MG/DL (8.8-10.2); CARBON DIOXIDE LEVEL 37 MEQ/L (21-32); CHLORIDE LEVEL 95 MEQ/L (98-107); CREATININE FOR GFR 0.92 MG/DL (0.55-1.30); GLOMERULAR FILTRATION RATE > 60.0 (>45); GLUCOSE, FASTING 285 MG/DL (70-100); MAGNESIUM LEVEL 2.1 MG/DL (1.8-2.4); NT-PRO BNP 173 PG/ML (<125); PHOSPHORUS LEVEL 4.1 MG/DL (2.5-4.9); POTASSIUM SERUM 4.2 MEQ/L (3.5-5.1); SODIUM LEVEL 137 MEQ/L (136-145)
[2022-06-07 16:41] LABS: ABG BASE EXCESS 11.6 (-2.0-2.0); ABG HCO3 37.6 MEQ/L (22.0-26.0); ABG O2 SATURATION 94.5 % (95.0-99.0); ABG PARTIAL PRESSURE CO2 56.6 mmHg (35.0-45.0); ABG PARTIAL PRESSURE O2 75.5 mmHg (75.0-100.0); ABG STANDARD HCO3 35.3 MEQ/L (22.0-26.0); ABG TOTAL CO2 39.3 MEQ/L (23.0-31.0)
[2022-06-07 17:23] LABS: INR 1.07; PROTHROMBIN TIME 14.3 SECONDS (12.7-14.5)
[2022-06-07 17:24] LABS: PARTIAL THROMBOPLASTIN TIME 27.8 SECONDS (25.9-37.0)
[2022-06-07 17:26] LABS: D-DIMER QUANT 499.7 ng/ml (<500)
[2022-06-07] MEDS: ITRACONAZOLE 100 MG PO SCH (20:24)
[2022-06-08] VITALS (15 sets, daily range): BP systolic 130–150; BP diastolic 63–72; O2SAT 94–100
[2022-06-08] MEDS: IPRATROPIUM 0.5MG/ALBUTEROL 2.5MG INH SOL UD 3ML (DUONEB) NEB SCH ×4 (01:42→18:29)
[2022-06-08 05:38] LABS: BASO % 0.1 % (0.0-1.0); HEMATOCRIT 36.5 % (36.0-47.0); HEMOGLOBIN 11.8 g/dl (12.0-15.5); LYMPH # 0.4 10^3/uL (1.5-5.0); LYMPH % 3.7 % (24.0-44.0); MEAN CORPUSCULAR HEMOGLOBIN 30.7 pg (27.0-33.0); MEAN CORPUSCULAR HGB CONC 32.3 g/dl (32.0-36.5); MEAN CORPUSCULAR VOLUME 95.1 fl (80.0-96.0); MONO # 0.2 10^3/uL (0.0-0.8); NEUTROPHILS # 9.6 10^3/uL (1.5-8.5); NEUTROPHILS % 93.3 % (36.0-66.0); PLATELET COUNT, AUTOMATED 277 10^3/uL (150-450); RED BLOOD COUNT 3.84 10^6/uL (4.00-5.40); WHITE BLOOD COUNT 10.3 10^3/uL (4.0-10.0)
[2022-06-08] MEDS: HEPARIN SOD (PORCINE) 5000UNITS/ML 1ML VIAL/SYRINGE SC SCH ×3 (05:42→21:01)
[2022-06-08] MEDS: methylPREDNISolone 40MG 1ML VIAL IV SCH ×2 (05:42→17:03)
[2022-06-08 06:15] LABS: ALBUMIN 2.8 GM/DL (3.2-5.2); ALT/SGPT 15 U/L (12-78); BILIRUBIN,TOTAL 0.2 MG/DL (0.2-1.0); BLOOD UREA NITROGEN 17 MG/DL (7-18); CARBON DIOXIDE LEVEL 38 MEQ/L (21-32); CHLORIDE LEVEL 91 MEQ/L (98-107); CREATININE FOR GFR 0.66 MG/DL (0.55-1.30); GLOMERULAR FILTRATION RATE > 60.0 (>45); GLUCOSE, FASTING 173 MG/DL (70-100); MAGNESIUM LEVEL 2.6 MG/DL (1.8-2.4); PHOSPHORUS LEVEL 3.6 MG/DL (2.5-4.9); POTASSIUM SERUM 4.4 MEQ/L (3.5-5.1); SODIUM LEVEL 135 MEQ/L (136-145)
[2022-06-08] MEDS: TIOTROPIUM INHALER/CAPSULE (SPIRIVA) INH SCH (07:19)
[2022-06-08] MEDS: FERROUS SULFATE 325MG TAB PO SCH (08:04)
[2022-06-08] MEDS: OMEPRAZOLE 20MG CAP PO SCH ×2 (08:04→21:00)
[2022-06-08] MEDS: LACTOBACILLUS ACIDOPHILUS CAP (BACID) PO SCH (08:04)
[2022-06-08] MEDS: SPIRONOLACTONE 25 MG TAB PO SCH (08:04)
[2022-06-08] MEDS: levETIRAcetam 250MG TABLET (KEPPRA) PO SCH ×2 (08:04→21:00)
[2022-06-08] MEDS: ISOSORBIDE MON. (IMDUR) 30MG XR TAB PO SCH (08:05)
[2022-06-08] MEDS: INSULIN LISPRO (NovoLOG) PER UNIT SC SCH ×4 (08:08→20:46)
[2022-06-08 10:04] LABS: ABG BASE EXCESS 11.4 (-2.0-2.0); ABG HCO3 37.7 MEQ/L (22.0-26.0); ABG O2 SATURATION 94.6 % (95.0-99.0); ABG PARTIAL PRESSURE CO2 57.9 mmHg (35.0-45.0); ABG PARTIAL PRESSURE O2 70.9 mmHg (75.0-100.0); ABG STANDARD HCO3 35.1 MEQ/L (22.0-26.0); ABG TOTAL CO2 39.5 MEQ/L (23.0-31.0); ABG pH (ARTERIAL) 7.432 UNITS (7.350-7.450)
[2022-06-08] MEDS: AZITHROMYCIN 250MG TABLET PO SCH (21:00)
[2022-06-08] MEDS: ITRACONAZOLE 100 MG PO SCH (21:00)
[2022-06-08] MEDS: MIRTAZAPINE 15 MG TAB PO SCH (21:00)
[2022-06-08] MEDS: traZODone 100 MG TAB PO SCH (21:00)
[2022-06-09] VITALS: BP 125/61; O2SAT 97
[2022-06-09] MEDS: IPRATROPIUM 0.5MG/ALBUTEROL 2.5MG INH SOL UD 3ML (DUONEB) NEB SCH ×4 (01:52→18:10)
[2022-06-09 04:00] VITALS: BP 132/71; O2SAT 95
[2022-06-09] MEDS: methylPREDNISolone 40MG 1ML VIAL IV SCH ×2 (05:31→17:29)
[2022-06-09] MEDS: HEPARIN SOD (PORCINE) 5000UNITS/ML 1ML VIAL/SYRINGE SC SCH ×3 (05:31→22:42)
[2022-06-09 06:09] LABS: HEMATOCRIT 35.7 % (36.0-47.0); HEMOGLOBIN 12.2 g/dl (12.0-15.5); MEAN CORPUSCULAR HEMOGLOBIN 31.4 pg (27.0-33.0); MEAN CORPUSCULAR HGB CONC 34.2 g/dl (32.0-36.5); PLATELET COUNT, AUTOMATED 289 10^3/uL (150-450); RED BLOOD COUNT 3.88 10^6/uL (4.00-5.40); WHITE BLOOD COUNT 12.9 10^3/uL (4.0-10.0)
[2022-06-09 06:39] LABS: BLOOD UREA NITROGEN 18 MG/DL (7-18); CALCIUM LEVEL 9.1 MG/DL (8.8-10.2); CARBON DIOXIDE LEVEL 39 MEQ/L (21-32); CHLORIDE LEVEL 91 MEQ/L (98-107); GLOMERULAR FILTRATION RATE > 60.0 (>45); GLUCOSE, FASTING 158 MG/DL (70-100); POTASSIUM SERUM 3.8 MEQ/L (3.5-5.1); SODIUM LEVEL 135 MEQ/L (136-145)
[2022-06-09] MEDS: TIOTROPIUM INHALER/CAPSULE (SPIRIVA) INH SCH (07:10)
[2022-06-09] MEDS: INSULIN LISPRO (NovoLOG) PER UNIT SC SCH ×4 (07:31→20:18)
[2022-06-09 08:17] VITALS: BP 133/63
[2022-06-09] MEDS: ISOSORBIDE MON. (IMDUR) 30MG XR TAB PO SCH (08:17)
[2022-06-09] MEDS: OMEPRAZOLE 20MG CAP PO SCH ×2 (08:18→20:17)
[2022-06-09] MEDS: LACTOBACILLUS ACIDOPHILUS CAP (BACID) PO SCH (08:18)
[2022-06-09] MEDS: FERROUS SULFATE 325MG TAB PO SCH (08:18)
[2022-06-09] MEDS: levETIRAcetam 250MG TABLET (KEPPRA) PO SCH ×2 (08:18→20:17)
[2022-06-09] MEDS: SPIRONOLACTONE 25 MG TAB PO SCH (08:19)
[2022-06-09 12:00] VITALS: BP 121/58
[2022-06-09 16:00] VITALS: BP 145/69
[2022-06-09 20:00] VITALS: BP 154/84
[2022-06-09] MEDS: FUROSEMIDE 40MG/4ML VIAL (J1940) IV SCH (20:06)
[2022-06-09] MEDS: MIRTAZAPINE 15 MG TAB PO SCH (20:17)
[2022-06-09] MEDS: AZITHROMYCIN 250MG TABLET PO SCH (20:17)
[2022-06-09] MEDS: traZODone 100 MG TAB PO SCH (20:17)
[2022-06-09] MEDS: ITRACONAZOLE 100 MG PO SCH (20:18)
[2022-06-10] VITALS (7 sets, daily range): BP systolic 110–154; BP diastolic 56–71; O2SAT 97
[2022-06-10] MEDS: IPRATROPIUM 0.5MG/ALBUTEROL 2.5MG INH SOL UD 3ML (DUONEB) NEB SCH ×4 (01:47→20:22)
[2022-06-10] MEDS: methylPREDNISolone 40MG 1ML VIAL IV SCH (06:03)
[2022-06-10] MEDS: HEPARIN SOD (PORCINE) 5000UNITS/ML 1ML VIAL/SYRINGE SC SCH ×3 (06:03→20:56)
[2022-06-10 06:14] LABS: HEMATOCRIT 36.6 % (36.0-47.0); HEMOGLOBIN 12.1 g/dl (12.0-15.5); MEAN CORPUSCULAR HEMOGLOBIN 31.3 pg (27.0-33.0); MEAN CORPUSCULAR HGB CONC 33.1 g/dl (32.0-36.5); MEAN CORPUSCULAR VOLUME 94.6 fl (80.0-96.0); PLATELET COUNT, AUTOMATED 288 10^3/uL (150-450); RED BLOOD COUNT 3.87 10^6/uL (4.00-5.40); WHITE BLOOD COUNT 11.3 10^3/uL (4.0-10.0)
[2022-06-10 06:40] LABS: BLOOD UREA NITROGEN 17 MG/DL (7-18); CALCIUM LEVEL 8.7 MG/DL (8.8-10.2); CARBON DIOXIDE LEVEL 38 MEQ/L (21-32); CHLORIDE LEVEL 94 MEQ/L (98-107); GLOMERULAR FILTRATION RATE > 60.0 (>45); GLUCOSE, FASTING 195 MG/DL (70-100); POTASSIUM SERUM 3.6 MEQ/L (3.5-5.1); SODIUM LEVEL 137 MEQ/L (136-145)
[2022-06-10] MEDS: TIOTROPIUM INHALER/CAPSULE (SPIRIVA) INH SCH (07:36)
[2022-06-10] MEDS: LACTOBACILLUS ACIDOPHILUS CAP (BACID) PO SCH (08:01)
[2022-06-10] MEDS: levETIRAcetam 250MG TABLET (KEPPRA) PO SCH ×2 (08:01→20:41)
[2022-06-10] MEDS: FERROUS SULFATE 325MG TAB PO SCH (08:01)
[2022-06-10] MEDS: SPIRONOLACTONE 25 MG TAB PO SCH (08:01)
[2022-06-10] MEDS: OMEPRAZOLE 20MG CAP PO SCH ×2 (08:01→20:41)
[2022-06-10] MEDS: FUROSEMIDE 40MG/4ML VIAL (J1940) IV SCH ×2 (08:02→16:06)
[2022-06-10] MEDS: ISOSORBIDE MON. (IMDUR) 30MG XR TAB PO SCH (08:02)
[2022-06-10] MEDS: INSULIN LISPRO (NovoLOG) PER UNIT SC SCH ×4 (08:02→20:49)
[2022-06-10] MEDS: traZODone 100 MG TAB PO SCH (20:41)
[2022-06-10] MEDS: MIRTAZAPINE 15 MG TAB PO SCH (20:41)
[2022-06-10] MEDS: AZITHROMYCIN 250MG TABLET PO SCH (20:41)
[2022-06-10] MEDS: ITRACONAZOLE 100 MG PO SCH (20:42)
[2022-06-11] MEDS: IPRATROPIUM 0.5MG/ALBUTEROL 2.5MG INH SOL UD 3ML (DUONEB) NEB SCH ×4 (02:00→20:01)
[2022-06-11 04:00] VITALS: BP 118/66
[2022-06-11 05:03] VITALS: BP 168/74
[2022-06-11] MEDS: HEPARIN SOD (PORCINE) 5000UNITS/ML 1ML VIAL/SYRINGE SC SCH ×3 (05:35→21:09)
[2022-06-11] MEDS: TIOTROPIUM INHALER/CAPSULE (SPIRIVA) INH SCH (07:06)
[2022-06-11 08:11] LABS: HEMATOCRIT 45.9 % (36.0-47.0); MEAN CORPUSCULAR HEMOGLOBIN 31.4 pg (27.0-33.0); MEAN CORPUSCULAR HGB CONC 32.5 g/dl (32.0-36.5); MEAN CORPUSCULAR VOLUME 96.6 fl (80.0-96.0); PLATELET COUNT, AUTOMATED 315 10^3/uL (150-450); RED BLOOD COUNT 4.75 10^6/uL (4.00-5.40); WHITE BLOOD COUNT 14.5 10^3/uL (4.0-10.0)
[2022-06-11 08:19] LABS: HEMOGLOBIN 14.9 g/dl (12.0-15.5)
[2022-06-11] MEDS: SPIRONOLACTONE 25 MG TAB PO SCH (08:42)
[2022-06-11] MEDS: INSULIN LISPRO (NovoLOG) PER UNIT SC SCH ×4 (08:43→20:17)
[2022-06-11] MEDS: OMEPRAZOLE 20MG CAP PO SCH ×2 (08:43→21:07)
[2022-06-11] MEDS: methylPREDNISolone 40MG 1ML VIAL IV SCH (08:44)
[2022-06-11] MEDS: FUROSEMIDE 40MG/4ML VIAL (J1940) IV SCH (08:44)
[2022-06-11] MEDS: LACTOBACILLUS ACIDOPHILUS CAP (BACID) PO SCH (08:44)
[2022-06-11] MEDS: levETIRAcetam 250MG TABLET (KEPPRA) PO SCH ×2 (08:44→21:07)
[2022-06-11] MEDS: FERROUS SULFATE 325MG TAB PO SCH (08:44)
[2022-06-11 08:48] LABS: BLOOD UREA NITROGEN 17 MG/DL (7-18); CALCIUM LEVEL 9.5 MG/DL (8.8-10.2); CARBON DIOXIDE LEVEL 42 MEQ/L (21-32); CHLORIDE LEVEL 90 MEQ/L (98-107); CREATININE FOR GFR 0.77 MG/DL (0.55-1.30); GLOMERULAR FILTRATION RATE > 60.0 (>45); GLUCOSE, FASTING 190 MG/DL (70-100); POTASSIUM SERUM 3.2 MEQ/L (3.5-5.1); SODIUM LEVEL 136 MEQ/L (136-145)
[2022-06-11] MEDS: ISOSORBIDE MON. (IMDUR) 30MG XR TAB PO SCH (11:27)
[2022-06-11 12:18] VITALS: BP 107/58
[2022-06-11 15:55] VITALS: BP 102/59
[2022-06-11] MEDS: TORSEMIDE 20 MG TAB PO SCH (16:17)
[2022-06-11] MEDS ORDERED: POTASSIUM CHLORIDE 10MEQ SR TABLET PO ONE (17:00)
[2022-06-11 20:00] VITALS: BP 117/51
[2022-06-11] MEDS: ITRACONAZOLE 100 MG PO SCH (21:07)
[2022-06-11] MEDS: traZODone 100 MG TAB PO SCH (21:07)
[2022-06-11] MEDS: MIRTAZAPINE 15 MG TAB PO SCH (21:08)
[2022-06-12] MEDS: IPRATROPIUM 0.5MG/ALBUTEROL 2.5MG INH SOL UD 3ML (DUONEB) NEB SCH ×2 (01:41→07:33)
[2022-06-12 04:00] VITALS: BP 128/71
[2022-06-12] MEDS: HEPARIN SOD (PORCINE) 5000UNITS/ML 1ML VIAL/SYRINGE SC SCH (05:23)
[2022-06-12 07:25] LABS: HEMATOCRIT 40.2 % (36.0-47.0); HEMOGLOBIN 13.1 g/dl (12.0-15.5); MEAN CORPUSCULAR HEMOGLOBIN 31.7 pg (27.0-33.0); MEAN CORPUSCULAR HGB CONC 32.6 g/dl (32.0-36.5); MEAN CORPUSCULAR VOLUME 97.3 fl (80.0-96.0); PLATELET COUNT, AUTOMATED 299 10^3/uL (150-450); RED BLOOD COUNT 4.13 10^6/uL (4.00-5.40); WHITE BLOOD COUNT 15.3 10^3/uL (4.0-10.0)
[2022-06-12] MEDS: TIOTROPIUM INHALER/CAPSULE (SPIRIVA) INH SCH (07:33)
[2022-06-12 08:19] LABS: BLOOD UREA NITROGEN 21 MG/DL (7-18); CALCIUM LEVEL 9.4 MG/DL (8.8-10.2); CARBON DIOXIDE LEVEL 47 MEQ/L (21-32); CHLORIDE LEVEL 91 MEQ/L (98-107); CREATININE FOR GFR 0.74 MG/DL (0.55-1.30); GLOMERULAR FILTRATION RATE > 60.0 (>45); GLUCOSE, FASTING 123 MG/DL (70-100); POTASSIUM SERUM 4.4 MEQ/L (3.5-5.1); SODIUM LEVEL 138 MEQ/L (136-145)
[2022-06-12] MEDS: ISOSORBIDE MON. (IMDUR) 30MG XR TAB PO SCH (08:49)
[2022-06-12] MEDS: SPIRONOLACTONE 25 MG TAB PO SCH (08:50)
[2022-06-12] MEDS: OMEPRAZOLE 20MG CAP PO SCH (08:50)
[2022-06-12] MEDS: levETIRAcetam 250MG TABLET (KEPPRA) PO SCH (08:50)
[2022-06-12 08:51] VITALS: BP 133/61
[2022-06-12] MEDS: TORSEMIDE 20 MG TAB PO SCH (08:51)
[2022-06-12] MEDS: LACTOBACILLUS ACIDOPHILUS CAP (BACID) PO SCH (08:52)
[2022-06-12] MEDS: FERROUS SULFATE 325MG TAB PO SCH (08:52)
[2022-06-12] MEDS: INSULIN LISPRO (NovoLOG) PER UNIT SC SCH ×2 (08:52→12:00)
[2022-06-12] MEDS: methylPREDNISolone 40MG 1ML VIAL IV SCH (08:52)
[2022-06-12] MEDS ORDERED: PRED10TA2 PO (09:57)
[2022-06-12] MEDS ORDERED: METO5TA PO (10:20)
[2022-06-12 11:54] VITALS: BP 121/64
== END 2022-06-12 13:00 | disposition home health service (06) | DRG 190 ==
LOC: M ED 17:50 → M ED INP 22:55 → M ICU 06-07 01:49 → M PCU 06-08 10:32 → M 4MAIN 06-11 04:58
PROVIDERS: ADMIT Internal Medicine; ATTEND Internal Medicine
DX: J47.1 Bronchiectasis with (acute) exacerbation (principal); J96.22 Acute and chronic respiratory failure with hypercapnia; J96.21 Acute and chronic respiratory failure with hypoxia; I47.1 Supraventricular tachycardia; D84.9 Immunodeficiency, unspecified; I11.0 Hypertensive heart disease with heart failure; I27.81 Cor pulmonale (chronic); I27.20 Pulmonary hypertension, unspecified; I50.9 Heart failure, unspecified; K21.9 Gastro-esophageal reflux disease without esophagitis; G40.909 Epilepsy, unspecified, not intractable, without status epilepticus; Z79.899 Other long term (current) drug therapy; Z88.8 Allergy status to other drugs, medicaments and biological substances; R73.9 Hyperglycemia, unspecified

== ENCOUNTER → 2022-06-06 | Outpatient (CLI) | payer MEDICARE, BC ==
[~2022-06-06] MED LIST changes: +ASPI81TA26 PO; +BACITAB PO; +DILT120C31 PO; +DILT30TA PO; +IPRA0.00 NEB; +LANTINJ4 SC; -MIRALAX *UNIT DOSE* 17GM PACKET PO PRN; +MIRT-10 PO; +OYST500T92 PO
[2022-06-06 16:18] LABS: ABG BASE EXCESS 8.8 (-2.0-2.0); ABG HCO3 37.7 MEQ/L (22.0-26.0); ABG PARTIAL PRESSURE O2 154.3 mmHg (75.0-100.0); ABG STANDARD HCO3 32.6 MEQ/L (22.0-26.0); ABG pH (ARTERIAL) 7.318 UNITS (7.350-7.450)
[2022-06-06 16:21] LABS: ABG PARTIAL PRESSURE CO2 75.1 mmHg (35.0-45.0)
== END ==
LOC: M LAB 15:42
PROVIDERS: ATTEND Internal Medicine
DX: J96.12 Chronic respiratory failure with hypercapnia (principal)

== ENCOUNTER 2022-07-04 15:08 | Emergency (ER) | payer MEDICARE, BC ==
[~2022-07-04] VITALS: Ht 149.9 cm; Wt 50.0 kg
[2022-07-04 15:59] LABS: BASO % 0.4 % (0.0-1.0); EOS # 0.2 10^3/uL (0.0-0.5); EOS % 2.9 % (0.0-3.0); HEMATOCRIT 36.8 % (36.0-47.0); HEMOGLOBIN 12.2 g/dl (12.0-15.5); LYMPH % 14.9 % (24.0-44.0); MEAN CORPUSCULAR HEMOGLOBIN 31.8 pg (27.0-33.0); MEAN CORPUSCULAR HGB CONC 33.2 g/dl (32.0-36.5); MEAN CORPUSCULAR VOLUME 95.8 fl (80.0-96.0); MONO # 0.6 10^3/uL (0.0-0.8); MONO % 8.8 % (2.0-8.0); NEUTROPHILS # 4.9 10^3/uL (1.5-8.5); NEUTROPHILS % 72.4 % (36.0-66.0); PLATELET COUNT, AUTOMATED 173 10^3/uL (150-450); RED BLOOD COUNT 3.84 10^6/uL (4.00-5.40); WHITE BLOOD COUNT 6.8 10^3/uL (4.0-10.0)
[2022-07-04] MEDS ORDERED: TORSEMIDE 20 MG TAB PO ONE (16:05)
[2022-07-04 17:02] LABS: ALBUMIN 3.1 GM/DL (3.2-5.2); BILIRUBIN,DIRECT 0.1 MG/DL (0.0-0.2); BILIRUBIN,TOTAL 0.4 MG/DL (0.2-1.0); CALCIUM LEVEL 8.3 MG/DL (8.8-10.2); CREATININE FOR GFR 1.04 MG/DL (0.55-1.30); GLOMERULAR FILTRATION RATE 56.6 (>45); POTASSIUM SERUM 4.8 MEQ/L (3.5-5.1); TOTAL PROTEIN 6.7 GM/DL (6.4-8.2)
[2022-07-04 19:00] LABS: ABG BASE EXCESS 14.1 (-2.0-2.0); ABG HCO3 41.8 MEQ/L (22.0-26.0); ABG O2 SATURATION 96.6 % (95.0-99.0); ABG PARTIAL PRESSURE CO2 68.8 mmHg (35.0-45.0); ABG PARTIAL PRESSURE O2 87.7 mmHg (75.0-100.0); ABG STANDARD HCO3 37.9 MEQ/L (22.0-26.0); ABG TOTAL CO2 43.9 MEQ/L (23.0-31.0); ABG pH (ARTERIAL) 7.401 UNITS (7.350-7.450)
[2022-07-04 19:30] VITALS: BP 129/59
== END 2022-07-04 19:49 | disposition home or self-care (01) ==
LOC: M ED 15:08
DX: R06.89 Other abnormalities of breathing (principal); I51.9 Heart disease, unspecified; I10 Essential (primary) hypertension; Z79.899 Other long term (current) drug therapy; Z88.8 Allergy status to other drugs, medicaments and biological substances; Z88.1 Allergy status to other antibiotic agents

== ENCOUNTER → 2022-07-04 | Outpatient (CLI) | payer MEDICARE, BC ==
[~2022-07-04] MED LIST changes: +BACITAB PO; +DILT120C31 PO; +METO5TA PO; +OYST500T92 PO
[2022-07-04 14:07] LABS: ABG BASE EXCESS 11.9 (-2.0-2.0); ABG HCO3 40.6 MEQ/L (22.0-26.0); ABG O2 SATURATION 98.6 % (95.0-99.0); ABG PARTIAL PRESSURE O2 139.3 mmHg (75.0-100.0); ABG STANDARD HCO3 35.7 MEQ/L (22.0-26.0); ABG TOTAL CO2 42.9 MEQ/L (23.0-31.0); ABG pH (ARTERIAL) 7.343 UNITS (7.350-7.450)
[2022-07-04 14:21] LABS: ABG PARTIAL PRESSURE CO2 76.4 mmHg (35.0-45.0)
== END ==
LOC: M LAB 13:12
PROVIDERS: ATTEND Internal Medicine
DX: J96.12 Chronic respiratory failure with hypercapnia (principal)

== ENCOUNTER → 2022-07-04 | Outpatient (REF) | payer MEDICARE, BC ==
[2022-07-04 11:59] LABS: BLOOD UREA NITROGEN 11 MG/DL (7-18); CALCIUM LEVEL 8.2 MG/DL (8.8-10.2); CARBON DIOXIDE LEVEL 38 MEQ/L (21-32); CHLORIDE LEVEL 92 MEQ/L (98-107); CREATININE FOR GFR 0.93 MG/DL (0.55-1.30); GLOMERULAR FILTRATION RATE > 60.0 (>45); GLUCOSE, FASTING 181 MG/DL (70-100); MAGNESIUM LEVEL 2.2 MG/DL (1.8-2.4); POTASSIUM SERUM 3.8 MEQ/L (3.5-5.1); SODIUM LEVEL 134 MEQ/L (136-145)
== END ==
LOC: M SHH 10:19
PROVIDERS: ATTEND Internal Medicine
DX: I50.9 Heart failure, unspecified (principal)

== ENCOUNTER → 2022-07-05 | Outpatient (REF) | payer MEDICARE, BC ==
[2022-07-05 12:06] LABS: BLOOD UREA NITROGEN 11 MG/DL (7-18); CALCIUM LEVEL 8.1 MG/DL (8.8-10.2); CARBON DIOXIDE LEVEL 34 MEQ/L (21-32); CHLORIDE LEVEL 94 MEQ/L (98-107); CREATININE FOR GFR 0.88 MG/DL (0.55-1.30); GLOMERULAR FILTRATION RATE > 60.0 (>45); GLUCOSE, FASTING 193 MG/DL (70-100); POTASSIUM SERUM 4.2 MEQ/L (3.5-5.1); SODIUM LEVEL 133 MEQ/L (136-145)
[2022-07-05 12:07] LABS: MAGNESIUM LEVEL 2.1 MG/DL (1.8-2.4)
== END ==
LOC: M SHH 10:09
PROVIDERS: ATTEND Internal Medicine
DX: I50.9 Heart failure, unspecified (principal)

== ENCOUNTER → 2022-07-06 | Outpatient (REF) | payer MEDICARE, BC ==
[2022-07-06 11:28] LABS: BLOOD UREA NITROGEN 11 MG/DL (7-18); CALCIUM LEVEL 9.2 MG/DL (8.8-10.2); CARBON DIOXIDE LEVEL 38 MEQ/L (21-32); CHLORIDE LEVEL 86 MEQ/L (98-107); CREATININE FOR GFR 0.95 MG/DL (0.55-1.30); GLOMERULAR FILTRATION RATE > 60.0 (>45); GLUCOSE, FASTING 186 MG/DL (70-100); MAGNESIUM LEVEL 2.1 MG/DL (1.8-2.4); SODIUM LEVEL 131 MEQ/L (136-145)
== END ==
LOC: M SHH 10:14
PROVIDERS: ATTEND Internal Medicine
DX: I50.9 Heart failure, unspecified (principal)

== ENCOUNTER → 2022-07-29 | Outpatient (REF) | payer MEDICARE, BC ==
[~2022-07-29] MED LIST changes: +BUDE10.7 IH; +VERA240C3 PO
== END ==
LOC: M LAB REF 15:29
PROVIDERS: ATTEND Internal Medicine
DX: J96.12 Chronic respiratory failure with hypercapnia (principal)

== ENCOUNTER 2022-08-01 12:33 | Inpatient (IN) | payer MEDICARE, BC ==
[~2022-08-01] VITALS: Ht 144.8 cm; Wt 52.2 kg
[~2022-08-01 12:33] MED LIST changes: -BUDE10.7 IH; -VERA240C3 PO
[2022-08-01 14:24] VITALS: BP 137/65
[2022-08-01] MEDS ORDERED: MOM 30ML SUSPENSION UDC PO PRN (14:25)
[2022-08-01] MEDS ORDERED: ACETAMINOPHEN TAB 650MG DOSE (2X325MG) PO PRN (14:25)
[2022-08-01] MEDS ORDERED: NON-FORMULARY COMPOUNDED MEDICATION IV SCH (14:35)
[2022-08-01 15:19] LABS: BASO % 0.3 % (0.0-1.0); EOS % 0.1 % (0.0-3.0); HEMATOCRIT 42.2 % (36.0-47.0); HEMOGLOBIN 14.3 g/dl (12.0-15.5); LYMPH # 0.5 10^3/uL (1.5-5.0); LYMPH % 3.9 % (24.0-44.0); MEAN CORPUSCULAR HEMOGLOBIN 31.6 pg (27.0-33.0); MEAN CORPUSCULAR HGB CONC 33.9 g/dl (32.0-36.5); MEAN CORPUSCULAR VOLUME 93.4 fl (80.0-96.0); MONO # 0.4 10^3/uL (0.0-0.8); MONO % 3.6 % (2.0-8.0); NEUTROPHILS # 10.8 10^3/uL (1.5-8.5); NEUTROPHILS % 91.6 % (36.0-66.0); PLATELET COUNT, AUTOMATED 154 10^3/uL (150-450); RED BLOOD COUNT 4.52 10^6/uL (4.00-5.40); WHITE BLOOD COUNT 11.8 10^3/uL (4.0-10.0)
[2022-08-01] MEDS ORDERED: VERA240C3 PO (15:19)
[2022-08-01] MEDS ORDERED: HOME MED LIST COMPLETE! XX SCH (15:20)
[2022-08-01] MEDS ORDERED: BUDE10.7 IH (15:42)
[2022-08-01 16:02] LABS: CALCIUM LEVEL 9.2 MG/DL (8.8-10.2); CREATININE FOR GFR 1.09 MG/DL (0.55-1.30); GLOMERULAR FILTRATION RATE 53.6 (>45); POTASSIUM SERUM 3.6 MEQ/L (3.5-5.1)
[2022-08-01 16:21] VITALS: BP 135/65
[2022-08-01] MEDS: methylPREDNISolone 40MG 1ML VIAL IV SCH ×2 (16:25→21:11)
[2022-08-01] MEDS: FUROSEMIDE 40MG/4ML VIAL (J1940) IV SCH (16:26)
[2022-08-01 16:38] LABS: ABG HCO3 41.9 MEQ/L (22.0-26.0); ABG O2 SATURATION 96.2 % (95.0-99.0); ABG PARTIAL PRESSURE CO2 75.9 mmHg (35.0-45.0); ABG PARTIAL PRESSURE O2 89.5 mmHg (75.0-100.0); ABG STANDARD HCO3 36.8 MEQ/L (22.0-26.0); ABG TOTAL CO2 44.2 MEQ/L (23.0-31.0)
[2022-08-01 20:00] VITALS: BP 145/70
[2022-08-01] MEDS: ALBUTEROL SULFATE 2.5 MG/0.5 ML INH NEB SOLN INH SCH (21:00)
[2022-08-01] MEDS: ADVAIR HFA 115/21MCG INHALER INH SCH (21:00)
[2022-08-01 21:06] LABS: ABG BASE EXCESS 13.8 (-2.0-2.0); ABG HCO3 39.2 MEQ/L (22.0-26.0); ABG O2 SATURATION 93.1 % (95.0-99.0); ABG PARTIAL PRESSURE CO2 51.6 mmHg (35.0-45.0); ABG PARTIAL PRESSURE O2 61.9 mmHg (75.0-100.0); ABG STANDARD HCO3 37.6 MEQ/L (22.0-26.0); ABG TOTAL CO2 40.7 MEQ/L (23.0-31.0); ABG pH (ARTERIAL) 7.498 UNITS (7.350-7.450)
[2022-08-01] MEDS: AZITHROMYCIN 250MG TABLET PO SCH (21:11)
[2022-08-01] MEDS: DOCUSATE SODIUM 100MG CAPSULE PO SCH (21:11)
[2022-08-01] MEDS: levETIRAcetam 250MG TABLET (KEPPRA) PO SCH (21:11)
[2022-08-01] MEDS: MIRTAZAPINE 15 MG TAB PO SCH (21:11)
[2022-08-01] MEDS: OMEPRAZOLE 20MG CAP PO SCH (21:13)
[2022-08-01] MEDS: CEFIDEROCOL SULFATE TOSYLATE 2 GM in D5W 100 ML IV SCH (21:27)
[2022-08-01] MEDS ORDERED: traZODone 100 MG TAB PO ONE (22:00)
[2022-08-02] VITALS: BP 116/56
[2022-08-02] MEDS ORDERED: UNRESOLVED PATIENT OWN MED ORDER XX SCH (00:01)
[2022-08-02] MEDS: methylPREDNISolone 40MG 1ML VIAL IV SCH ×3 (03:29→17:53)
[2022-08-02 04:00] VITALS: BP 121/57
[2022-08-02] MEDS: CEFIDEROCOL SULFATE TOSYLATE 2 GM in D5W 100 ML IV SCH ×3 (05:10→21:43)
[2022-08-02 06:39] LABS: BASO % 0.2 % (0.0-1.0); HEMATOCRIT 33.2 % (36.0-47.0); LYMPH # 0.4 10^3/uL (1.5-5.0); LYMPH % 6.3 % (24.0-44.0); MEAN CORPUSCULAR HGB CONC 34.9 g/dl (32.0-36.5); MEAN CORPUSCULAR VOLUME 91.7 fl (80.0-96.0); MONO # 0.1 10^3/uL (0.0-0.8); MONO % 0.8 % (2.0-8.0); NEUTROPHILS # 5.9 10^3/uL (1.5-8.5); NEUTROPHILS % 91.8 % (36.0-66.0); PLATELET COUNT, AUTOMATED 146 10^3/uL (150-450); RED BLOOD COUNT 3.62 10^6/uL (4.00-5.40); WHITE BLOOD COUNT 6.4 10^3/uL (4.0-10.0)
[2022-08-02 06:47] LABS: HEMOGLOBIN 11.6 g/dl (12.0-15.5)
[2022-08-02 07:10] LABS: BLOOD UREA NITROGEN 18 MG/DL (7-18); CALCIUM LEVEL 8.8 MG/DL (8.8-10.2); CARBON DIOXIDE LEVEL 40 MEQ/L (21-32); CHLORIDE LEVEL 90 MEQ/L (98-107); CREATININE FOR GFR 0.74 MG/DL (0.55-1.30); GLOMERULAR FILTRATION RATE > 60.0 (>45); GLUCOSE, FASTING 167 MG/DL (70-100); MAGNESIUM LEVEL 2.7 MG/DL (1.8-2.4); PHOSPHORUS LEVEL 3.4 MG/DL (2.5-4.9); POTASSIUM SERUM 3.2 MEQ/L (3.5-5.1); SODIUM LEVEL 133 MEQ/L (136-145)
[2022-08-02 08:00] VITALS: BP 137/63
[2022-08-02] MEDS ORDERED: POTASSIUM CHLORIDE 10MEQ SR TABLET PO ONE (08:00)
[2022-08-02] MEDS: ADVAIR HFA 115/21MCG INHALER INH SCH ×2 (08:18→20:57)
[2022-08-02] MEDS: ALBUTEROL SULFATE 2.5 MG/0.5 ML INH NEB SOLN INH SCH ×2 (08:19→20:57)
[2022-08-02] MEDS: ENOXAPARIN 30MG/0.3ML SYRINGE (J1650 PER 10MG) SC SCH (08:27)
[2022-08-02] MEDS: FUROSEMIDE 40MG/4ML VIAL (J1940) IV SCH ×2 (08:28→17:53)
[2022-08-02] MEDS: DOCUSATE SODIUM 100MG CAPSULE PO SCH ×2 (08:29→21:42)
[2022-08-02] MEDS: FERROUS SULFATE 325MG TAB PO SCH (08:29)
[2022-08-02] MEDS: VERAPAMIL 120MG SR TAB PO SCH (08:29)
[2022-08-02] MEDS: levETIRAcetam 250MG TABLET (KEPPRA) PO SCH ×2 (08:30→21:42)
[2022-08-02] MEDS: SPIRONOLACTONE 25 MG TAB PO SCH (08:30)
[2022-08-02] MEDS: OMEPRAZOLE 20MG CAP PO SCH (08:31)
[2022-08-02] MEDS: ISOSORBIDE MON. (IMDUR) 30MG XR TAB PO SCH (08:31)
[2022-08-02] MEDS ORDERED: metOLazone 5 MG TAB PO SCH (09:00)
[2022-08-02] MEDS ORDERED: DEXTROSE 50% 50 ML SYRINGE IV PRN (10:35)
[2022-08-02] MEDS ORDERED: GLUCOSE 4GM CHEW TABLET PO PRN (10:35)
[2022-08-02] MEDS ORDERED: GLUCAGON INJ 1MG VIAL SC PRN (10:35)
[2022-08-02 12:00] VITALS: BP 137/63
[2022-08-02] MEDS: INSULIN LISPRO (NovoLOG) PER UNIT SC SCH ×3 (13:15→21:00)
[2022-08-02 16:00] VITALS: BP 124/59
[2022-08-02 19:05] VITALS: BP 156/73
[2022-08-02] MEDS: traZODone 50 MG TAB PO SCH (21:41)
[2022-08-02] MEDS: POTASSIUM CHLORIDE 10MEQ SR TABLET PO SCH (21:42)
[2022-08-02] MEDS: AZITHROMYCIN 250MG TABLET PO SCH (21:42)
[2022-08-02] MEDS: MIRTAZAPINE 15 MG TAB PO SCH (21:42)
[2022-08-02] MEDS: ITRACONAZOLE 100 MG PO SCH ×2 (21:42)
[2022-08-03] MEDS: methylPREDNISolone 40MG 1ML VIAL IV SCH ×3 (01:09→21:48)
[2022-08-03] MEDS: CEFIDEROCOL SULFATE TOSYLATE 2 GM in D5W 100 ML IV SCH ×3 (05:33→21:48)
[2022-08-03 06:37] LABS: BASO % 0.1 % (0.0-1.0); HEMATOCRIT 40.3 % (36.0-47.0); HEMOGLOBIN 13.3 g/dl (12.0-15.5); LYMPH # 0.5 10^3/uL (1.5-5.0); LYMPH % 3.4 % (24.0-44.0); MEAN CORPUSCULAR HEMOGLOBIN 31.2 pg (27.0-33.0); MEAN CORPUSCULAR VOLUME 94.6 fl (80.0-96.0); MONO # 0.3 10^3/uL (0.0-0.8); MONO % 1.8 % (2.0-8.0); NEUTROPHILS # 13.6 10^3/uL (1.5-8.5); NEUTROPHILS % 93.9 % (36.0-66.0); PLATELET COUNT, AUTOMATED 191 10^3/uL (150-450); RED BLOOD COUNT 4.26 10^6/uL (4.00-5.40); WHITE BLOOD COUNT 14.4 10^3/uL (4.0-10.0)
[2022-08-03 06:43] VITALS: BP 122/52
[2022-08-03 06:52] LABS: BLOOD UREA NITROGEN 17 MG/DL (7-18); CALCIUM LEVEL 8.8 MG/DL (8.8-10.2); CARBON DIOXIDE LEVEL 39 MEQ/L (21-32); CHLORIDE LEVEL 93 MEQ/L (98-107); CREATININE FOR GFR 0.83 MG/DL (0.55-1.30); GLOMERULAR FILTRATION RATE > 60.0 (>45); GLUCOSE, FASTING 166 MG/DL (70-100); POTASSIUM SERUM 3.5 MEQ/L (3.5-5.1); SODIUM LEVEL 137 MEQ/L (136-145)
[2022-08-03] MEDS: ALBUTEROL SULFATE 2.5 MG/0.5 ML INH NEB SOLN INH SCH ×2 (07:13→19:54)
[2022-08-03] MEDS: ADVAIR HFA 115/21MCG INHALER INH SCH ×2 (07:14→19:55)
[2022-08-03] MEDS: INSULIN LISPRO (NovoLOG) PER UNIT SC SCH ×4 (08:18→21:00)
[2022-08-03] MEDS: levETIRAcetam 250MG TABLET (KEPPRA) PO SCH ×2 (08:19→21:49)
[2022-08-03] MEDS: FERROUS SULFATE 325MG TAB PO SCH ×2 (08:20→08:33)
[2022-08-03] MEDS: POTASSIUM CHLORIDE 10MEQ SR TABLET PO SCH ×2 (08:20→21:49)
[2022-08-03] MEDS: DOCUSATE SODIUM 100MG CAPSULE PO SCH ×2 (08:21→21:49)
[2022-08-03] MEDS: ISOSORBIDE MON. (IMDUR) 30MG XR TAB PO SCH (08:23)
[2022-08-03] MEDS: OMEPRAZOLE 20MG CAP PO SCH (08:24)
[2022-08-03] MEDS: ENOXAPARIN 30MG/0.3ML SYRINGE (J1650 PER 10MG) SC SCH (08:24)
[2022-08-03] MEDS: FUROSEMIDE 40MG/4ML VIAL (J1940) IV SCH ×2 (08:25→17:46)
[2022-08-03] MEDS: SPIRONOLACTONE 25 MG TAB PO SCH (08:35)
[2022-08-03] MEDS: VERAPAMIL 120MG SR TAB PO SCH (08:40)
[2022-08-03 14:00] VITALS: BP 114/63
[2022-08-03] MEDS: IPRATROPIUM 0.5MG/ALBUTEROL 2.5MG INH SOL UD 3ML (DUONEB) NEB PRN (15:15)
[2022-08-03 21:02] VITALS: BP 140/68
[2022-08-03] MEDS: AZITHROMYCIN 250MG TABLET PO SCH (21:49)
[2022-08-03] MEDS: MIRTAZAPINE 15 MG TAB PO SCH (21:49)
[2022-08-03] MEDS: traZODone 50 MG TAB PO SCH (21:49)
[2022-08-03] MEDS: ITRACONAZOLE 100 MG PO SCH (21:50)
[2022-08-04] MEDS: CEFIDEROCOL SULFATE TOSYLATE 2 GM in D5W 100 ML IV SCH ×3 (05:03→21:00)
[2022-08-04 05:04] VITALS: BP 130/62
[2022-08-04 06:23] LABS: BASO % 0.1 % (0.0-1.0); HEMATOCRIT 36.3 % (36.0-47.0); LYMPH # 0.5 10^3/uL (1.5-5.0); MEAN CORPUSCULAR HEMOGLOBIN 31.5 pg (27.0-33.0); MEAN CORPUSCULAR HGB CONC 33.1 g/dl (32.0-36.5); MEAN CORPUSCULAR VOLUME 95.3 fl (80.0-96.0); MONO # 0.4 10^3/uL (0.0-0.8); MONO % 2.9 % (2.0-8.0); NEUTROPHILS # 11.3 10^3/uL (1.5-8.5); NEUTROPHILS % 92.3 % (36.0-66.0); PLATELET COUNT, AUTOMATED 173 10^3/uL (150-450); RED BLOOD COUNT 3.81 10^6/uL (4.00-5.40); WHITE BLOOD COUNT 12.2 10^3/uL (4.0-10.0)
[2022-08-04 06:55] LABS: BLOOD UREA NITROGEN 18 MG/DL (7-18); CALCIUM LEVEL 9.2 MG/DL (8.8-10.2); CARBON DIOXIDE LEVEL 41 MEQ/L (21-32); CHLORIDE LEVEL 93 MEQ/L (98-107); CREATININE FOR GFR 0.68 MG/DL (0.55-1.30); GLOMERULAR FILTRATION RATE > 60.0 (>45); GLUCOSE, FASTING 182 MG/DL (70-100); POTASSIUM SERUM 3.9 MEQ/L (3.5-5.1); SODIUM LEVEL 138 MEQ/L (136-145)
[2022-08-04] MEDS: ADVAIR HFA 115/21MCG INHALER INH SCH ×2 (08:02→20:45)
[2022-08-04] MEDS: ALBUTEROL SULFATE 2.5 MG/0.5 ML INH NEB SOLN INH SCH ×2 (08:03→20:47)
[2022-08-04 08:15] VITALS: BP 147/64
[2022-08-04] MEDS: INSULIN LISPRO (NovoLOG) PER UNIT SC SCH ×4 (08:18→20:39)
[2022-08-04] MEDS: DOCUSATE SODIUM 100MG CAPSULE PO SCH ×2 (10:22→20:59)
[2022-08-04] MEDS: ISOSORBIDE MON. (IMDUR) 30MG XR TAB PO SCH (10:23)
[2022-08-04] MEDS: FERROUS SULFATE 325MG TAB PO SCH (10:23)
[2022-08-04] MEDS: levETIRAcetam 250MG TABLET (KEPPRA) PO SCH ×2 (10:24→21:01)
[2022-08-04] MEDS: VERAPAMIL 120MG SR TAB PO SCH (10:25)
[2022-08-04] MEDS: POTASSIUM CHLORIDE 10MEQ SR TABLET PO SCH ×2 (10:26→21:00)
[2022-08-04] MEDS: SPIRONOLACTONE 25 MG TAB PO SCH (10:27)
[2022-08-04] MEDS: ENOXAPARIN 30MG/0.3ML SYRINGE (J1650 PER 10MG) SC SCH (10:29)
[2022-08-04] MEDS: FUROSEMIDE 40MG/4ML VIAL (J1940) IV SCH ×2 (10:30→17:19)
[2022-08-04] MEDS: methylPREDNISolone 40MG 1ML VIAL IV SCH (10:31)
[2022-08-04] MEDS: OMEPRAZOLE 20MG CAP PO SCH (10:32)
[2022-08-04 14:00] VITALS: BP 144/66
[2022-08-04] MEDS: ITRACONAZOLE 100 MG PO SCH (21:00)
[2022-08-04] MEDS: MIRTAZAPINE 15 MG TAB PO SCH (21:01)
[2022-08-04] MEDS: traZODone 50 MG TAB PO SCH (21:01)
[2022-08-04] MEDS: AZITHROMYCIN 250MG TABLET PO SCH (21:01)
[2022-08-04 22:00] VITALS: BP 133/66
[2022-08-05] MEDS: CEFIDEROCOL SULFATE TOSYLATE 2 GM in D5W 100 ML IV SCH ×3 (05:25→20:09)
[2022-08-05 05:26] VITALS: BP 162/80
[2022-08-05 07:19] LABS: BLOOD UREA NITROGEN 18 MG/DL (7-18); CALCIUM LEVEL 9.1 MG/DL (8.8-10.2); CARBON DIOXIDE LEVEL 44 MEQ/L (21-32); CHLORIDE LEVEL 92 MEQ/L (98-107); CREATININE FOR GFR 0.73 MG/DL (0.55-1.30); GLOMERULAR FILTRATION RATE > 60.0 (>45); GLUCOSE, FASTING 80 MG/DL (70-100); POTASSIUM SERUM 3.7 MEQ/L (3.5-5.1); SODIUM LEVEL 137 MEQ/L (136-145)
[2022-08-05 07:24] LABS: BASO % 0.1 % (0.0-1.0); EOS % 0.2 % (0.0-3.0); HEMATOCRIT 42.6 % (36.0-47.0); HEMOGLOBIN 13.7 g/dl (12.0-15.5); LYMPH # 0.9 10^3/uL (1.5-5.0); LYMPH % 10.1 % (24.0-44.0); MEAN CORPUSCULAR HEMOGLOBIN 31.4 pg (27.0-33.0); MEAN CORPUSCULAR HGB CONC 32.2 g/dl (32.0-36.5); MEAN CORPUSCULAR VOLUME 97.5 fl (80.0-96.0); MONO # 0.6 10^3/uL (0.0-0.8); MONO % 6.1 % (2.0-8.0); NEUTROPHILS # 7.5 10^3/uL (1.5-8.5); NEUTROPHILS % 82.8 % (36.0-66.0); PLATELET COUNT, AUTOMATED 177 10^3/uL (150-450); RED BLOOD COUNT 4.37 10^6/uL (4.00-5.40)
[2022-08-05] MEDS: INSULIN LISPRO (NovoLOG) PER UNIT SC SCH ×4 (07:30→20:21)
[2022-08-05] MEDS: ADVAIR HFA 115/21MCG INHALER INH SCH ×2 (07:47→20:25)
[2022-08-05] MEDS: ALBUTEROL SULFATE 2.5 MG/0.5 ML INH NEB SOLN INH SCH ×2 (07:49→20:26)
[2022-08-05] MEDS ORDERED: predniSONE 20 MG TAB PO ONE (09:00)
[2022-08-05] MEDS: ENOXAPARIN 30MG/0.3ML SYRINGE (J1650 PER 10MG) SC SCH (09:29)
[2022-08-05] MEDS: FUROSEMIDE 40MG/4ML VIAL (J1940) IV SCH ×2 (09:29→17:30)
[2022-08-05] MEDS: POTASSIUM CHLORIDE 10MEQ SR TABLET PO SCH ×2 (09:30→20:09)
[2022-08-05] MEDS: SPIRONOLACTONE 25 MG TAB PO SCH (09:30)
[2022-08-05] MEDS: levETIRAcetam 250MG TABLET (KEPPRA) PO SCH ×2 (09:30→20:09)
[2022-08-05] MEDS: FERROUS SULFATE 325MG TAB PO SCH (09:30)
[2022-08-05] MEDS: DOCUSATE SODIUM 100MG CAPSULE PO SCH ×2 (09:31→20:09)
[2022-08-05] MEDS: VERAPAMIL 120MG SR TAB PO SCH (09:31)
[2022-08-05] MEDS: ISOSORBIDE MON. (IMDUR) 30MG XR TAB PO SCH (09:31)
[2022-08-05] MEDS: OMEPRAZOLE 20MG CAP PO SCH (09:32)
[2022-08-05 17:30] VITALS: BP 145/73
[2022-08-05] MEDS: traZODone 50 MG TAB PO SCH (20:09)
[2022-08-05] MEDS: AZITHROMYCIN 250MG TABLET PO SCH (20:09)
[2022-08-05] MEDS: MIRTAZAPINE 15 MG TAB PO SCH (20:09)
[2022-08-05] MEDS: ITRACONAZOLE 100 MG PO SCH (20:10)
[2022-08-05 20:47] VITALS: BP 145/73
[2022-08-06] MEDS: CEFIDEROCOL SULFATE TOSYLATE 2 GM in D5W 100 ML IV SCH ×3 (05:00→21:23)
[2022-08-06 05:21] VITALS: BP 122/59
[2022-08-06 07:16] LABS: BASO % 0.1 % (0.0-1.0); EOS # 0.1 10^3/uL (0.0-0.5); HEMATOCRIT 38.3 % (36.0-47.0); HEMOGLOBIN 12.4 g/dl (12.0-15.5); LYMPH % 12.6 % (24.0-44.0); MEAN CORPUSCULAR HEMOGLOBIN 31.3 pg (27.0-33.0); MEAN CORPUSCULAR HGB CONC 32.4 g/dl (32.0-36.5); MEAN CORPUSCULAR VOLUME 96.7 fl (80.0-96.0); MONO # 0.6 10^3/uL (0.0-0.8); MONO % 7.7 % (2.0-8.0); NEUTROPHILS # 6.1 10^3/uL (1.5-8.5); NEUTROPHILS % 77.3 % (36.0-66.0); PLATELET COUNT, AUTOMATED 152 10^3/uL (150-450); RED BLOOD COUNT 3.96 10^6/uL (4.00-5.40); WHITE BLOOD COUNT 7.9 10^3/uL (4.0-10.0)
[2022-08-06] MEDS: ADVAIR HFA 115/21MCG INHALER INH SCH ×2 (07:23→20:14)
[2022-08-06] MEDS: ALBUTEROL SULFATE 2.5 MG/0.5 ML INH NEB SOLN INH SCH ×2 (07:23→20:14)
[2022-08-06] MEDS: INSULIN LISPRO (NovoLOG) PER UNIT SC SCH ×4 (07:30→20:38)
[2022-08-06 07:52] LABS: BLOOD UREA NITROGEN 16 MG/DL (7-18); CALCIUM LEVEL 8.8 MG/DL (8.8-10.2); CARBON DIOXIDE LEVEL 43 MEQ/L (21-32); CHLORIDE LEVEL 93 MEQ/L (98-107); CREATININE FOR GFR 0.56 MG/DL (0.55-1.30); GLOMERULAR FILTRATION RATE > 60.0 (>45); GLUCOSE, FASTING 84 MG/DL (70-100); POTASSIUM SERUM 3.6 MEQ/L (3.5-5.1); SODIUM LEVEL 137 MEQ/L (136-145)
[2022-08-06] MEDS ORDERED: predniSONE 10 MG TAB PO ONE (09:00)
[2022-08-06] MEDS: ENOXAPARIN 30MG/0.3ML SYRINGE (J1650 PER 10MG) SC SCH (09:17)
[2022-08-06] MEDS: FERROUS SULFATE 325MG TAB PO SCH ×2 (09:18)
[2022-08-06] MEDS: OMEPRAZOLE 20MG CAP PO SCH (09:18)
[2022-08-06] MEDS: POTASSIUM CHLORIDE 10MEQ SR TABLET PO SCH ×2 (09:19→21:23)
[2022-08-06] MEDS: levETIRAcetam 250MG TABLET (KEPPRA) PO SCH ×2 (09:20→21:23)
[2022-08-06] MEDS: VERAPAMIL 120MG SR TAB PO SCH (09:20)
[2022-08-06] MEDS: ISOSORBIDE MON. (IMDUR) 30MG XR TAB PO SCH (09:21)
[2022-08-06] MEDS: DOCUSATE SODIUM 100MG CAPSULE PO SCH ×2 (09:21→21:23)
[2022-08-06] MEDS: SPIRONOLACTONE 25 MG TAB PO SCH (09:21)
[2022-08-06] MEDS: FUROSEMIDE 40MG/4ML VIAL (J1940) IV SCH ×2 (09:22→17:34)
[2022-08-06 14:00] VITALS: BP 138/67
[2022-08-06 20:32] VITALS: BP 135/69
[2022-08-06] MEDS: traZODone 50 MG TAB PO SCH (21:22)
[2022-08-06] MEDS: MIRTAZAPINE 15 MG TAB PO SCH (21:22)
[2022-08-06] MEDS: ITRACONAZOLE 100 MG PO SCH (21:22)
[2022-08-06] MEDS: AZITHROMYCIN 250MG TABLET PO SCH (21:23)
[2022-08-07] MEDS: CEFIDEROCOL SULFATE TOSYLATE 2 GM in D5W 100 ML IV SCH ×3 (05:10→21:44)
[2022-08-07 05:45] VITALS: BP 131/70
[2022-08-07 05:52] LABS: BASO % 0.1 % (0.0-1.0); EOS # 0.2 10^3/uL (0.0-0.5); EOS % 2.3 % (0.0-3.0); HEMOGLOBIN 11.7 g/dl (12.0-15.5); LYMPH # 1.2 10^3/uL (1.5-5.0); LYMPH % 15.5 % (24.0-44.0); MEAN CORPUSCULAR HEMOGLOBIN 31.2 pg (27.0-33.0); MEAN CORPUSCULAR HGB CONC 32.5 g/dl (32.0-36.5); MONO # 0.6 10^3/uL (0.0-0.8); MONO % 8.1 % (2.0-8.0); NEUTROPHILS # 5.5 10^3/uL (1.5-8.5); NEUTROPHILS % 73.3 % (36.0-66.0); PLATELET COUNT, AUTOMATED 139 10^3/uL (150-450); RED BLOOD COUNT 3.75 10^6/uL (4.00-5.40); WHITE BLOOD COUNT 7.5 10^3/uL (4.0-10.0)
[2022-08-07 06:30] LABS: BLOOD UREA NITROGEN 15 MG/DL (7-18); CALCIUM LEVEL 8.3 MG/DL (8.8-10.2); CARBON DIOXIDE LEVEL 43 MEQ/L (21-32); CHLORIDE LEVEL 93 MEQ/L (98-107); CREATININE FOR GFR 0.59 MG/DL (0.55-1.30); GLOMERULAR FILTRATION RATE > 60.0 (>45); GLUCOSE, FASTING 78 MG/DL (70-100); POTASSIUM SERUM 4.1 MEQ/L (3.5-5.1); SODIUM LEVEL 138 MEQ/L (136-145)
[2022-08-07] MEDS: ADVAIR HFA 115/21MCG INHALER INH SCH ×2 (06:41→19:36)
[2022-08-07] MEDS: ALBUTEROL SULFATE 2.5 MG/0.5 ML INH NEB SOLN INH SCH ×2 (06:42→19:36)
[2022-08-07] MEDS: INSULIN LISPRO (NovoLOG) PER UNIT SC SCH ×4 (07:30→20:41)
[2022-08-07] MEDS: FUROSEMIDE 40MG/4ML VIAL (J1940) IV SCH ×2 (08:37→17:35)
[2022-08-07] MEDS: ISOSORBIDE MON. (IMDUR) 30MG XR TAB PO SCH (08:38)
[2022-08-07] MEDS: ENOXAPARIN 30MG/0.3ML SYRINGE (J1650 PER 10MG) SC SCH (08:38)
[2022-08-07] MEDS: FERROUS SULFATE 325MG TAB PO SCH (08:38)
[2022-08-07] MEDS: OMEPRAZOLE 20MG CAP PO SCH (08:39)
[2022-08-07] MEDS: POTASSIUM CHLORIDE 10MEQ SR TABLET PO SCH ×2 (08:39→21:43)
[2022-08-07] MEDS: SPIRONOLACTONE 25 MG TAB PO SCH (08:39)
[2022-08-07] MEDS: levETIRAcetam 250MG TABLET (KEPPRA) PO SCH ×2 (08:39→21:43)
[2022-08-07] MEDS: DOCUSATE SODIUM 100MG CAPSULE PO SCH ×2 (08:39→21:43)
[2022-08-07] MEDS: VERAPAMIL 120MG SR TAB PO SCH (08:40)
[2022-08-07] MEDS ORDERED: predniSONE 20 MG TAB PO ONE (09:00)
[2022-08-07 14:00] VITALS: BP 130/72
[2022-08-07] MEDS: MIRTAZAPINE 15 MG TAB PO SCH (21:43)
[2022-08-07] MEDS: AZITHROMYCIN 250MG TABLET PO SCH (21:43)
[2022-08-07] MEDS: ITRACONAZOLE 100 MG PO SCH (21:44)
[2022-08-07] MEDS: traZODone 50 MG TAB PO SCH (21:44)
[2022-08-08] MEDS: CEFIDEROCOL SULFATE TOSYLATE 2 GM in D5W 100 ML IV SCH ×3 (05:28→21:19)
[2022-08-08] MEDS: TORSEMIDE 20 MG TAB PO SCH ×2 (05:28→17:18)
[2022-08-08 05:35] VITALS: BP 155/97
[2022-08-08 06:19] LABS: BASO % 0.1 % (0.0-1.0); EOS # 0.2 10^3/uL (0.0-0.5); EOS % 2.3 % (0.0-3.0); HEMATOCRIT 38.6 % (36.0-47.0); HEMOGLOBIN 12.3 g/dl (12.0-15.5); LYMPH # 1.3 10^3/uL (1.5-5.0); MEAN CORPUSCULAR HEMOGLOBIN 31.1 pg (27.0-33.0); MEAN CORPUSCULAR HGB CONC 31.9 g/dl (32.0-36.5); MEAN CORPUSCULAR VOLUME 97.5 fl (80.0-96.0); MONO # 0.6 10^3/uL (0.0-0.8); MONO % 6.6 % (2.0-8.0); NEUTROPHILS # 6.8 10^3/uL (1.5-8.5); NEUTROPHILS % 76.1 % (36.0-66.0); PLATELET COUNT, AUTOMATED 149 10^3/uL (150-450); RED BLOOD COUNT 3.96 10^6/uL (4.00-5.40)
[2022-08-08 06:44] LABS: BLOOD UREA NITROGEN 17 MG/DL (7-18); CALCIUM LEVEL 8.4 MG/DL (8.8-10.2); CARBON DIOXIDE LEVEL 42 MEQ/L (21-32); CHLORIDE LEVEL 94 MEQ/L (98-107); CREATININE FOR GFR 0.66 MG/DL (0.55-1.30); GLOMERULAR FILTRATION RATE > 60.0 (>45); GLUCOSE, FASTING 83 MG/DL (70-100); POTASSIUM SERUM 3.8 MEQ/L (3.5-5.1); SODIUM LEVEL 138 MEQ/L (136-145)
[2022-08-08] MEDS: INSULIN LISPRO (NovoLOG) PER UNIT SC SCH ×4 (07:30→21:00)
[2022-08-08] MEDS: ALBUTEROL SULFATE 2.5 MG/0.5 ML INH NEB SOLN INH SCH ×2 (07:33→20:22)
[2022-08-08] MEDS: ADVAIR HFA 115/21MCG INHALER INH SCH ×2 (07:33→20:22)
[2022-08-08] MEDS: DOCUSATE SODIUM 100MG CAPSULE PO SCH ×2 (09:10→21:19)
[2022-08-08] MEDS: OMEPRAZOLE 20MG CAP PO SCH (09:11)
[2022-08-08] MEDS: ISOSORBIDE MON. (IMDUR) 30MG XR TAB PO SCH (09:12)
[2022-08-08] MEDS: FERROUS SULFATE 325MG TAB PO SCH (09:13)
[2022-08-08] MEDS: VERAPAMIL 120MG SR TAB PO SCH (09:13)
[2022-08-08] MEDS: predniSONE 10 MG TAB PO SCH (09:13)
[2022-08-08] MEDS: SPIRONOLACTONE 25 MG TAB PO SCH (09:13)
[2022-08-08] MEDS: POTASSIUM CHLORIDE 10MEQ SR TABLET PO SCH ×2 (09:13→21:19)
[2022-08-08] MEDS: levETIRAcetam 250MG TABLET (KEPPRA) PO SCH ×2 (09:14→21:19)
[2022-08-08] MEDS: ENOXAPARIN 30MG/0.3ML SYRINGE (J1650 PER 10MG) SC SCH (09:14)
[2022-08-08] MEDS: IPRATROPIUM 0.5MG/ALBUTEROL 2.5MG INH SOL UD 3ML (DUONEB) NEB PRN (10:16)
[2022-08-08] MEDS: AZITHROMYCIN 250MG TABLET PO SCH (21:19)
[2022-08-08] MEDS: traZODone 50 MG TAB PO SCH (21:19)
[2022-08-08] MEDS: MIRTAZAPINE 15 MG TAB PO SCH (21:19)
[2022-08-08] MEDS: ITRACONAZOLE 100 MG PO SCH (21:20)
[2022-08-09] MEDS: CEFIDEROCOL SULFATE TOSYLATE 2 GM in D5W 100 ML IV SCH ×3 (05:20→22:25)
[2022-08-09] MEDS: TORSEMIDE 20 MG TAB PO SCH ×2 (05:20→18:20)
[2022-08-09 06:00] VITALS: BP 122/70
[2022-08-09] MEDS: INSULIN LISPRO (NovoLOG) PER UNIT SC SCH ×4 (07:23→21:00)
[2022-08-09] MEDS: ALBUTEROL SULFATE 2.5 MG/0.5 ML INH NEB SOLN INH SCH ×2 (07:58→19:45)
[2022-08-09] MEDS: ADVAIR HFA 115/21MCG INHALER INH SCH ×2 (07:58→19:45)
[2022-08-09 08:13] VITALS: BP 123/74
[2022-08-09] MEDS: ENOXAPARIN 30MG/0.3ML SYRINGE (J1650 PER 10MG) SC SCH (08:14)
[2022-08-09] MEDS: DOCUSATE SODIUM 100MG CAPSULE PO SCH ×2 (08:14→22:26)
[2022-08-09] MEDS: ISOSORBIDE MON. (IMDUR) 30MG XR TAB PO SCH (08:14)
[2022-08-09] MEDS: levETIRAcetam 250MG TABLET (KEPPRA) PO SCH ×2 (08:14→22:27)
[2022-08-09] MEDS: FERROUS SULFATE 325MG TAB PO SCH (08:14)
[2022-08-09] MEDS: predniSONE 10 MG TAB PO SCH (08:14)
[2022-08-09] MEDS: OMEPRAZOLE 20MG CAP PO SCH (08:15)
[2022-08-09] MEDS: VERAPAMIL 120MG SR TAB PO SCH (08:15)
[2022-08-09] MEDS: SPIRONOLACTONE 25 MG TAB PO SCH (08:15)
[2022-08-09] MEDS: POTASSIUM CHLORIDE 10MEQ SR TABLET PO SCH ×2 (08:15→22:26)
[2022-08-09 11:06] VITALS: BP 129/73
[2022-08-09] MEDS: MIRTAZAPINE 15 MG TAB PO SCH (22:26)
[2022-08-09] MEDS: traZODone 50 MG TAB PO SCH (22:26)
[2022-08-09] MEDS: AZITHROMYCIN 250MG TABLET PO SCH (22:26)
[2022-08-09] MEDS: ITRACONAZOLE 100 MG PO SCH (22:27)
[2022-08-10] MEDS: CEFIDEROCOL SULFATE TOSYLATE 2 GM in D5W 100 ML IV SCH ×3 (05:38→21:31)
[2022-08-10] MEDS: TORSEMIDE 20 MG TAB PO SCH ×2 (05:40→17:48)
[2022-08-10 05:49] VITALS: BP 119/64
[2022-08-10] MEDS: ALBUTEROL SULFATE 2.5 MG/0.5 ML INH NEB SOLN INH SCH ×2 (07:24→19:55)
[2022-08-10] MEDS: ADVAIR HFA 115/21MCG INHALER INH SCH ×2 (07:24→19:56)
[2022-08-10] MEDS: INSULIN LISPRO (NovoLOG) PER UNIT SC SCH ×4 (07:30→21:00)
[2022-08-10] MEDS: levETIRAcetam 250MG TABLET (KEPPRA) PO SCH ×2 (09:02→21:32)
[2022-08-10] MEDS: OMEPRAZOLE 20MG CAP PO SCH (09:02)
[2022-08-10] MEDS: DOCUSATE SODIUM 100MG CAPSULE PO SCH ×2 (09:03→21:00)
[2022-08-10] MEDS: FERROUS SULFATE 325MG TAB PO SCH ×2 (09:03)
[2022-08-10] MEDS: SPIRONOLACTONE 25 MG TAB PO SCH (09:03)
[2022-08-10] MEDS: POTASSIUM CHLORIDE 10MEQ SR TABLET PO SCH ×2 (09:03→21:32)
[2022-08-10] MEDS: predniSONE 10 MG TAB PO SCH (09:04)
[2022-08-10] MEDS: ENOXAPARIN 30MG/0.3ML SYRINGE (J1650 PER 10MG) SC SCH (09:04)
[2022-08-10] MEDS: ISOSORBIDE MON. (IMDUR) 30MG XR TAB PO SCH (09:07)
[2022-08-10] MEDS: VERAPAMIL 120MG SR TAB PO SCH (09:08)
[2022-08-10] MEDS: traZODone 50 MG TAB PO SCH (21:32)
[2022-08-10] MEDS: AZITHROMYCIN 250MG TABLET PO SCH (21:32)
[2022-08-10] MEDS: MIRTAZAPINE 15 MG TAB PO SCH (21:32)
[2022-08-10] MEDS: ITRACONAZOLE 100 MG PO SCH (21:33)
[2022-08-11] MEDS: TORSEMIDE 20 MG TAB PO SCH (05:25)
[2022-08-11] MEDS: CEFIDEROCOL SULFATE TOSYLATE 2 GM in D5W 100 ML IV SCH (05:25)
[2022-08-11 06:23] VITALS: BP 125/71
[2022-08-11] MEDS: ALBUTEROL SULFATE 2.5 MG/0.5 ML INH NEB SOLN INH SCH (07:11)
[2022-08-11] MEDS: ADVAIR HFA 115/21MCG INHALER INH SCH (07:11)
[2022-08-11] MEDS: INSULIN LISPRO (NovoLOG) PER UNIT SC SCH ×2 (07:30→12:13)
[2022-08-11 08:00] VITALS: BP 125/69
[2022-08-11 08:34] VITALS: BP 125/69
[2022-08-11] MEDS: VERAPAMIL 120MG SR TAB PO SCH (08:34)
[2022-08-11] MEDS: levETIRAcetam 250MG TABLET (KEPPRA) PO SCH (08:34)
[2022-08-11] MEDS: ISOSORBIDE MON. (IMDUR) 30MG XR TAB PO SCH (08:34)
[2022-08-11] MEDS: DOCUSATE SODIUM 100MG CAPSULE PO SCH (08:35)
[2022-08-11] MEDS: SPIRONOLACTONE 25 MG TAB PO SCH (08:35)
[2022-08-11] MEDS: FERROUS SULFATE 325MG TAB PO SCH (08:35)
[2022-08-11] MEDS: ENOXAPARIN 30MG/0.3ML SYRINGE (J1650 PER 10MG) SC SCH (08:37)
[2022-08-11] MEDS: predniSONE 10 MG TAB PO SCH (08:39)
[2022-08-11] MEDS: OMEPRAZOLE 20MG CAP PO SCH (08:39)
[2022-08-11] MEDS: POTASSIUM CHLORIDE 10MEQ SR TABLET PO SCH (08:39)
[2022-08-11] MEDS ORDERED: PRED5PAK PO (11:34)
[2022-08-11] MEDS ORDERED: FLUBLOK(EGG FREE)(QUAD)INFLUENZA VACC 0.5ML SYRINGE 18YRS & OLDER IM.IMMUN ONE (13:00)
== END 2022-08-11 12:45 | disposition home or self-care (01) | DRG 191 ==
LOC: M PCU 13:39 → M MSPAV 08-02 18:53
PROVIDERS: ADMIT Internal Medicine Nephrology; ATTEND Internal Medicine
DX: J47.1 Bronchiectasis with (acute) exacerbation (principal); J96.11 Chronic respiratory failure with hypoxia; D84.9 Immunodeficiency, unspecified; J96.12 Chronic respiratory failure with hypercapnia; J47.0 Bronchiectasis with acute lower respiratory infection; Z99.81 Dependence on supplemental oxygen; G40.909 Epilepsy, unspecified, not intractable, without status epilepticus; I11.0 Hypertensive heart disease with heart failure; Z79.2 Long term (current) use of antibiotics; Z86.711 Personal history of pulmonary embolism; K21.9 Gastro-esophageal reflux disease without esophagitis; F32.A Depression, unspecified; I50.9 Heart failure, unspecified; M81.0 Age-related osteoporosis without current pathological fracture; K31.84 Gastroparesis; Z90.49 Acquired absence of other specified parts of digestive tract; Z90.79 Acquired absence of other genital organ(s); I27.81 Cor pulmonale (chronic); Z66 Do not resuscitate; Z79.52 Long term (current) use of systemic steroids; Z79.899 Other long term (current) drug therapy; Z88.1 Allergy status to other antibiotic agents; Z88.8 Allergy status to other drugs, medicaments and biological substances; Z20.822 Contact with and (suspected) exposure to COVID-19; H53.8 Other visual disturbances

== ENCOUNTER → 2022-08-22 | Outpatient (REF) | payer MEDICARE, BC ==
[~2022-08-22] MED LIST changes: +BACI1CAP PO; +BUDE10.7 IH; +FAMO20TA PO; +LIDO5CRE9 TOP; +LIDO5OIN19 TOP; +LIDO5TD TD; +METO1TAB87 PO; +MIRA1POW3 PO; +PRED20TA PO; +PRED5PAK PO; +TORS10TA3 PO; +VERA240C3 PO
== END ==
LOC: M SFHCPLAZ 17:33
PROVIDERS: ATTEND Internal Medicine Infectious Disease
DX: Z86.19 Personal history of other infectious and parasitic diseases (principal)

== ENCOUNTER → 2022-08-31 | Outpatient (CLI) | payer MEDICARE, BC | LOC: M PLAIMG 12:30 | PROVIDERS: ATTEND Internal Medicine | DX: R06.00 Dyspnea, unspecified (principal); R05.9 Cough, unspecified; J84.10 Pulmonary fibrosis, unspecified ==

== ENCOUNTER 2022-09-29 15:28 | Inpatient (IN) | payer MEDICARE, BC ==
[~2022-09-29] VITALS: Ht 152.4 cm; Wt 60.7 kg
[~2022-09-29 15:28] MED LIST changes: -LIDO5CRE9 TOP
[2022-09-29] MEDS ORDERED: MIRA3350 PO (16:26)
[2022-09-29] MEDS ORDERED: methylPREDNISolone 125MG 2ML VIAL IV ONE (16:30)
[2022-09-29] MEDS ORDERED: LIDO5CRE9 TOP (16:31)
[2022-09-29] MEDS ORDERED: TORS10TA3 PO (16:34)
[2022-09-29] MEDS ORDERED: METO1TAB87 PO (16:34)
[2022-09-29] MEDS ORDERED: POTA-136 PO (16:34)
[2022-09-29] MEDS ORDERED: FAMO20TA PO (16:35)
[2022-09-29] MEDS ORDERED: HOME MED LIST COMPLETE! XX SCH (16:40)
[2022-09-29] MEDS: IPRATROPIUM 0.5MG/ALBUTEROL 2.5MG INH SOL UD 3ML (DUONEB) NEB PRN ×2 (16:55→17:03)
[2022-09-29 17:02] LABS: ABG BASE EXCESS 10.5 (-2.0-2.0); ABG O2 SATURATION 95.5 % (95.0-99.0); ABG PARTIAL PRESSURE CO2 58.4 mmHg (35.0-45.0); ABG PARTIAL PRESSURE O2 79.4 mmHg (75.0-100.0); ABG STANDARD HCO3 34.2 MEQ/L (22.0-26.0); ABG TOTAL CO2 38.8 MEQ/L (23.0-31.0)
[2022-09-29 17:19] LABS: ALKALINE PHOSPHATASE 120 U/L (46-116); ALT/SGPT 13 U/L (7.0-40); AST/SGOT 17 U/L (<34); BILIRUBIN,DIRECT < 0.1 MG/DL (<0.4); BILIRUBIN,TOTAL 0.3 MG/DL (0.3-1.2); BLOOD UREA NITROGEN 6 MG/DL (9-23); CALCIUM LEVEL 8.7 MG/DL (8.3-10.6); CARBON DIOXIDE LEVEL 39 MMOL/L (20-31); CHLORIDE LEVEL 97 MMOL/L (98-107); CK-MB VALUE MASS < 1.0 NG/ML (<3.6); CPK CREATINE PHOSPHOKINASE 18 U/L (34-145); CREATININE FOR GFR 0.58 MG/DL (0.55-1.30); GLOMERULAR FILTRATION RATE > 60.0 (>45); GLUCOSE, FASTING 109 MG/DL (74-106); MB/CK RELATIVE INDEX 5.55 (< OR =4); POTASSIUM SERUM 3.4 MMOL/L (3.5-5.1); SODIUM LEVEL 140 MMOL/L (136-145); THYROID STIMULATING HORMONE 0.812 uIU/ML (0.55-4.78); TOTAL PROTEIN 6.4 G/DL (5.7-8.2)
[2022-09-29 17:19] LABS: BASO % 0.6 % (0.0-1.0); EOS # 0.2 10^3/uL (0.0-0.5); HEMATOCRIT 40.9 % (36.0-47.0); HEMOGLOBIN 12.9 g/dl (12.0-15.5); LYMPH # 1.1 10^3/uL (1.5-5.0); LYMPH % 20.3 % (24.0-44.0); MEAN CORPUSCULAR HEMOGLOBIN 29.9 pg (27.0-33.0); MEAN CORPUSCULAR HGB CONC 31.5 g/dl (32.0-36.5); MEAN CORPUSCULAR VOLUME 94.9 fl (80.0-96.0); MONO # 0.4 10^3/uL (0.0-0.8); MONO % 7.9 % (2.0-8.0); NEUTROPHILS # 3.4 10^3/uL (1.5-8.5); NEUTROPHILS % 65.7 % (36.0-66.0); PLATELET COUNT, AUTOMATED 304 10^3/uL (150-450); RED BLOOD COUNT 4.31 10^6/uL (4.00-5.40); WHITE BLOOD COUNT 5.2 10^3/uL (4.0-10.0)
[2022-09-29 17:30] LABS: INR 0.97; PROTHROMBIN TIME 13.1 SECONDS (12.5-14.5)
[2022-09-29 17:31] LABS: PARTIAL THROMBOPLASTIN TIME 25.8 SECONDS (24.8-34.2)
[2022-09-29] MEDS ORDERED: POTASSIUM CHLORIDE 10MEQ SR TABLET PO ONE (17:40)
[2022-09-29] MEDS ORDERED: ALBUTEROL SULFATE 2.5 MG/0.5 ML INH NEB SOLN NEB PRN (18:35)
[2022-09-29] MEDS: IPRATROPIUM 0.5MG/ALBUTEROL 2.5MG INH SOL UD 3ML (DUONEB) NEB SCH ×2 (19:27→23:44)
[2022-09-29 20:50] VITALS: BP 137/63
[2022-09-29] MEDS ORDERED: OMEPRAZOLE 20MG CAP PO SCH (21:00)
[2022-09-29] MEDS: METOPROLOL TART 25 MG TABLET PO SCH (21:24)
[2022-09-29] MEDS: MIRTAZAPINE 15 MG TAB PO SCH (21:24)
[2022-09-29] MEDS: AZITHROMYCIN 250MG TABLET PO SCH (21:24)
[2022-09-29] MEDS: levETIRAcetam 250MG TABLET (KEPPRA) PO SCH (21:24)
[2022-09-29] MEDS: traZODone 50 MG TAB PO SCH (21:24)
[2022-09-29] MEDS: FAMOTIDINE 20 MG TAB PO SCH (21:24)
[2022-09-29] MEDS ORDERED: GLUCAGON INJ 1MG VIAL SC PRN (21:40)
[2022-09-29] MEDS ORDERED: DEXTROSE 50% 50 ML SYRINGE IV PRN (21:40)
[2022-09-29] MEDS ORDERED: GLUCOSE 4GM CHEW TABLET PO PRN (21:40)
[2022-09-29] MEDS: INSULIN LISPRO (NovoLOG) PER UNIT SC SCH (22:27)
[2022-09-30] VITALS (17 sets, daily range): BP systolic 113–136; BP diastolic 60–66; O2SAT 93–99
[2022-09-30] MEDS: ITRACONAZOLE 100 MG PO SCH ×2 (00:21→21:58)
[2022-09-30] MEDS: IPRATROPIUM 0.5MG/ALBUTEROL 2.5MG INH SOL UD 3ML (DUONEB) NEB SCH ×5 (04:00→19:30)
[2022-09-30] MEDS: HEPARIN SOD (PORCINE) 5000UNITS/ML 1ML VIAL/SYRINGE SC SCH ×3 (05:28→21:55)
[2022-09-30] MEDS: methylPREDNISolone 125MG 2ML VIAL IV SCH ×2 (05:29→17:58)
[2022-09-30 05:59] LABS: BASO % 0.3 % (0.0-1.0); HEMATOCRIT 32.9 % (36.0-47.0); LYMPH # 0.3 10^3/uL (1.5-5.0); LYMPH % 7.7 % (24.0-44.0); MEAN CORPUSCULAR HEMOGLOBIN 30.4 pg (27.0-33.0); MEAN CORPUSCULAR HGB CONC 32.2 g/dl (32.0-36.5); MEAN CORPUSCULAR VOLUME 94.3 fl (80.0-96.0); MONO % 0.8 % (2.0-8.0); NEUTROPHILS # 3.4 10^3/uL (1.5-8.5); NEUTROPHILS % 89.6 % (36.0-66.0); PLATELET COUNT, AUTOMATED 273 10^3/uL (150-450); RED BLOOD COUNT 3.49 10^6/uL (4.00-5.40); WHITE BLOOD COUNT 3.8 10^3/uL (4.0-10.0)
[2022-09-30 06:14] LABS: HEMOGLOBIN 10.6 g/dl (12.0-15.5)
[2022-09-30 07:27] LABS: BLOOD UREA NITROGEN 10 MG/DL (9-23); CALCIUM LEVEL 8.1 MG/DL (8.3-10.6); CARBON DIOXIDE LEVEL 30 MMOL/L (20-31); CHLORIDE LEVEL 100 MMOL/L (98-107); CREATININE FOR GFR 0.52 MG/DL (0.55-1.30); GLOMERULAR FILTRATION RATE > 60.0 (>45); GLUCOSE, FASTING 189 MG/DL (74-106); POTASSIUM SERUM 4.7 MMOL/L (3.5-5.1); SODIUM LEVEL 139 MMOL/L (136-145)
[2022-09-30 08:00] LABS: CLOSTRIDIUM DIFFICILE PCR NEGATIVE (NEGATIVE)
[2022-09-30] MEDS: MULTIVITAMINS/MINERALS THERAP 1 TAB PO SCH (08:33)
[2022-09-30] MEDS: CALCIUM/VITAMIN D 500 MG TAB PO SCH (08:33)
[2022-09-30] MEDS: TORSEMIDE 10 MG TABLET PO SCH (08:33)
[2022-09-30] MEDS: METOPROLOL TART 25 MG TABLET PO SCH ×2 (08:34→21:57)
[2022-09-30] MEDS: FERROUS SULFATE 325MG TAB PO SCH (08:34)
[2022-09-30] MEDS: levETIRAcetam 250MG TABLET (KEPPRA) PO SCH ×2 (08:34→21:56)
[2022-09-30] MEDS: FAMOTIDINE 20 MG TAB PO SCH ×2 (08:34→21:56)
[2022-09-30] MEDS: INSULIN LISPRO (NovoLOG) PER UNIT SC SCH ×4 (08:35→21:00)
[2022-09-30] MEDS ORDERED: SODIUM CHLORIDE HYPERTONIC 3% 15ML NEB SOL INH SCH (12:00)
[2022-09-30] MEDS: guaiFENesin ER 600 MG TAB PO SCH ×2 (13:08→21:57)
[2022-09-30] MEDS: OMEPRAZOLE 20MG CAP PO SCH (13:08)
[2022-09-30] MEDS ORDERED: CEFIDEROCOL SULFATE TOSYLATE 2 GM in D5W 100 ML IV SCH (14:00)
[2022-09-30] MEDS: CEFIDEROCOL SULFATE TOSYLATE 2 GM in D5W 100 ML IV SCH ×2 (14:44→22:01)
[2022-09-30] MEDS: SODIUM CHLORIDE HYPERTONIC 3% 15ML NEB SOL INH SCH ×2 (15:09→19:30)
[2022-09-30] MEDS: AZITHROMYCIN 250MG TABLET PO SCH (21:55)
[2022-09-30] MEDS: traZODone 50 MG TAB PO SCH (21:56)
[2022-09-30] MEDS: MIRTAZAPINE 15 MG TAB PO SCH (21:56)
[2022-10-01] VITALS (19 sets, daily range): BP systolic 112–147; BP diastolic 51–70; O2SAT 91–100
[2022-10-01] MEDS: SODIUM CHLORIDE HYPERTONIC 3% 15ML NEB SOL INH SCH ×7 (00:01→23:34)
[2022-10-01] MEDS: IPRATROPIUM 0.5MG/ALBUTEROL 2.5MG INH SOL UD 3ML (DUONEB) NEB SCH ×7 (00:01→23:34)
[2022-10-01 05:34] LABS: BASO % 0.1 % (0.0-1.0); HEMATOCRIT 30.3 % (36.0-47.0); HEMOGLOBIN 9.8 g/dl (12.0-15.5); LYMPH # 0.4 10^3/uL (1.5-5.0); LYMPH % 5.7 % (24.0-44.0); MEAN CORPUSCULAR HEMOGLOBIN 30.2 pg (27.0-33.0); MEAN CORPUSCULAR HGB CONC 32.3 g/dl (32.0-36.5); MEAN CORPUSCULAR VOLUME 93.2 fl (80.0-96.0); MONO # 0.2 10^3/uL (0.0-0.8); MONO % 2.1 % (2.0-8.0); NEUTROPHILS # 6.3 10^3/uL (1.5-8.5); PLATELET COUNT, AUTOMATED 300 10^3/uL (150-450); RED BLOOD COUNT 3.25 10^6/uL (4.00-5.40)
[2022-10-01 06:23] LABS: BLOOD UREA NITROGEN 12 MG/DL (9-23); CALCIUM LEVEL 7.9 MG/DL (8.3-10.6); CARBON DIOXIDE LEVEL 36 MMOL/L (20-31); CHLORIDE LEVEL 95 MMOL/L (98-107); CREATININE FOR GFR 0.55 MG/DL (0.55-1.30); GLOMERULAR FILTRATION RATE > 60.0 (>45); GLUCOSE, FASTING 202 MG/DL (74-106); POTASSIUM SERUM 3.7 MMOL/L (3.5-5.1); SODIUM LEVEL 138 MMOL/L (136-145)
[2022-10-01] MEDS: HEPARIN SOD (PORCINE) 5000UNITS/ML 1ML VIAL/SYRINGE SC SCH ×3 (06:35→23:10)
[2022-10-01] MEDS: CEFIDEROCOL SULFATE TOSYLATE 2 GM in D5W 100 ML IV SCH ×3 (06:45→23:11)
[2022-10-01] MEDS: INSULIN LISPRO (NovoLOG) PER UNIT SC SCH ×4 (08:53→20:26)
[2022-10-01] MEDS: OMEPRAZOLE 20MG CAP PO SCH (08:53)
[2022-10-01] MEDS: predniSONE 20 MG TAB PO SCH (08:53)
[2022-10-01] MEDS: levETIRAcetam 250MG TABLET (KEPPRA) PO SCH ×2 (08:54→20:45)
[2022-10-01] MEDS: MULTIVITAMINS/MINERALS THERAP 1 TAB PO SCH (08:54)
[2022-10-01] MEDS: guaiFENesin ER 600 MG TAB PO SCH ×2 (08:54→20:45)
[2022-10-01] MEDS: FAMOTIDINE 20 MG TAB PO SCH ×2 (08:54→20:45)
[2022-10-01] MEDS: METOPROLOL TART 25 MG TABLET PO SCH ×2 (08:55→20:45)
[2022-10-01] MEDS: FERROUS SULFATE 325MG TAB PO SCH (08:58)
[2022-10-01] MEDS: TORSEMIDE 10 MG TABLET PO SCH (09:00)
[2022-10-01] MEDS: CALCIUM/VITAMIN D 500 MG TAB PO SCH (09:00)
[2022-10-01] MEDS: ITRACONAZOLE 100 MG PO SCH (20:44)
[2022-10-01] MEDS: AZITHROMYCIN 250MG TABLET PO SCH (20:45)
[2022-10-01] MEDS: traZODone 50 MG TAB PO SCH (20:45)
[2022-10-01] MEDS: MIRTAZAPINE 15 MG TAB PO SCH (20:45)
[2022-10-02] VITALS (15 sets, daily range): BP systolic 115–149; BP diastolic 60–67; O2SAT 98–100
[2022-10-02] MEDS: SODIUM CHLORIDE HYPERTONIC 3% 15ML NEB SOL INH SCH ×5 (03:15→20:05)
[2022-10-02] MEDS: IPRATROPIUM 0.5MG/ALBUTEROL 2.5MG INH SOL UD 3ML (DUONEB) NEB SCH ×5 (03:15→20:05)
[2022-10-02 05:59] LABS: HEMATOCRIT 31.5 % (36.0-47.0); HEMOGLOBIN 10.1 g/dl (12.0-15.5); MEAN CORPUSCULAR HEMOGLOBIN 29.9 pg (27.0-33.0); MEAN CORPUSCULAR HGB CONC 32.1 g/dl (32.0-36.5); MEAN CORPUSCULAR VOLUME 93.2 fl (80.0-96.0); PLATELET COUNT, AUTOMATED 271 10^3/uL (150-450); RED BLOOD COUNT 3.38 10^6/uL (4.00-5.40); WHITE BLOOD COUNT 6.3 10^3/uL (4.0-10.0)
[2022-10-02] MEDS: HEPARIN SOD (PORCINE) 5000UNITS/ML 1ML VIAL/SYRINGE SC SCH ×3 (06:27→20:35)
[2022-10-02] MEDS: CEFIDEROCOL SULFATE TOSYLATE 2 GM in D5W 100 ML IV SCH ×3 (06:27→22:49)
[2022-10-02 06:30] LABS: ATYPICAL LYMPH 1 % (0-5); HYPOCHROMASIA 2+; LYMPHOCYTES 7 % (16-44); MONOCYTES 9 % (0-5); NEUTROPHILS 82 % (28-66); PLATELET ESTIMATE NORMAL (NORMAL)
[2022-10-02 06:49] LABS: BLOOD UREA NITROGEN 12 MG/DL (9-23); CALCIUM LEVEL 8.3 MG/DL (8.3-10.6); CARBON DIOXIDE LEVEL 38 MMOL/L (20-31); CHLORIDE LEVEL 96 MMOL/L (98-107); CREATININE FOR GFR 0.59 MG/DL (0.55-1.30); GLOMERULAR FILTRATION RATE > 60.0 (>45); GLUCOSE, FASTING 153 MG/DL (74-106); POTASSIUM SERUM 2.9 MMOL/L (3.5-5.1); SODIUM LEVEL 140 MMOL/L (136-145)
[2022-10-02 08:00] LABS: MAGNESIUM LEVEL 2.4 MG/DL (1.8-2.4)
[2022-10-02] MEDS: predniSONE 20 MG TAB PO SCH (08:16)
[2022-10-02] MEDS: FAMOTIDINE 20 MG TAB PO SCH ×2 (08:16→20:36)
[2022-10-02] MEDS: MULTIVITAMINS/MINERALS THERAP 1 TAB PO SCH (08:16)
[2022-10-02] MEDS: FERROUS SULFATE 325MG TAB PO SCH (08:16)
[2022-10-02] MEDS: OMEPRAZOLE 20MG CAP PO SCH (08:16)
[2022-10-02] MEDS: levETIRAcetam 250MG TABLET (KEPPRA) PO SCH ×2 (08:17→20:35)
[2022-10-02] MEDS: guaiFENesin ER 600 MG TAB PO SCH ×2 (08:17→20:35)
[2022-10-02] MEDS: CALCIUM/VITAMIN D 500 MG TAB PO SCH (08:17)
[2022-10-02] MEDS: METOPROLOL TART 25 MG TABLET PO SCH ×2 (08:17→20:35)
[2022-10-02] MEDS: KCL 10MEQ/100ML SWI (KRUN) 10 MEQ in IV 1 EA IV SCH ×4 (08:18→13:14)
[2022-10-02] MEDS: TORSEMIDE 10 MG TABLET PO SCH (08:18)
[2022-10-02] MEDS: INSULIN LISPRO (NovoLOG) PER UNIT SC SCH ×4 (08:19→20:29)
[2022-10-02] MEDS ORDERED: POTASSIUM CHLORIDE 10MEQ SR TABLET PO ONE (12:00)
[2022-10-02 20:03] LABS: BLOOD UREA NITROGEN 15 MG/DL (9-23); CALCIUM LEVEL 7.6 MG/DL (8.3-10.6); CARBON DIOXIDE LEVEL 32 MMOL/L (20-31); CHLORIDE LEVEL 96 MMOL/L (98-107); CREATININE FOR GFR 0.56 MG/DL (0.55-1.30); GLOMERULAR FILTRATION RATE > 60.0 (>45); GLUCOSE, FASTING 262 MG/DL (74-106); SODIUM LEVEL 137 MMOL/L (136-145)
[2022-10-02] MEDS: AZITHROMYCIN 250MG TABLET PO SCH (20:35)
[2022-10-02] MEDS: MIRTAZAPINE 15 MG TAB PO SCH (20:35)
[2022-10-02] MEDS: ITRACONAZOLE 100 MG PO SCH (20:36)
[2022-10-02] MEDS: traZODone 50 MG TAB PO SCH (20:36)
[2022-10-03] MEDS: SODIUM CHLORIDE HYPERTONIC 3% 15ML NEB SOL INH SCH ×6 (03:41→19:46)
[2022-10-03] MEDS: IPRATROPIUM 0.5MG/ALBUTEROL 2.5MG INH SOL UD 3ML (DUONEB) NEB SCH ×6 (03:41→19:46)
[2022-10-03 04:00] VITALS: BP 137/60
[2022-10-03 05:35] LABS: HEMATOCRIT 33.3 % (36.0-47.0); HEMOGLOBIN 10.6 g/dl (12.0-15.5); MEAN CORPUSCULAR HEMOGLOBIN 30.2 pg (27.0-33.0); MEAN CORPUSCULAR HGB CONC 31.8 g/dl (32.0-36.5); MEAN CORPUSCULAR VOLUME 94.9 fl (80.0-96.0); PLATELET COUNT, AUTOMATED 253 10^3/uL (150-450); RED BLOOD COUNT 3.51 10^6/uL (4.00-5.40); WHITE BLOOD COUNT 5.1 10^3/uL (4.0-10.0)
[2022-10-03 05:52] LABS: ATYPICAL LYMPH 4 % (0-5); LYMPHOCYTES 10 % (16-44); METAMYELOCYTES 1 % (0-0); MONOCYTES 10 % (0-5); MYELOCYTES 1 % (0-0); NEUTROPHILS 72 % (28-66); PLATELET ESTIMATE NORMAL (NORMAL)
[2022-10-03 06:04] LABS: BLOOD UREA NITROGEN 11 MG/DL (9-23); CALCIUM LEVEL 8.1 MG/DL (8.3-10.6); CARBON DIOXIDE LEVEL 37 MMOL/L (20-31); CHLORIDE LEVEL 99 MMOL/L (98-107); GLOMERULAR FILTRATION RATE > 60.0 (>45); GLUCOSE, FASTING 117 MG/DL (74-106); POTASSIUM SERUM 3.9 MMOL/L (3.5-5.1); SODIUM LEVEL 141 MMOL/L (136-145)
[2022-10-03] MEDS: CEFIDEROCOL SULFATE TOSYLATE 2 GM in D5W 100 ML IV SCH ×3 (06:24→23:00)
[2022-10-03] MEDS: HEPARIN SOD (PORCINE) 5000UNITS/ML 1ML VIAL/SYRINGE SC SCH ×3 (06:25→23:00)
[2022-10-03 07:39] VITALS: BP 145/70
[2022-10-03] MEDS: guaiFENesin ER 600 MG TAB PO SCH ×2 (08:53→20:35)
[2022-10-03] MEDS: METOPROLOL TART 25 MG TABLET PO SCH ×2 (08:53→20:36)
[2022-10-03] MEDS: predniSONE 20 MG TAB PO SCH (08:53)
[2022-10-03] MEDS: FERROUS SULFATE 325MG TAB PO SCH (08:53)
[2022-10-03] MEDS: OMEPRAZOLE 20MG CAP PO SCH (08:53)
[2022-10-03] MEDS: MULTIVITAMINS/MINERALS THERAP 1 TAB PO SCH (08:53)
[2022-10-03] MEDS: levETIRAcetam 250MG TABLET (KEPPRA) PO SCH ×2 (08:54→20:35)
[2022-10-03] MEDS: CALCIUM/VITAMIN D 500 MG TAB PO SCH (08:54)
[2022-10-03] MEDS: TORSEMIDE 10 MG TABLET PO SCH (08:54)
[2022-10-03] MEDS: FAMOTIDINE 20 MG TAB PO SCH ×2 (08:54→20:35)
[2022-10-03] MEDS: INSULIN LISPRO (NovoLOG) PER UNIT SC SCH ×4 (09:09→20:36)
[2022-10-03 12:00] VITALS: BP 122/58
[2022-10-03 16:00] VITALS: BP 132/58
[2022-10-03 20:00] VITALS: BP 122/56
[2022-10-03] MEDS: traZODone 50 MG TAB PO SCH (20:35)
[2022-10-03] MEDS: LEVEMIR (INSULIN DETEMIR) 1 UNITS/0.01ML SC SCH (20:35)
[2022-10-03] MEDS: ITRACONAZOLE 100 MG PO SCH (20:35)
[2022-10-03] MEDS: MIRTAZAPINE 15 MG TAB PO SCH (20:36)
[2022-10-03] MEDS: AZITHROMYCIN 250MG TABLET PO SCH (20:36)
[2022-10-04] MEDS: IPRATROPIUM 0.5MG/ALBUTEROL 2.5MG INH SOL UD 3ML (DUONEB) NEB SCH ×6 (00:28→21:18)
[2022-10-04] MEDS: SODIUM CHLORIDE HYPERTONIC 3% 15ML NEB SOL INH SCH ×6 (00:28→21:18)
[2022-10-04 04:00] VITALS: BP 134/64
[2022-10-04 05:36] LABS: HEMATOCRIT 32.8 % (36.0-47.0); HEMOGLOBIN 10.5 g/dl (12.0-15.5); MEAN CORPUSCULAR HEMOGLOBIN 29.9 pg (27.0-33.0); MEAN CORPUSCULAR VOLUME 93.4 fl (80.0-96.0); PLATELET COUNT, AUTOMATED 226 10^3/uL (150-450); RED BLOOD COUNT 3.51 10^6/uL (4.00-5.40); WHITE BLOOD COUNT 6.6 10^3/uL (4.0-10.0)
[2022-10-04 05:47] LABS: ATYPICAL LYMPH 3 % (0-5); LYMPHOCYTES 16 % (16-44); METAMYELOCYTES 1 % (0-0); MONOCYTES 10 % (0-5); MYELOCYTES 4 % (0-0); NEUTROPHILS 66 % (28-66); PLATELET ESTIMATE NORMAL (NORMAL)
[2022-10-04 05:54] LABS: CHLORIDE LEVEL 98 MMOL/L (98-107); SODIUM LEVEL 139 MMOL/L (136-145)
[2022-10-04 05:55] LABS: CARBON DIOXIDE LEVEL 34 MMOL/L (20-31)
[2022-10-04 06:00] LABS: BLOOD UREA NITROGEN 8 MG/DL (9-23); CALCIUM LEVEL 7.4 MG/DL (8.3-10.6); GLUCOSE, FASTING 70 MG/DL (74-106)
[2022-10-04 06:02] LABS: CREATININE FOR GFR 0.47 MG/DL (0.55-1.30); GLOMERULAR FILTRATION RATE > 60.0 (>45)
[2022-10-04 06:13] LABS: POTASSIUM SERUM 3.2 MMOL/L (3.5-5.1)
[2022-10-04] MEDS: CEFIDEROCOL SULFATE TOSYLATE 2 GM in D5W 100 ML IV SCH ×3 (06:28→22:30)
[2022-10-04] MEDS: HEPARIN SOD (PORCINE) 5000UNITS/ML 1ML VIAL/SYRINGE SC SCH ×3 (06:29→21:07)
[2022-10-04] MEDS ORDERED: POTASSIUM CHLORIDE 10MEQ SR TABLET PO ONE (07:00)
[2022-10-04] MEDS: INSULIN LISPRO (NovoLOG) PER UNIT SC SCH ×4 (07:30→20:35)
[2022-10-04 07:54] VITALS: BP 136/65
[2022-10-04] MEDS: OMEPRAZOLE 20MG CAP PO SCH (08:13)
[2022-10-04] MEDS: FERROUS SULFATE 325MG TAB PO SCH (08:13)
[2022-10-04] MEDS: predniSONE 20 MG TAB PO SCH (08:14)
[2022-10-04] MEDS: METOPROLOL TART 25 MG TABLET PO SCH ×2 (08:14→21:04)
[2022-10-04] MEDS: levETIRAcetam 250MG TABLET (KEPPRA) PO SCH ×2 (08:14→21:03)
[2022-10-04] MEDS: CALCIUM/VITAMIN D 500 MG TAB PO SCH (08:14)
[2022-10-04] MEDS: guaiFENesin ER 600 MG TAB PO SCH ×2 (08:15→21:03)
[2022-10-04] MEDS: TORSEMIDE 10 MG TABLET PO SCH (08:15)
[2022-10-04] MEDS: MULTIVITAMINS/MINERALS THERAP 1 TAB PO SCH (08:15)
[2022-10-04] MEDS: FAMOTIDINE 20 MG TAB PO SCH ×2 (08:15→21:03)
[2022-10-04] MEDS: MIRALAX *UNIT DOSE* 17GM PACKET PO PRN (09:51)
[2022-10-04 12:14] VITALS: BP 115/58
[2022-10-04 20:08] VITALS: BP 126/60
[2022-10-04] MEDS: MIRTAZAPINE 15 MG TAB PO SCH (21:03)
[2022-10-04] MEDS: traZODone 50 MG TAB PO SCH (21:03)
[2022-10-04] MEDS: AZITHROMYCIN 250MG TABLET PO SCH (21:03)
[2022-10-04] MEDS: ITRACONAZOLE 100 MG PO SCH (21:05)
[2022-10-04] MEDS: LEVEMIR (INSULIN DETEMIR) 1 UNITS/0.01ML SC SCH (21:05)
[2022-10-05] MEDS: IPRATROPIUM 0.5MG/ALBUTEROL 2.5MG INH SOL UD 3ML (DUONEB) NEB SCH ×7 (00:21→23:37)
[2022-10-05] MEDS: SODIUM CHLORIDE HYPERTONIC 3% 15ML NEB SOL INH SCH ×7 (00:21→23:38)
[2022-10-05 05:26] LABS: CHLORIDE LEVEL 98 MMOL/L (98-107); SODIUM LEVEL 141 MMOL/L (136-145)
[2022-10-05 05:27] LABS: CARBON DIOXIDE LEVEL 37 MMOL/L (20-31)
[2022-10-05 05:32] LABS: BLOOD UREA NITROGEN 11 MG/DL (9-23); CALCIUM LEVEL 7.7 MG/DL (8.3-10.6); GLUCOSE, FASTING 48 MG/DL (74-106)
[2022-10-05 05:35] LABS: CREATININE FOR GFR 0.46 MG/DL (0.55-1.30); GLOMERULAR FILTRATION RATE > 60.0 (>45); POTASSIUM SERUM 3.8 MMOL/L (3.5-5.1)
[2022-10-05 06:02] LABS: HEMATOCRIT 35.7 % (36.0-47.0); HEMOGLOBIN 11.6 g/dl (12.0-15.5); MEAN CORPUSCULAR HEMOGLOBIN 30.4 pg (27.0-33.0); MEAN CORPUSCULAR HGB CONC 32.5 g/dl (32.0-36.5); MEAN CORPUSCULAR VOLUME 93.5 fl (80.0-96.0); PLATELET COUNT, AUTOMATED 309 10^3/uL (150-450); RED BLOOD COUNT 3.82 10^6/uL (4.00-5.40); WHITE BLOOD COUNT 14.6 10^3/uL (4.0-10.0)
[2022-10-05] MEDS: CEFIDEROCOL SULFATE TOSYLATE 2 GM in D5W 100 ML IV SCH ×3 (06:05→23:25)
[2022-10-05] MEDS: HEPARIN SOD (PORCINE) 5000UNITS/ML 1ML VIAL/SYRINGE SC SCH ×3 (06:05→23:24)
[2022-10-05 06:29] LABS: ATYPICAL LYMPH 4 % (0-5); EOSINOPHILS 1 % (0-3); LYMPHOCYTES 16 % (16-44); METAMYELOCYTES 1 % (0-0); MONOCYTES 11 % (0-5); MYELOCYTES 4 % (0-0); NEUTROPHILS 63 % (28-66); PLATELET ESTIMATE NORMAL (NORMAL); TOXIC VACUOLATION 1+
[2022-10-05] MEDS: INSULIN LISPRO (NovoLOG) PER UNIT SC SCH ×4 (07:30→20:24)
[2022-10-05 08:23] VITALS: BP 129/60
[2022-10-05 09:36] VITALS: BP 118/57
[2022-10-05] MEDS: MULTIVITAMINS/MINERALS THERAP 1 TAB PO SCH (09:44)
[2022-10-05] MEDS: METOPROLOL TART 25 MG TABLET PO SCH ×2 (09:44→20:33)
[2022-10-05] MEDS: levETIRAcetam 250MG TABLET (KEPPRA) PO SCH ×2 (09:44→20:32)
[2022-10-05] MEDS: OMEPRAZOLE 20MG CAP PO SCH (09:44)
[2022-10-05] MEDS: FAMOTIDINE 20 MG TAB PO SCH ×2 (09:45→20:30)
[2022-10-05] MEDS: TORSEMIDE 10 MG TABLET PO SCH (09:45)
[2022-10-05] MEDS: guaiFENesin ER 600 MG TAB PO SCH ×2 (09:45→20:31)
[2022-10-05] MEDS: predniSONE 20 MG TAB PO SCH (09:45)
[2022-10-05] MEDS: FERROUS SULFATE 325MG TAB PO SCH (09:45)
[2022-10-05] MEDS: CALCIUM/VITAMIN D 500 MG TAB PO SCH (09:45)
[2022-10-05] MEDS ORDERED: LIDOCAINE 1% MDV 20ML VIAL As Ordered ONE (10:48)
[2022-10-05] MEDS: SODIUM CHLORIDE 0.9% INJ 10 ML SYR IV SCH (13:17)
[2022-10-05] MEDS: SODIUM CHLORIDE 0.9% INJ 10 ML SYR IV PRN ×2 (15:21→18:46)
[2022-10-05] MEDS: traZODone 50 MG TAB PO SCH (20:32)
[2022-10-05] MEDS: AZITHROMYCIN 250MG TABLET PO SCH (20:32)
[2022-10-05] MEDS: MIRTAZAPINE 15 MG TAB PO SCH (20:32)
[2022-10-05] MEDS: ITRACONAZOLE 100 MG PO SCH (20:33)
[2022-10-06] MEDS: IPRATROPIUM 0.5MG/ALBUTEROL 2.5MG INH SOL UD 3ML (DUONEB) NEB SCH ×5 (03:39→19:27)
[2022-10-06] MEDS: SODIUM CHLORIDE HYPERTONIC 3% 15ML NEB SOL INH SCH ×5 (03:39→19:28)
[2022-10-06 04:00] VITALS: BP 135/63
[2022-10-06 05:37] LABS: HEMATOCRIT 30.7 % (36.0-47.0); MEAN CORPUSCULAR HEMOGLOBIN 30.8 pg (27.0-33.0); MEAN CORPUSCULAR HGB CONC 32.6 g/dl (32.0-36.5); MEAN CORPUSCULAR VOLUME 94.5 fl (80.0-96.0); PLATELET COUNT, AUTOMATED 228 10^3/uL (150-450); RED BLOOD COUNT 3.25 10^6/uL (4.00-5.40); WHITE BLOOD COUNT 9.3 10^3/uL (4.0-10.0)
[2022-10-06 06:01] LABS: MAGNESIUM LEVEL 2.2 MG/DL (1.8-2.4)
[2022-10-06] MEDS: HEPARIN SOD (PORCINE) 5000UNITS/ML 1ML VIAL/SYRINGE SC SCH ×3 (06:31→21:27)
[2022-10-06] MEDS: CEFIDEROCOL SULFATE TOSYLATE 2 GM in D5W 100 ML IV SCH ×3 (06:31→23:28)
[2022-10-06 06:53] LABS: ATYPICAL LYMPH 4 % (0-5); LYMPHOCYTES 8 % (16-44); METAMYELOCYTES 3 % (0-0); MONOCYTES 2 % (0-5); MYELOCYTES 3 % (0-0); NEUTROPHILS 76 % (28-66); PLATELET ESTIMATE NORMAL (NORMAL)
[2022-10-06 06:57] LABS: BLOOD UREA NITROGEN 13 MG/DL (9-23); CALCIUM LEVEL 7.7 MG/DL (8.3-10.6); CARBON DIOXIDE LEVEL > 40.0 MMOL/L (20-31); CHLORIDE LEVEL 94 MMOL/L (98-107); CREATININE FOR GFR 0.54 MG/DL (0.55-1.30); GLOMERULAR FILTRATION RATE > 60.0 (>45); GLUCOSE, FASTING 108 MG/DL (74-106); POTASSIUM SERUM 3.4 MMOL/L (3.5-5.1); SODIUM LEVEL 139 MMOL/L (136-145)
[2022-10-06] MEDS ORDERED: POTASSIUM CHLORIDE 10MEQ SR TABLET PO ONE (07:35)
[2022-10-06 07:45] VITALS: BP 143/65
[2022-10-06 08:28] LABS: VENOUS BASE EXCESS 15.4 (-2.0-2.0); VENOUS HCO3 40.1 MEQ/L (23.0-27.0); VENOUS O2 SATURATION 99.2 % (60.0-80.0); VENOUS PARTIAL PRESSURE CO2 48.6 mmHg (38.0-50.0); VENOUS PARTIAL PRESSURE O2 228.5 mmHg (30.0-50.0); VENOUS PH 7.534 UNITS (7.330-7.430); VENOUS STANDARD HCO3 39.4 MEQ/L; VENOUS TOTAL CO2 41.6 MEQ/L (24.0-28.0)
[2022-10-06] MEDS: CALCIUM/VITAMIN D 500 MG TAB PO SCH (08:28)
[2022-10-06] MEDS: FAMOTIDINE 20 MG TAB PO SCH ×2 (08:28→21:28)
[2022-10-06] MEDS: METOPROLOL TART 25 MG TABLET PO SCH ×2 (08:28→21:28)
[2022-10-06] MEDS: MULTIVITAMINS/MINERALS THERAP 1 TAB PO SCH (08:28)
[2022-10-06] MEDS: INSULIN LISPRO (NovoLOG) PER UNIT SC SCH ×4 (08:28→20:49)
[2022-10-06] MEDS: levETIRAcetam 250MG TABLET (KEPPRA) PO SCH ×2 (08:28→21:27)
[2022-10-06] MEDS: guaiFENesin ER 600 MG TAB PO SCH ×2 (08:28→21:27)
[2022-10-06] MEDS: predniSONE 20 MG TAB PO SCH (08:28)
[2022-10-06] MEDS: FERROUS SULFATE 325MG TAB PO SCH (08:29)
[2022-10-06] MEDS: TORSEMIDE 10 MG TABLET PO SCH (08:29)
[2022-10-06] MEDS: OMEPRAZOLE 20MG CAP PO SCH (08:29)
[2022-10-06 09:00] VITALS: BP 143/65
[2022-10-06] MEDS: SODIUM CHLORIDE 0.9% INJ 10 ML SYR IV SCH (12:43)
[2022-10-06 20:00] VITALS: BP 126/80
[2022-10-06] MEDS: AZITHROMYCIN 250MG TABLET PO SCH (21:27)
[2022-10-06] MEDS: traZODone 50 MG TAB PO SCH (21:27)
[2022-10-06] MEDS: MIRTAZAPINE 15 MG TAB PO SCH (21:28)
[2022-10-06] MEDS: ITRACONAZOLE 100 MG PO SCH (21:28)
[2022-10-07] MEDS: IPRATROPIUM 0.5MG/ALBUTEROL 2.5MG INH SOL UD 3ML (DUONEB) NEB SCH ×6 (01:30→21:06)
[2022-10-07] MEDS: SODIUM CHLORIDE HYPERTONIC 3% 15ML NEB SOL INH SCH ×6 (01:30→21:06)
[2022-10-07 05:25] LABS: HEMATOCRIT 30.7 % (36.0-47.0); HEMOGLOBIN 9.6 g/dl (12.0-15.5); MEAN CORPUSCULAR HGB CONC 31.3 g/dl (32.0-36.5); MEAN CORPUSCULAR VOLUME 95.9 fl (80.0-96.0); PLATELET COUNT, AUTOMATED 228 10^3/uL (150-450); WHITE BLOOD COUNT 11.4 10^3/uL (4.0-10.0)
[2022-10-07 06:04] LABS: MAGNESIUM LEVEL 2.3 MG/DL (1.8-2.4)
[2022-10-07 06:20] LABS: BLOOD UREA NITROGEN 13 MG/DL (9-23); CALCIUM LEVEL 7.9 MG/DL (8.3-10.6); CARBON DIOXIDE LEVEL > 40.0 MMOL/L (20-31); CHLORIDE LEVEL 94 MMOL/L (98-107); CREATININE FOR GFR 0.56 MG/DL (0.55-1.30); GLOMERULAR FILTRATION RATE > 60.0 (>45); GLUCOSE, FASTING 103 MG/DL (74-106); POTASSIUM SERUM 3.8 MMOL/L (3.5-5.1); SODIUM LEVEL 140 MMOL/L (136-145)
[2022-10-07] MEDS: HEPARIN SOD (PORCINE) 5000UNITS/ML 1ML VIAL/SYRINGE SC SCH ×3 (06:33→21:35)
[2022-10-07] MEDS: CEFIDEROCOL SULFATE TOSYLATE 2 GM in D5W 100 ML IV SCH ×3 (06:33→23:02)
[2022-10-07 07:47] VITALS: BP 136/63
[2022-10-07 07:52] LABS: ATYPICAL LYMPH 5 % (0-5); HYPOCHROMASIA 1+; LYMPHOCYTES 12 % (16-44); METAMYELOCYTES 3 % (0-0); MONOCYTES 10 % (0-5); NEUTROPHILS 67 % (28-66)
[2022-10-07 07:54] LABS: PLATELET ESTIMATE NORMAL (NORMAL)
[2022-10-07] MEDS: guaiFENesin ER 600 MG TAB PO SCH ×2 (09:01→20:21)
[2022-10-07] MEDS: levETIRAcetam 250MG TABLET (KEPPRA) PO SCH ×2 (09:01→20:21)
[2022-10-07] MEDS: predniSONE 20 MG TAB PO SCH (09:01)
[2022-10-07] MEDS: CALCIUM/VITAMIN D 500 MG TAB PO SCH (09:01)
[2022-10-07] MEDS: OMEPRAZOLE 20MG CAP PO SCH (09:01)
[2022-10-07] MEDS: FERROUS SULFATE 325MG TAB PO SCH (09:01)
[2022-10-07] MEDS: METOPROLOL TART 25 MG TABLET PO SCH ×2 (09:01→20:24)
[2022-10-07] MEDS: FAMOTIDINE 20 MG TAB PO SCH ×2 (09:01→20:22)
[2022-10-07] MEDS: INSULIN LISPRO (NovoLOG) PER UNIT SC SCH ×4 (09:02→20:01)
[2022-10-07] MEDS: MULTIVITAMINS/MINERALS THERAP 1 TAB PO SCH (09:02)
[2022-10-07] MEDS: SODIUM CHLORIDE 0.9% INJ 10 ML SYR IV SCH (12:35)
[2022-10-07 15:35] LABS: ABG BASE EXCESS 6.7 (-2.0-2.0); ABG O2 SATURATION 98.9 % (95.0-99.0); ABG PARTIAL PRESSURE CO2 55.8 mmHg (35.0-45.0); ABG PARTIAL PRESSURE O2 149.2 mmHg (75.0-100.0); ABG STANDARD HCO3 30.6 MEQ/L (22.0-26.0); ABG TOTAL CO2 34.7 MEQ/L (23.0-31.0)
[2022-10-07 20:00] VITALS: BP 159/70
[2022-10-07] MEDS: ITRACONAZOLE 100 MG PO SCH (20:22)
[2022-10-07] MEDS: MIRTAZAPINE 15 MG TAB PO SCH (20:22)
[2022-10-07] MEDS: traZODone 50 MG TAB PO SCH (20:22)
[2022-10-07] MEDS: AZITHROMYCIN 250MG TABLET PO SCH (20:22)
[2022-10-08] MEDS: IPRATROPIUM 0.5MG/ALBUTEROL 2.5MG INH SOL UD 3ML (DUONEB) NEB SCH ×7 (00:38→23:12)
[2022-10-08] MEDS: SODIUM CHLORIDE HYPERTONIC 3% 15ML NEB SOL INH SCH ×6 (00:38→23:12)
[2022-10-08] MEDS: HEPARIN SOD (PORCINE) 5000UNITS/ML 1ML VIAL/SYRINGE SC SCH ×3 (05:49→22:34)
[2022-10-08] MEDS: CEFIDEROCOL SULFATE TOSYLATE 2 GM in D5W 100 ML IV SCH ×3 (05:53→22:34)
[2022-10-08 06:00] LABS: HEMATOCRIT 32.5 % (36.0-47.0); HEMOGLOBIN 10.3 g/dl (12.0-15.5); MEAN CORPUSCULAR HEMOGLOBIN 30.3 pg (27.0-33.0); MEAN CORPUSCULAR HGB CONC 31.7 g/dl (32.0-36.5); MEAN CORPUSCULAR VOLUME 95.6 fl (80.0-96.0); PLATELET COUNT, AUTOMATED 217 10^3/uL (150-450); WHITE BLOOD COUNT 12.8 10^3/uL (4.0-10.0)
[2022-10-08 06:23] LABS: MAGNESIUM LEVEL 2.4 MG/DL (1.8-2.4)
[2022-10-08 06:25] LABS: BLOOD UREA NITROGEN 9 MG/DL (9-23); CALCIUM LEVEL 8.3 MG/DL (8.3-10.6); CARBON DIOXIDE LEVEL 39 MMOL/L (20-31); CHLORIDE LEVEL 99 MMOL/L (98-107); CREATININE FOR GFR 0.48 MG/DL (0.55-1.30); GLOMERULAR FILTRATION RATE > 60.0 (>45); GLUCOSE, FASTING 96 MG/DL (74-106); POTASSIUM SERUM 3.6 MMOL/L (3.5-5.1); SODIUM LEVEL 142 MMOL/L (136-145)
[2022-10-08 07:20] LABS: ATYPICAL LYMPH 4 % (0-5); LYMPHOCYTES 7 % (16-44); METAMYELOCYTES 1 % (0-0); MONOCYTES 4 % (0-5); MYELOCYTES 6 % (0-0); NEUTROPHILS 77 % (28-66)
[2022-10-08 07:21] LABS: PLATELET CLUMPS SMALL AMT; PLATELET ESTIMATE NORMAL (NORMAL); SMUDGE CELLS 1+
[2022-10-08] MEDS: INSULIN LISPRO (NovoLOG) PER UNIT SC SCH ×4 (07:25→20:08)
[2022-10-08 08:06] VITALS: BP 158/70
[2022-10-08] MEDS: FERROUS SULFATE 325MG TAB PO SCH (08:40)
[2022-10-08] MEDS: MIRALAX *UNIT DOSE* 17GM PACKET PO PRN (08:40)
[2022-10-08] MEDS: predniSONE 20 MG TAB PO SCH (08:41)
[2022-10-08] MEDS: FAMOTIDINE 20 MG TAB PO SCH ×2 (08:41→20:05)
[2022-10-08] MEDS: METOPROLOL TART 25 MG TABLET PO SCH ×2 (08:41→20:07)
[2022-10-08] MEDS: guaiFENesin ER 600 MG TAB PO SCH ×2 (08:41→20:05)
[2022-10-08] MEDS: OMEPRAZOLE 20MG CAP PO SCH (08:41)
[2022-10-08] MEDS: MULTIVITAMINS/MINERALS THERAP 1 TAB PO SCH (08:42)
[2022-10-08] MEDS: levETIRAcetam 250MG TABLET (KEPPRA) PO SCH ×2 (08:42→20:06)
[2022-10-08] MEDS: CALCIUM/VITAMIN D 500 MG TAB PO SCH (08:42)
[2022-10-08] MEDS: TORSEMIDE 10 MG TABLET PO SCH (08:42)
[2022-10-08] MEDS: SODIUM CHLORIDE 0.9% INJ 10 ML SYR IV SCH (12:04)
[2022-10-08 16:15] VITALS: BP 130/65
[2022-10-08] MEDS: SODIUM CHLORIDE 0.9% INJ 10 ML SYR IV PRN (18:02)
[2022-10-08] MEDS: MIRTAZAPINE 15 MG TAB PO SCH (20:05)
[2022-10-08] MEDS: AZITHROMYCIN 250MG TABLET PO SCH (20:05)
[2022-10-08] MEDS: traZODone 50 MG TAB PO SCH (20:06)
[2022-10-08] MEDS: ITRACONAZOLE 100 MG PO SCH (20:07)
[2022-10-09] MEDS: SODIUM CHLORIDE HYPERTONIC 3% 15ML NEB SOL INH SCH ×5 (03:04→19:50)
[2022-10-09] MEDS: IPRATROPIUM 0.5MG/ALBUTEROL 2.5MG INH SOL UD 3ML (DUONEB) NEB SCH ×5 (03:04→19:49)
[2022-10-09 06:05] LABS: HEMATOCRIT 31.6 % (36.0-47.0); HEMOGLOBIN 9.9 g/dl (12.0-15.5); MEAN CORPUSCULAR HEMOGLOBIN 30.1 pg (27.0-33.0); MEAN CORPUSCULAR HGB CONC 31.3 g/dl (32.0-36.5); PLATELET COUNT, AUTOMATED 220 10^3/uL (150-450); RED BLOOD COUNT 3.29 10^6/uL (4.00-5.40); WHITE BLOOD COUNT 14.7 10^3/uL (4.0-10.0)
[2022-10-09 06:07] VITALS: BP 127/60
[2022-10-09] MEDS: CEFIDEROCOL SULFATE TOSYLATE 2 GM in D5W 100 ML IV SCH ×3 (06:09→22:50)
[2022-10-09] MEDS: HEPARIN SOD (PORCINE) 5000UNITS/ML 1ML VIAL/SYRINGE SC SCH ×3 (06:09→21:09)
[2022-10-09 06:30] LABS: BLOOD UREA NITROGEN 11 MG/DL (9-23); CALCIUM LEVEL 7.9 MG/DL (8.3-10.6); CARBON DIOXIDE LEVEL 40 MMOL/L (20-31); CHLORIDE LEVEL 97 MMOL/L (98-107); CREATININE FOR GFR 0.48 MG/DL (0.55-1.30); GLOMERULAR FILTRATION RATE > 60.0 (>45); GLUCOSE, FASTING 93 MG/DL (74-106); POTASSIUM SERUM 3.4 MMOL/L (3.5-5.1); SODIUM LEVEL 142 MMOL/L (136-145)
[2022-10-09] MEDS: INSULIN LISPRO (NovoLOG) PER UNIT SC SCH ×4 (07:24→20:36)
[2022-10-09 07:27] LABS: ANISOCYTOSIS 1+; ATYPICAL LYMPH 4 % (0-5); HYPERSEGMENTED POLYS 1+; LYMPHOCYTES 5 % (16-44); METAMYELOCYTES 7 % (0-0); MONOCYTES 8 % (0-5); MYELOCYTES 2 % (0-0); NEUTROPHILS 73 % (28-66); PLATELET ESTIMATE NORMAL (NORMAL); POLYCHROMASIA 1+
[2022-10-09] MEDS: TORSEMIDE 10 MG TABLET PO SCH (08:18)
[2022-10-09] MEDS: levETIRAcetam 250MG TABLET (KEPPRA) PO SCH ×2 (08:18→20:51)
[2022-10-09] MEDS: FAMOTIDINE 20 MG TAB PO SCH ×2 (08:18→20:50)
[2022-10-09] MEDS: FERROUS SULFATE 325MG TAB PO SCH (08:19)
[2022-10-09] MEDS: guaiFENesin ER 600 MG TAB PO SCH ×2 (08:19→20:50)
[2022-10-09] MEDS: METOPROLOL TART 25 MG TABLET PO SCH ×2 (08:19→20:51)
[2022-10-09] MEDS: CALCIUM/VITAMIN D 500 MG TAB PO SCH (08:19)
[2022-10-09] MEDS: predniSONE 20 MG TAB PO SCH (08:19)
[2022-10-09] MEDS: MULTIVITAMINS/MINERALS THERAP 1 TAB PO SCH (08:19)
[2022-10-09] MEDS: OMEPRAZOLE 20MG CAP PO SCH (08:19)
[2022-10-09] MEDS ORDERED: POTASSIUM CHLORIDE 10MEQ SR TABLET PO ONE (09:30)
[2022-10-09] MEDS: SODIUM CHLORIDE 0.9% INJ 10 ML SYR IV SCH (11:52)
[2022-10-09 20:23] VITALS: BP 126/68
[2022-10-09] MEDS: AZITHROMYCIN 250MG TABLET PO SCH (20:50)
[2022-10-09] MEDS: MIRTAZAPINE 15 MG TAB PO SCH (20:50)
[2022-10-09] MEDS: traZODone 50 MG TAB PO SCH (20:51)
[2022-10-09] MEDS: ITRACONAZOLE 100 MG PO SCH (20:52)
[2022-10-10] MEDS: IPRATROPIUM 0.5MG/ALBUTEROL 2.5MG INH SOL UD 3ML (DUONEB) NEB SCH ×3 (03:20→07:47)
[2022-10-10] MEDS: SODIUM CHLORIDE HYPERTONIC 3% 15ML NEB SOL INH SCH ×3 (03:21→07:47)
[2022-10-10 06:06] LABS: HEMATOCRIT 29.9 % (36.0-47.0); HEMOGLOBIN 9.4 g/dl (12.0-15.5); MEAN CORPUSCULAR HEMOGLOBIN 30.6 pg (27.0-33.0); MEAN CORPUSCULAR HGB CONC 31.4 g/dl (32.0-36.5); MEAN CORPUSCULAR VOLUME 97.4 fl (80.0-96.0); PLATELET COUNT, AUTOMATED 185 10^3/uL (150-450); RED BLOOD COUNT 3.07 10^6/uL (4.00-5.40); WHITE BLOOD COUNT 13.8 10^3/uL (4.0-10.0)
[2022-10-10] MEDS: HEPARIN SOD (PORCINE) 5000UNITS/ML 1ML VIAL/SYRINGE SC SCH (06:15)
[2022-10-10] MEDS: CEFIDEROCOL SULFATE TOSYLATE 2 GM in D5W 100 ML IV SCH (06:15)
[2022-10-10 06:24] VITALS: BP_SYST 129; BP_DIAS 65; BP_DIAS 95
[2022-10-10 06:28] LABS: MAGNESIUM LEVEL 2.2 MG/DL (1.8-2.4)
[2022-10-10 06:30] LABS: BLOOD UREA NITROGEN 12 MG/DL (9-23); CARBON DIOXIDE LEVEL > 40.0 MMOL/L (20-31); CHLORIDE LEVEL 98 MMOL/L (98-107); CREATININE FOR GFR 0.56 MG/DL (0.55-1.30); GLOMERULAR FILTRATION RATE > 60.0 (>45); GLUCOSE, FASTING 101 MG/DL (74-106); POTASSIUM SERUM 3.9 MMOL/L (3.5-5.1); SODIUM LEVEL 143 MMOL/L (136-145)
[2022-10-10] MEDS: INSULIN LISPRO (NovoLOG) PER UNIT SC SCH (07:30)
[2022-10-10 08:09] LABS: ATYPICAL LYMPH 1 % (0-5); LYMPHOCYTES 10 % (16-44); METAMYELOCYTES 2 % (0-0); MONOCYTES 5 % (0-5); MYELOCYTES 1 % (0-0); NEUTROPHILS 79 % (28-66)
[2022-10-10 08:10] LABS: HYPOCHROMASIA 1+; PLATELET ESTIMATE NORMAL (NORMAL)
[2022-10-10] MEDS ORDERED: PRED10TA2 PO (08:16)
[2022-10-10] MEDS: OMEPRAZOLE 20MG CAP PO SCH (08:49)
[2022-10-10] MEDS: guaiFENesin ER 600 MG TAB PO SCH (08:49)
[2022-10-10] MEDS: FAMOTIDINE 20 MG TAB PO SCH (08:49)
[2022-10-10] MEDS: TORSEMIDE 10 MG TABLET PO SCH (08:49)
[2022-10-10] MEDS: FERROUS SULFATE 325MG TAB PO SCH (08:49)
[2022-10-10] MEDS: CALCIUM/VITAMIN D 500 MG TAB PO SCH (08:49)
[2022-10-10] MEDS: levETIRAcetam 250MG TABLET (KEPPRA) PO SCH (08:49)
[2022-10-10] MEDS: MULTIVITAMINS/MINERALS THERAP 1 TAB PO SCH (08:49)
[2022-10-10 08:51] VITALS: BP 150/70
[2022-10-10] MEDS: METOPROLOL TART 25 MG TABLET PO SCH (08:51)
== END 2022-10-10 11:18 | disposition home or self-care (01) | DRG 178 ==
LOC: M ED 15:28 → M ED INP 15:29 → ENRESERV 18:45 → M PCU 21:07 → OBSVTOIN 09-30 11:25 → M MSPAV 10-08 15:54
PROVIDERS: ADMIT Internal Medicine; ATTEND Internal Medicine
PROC: 05H Upper Veins, Insertion (ICD-10-PCS; principal; 2022-10-05 15:00)
DX: J15.8 Pneumonia due to other specified bacteria (principal); J44.1 Chronic obstructive pulmonary disease with (acute) exacerbation; B44.9 Aspergillosis, unspecified; J96.11 Chronic respiratory failure with hypoxia; J96.12 Chronic respiratory failure with hypercapnia; I50.32 Chronic diastolic (congestive) heart failure; Z16.24 Resistance to multiple antibiotics; G40.909 Epilepsy, unspecified, not intractable, without status epilepticus; K21.9 Gastro-esophageal reflux disease without esophagitis; J84.10 Pulmonary fibrosis, unspecified; I11.0 Hypertensive heart disease with heart failure; E11.9 Type 2 diabetes mellitus without complications; E87.6 Hypokalemia; I27.20 Pulmonary hypertension, unspecified; I27.81 Cor pulmonale (chronic); F32.9 Major depressive disorder, single episode, unspecified; Z99.81 Dependence on supplemental oxygen; M81.0 Age-related osteoporosis without current pathological fracture; Z79.899 Other long term (current) drug therapy; Z88.8 Allergy status to other drugs, medicaments and biological substances; Z79.52 Long term (current) use of systemic steroids; R91.8 Other nonspecific abnormal finding of lung field; Z66 Do not resuscitate; R19.7 Diarrhea, unspecified

== ENCOUNTER → 2022-10-17 | Outpatient (REF) | payer MEDICARE, BC ==
[~2022-10-17] MED LIST changes: +LIDO5CRE9 TOP
== END ==
LOC: M LAB REF 14:49
DX: J47.9 Bronchiectasis, uncomplicated (principal)

== ENCOUNTER → 2022-11-03 | Outpatient (REF) | payer MEDICARE, BC ==
[2022-11-03 19:50] LABS: BASOPHILS 1 % (0-1); LYMPHOCYTES 6 % (16-44); MONOCYTES 2 % (0-5); NEUTROPHILS 90 % (28-66)
[2022-11-03 19:52] LABS: PLATELET ESTIMATE NORMAL (NORMAL)
== END ==
LOC: M LAB REF 16:34
PROVIDERS: ATTEND Internal Medicine
DX: D72.9 Disorder of white blood cells, unspecified (principal)

== ENCOUNTER → 2022-11-03 | Outpatient (REF) | payer MEDICARE, BC ==
[2022-11-03 18:10] LABS: PERCENT SATURATION 18.1 % (13.2-45.0)
== END ==
LOC: M LAB REF 16:38
PROVIDERS: ATTEND Internal Medicine
DX: D50.0 Iron deficiency anemia secondary to blood loss (chronic) (principal)

== ENCOUNTER 2022-12-16 12:38 | Inpatient (IN) | payer MEDICARE, BC ==
[~2022-12-16] VITALS: Ht 149.9 cm; Wt 47.5 kg
[~2022-12-16 12:38] MED LIST changes: -BETA1TAB PO; -LEVO1TAB40 PO; -PRED1TABL PO; -SODI3NEB INH
[2022-12-16] MEDS ORDERED: IPRATROPIUM 0.5MG/ALBUTEROL 2.5MG INH SOL UD 3ML (DUONEB) NEB ONE (13:20)
[2022-12-16 13:55] LABS: ABG BASE EXCESS 12.4 (-2.0-2.0); ABG HCO3 42.2 MEQ/L (22.0-26.0); ABG O2 SATURATION 92.9 % (95.0-99.0); ABG PARTIAL PRESSURE O2 67.2 mmHg (75.0-100.0); ABG STANDARD HCO3 36.1 MEQ/L (22.0-26.0); ABG TOTAL CO2 44.7 MEQ/L (23.0-31.0); ABG pH (ARTERIAL) 7.325 UNITS (7.350-7.450)
[2022-12-16 13:58] LABS: ABG PARTIAL PRESSURE CO2 82.8 mmHg (35.0-45.0)
[2022-12-16 14:35] LABS: BASO % 0.2 % (0.0-1.0); HEMATOCRIT 40.9 % (36.0-47.0); HEMOGLOBIN 12.9 g/dl (12.0-15.5); LYMPH # 0.6 10^3/uL (1.5-5.0); LYMPH % 4.4 % (24.0-44.0); MEAN CORPUSCULAR HEMOGLOBIN 31.5 pg (27.0-33.0); MEAN CORPUSCULAR HGB CONC 31.5 g/dl (32.0-36.5); MEAN CORPUSCULAR VOLUME 99.8 fl (80.0-96.0); MONO # 0.4 10^3/uL (0.0-0.8); MONO % 3.2 % (2.0-8.0); NEUTROPHILS # 12.6 10^3/uL (1.5-8.5); NEUTROPHILS % 91.7 % (36.0-66.0); PLATELET COUNT, AUTOMATED 136 10^3/uL (150-450); WHITE BLOOD COUNT 13.8 10^3/uL (4.0-10.0)
[2022-12-16 14:43] LABS: INR 0.95; PROTHROMBIN TIME 12.9 SECONDS (12.5-14.5)
[2022-12-16 15:07] LABS: ALBUMIN 3.2 G/DL (3.2-5.2); ALKALINE PHOSPHATASE 88 U/L (46-116); ALT/SGPT 14 U/L (7.0-40); AST/SGOT < 8 U/L (<34); BILIRUBIN,DIRECT < 0.1 MG/DL (<0.4); BILIRUBIN,TOTAL 0.3 MG/DL (0.3-1.2); BLOOD UREA NITROGEN 13 MG/DL (9-23); CALCIUM LEVEL 8.4 MG/DL (8.3-10.6); CARBON DIOXIDE LEVEL > 40.0 MMOL/L (20-31); CHLORIDE LEVEL 95 MMOL/L (98-107); CREATININE FOR GFR 0.88 MG/DL (0.55-1.30); GLOMERULAR FILTRATION RATE > 60.0 (>45); GLUCOSE, FASTING 155 MG/DL (74-106); POTASSIUM SERUM 5.1 MMOL/L (3.5-5.1); SODIUM LEVEL 137 MMOL/L (136-145); TOTAL PROTEIN 6.5 G/DL (5.7-8.2)
[2022-12-16 15:38] LABS: ABG BASE EXCESS 12.8 (-2.0-2.0); ABG HCO3 40.8 MEQ/L (22.0-26.0); ABG O2 SATURATION 95.6 % (95.0-99.0); ABG PARTIAL PRESSURE O2 76.6 mmHg (75.0-100.0); ABG STANDARD HCO3 36.6 MEQ/L (22.0-26.0); ABG pH (ARTERIAL) 7.387 UNITS (7.350-7.450)
[2022-12-16 15:39] LABS: ABG PARTIAL PRESSURE CO2 69.5 mmHg (35.0-45.0)
[2022-12-16] MEDS ORDERED: SPIR-10 PO (16:07)
[2022-12-16] MEDS ORDERED: VERA240C3 PO (16:07)
[2022-12-16] MEDS ORDERED: BETA1TAB PO (16:07)
[2022-12-16] MEDS ORDERED: MONT10TA97 PO (16:07)
[2022-12-16] MEDS ORDERED: PRED1TABL PO (16:19)
[2022-12-16 16:20] VITALS: O2SAT 94
[2022-12-16] MEDS ORDERED: HOME MED LIST COMPLETE! XX SCH (16:20)
[2022-12-16] MEDS: ALBUTEROL SULFATE 2.5MG/0.5ML INH NEB SOLN NEB SCH ×3 (16:26→23:46)
[2022-12-16] MEDS: SYMBICORT 160/4.5MCG INHALER 6GM INH SCH (19:55)
[2022-12-16] MEDS: FERROUS SULFATE 325MG TAB PO SCH (20:57)
[2022-12-16] MEDS: methylPREDNISolone 40MG 1ML VIAL IV SCH (20:57)
[2022-12-16] MEDS: MONTELUKAST 10 MG TAB PO SCH (20:58)
[2022-12-16] MEDS: AZITHROMYCIN 250MG TABLET PO SCH (20:58)
[2022-12-16] MEDS: METOPROLOL TART 25 MG TABLET PO SCH (20:58)
[2022-12-16] MEDS: OMEPRAZOLE 20MG CAP PO SCH (20:58)
[2022-12-16] MEDS: traZODone 50 MG TAB PO SCH (20:58)
[2022-12-16] MEDS: levETIRAcetam 250MG TABLET (KEPPRA) PO SCH (20:58)
[2022-12-16] MEDS: FAMOTIDINE 20 MG TAB PO SCH (20:58)
[2022-12-16] MEDS: POTASSIUM CHLORIDE 10MEQ SR TABLET PO SCH (20:59)
[2022-12-16] MEDS ORDERED: MIRTAZAPINE 7.5MG PER 1/2 TABLET PO SCH (21:00)
[2022-12-16 22:15] VITALS: BP 146/67
[2022-12-16 23:00] VITALS: O2SAT 94
[2022-12-17] VITALS (34 sets, daily range): BP systolic 116–165; BP diastolic 57–77; O2SAT 82–100
[2022-12-17] MEDS: ALBUTEROL SULFATE 2.5MG/0.5ML INH NEB SOLN NEB SCH ×3 (03:06→11:31)
[2022-12-17 05:30] LABS: BASO % 0.4 % (0.0-1.0); HEMATOCRIT 42.2 % (36.0-47.0); HEMOGLOBIN 13.5 g/dl (12.0-15.5); LYMPH # 0.3 10^3/uL (1.5-5.0); LYMPH % 4.2 % (24.0-44.0); MEAN CORPUSCULAR HEMOGLOBIN 32.1 pg (27.0-33.0); MEAN CORPUSCULAR VOLUME 100.2 fl (80.0-96.0); MONO # 0.1 10^3/uL (0.0-0.8); MONO % 0.7 % (2.0-8.0); NEUTROPHILS % 93.8 % (36.0-66.0); PLATELET COUNT, AUTOMATED 125 10^3/uL (150-450); RED BLOOD COUNT 4.21 10^6/uL (4.00-5.40); WHITE BLOOD COUNT 7.4 10^3/uL (4.0-10.0)
[2022-12-17 05:51] LABS: BLOOD UREA NITROGEN 12 MG/DL (9-23); CALCIUM LEVEL 8.8 MG/DL (8.3-10.6); CARBON DIOXIDE LEVEL > 40.0 MMOL/L (20-31); CHLORIDE LEVEL 96 MMOL/L (98-107); CREATININE FOR GFR 0.63 MG/DL (0.55-1.30); GLOMERULAR FILTRATION RATE > 60.0 (>45); GLUCOSE, FASTING 175 MG/DL (74-106); POTASSIUM SERUM 4.8 MMOL/L (3.5-5.1); SODIUM LEVEL 138 MMOL/L (136-145)
[2022-12-17 06:14] LABS: ABG BASE EXCESS 10.5 (-2.0-2.0); ABG HCO3 39.1 MEQ/L (22.0-26.0); ABG O2 SATURATION 97.9 % (95.0-99.0); ABG STANDARD HCO3 34.2 MEQ/L (22.0-26.0); ABG TOTAL CO2 41.3 MEQ/L (23.0-31.0); ABG pH (ARTERIAL) 7.347 UNITS (7.350-7.450)
[2022-12-17 06:22] LABS: ABG PARTIAL PRESSURE CO2 72.9 mmHg (35.0-45.0)
[2022-12-17] MEDS ORDERED: TIOTROPIUM INHALER/CAPSULE (SPIRIVA) INH SCH (08:00)
[2022-12-17] MEDS: SYMBICORT 160/4.5MCG INHALER 6GM INH SCH ×2 (08:16→20:45)
[2022-12-17] MEDS ORDERED: predniSONE 1 MG TAB PO SCH (09:00)
[2022-12-17] MEDS ORDERED: predniSONE 5 MG TAB PO SCH (09:00)
[2022-12-17] MEDS: VERAPAMIL 120MG SR TAB PO SCH (09:20)
[2022-12-17] MEDS: FERROUS SULFATE 325MG TAB PO SCH ×2 (09:20→20:50)
[2022-12-17] MEDS: FAMOTIDINE 20 MG TAB PO SCH ×2 (09:20→20:49)
[2022-12-17] MEDS: TORSEMIDE 10 MG TABLET PO SCH (09:20)
[2022-12-17] MEDS: SPIRONOLACTONE 25 MG TAB PO SCH (09:21)
[2022-12-17] MEDS: levETIRAcetam 250MG TABLET (KEPPRA) PO SCH ×2 (09:21→20:51)
[2022-12-17] MEDS: OMEPRAZOLE 20MG CAP PO SCH ×2 (09:21→20:49)
[2022-12-17] MEDS: POTASSIUM CHLORIDE 10MEQ SR TABLET PO SCH ×2 (09:21→20:50)
[2022-12-17] MEDS: METOPROLOL TART 25 MG TABLET PO SCH ×2 (09:21→20:50)
[2022-12-17] MEDS: ENOXAPARIN 40MG/0.4ML SYRINGE (J1650 PER 10MG) SC SCH (09:22)
[2022-12-17] MEDS: methylPREDNISolone 40MG 1ML VIAL IV SCH ×2 (09:22→20:51)
[2022-12-17] MEDS ORDERED: ALBUTEROL SULFATE 2.5MG/0.5ML INH NEB SOLN NEB PRN (13:55)
[2022-12-17] MEDS ORDERED: BUMETANIDE 1MG/4ML VIAL IV ONE (14:00)
[2022-12-17] MEDS: IPRATROPIUM 0.5MG/ALBUTEROL 2.5MG INH SOL UD 3ML (DUONEB) NEB SCH ×3 (16:05→23:52)
[2022-12-17] MEDS: traZODone 50 MG TAB PO SCH (20:49)
[2022-12-17] MEDS: MONTELUKAST 10 MG TAB PO SCH (20:50)
[2022-12-17] MEDS: MIRTAZAPINE 15 MG TAB PO SCH (20:50)
[2022-12-17] MEDS: AZITHROMYCIN 250MG TABLET PO SCH (20:50)
[2022-12-17] MEDS: ITRACONAZOLE 100 MG PO SCH (20:53)
[2022-12-18] VITALS (17 sets, daily range): BP systolic 134–153; BP diastolic 62–90; O2SAT 94–99
[2022-12-18] MEDS: IPRATROPIUM 0.5MG/ALBUTEROL 2.5MG INH SOL UD 3ML (DUONEB) NEB SCH ×6 (03:08→23:00)
[2022-12-18 04:20] LABS: BASO % 0.1 % (0.0-1.0); HEMATOCRIT 36.4 % (36.0-47.0); HEMOGLOBIN 11.9 g/dl (12.0-15.5); LYMPH # 0.5 10^3/uL (1.5-5.0); LYMPH % 6.3 % (24.0-44.0); MEAN CORPUSCULAR HEMOGLOBIN 31.6 pg (27.0-33.0); MEAN CORPUSCULAR HGB CONC 32.7 g/dl (32.0-36.5); MEAN CORPUSCULAR VOLUME 96.8 fl (80.0-96.0); MONO # 0.1 10^3/uL (0.0-0.8); MONO % 1.7 % (2.0-8.0); NEUTROPHILS # 7.4 10^3/uL (1.5-8.5); NEUTROPHILS % 91.2 % (36.0-66.0); PLATELET COUNT, AUTOMATED 118 10^3/uL (150-450); RED BLOOD COUNT 3.76 10^6/uL (4.00-5.40); WHITE BLOOD COUNT 8.1 10^3/uL (4.0-10.0)
[2022-12-18 04:52] LABS: BLOOD UREA NITROGEN 23 MG/DL (9-23); CALCIUM LEVEL 8.6 MG/DL (8.3-10.6); CARBON DIOXIDE LEVEL 38 MMOL/L (20-31); CHLORIDE LEVEL 96 MMOL/L (98-107); CREATININE FOR GFR 0.61 MG/DL (0.55-1.30); GLOMERULAR FILTRATION RATE > 60.0 (>45); GLUCOSE, FASTING 194 MG/DL (74-106); POTASSIUM SERUM 4.8 MMOL/L (3.5-5.1); SODIUM LEVEL 137 MMOL/L (136-145)
[2022-12-18 06:12] LABS: ABG BASE EXCESS 12.1 (-2.0-2.0); ABG HCO3 38.8 MEQ/L (22.0-26.0); ABG O2 SATURATION 97.3 % (95.0-99.0); ABG PARTIAL PRESSURE CO2 59.8 mmHg (35.0-45.0); ABG PARTIAL PRESSURE O2 93.6 mmHg (75.0-100.0); ABG STANDARD HCO3 35.9 MEQ/L (22.0-26.0); ABG TOTAL CO2 40.6 MEQ/L (23.0-31.0)
[2022-12-18] MEDS: SYMBICORT 160/4.5MCG INHALER 6GM INH SCH ×2 (08:26→19:06)
[2022-12-18] MEDS: methylPREDNISolone 40MG 1ML VIAL IV SCH (09:26)
[2022-12-18] MEDS: ENOXAPARIN 40MG/0.4ML SYRINGE (J1650 PER 10MG) SC SCH (09:26)
[2022-12-18] MEDS: levETIRAcetam 250MG TABLET (KEPPRA) PO SCH ×2 (09:26→21:56)
[2022-12-18] MEDS: POTASSIUM CHLORIDE 10MEQ SR TABLET PO SCH ×2 (09:27→21:56)
[2022-12-18] MEDS: OMEPRAZOLE 20MG CAP PO SCH ×2 (09:27→21:00)
[2022-12-18] MEDS: SPIRONOLACTONE 25 MG TAB PO SCH (09:27)
[2022-12-18] MEDS: FAMOTIDINE 20 MG TAB PO SCH ×2 (09:27→21:57)
[2022-12-18] MEDS: METOPROLOL TART 25 MG TABLET PO SCH ×2 (09:28→21:58)
[2022-12-18] MEDS: TORSEMIDE 10 MG TABLET PO SCH (09:28)
[2022-12-18] MEDS: VERAPAMIL 120MG SR TAB PO SCH (09:28)
[2022-12-18] MEDS: FERROUS SULFATE 325MG TAB PO SCH ×2 (09:28→21:57)
[2022-12-18] MEDS ORDERED: BUMETANIDE 1MG/4ML VIAL IV ONE (14:00)
[2022-12-18] MEDS ORDERED: ONDANSETRON 4MG TAB PO PRN (16:50)
[2022-12-18] MEDS ORDERED: ONDANSETRON 4MG ORAL DISINTEGRATING TAB SL PRN (17:00)
[2022-12-18] MEDS: AZITHROMYCIN 250MG TABLET PO SCH (21:56)
[2022-12-18] MEDS: MIRTAZAPINE 15 MG TAB PO SCH (21:57)
[2022-12-18] MEDS: traZODone 50 MG TAB PO SCH (21:57)
[2022-12-18] MEDS: MONTELUKAST 10 MG TAB PO SCH (21:57)
[2022-12-18] MEDS: ITRACONAZOLE 100 MG PO SCH (21:58)
[2022-12-19] MEDS: IPRATROPIUM 0.5MG/ALBUTEROL 2.5MG INH SOL UD 3ML (DUONEB) NEB SCH ×3 (03:17→11:52)
[2022-12-19 03:46] VITALS: BP 118/56
[2022-12-19 05:05] LABS: BASO % 0.1 % (0.0-1.0); HEMATOCRIT 36.7 % (36.0-47.0); HEMOGLOBIN 11.5 g/dl (12.0-15.5); LYMPH # 0.9 10^3/uL (1.5-5.0); LYMPH % 8.5 % (24.0-44.0); MEAN CORPUSCULAR HEMOGLOBIN 31.7 pg (27.0-33.0); MEAN CORPUSCULAR HGB CONC 31.3 g/dl (32.0-36.5); MEAN CORPUSCULAR VOLUME 101.1 fl (80.0-96.0); MONO # 0.6 10^3/uL (0.0-0.8); MONO % 5.7 % (2.0-8.0); NEUTROPHILS # 8.6 10^3/uL (1.5-8.5); NEUTROPHILS % 85.2 % (36.0-66.0); PLATELET COUNT, AUTOMATED 123 10^3/uL (150-450); RED BLOOD COUNT 3.63 10^6/uL (4.00-5.40); WHITE BLOOD COUNT 10.1 10^3/uL (4.0-10.0)
[2022-12-19 05:38] LABS: BLOOD UREA NITROGEN 24 MG/DL (9-23); CALCIUM LEVEL 7.8 MG/DL (8.3-10.6); CARBON DIOXIDE LEVEL 37 MMOL/L (20-31); CHLORIDE LEVEL 96 MMOL/L (98-107); CREATININE FOR GFR 0.64 MG/DL (0.55-1.30); GLOMERULAR FILTRATION RATE > 60.0 (>45); GLUCOSE, FASTING 117 MG/DL (74-106); POTASSIUM SERUM 4.9 MMOL/L (3.5-5.1); SODIUM LEVEL 138 MMOL/L (136-145)
[2022-12-19 07:28] VITALS: BP 154/67
[2022-12-19] MEDS: SYMBICORT 160/4.5MCG INHALER 6GM INH SCH (08:25)
[2022-12-19] MEDS: POTASSIUM CHLORIDE 10MEQ SR TABLET PO SCH (08:34)
[2022-12-19] MEDS: OMEPRAZOLE 20MG CAP PO SCH (08:34)
[2022-12-19] MEDS: SPIRONOLACTONE 25 MG TAB PO SCH (08:34)
[2022-12-19 08:35] VITALS: BP 154/67
[2022-12-19] MEDS: VERAPAMIL 120MG SR TAB PO SCH (08:35)
[2022-12-19] MEDS: METOPROLOL TART 25 MG TABLET PO SCH (08:36)
[2022-12-19] MEDS: TORSEMIDE 10 MG TABLET PO SCH (08:36)
[2022-12-19] MEDS: ENOXAPARIN 40MG/0.4ML SYRINGE (J1650 PER 10MG) SC SCH (08:36)
[2022-12-19] MEDS: levETIRAcetam 250MG TABLET (KEPPRA) PO SCH (08:36)
[2022-12-19] MEDS: FERROUS SULFATE 325MG TAB PO SCH (08:36)
[2022-12-19] MEDS: FAMOTIDINE 20 MG TAB PO SCH (08:37)
[2022-12-19] MEDS ORDERED: predniSONE 2.5 MG TAB PO SCH (09:00)
[2022-12-19 10:28] VITALS: O2SAT 96
[2022-12-19 10:38] LABS: ABG BASE EXCESS 6.7 (-2.0-2.0); ABG HCO3 34.6 MEQ/L (22.0-26.0); ABG O2 SATURATION 94.5 % (95.0-99.0); ABG PARTIAL PRESSURE O2 76.4 mmHg (75.0-100.0); ABG STANDARD HCO3 30.5 MEQ/L (22.0-26.0); ABG TOTAL CO2 36.7 MEQ/L (23.0-31.0); ABG pH (ARTERIAL) 7.338 UNITS (7.350-7.450)
[2022-12-19 11:00] VITALS: O2SAT 94
[2022-12-19] MEDS ORDERED: TORS10TA3 PO (11:34)
== END 2022-12-19 13:12 | disposition home or self-care (01) | DRG 291 ==
LOC: M ED 12:38 → M ED INP 15:26 → ENRESERV 21:37 → M PCU 22:14
PROVIDERS: ADMIT Internal Medicine Nephrology; ATTEND Internal Medicine Nephrology
DX: I11.0 Hypertensive heart disease with heart failure (principal); J96.21 Acute and chronic respiratory failure with hypoxia; I50.33 Acute on chronic diastolic (congestive) heart failure; J96.22 Acute and chronic respiratory failure with hypercapnia; B44.9 Aspergillosis, unspecified; J84.9 Interstitial pulmonary disease, unspecified; D80.3 Selective deficiency of immunoglobulin G [IgG] subclasses; M48.56XA Collapsed vertebra, not elsewhere classified, lumbar region, initial encounter for fracture; J44.1 Chronic obstructive pulmonary disease with (acute) exacerbation; G40.909 Epilepsy, unspecified, not intractable, without status epilepticus; I27.20 Pulmonary hypertension, unspecified; I27.81 Cor pulmonale (chronic); D50.9 Iron deficiency anemia, unspecified; F32.9 Major depressive disorder, single episode, unspecified; H35.30 Unspecified macular degeneration; K64.8 Other hemorrhoids; K21.9 Gastro-esophageal reflux disease without esophagitis; E11.9 Type 2 diabetes mellitus without complications; K44.9 Diaphragmatic hernia without obstruction or gangrene; Z99.81 Dependence on supplemental oxygen; Z79.899 Other long term (current) drug therapy; Z79.2 Long term (current) use of antibiotics

== ENCOUNTER → 2022-12-16 | Outpatient (CLI) | payer MEDICARE, BC ==
[~2022-12-16] MED LIST changes: +BETA1TAB PO; -BUDE10.7 IH; +BUDE10.7 INH; +LEVO1TAB40 PO; +PRED1TABL PO; +SODI3NEB INH
[2022-12-16 09:54] LABS: ABG BASE EXCESS 8.9 (-2.0-2.0); ABG HCO3 39.8 MEQ/L (22.0-26.0); ABG O2 SATURATION 96.2 % (95.0-99.0); ABG PARTIAL PRESSURE O2 92.5 mmHg (75.0-100.0); ABG STANDARD HCO3 32.6 MEQ/L (22.0-26.0); ABG TOTAL CO2 42.6 MEQ/L (23.0-31.0); ABG pH (ARTERIAL) 7.257 UNITS (7.350-7.450)
[2022-12-16 10:17] LABS: BASO # 0.1 10^3/uL (0.0-0.2); BASO % 0.3 % (0.0-1.0); EOS % 0.3 % (0.0-3.0); HEMATOCRIT 46.5 % (36.0-47.0); HEMOGLOBIN 14.5 g/dl (12.0-15.5); LYMPH # 0.8 10^3/uL (1.5-5.0); LYMPH % 5.4 % (24.0-44.0); MEAN CORPUSCULAR HGB CONC 31.2 g/dl (32.0-36.5); MEAN CORPUSCULAR VOLUME 102.6 fl (80.0-96.0); MONO # 0.8 10^3/uL (0.0-0.8); MONO % 5.4 % (2.0-8.0); NEUTROPHILS # 13.2 10^3/uL (1.5-8.5); NEUTROPHILS % 87.8 % (36.0-66.0); PLATELET COUNT, AUTOMATED 143 10^3/uL (150-450); RED BLOOD COUNT 4.53 10^6/uL (4.00-5.40); WHITE BLOOD COUNT 15.1 10^3/uL (4.0-10.0)
[2022-12-16 10:40] LABS: ABG PARTIAL PRESSURE CO2 91.3 mmHg (35.0-45.0)
[2022-12-16 10:52] LABS: ALBUMIN 3.7 G/DL (3.2-5.2); ALKALINE PHOSPHATASE 99 U/L (46-116); ALT/SGPT 14 U/L (7.0-40); AST/SGOT 21 U/L (<34); BILIRUBIN,TOTAL 0.4 MG/DL (0.3-1.2); BLOOD UREA NITROGEN 13 MG/DL (9-23); CALCIUM LEVEL 8.9 MG/DL (8.3-10.6); CARBON DIOXIDE LEVEL > 40.0 MMOL/L (20-31); CHLORIDE LEVEL 91 MMOL/L (98-107); CREATININE FOR GFR 0.89 MG/DL (0.55-1.30); GLOMERULAR FILTRATION RATE > 60.0 (>45); GLUCOSE, FASTING 141 MG/DL (74-106); POTASSIUM SERUM 3.8 MMOL/L (3.5-5.1); SODIUM LEVEL 139 MMOL/L (136-145); TOTAL PROTEIN 7.3 G/DL (5.7-8.2)
== END ==
LOC: M LAB 09:22
PROVIDERS: ATTEND Internal Medicine
DX: J47.1 Bronchiectasis with (acute) exacerbation (principal); I27.23 Pulmonary hypertension due to lung diseases and hypoxia; J96.12 Chronic respiratory failure with hypercapnia

== ENCOUNTER → 2023-01-18 | Outpatient (CLI) | payer MEDICARE, BC ==
[~2023-01-18] MED LIST changes: +BETA1TAB PO; +PRED1TABL PO; +SODI3NEB INH
[2023-01-18 15:46] LABS: ABG BASE EXCESS 15.3 (-2.0-2.0); ABG HCO3 45.7 MEQ/L (22.0-26.0); ABG O2 SATURATION 98.9 % (95.0-99.0); ABG PARTIAL PRESSURE CO2 89.3 mmHg (35.0-45.0); ABG PARTIAL PRESSURE O2 156.1 mmHg (75.0-100.0); ABG STANDARD HCO3 39.3 MEQ/L (22.0-26.0); ABG TOTAL CO2 48.4 MEQ/L (23.0-31.0); ABG pH (ARTERIAL) 7.327 UNITS (7.350-7.450)
== END ==
LOC: M LAB 15:19
PROVIDERS: ATTEND Internal Medicine
DX: J96.11 Chronic respiratory failure with hypoxia (principal); J96.12 Chronic respiratory failure with hypercapnia

== ENCOUNTER 2023-01-19 07:33 | Inpatient (IN) | payer MEDICARE, BC ==
[~2023-01-19] VITALS: Ht 152.4 cm; Wt 48.6 kg
[~2023-01-19 07:33] MED LIST changes: -SODI3NEB INH
[2023-01-19 07:52] LABS: ABG BASE EXCESS 11.3 (-2.0-2.0); ABG HCO3 40.4 MEQ/L (22.0-26.0); ABG O2 SATURATION 97.2 % (95.0-99.0); ABG PARTIAL PRESSURE O2 95.7 mmHg (75.0-100.0); ABG STANDARD HCO3 35.1 MEQ/L (22.0-26.0); ABG TOTAL CO2 42.7 MEQ/L (23.0-31.0); ABG pH (ARTERIAL) 7.343 UNITS (7.350-7.450)
[2023-01-19] MEDS ORDERED: ACETAMINOPHEN TAB 650MG DOSE (2X325MG) PO ONE (07:55)
[2023-01-19] MEDS ORDERED: PIPERACILLIN/TAZOBACTAM SOD 4.5 GM in D5W MINI-BAG PLUS 50 ML IV ONE (07:55)
[2023-01-19 08:00] LABS: BASO % 0.2 % (0.0-1.0); EOS # 0.1 10^3/uL (0.0-0.5); EOS % 0.3 % (0.0-3.0); HEMATOCRIT 45.8 % (36.0-47.0); HEMOGLOBIN 14.3 g/dl (12.0-15.5); LYMPH # 1.7 10^3/uL (1.5-5.0); MEAN CORPUSCULAR HEMOGLOBIN 31.5 pg (27.0-33.0); MEAN CORPUSCULAR HGB CONC 31.2 g/dl (32.0-36.5); MEAN CORPUSCULAR VOLUME 100.9 fl (80.0-96.0); MONO % 5.2 % (2.0-8.0); NEUTROPHILS # 15.8 10^3/uL (1.5-8.5); NEUTROPHILS % 84.7 % (36.0-66.0); PLATELET COUNT, AUTOMATED 155 10^3/uL (150-450); RED BLOOD COUNT 4.54 10^6/uL (4.00-5.40); WHITE BLOOD COUNT 18.7 10^3/uL (4.0-10.0)
[2023-01-19] MEDS ORDERED: ONDANSETRON 4MG 2ML VIAL IV ONE (08:15)
[2023-01-19 08:20] LABS: CK-MB VALUE MASS < 1.0 NG/ML (<3.6)
[2023-01-19 08:22] LABS: CPK CREATINE PHOSPHOKINASE < 15 U/L (34-145)
[2023-01-19 08:24] LABS: THYROXINE (T4) 7.7 UG/DL (4.5-10.9)
[2023-01-19 08:25] LABS: THYROID STIMULATING HORMONE 2.034 uIU/ML (0.55-4.78)
[2023-01-19 08:37] LABS: ALBUMIN 3.8 G/DL (3.2-5.2); ALKALINE PHOSPHATASE 96 U/L (46-116); ALT/SGPT 16 U/L (7.0-40); AST/SGOT 16 U/L (<34); BILIRUBIN,DIRECT 0.2 MG/DL (<0.4); BILIRUBIN,TOTAL 0.6 MG/DL (0.3-1.2); BLOOD UREA NITROGEN 16 MG/DL (9-23); CALCIUM LEVEL 8.7 MG/DL (8.3-10.6); CARBON DIOXIDE LEVEL > 40.0 MMOL/L (20-31); CHLORIDE LEVEL 95 MMOL/L (98-107); GLOMERULAR FILTRATION RATE > 60.0 (>45); GLUCOSE, FASTING 201 MG/DL (74-106); POTASSIUM SERUM 3.9 MMOL/L (3.5-5.1); SODIUM LEVEL 141 MMOL/L (136-145); TOTAL PROTEIN 6.8 G/DL (5.7-8.2)
[2023-01-19] MEDS ORDERED: LIDOCAINE 2% 5ML JELLY UROJET TOP ONE (08:45)
[2023-01-19] MEDS ORDERED: AZITHROMYCIN 250MG TABLET PO SCH (09:00)
[2023-01-19 09:25] LABS: CK-MB VALUE MASS < 1.0 NG/ML (<3.6); CPK CREATINE PHOSPHOKINASE 103 U/L (34-145); MB/CK RELATIVE INDEX 0.97 (< OR =4)
[2023-01-19] MEDS ORDERED: ALBUTEROL SULFATE 2.5MG/0.5ML INH NEB SOLN INH ONE (09:25)
[2023-01-19] MEDS ORDERED: IPRATROPIUM 0.5MG/ALBUTEROL 2.5MG INH SOL UD 3ML (DUONEB) NEB ONE (09:25)
[2023-01-19] MEDS: SODIUM CHLORIDE HYPERTONIC 3% 15ML NEB SOL INH SCH ×3 (12:00→19:45)
[2023-01-19] MEDS: IPRATROPIUM 0.5MG/ALBUTEROL 2.5MG INH SOL UD 3ML (DUONEB) NEB SCH ×3 (12:00→19:45)
[2023-01-19] MEDS ORDERED: ALBUTEROL SULFATE 2.5MG/0.5ML INH NEB SOLN NEB PRN (12:10)
[2023-01-19] MEDS ORDERED: SODI3NEB INH (12:17)
[2023-01-19] MEDS ORDERED: TORS10TA3 PO ×2 (12:17)
[2023-01-19] MEDS ORDERED: PRED10TA2 PO (12:22)
[2023-01-19] MEDS ORDERED: HOME MED LIST COMPLETE! XX SCH (12:25)
[2023-01-19 14:06] VITALS: BP 126/58
[2023-01-19 15:42] VITALS: BP 129/60
[2023-01-19] MEDS: FERROUS SULFATE 325MG TAB PO SCH ×2 (16:25→21:40)
[2023-01-19] MEDS: levETIRAcetam 250MG TABLET (KEPPRA) PO SCH ×2 (16:25→21:40)
[2023-01-19] MEDS: METOPROLOL TART 25 MG TABLET PO SCH ×2 (16:25→21:39)
[2023-01-19] MEDS: POTASSIUM CHLORIDE 10MEQ SR TABLET PO SCH ×2 (16:26→21:41)
[2023-01-19] MEDS: methylPREDNISolone 40MG 1ML VIAL IV SCH ×2 (16:26→21:39)
[2023-01-19] MEDS: OMEPRAZOLE 20MG CAP PO SCH ×2 (16:26→21:42)
[2023-01-19] MEDS: TORSEMIDE 10 MG TABLET PO SCH ×2 (17:09→21:41)
[2023-01-19] MEDS: SPIRONOLACTONE 25 MG TAB PO SCH (17:13)
[2023-01-19] MEDS: ENOXAPARIN 40MG/0.4ML SYRINGE (J1650 PER 10MG) SC SCH (17:13)
[2023-01-19] MEDS: FAMOTIDINE 20 MG TAB PO SCH (17:14)
[2023-01-19] MEDS: CEFIDEROCOL SULFATE TOSYLATE 2 GM in D5W 100 ML IV SCH ×2 (17:14→23:31)
[2023-01-19 19:08] LABS: IMMUNOGLOBULIN A 93.4 MG/DL (40-350); IMMUNOGLOBULIN M 195.9 MG/DL (50-300)
[2023-01-19 20:00] VITALS: BP 118/55
[2023-01-19] MEDS: traZODone 50 MG TAB PO SCH (21:00)
[2023-01-19] MEDS: MIRTAZAPINE 15 MG TAB PO SCH (21:40)
[2023-01-19] MEDS: MONTELUKAST 10 MG TAB PO SCH (21:40)
[2023-01-19] MEDS: ITRACONAZOLE 100 MG PO SCH (21:41)
[2023-01-19 23:40] VITALS: BP 123/57
[2023-01-20] VITALS (21 sets, daily range): BP systolic 117–139; BP diastolic 57–66; O2SAT 83–98
[2023-01-20 05:37] LABS: HEMATOCRIT 36.4 % (36.0-47.0); MEAN CORPUSCULAR HEMOGLOBIN 31.8 pg (27.0-33.0); MEAN CORPUSCULAR HGB CONC 31.9 g/dl (32.0-36.5); MEAN CORPUSCULAR VOLUME 99.7 fl (80.0-96.0); PLATELET COUNT, AUTOMATED 119 10^3/uL (150-450); RED BLOOD COUNT 3.65 10^6/uL (4.00-5.40); WHITE BLOOD COUNT 12.7 10^3/uL (4.0-10.0)
[2023-01-20 05:49] LABS: HEMOGLOBIN 11.6 g/dl (12.0-15.5)
[2023-01-20 05:52] LABS: BLOOD UREA NITROGEN 23 MG/DL (9-23); CALCIUM LEVEL 8.1 MG/DL (8.3-10.6); CARBON DIOXIDE LEVEL > 40.0 MMOL/L (20-31); CHLORIDE LEVEL 95 MMOL/L (98-107); CREATININE FOR GFR 0.72 MG/DL (0.55-1.30); GLOMERULAR FILTRATION RATE > 60.0 (>45); GLUCOSE, FASTING 158 MG/DL (74-106); SODIUM LEVEL 140 MMOL/L (136-145)
[2023-01-20] MEDS: CEFIDEROCOL SULFATE TOSYLATE 2 GM in D5W 100 ML IV SCH ×3 (06:21→23:05)
[2023-01-20 06:23] LABS: ABG BASE EXCESS 17.7 (-2.0-2.0); ABG HCO3 46.2 MEQ/L (22.0-26.0); ABG O2 SATURATION 97.1 % (95.0-99.0); ABG STANDARD HCO3 41.7 MEQ/L (22.0-26.0); ABG TOTAL CO2 48.6 MEQ/L (23.0-31.0); ABG pH (ARTERIAL) 7.395 UNITS (7.350-7.450)
[2023-01-20 06:26] LABS: ABG PARTIAL PRESSURE CO2 77.2 mmHg (35.0-45.0)
[2023-01-20] MEDS: IPRATROPIUM 0.5MG/ALBUTEROL 2.5MG INH SOL UD 3ML (DUONEB) NEB SCH ×4 (08:17→19:43)
[2023-01-20] MEDS: SODIUM CHLORIDE HYPERTONIC 3% 15ML NEB SOL INH SCH ×4 (08:19→19:43)
[2023-01-20] MEDS ORDERED: AZITHROMYCIN 250MG TABLET PO SCH (09:00)
[2023-01-20] MEDS: methylPREDNISolone 40MG 1ML VIAL IV SCH (09:58)
[2023-01-20] MEDS: OMEPRAZOLE 20MG CAP PO SCH ×2 (09:58→20:59)
[2023-01-20] MEDS: SPIRONOLACTONE 25 MG TAB PO SCH (09:58)
[2023-01-20] MEDS: POTASSIUM CHLORIDE 10MEQ SR TABLET PO SCH ×2 (09:58→20:59)
[2023-01-20] MEDS: levETIRAcetam 250MG TABLET (KEPPRA) PO SCH ×2 (09:59→20:59)
[2023-01-20] MEDS: METOPROLOL TART 25 MG TABLET PO SCH ×2 (09:59→20:59)
[2023-01-20] MEDS: TORSEMIDE 10 MG TABLET PO SCH ×2 (09:59→21:00)
[2023-01-20] MEDS: FAMOTIDINE 20 MG TAB PO SCH (10:00)
[2023-01-20] MEDS: FERROUS SULFATE 325MG TAB PO SCH ×2 (10:00→20:59)
[2023-01-20] MEDS: ENOXAPARIN 40MG/0.4ML SYRINGE (J1650 PER 10MG) SC SCH (10:05)
[2023-01-20] MEDS: SYMBICORT 160/4.5MCG INHALER 6GM INH SCH ×2 (11:16→19:43)
[2023-01-20] MEDS: traZODone 50 MG TAB PO SCH (20:58)
[2023-01-20] MEDS: ITRACONAZOLE 100 MG PO SCH (20:58)
[2023-01-20] MEDS: MIRTAZAPINE 15 MG TAB PO SCH (20:59)
[2023-01-20] MEDS: MONTELUKAST 10 MG TAB PO SCH (20:59)
[2023-01-20] MEDS: AZITHROMYCIN 250MG TABLET PO SCH (21:00)
[2023-01-21] VITALS (21 sets, daily range): BP systolic 133–167; BP diastolic 61–89; O2SAT 88–97
[2023-01-21] MEDS: CEFIDEROCOL SULFATE TOSYLATE 2 GM in D5W 100 ML IV SCH ×3 (06:25→23:19)
[2023-01-21] MEDS: SODIUM CHLORIDE HYPERTONIC 3% 15ML NEB SOL INH SCH ×4 (07:32→20:30)
[2023-01-21] MEDS: SYMBICORT 160/4.5MCG INHALER 6GM INH SCH ×2 (07:32→20:30)
[2023-01-21] MEDS: IPRATROPIUM 0.5MG/ALBUTEROL 2.5MG INH SOL UD 3ML (DUONEB) NEB SCH ×4 (07:32→20:30)
[2023-01-21] MEDS: ENOXAPARIN 40MG/0.4ML SYRINGE (J1650 PER 10MG) SC SCH (09:25)
[2023-01-21] MEDS: POTASSIUM CHLORIDE 10MEQ SR TABLET PO SCH ×2 (09:26→21:04)
[2023-01-21] MEDS: OMEPRAZOLE 20MG CAP PO SCH ×2 (09:27→21:04)
[2023-01-21] MEDS: predniSONE 20 MG TAB PO SCH (09:27)
[2023-01-21] MEDS: SPIRONOLACTONE 25 MG TAB PO SCH (09:27)
[2023-01-21] MEDS: levETIRAcetam 250MG TABLET (KEPPRA) PO SCH ×2 (09:27→21:05)
[2023-01-21] MEDS: FAMOTIDINE 20 MG TAB PO SCH (09:28)
[2023-01-21] MEDS: TORSEMIDE 10 MG TABLET PO SCH ×2 (09:28→21:07)
[2023-01-21] MEDS: FERROUS SULFATE 325MG TAB PO SCH ×2 (09:28→21:04)
[2023-01-21] MEDS: METOPROLOL TART 25 MG TABLET PO SCH ×2 (09:28→21:04)
[2023-01-21 09:45] LABS: ABG BASE EXCESS 14.2 (-2.0-2.0); ABG HCO3 40.7 MEQ/L (22.0-26.0); ABG O2 SATURATION 92.7 % (95.0-99.0); ABG PARTIAL PRESSURE CO2 60.3 mmHg (35.0-45.0); ABG PARTIAL PRESSURE O2 63.5 mmHg (75.0-100.0); ABG STANDARD HCO3 37.9 MEQ/L (22.0-26.0); ABG TOTAL CO2 42.5 MEQ/L (23.0-31.0); ABG pH (ARTERIAL) 7.447 UNITS (7.350-7.450)
[2023-01-21 10:12] LABS: BASO % 0.1 % (0.0-1.0); HEMATOCRIT 39.6 % (36.0-47.0); HEMOGLOBIN 12.8 g/dl (12.0-15.5); LYMPH # 0.2 10^3/uL (1.5-5.0); LYMPH % 2.5 % (24.0-44.0); MEAN CORPUSCULAR HEMOGLOBIN 32.2 pg (27.0-33.0); MEAN CORPUSCULAR HGB CONC 32.3 g/dl (32.0-36.5); MEAN CORPUSCULAR VOLUME 99.7 fl (80.0-96.0); MONO # 0.4 10^3/uL (0.0-0.8); MONO % 4.7 % (2.0-8.0); NEUTROPHILS # 8.2 10^3/uL (1.5-8.5); PLATELET COUNT, AUTOMATED 142 10^3/uL (150-450); RED BLOOD COUNT 3.97 10^6/uL (4.00-5.40); WHITE BLOOD COUNT 8.9 10^3/uL (4.0-10.0)
[2023-01-21 10:36] LABS: BLOOD UREA NITROGEN 22 MG/DL (9-23); CARBON DIOXIDE LEVEL > 40.0 MMOL/L (20-31); CHLORIDE LEVEL 91 MMOL/L (98-107); CREATININE FOR GFR 0.67 MG/DL (0.55-1.30); GLOMERULAR FILTRATION RATE > 60.0 (>45); GLUCOSE, FASTING 201 MG/DL (74-106); POTASSIUM SERUM 3.8 MMOL/L (3.5-5.1); SODIUM LEVEL 138 MMOL/L (136-145)
[2023-01-21] MEDS: MIRTAZAPINE 15 MG TAB PO SCH (21:03)
[2023-01-21] MEDS: MONTELUKAST 10 MG TAB PO SCH (21:03)
[2023-01-21] MEDS: AZITHROMYCIN 250MG TABLET PO SCH (21:03)
[2023-01-21] MEDS: traZODone 50 MG TAB PO SCH (21:08)
[2023-01-21] MEDS: ITRACONAZOLE 100 MG PO SCH (23:19)
[2023-01-22 06:00] VITALS: BP 158/83
[2023-01-22] MEDS: CEFIDEROCOL SULFATE TOSYLATE 2 GM in D5W 100 ML IV SCH ×3 (06:51→23:00)
[2023-01-22 07:14] LABS: HEMATOCRIT 36.7 % (36.0-47.0); HEMOGLOBIN 11.5 g/dl (12.0-15.5); LYMPH # 0.8 10^3/uL (1.5-5.0); LYMPH % 9.1 % (24.0-44.0); MEAN CORPUSCULAR HEMOGLOBIN 31.1 pg (27.0-33.0); MEAN CORPUSCULAR HGB CONC 31.3 g/dl (32.0-36.5); MEAN CORPUSCULAR VOLUME 99.2 fl (80.0-96.0); MONO # 0.5 10^3/uL (0.0-0.8); NEUTROPHILS # 7.6 10^3/uL (1.5-8.5); NEUTROPHILS % 84.5 % (36.0-66.0); PLATELET COUNT, AUTOMATED 143 10^3/uL (150-450)
[2023-01-22 07:40] LABS: BLOOD UREA NITROGEN 22 MG/DL (9-23); CALCIUM LEVEL 8.1 MG/DL (8.3-10.6); CARBON DIOXIDE LEVEL > 40.0 MMOL/L (20-31); CHLORIDE LEVEL 94 MMOL/L (98-107); CREATININE FOR GFR 0.66 MG/DL (0.55-1.30); GLOMERULAR FILTRATION RATE > 60.0 (>45); GLUCOSE, FASTING 83 MG/DL (74-106); POTASSIUM SERUM 3.9 MMOL/L (3.5-5.1); SODIUM LEVEL 144 MMOL/L (136-145)
[2023-01-22] MEDS: SYMBICORT 160/4.5MCG INHALER 6GM INH SCH ×2 (07:48→20:15)
[2023-01-22] MEDS: SODIUM CHLORIDE HYPERTONIC 3% 15ML NEB SOL INH SCH ×4 (07:48→20:15)
[2023-01-22] MEDS: IPRATROPIUM 0.5MG/ALBUTEROL 2.5MG INH SOL UD 3ML (DUONEB) NEB SCH ×4 (07:48→20:15)
[2023-01-22 08:43] LABS: MAGNESIUM LEVEL 2.2 MG/DL (1.8-2.4)
[2023-01-22 09:00] VITALS: O2SAT 91
[2023-01-22] MEDS: ENOXAPARIN 40MG/0.4ML SYRINGE (J1650 PER 10MG) SC SCH (09:47)
[2023-01-22] MEDS: levETIRAcetam 250MG TABLET (KEPPRA) PO SCH ×2 (09:48→21:30)
[2023-01-22] MEDS: FAMOTIDINE 20 MG TAB PO SCH (09:48)
[2023-01-22] MEDS: predniSONE 20 MG TAB PO SCH (09:48)
[2023-01-22] MEDS: POTASSIUM CHLORIDE 10MEQ SR TABLET PO SCH ×2 (09:48→21:31)
[2023-01-22] MEDS: FERROUS SULFATE 325MG TAB PO SCH ×2 (09:49→21:30)
[2023-01-22] MEDS: SPIRONOLACTONE 25 MG TAB PO SCH (09:49)
[2023-01-22] MEDS: OMEPRAZOLE 20MG CAP PO SCH ×2 (09:49→21:31)
[2023-01-22] MEDS: METOPROLOL TART 25 MG TABLET PO SCH ×2 (09:51→21:30)
[2023-01-22] MEDS: TORSEMIDE 10 MG TABLET PO SCH ×2 (09:51→21:30)
[2023-01-22 14:00] VITALS: BP 148/74
[2023-01-22] MEDS: VERAPAMIL 120MG SR TAB PO SCH (16:24)
[2023-01-22 20:12] VITALS: BP 144/82
[2023-01-22] MEDS: MIRTAZAPINE 15 MG TAB PO SCH (21:30)
[2023-01-22] MEDS: MONTELUKAST 10 MG TAB PO SCH (21:31)
[2023-01-22] MEDS: AZITHROMYCIN 250MG TABLET PO SCH (21:31)
[2023-01-22] MEDS: traZODone 50 MG TAB PO SCH (21:31)
[2023-01-22] MEDS: ITRACONAZOLE 100 MG PO SCH (21:31)
[2023-01-23 05:55] VITALS: BP 148/84
[2023-01-23] MEDS: CEFIDEROCOL SULFATE TOSYLATE 2 GM in D5W 100 ML IV SCH ×3 (06:32→23:30)
[2023-01-23 06:51] LABS: BASO % 0.1 % (0.0-1.0); HEMATOCRIT 35.1 % (36.0-47.0); HEMOGLOBIN 11.3 g/dl (12.0-15.5); LYMPH # 1.1 10^3/uL (1.5-5.0); LYMPH % 12.7 % (24.0-44.0); MEAN CORPUSCULAR HEMOGLOBIN 31.3 pg (27.0-33.0); MEAN CORPUSCULAR HGB CONC 32.2 g/dl (32.0-36.5); MEAN CORPUSCULAR VOLUME 97.2 fl (80.0-96.0); MONO # 0.6 10^3/uL (0.0-0.8); MONO % 6.9 % (2.0-8.0); NEUTROPHILS % 79.6 % (36.0-66.0); PLATELET COUNT, AUTOMATED 139 10^3/uL (150-450); RED BLOOD COUNT 3.61 10^6/uL (4.00-5.40); WHITE BLOOD COUNT 8.8 10^3/uL (4.0-10.0)
[2023-01-23] MEDS: SODIUM CHLORIDE HYPERTONIC 3% 15ML NEB SOL INH SCH ×4 (07:26→19:36)
[2023-01-23] MEDS: SYMBICORT 160/4.5MCG INHALER 6GM INH SCH ×2 (07:26→19:36)
[2023-01-23] MEDS: IPRATROPIUM 0.5MG/ALBUTEROL 2.5MG INH SOL UD 3ML (DUONEB) NEB SCH ×4 (07:26→19:36)
[2023-01-23 07:32] LABS: BLOOD UREA NITROGEN 22 MG/DL (9-23); CARBON DIOXIDE LEVEL > 40.0 MMOL/L (20-31); CHLORIDE LEVEL 91 MMOL/L (98-107); CREATININE FOR GFR 0.72 MG/DL (0.55-1.30); GLOMERULAR FILTRATION RATE > 60.0 (>45); GLUCOSE, FASTING 83 MG/DL (74-106); POTASSIUM SERUM 4.2 MMOL/L (3.5-5.1); SODIUM LEVEL 138 MMOL/L (136-145)
[2023-01-23] MEDS: ENOXAPARIN 40MG/0.4ML SYRINGE (J1650 PER 10MG) SC SCH (09:10)
[2023-01-23] MEDS: POTASSIUM CHLORIDE 10MEQ SR TABLET PO SCH ×2 (09:11→21:30)
[2023-01-23] MEDS: FAMOTIDINE 20 MG TAB PO SCH (09:11)
[2023-01-23] MEDS: OMEPRAZOLE 20MG CAP PO SCH ×2 (09:11→21:30)
[2023-01-23] MEDS: VERAPAMIL 120MG SR TAB PO SCH (09:12)
[2023-01-23] MEDS: predniSONE 20 MG TAB PO SCH (09:12)
[2023-01-23] MEDS: levETIRAcetam 250MG TABLET (KEPPRA) PO SCH ×2 (09:12→21:29)
[2023-01-23] MEDS: FERROUS SULFATE 325MG TAB PO SCH ×2 (09:12→21:30)
[2023-01-23] MEDS: SPIRONOLACTONE 25 MG TAB PO SCH (09:13)
[2023-01-23] MEDS: TORSEMIDE 10 MG TABLET PO SCH ×2 (09:13→21:30)
[2023-01-23] MEDS: METOPROLOL TART 25 MG TABLET PO SCH ×2 (09:13→21:31)
[2023-01-23 14:00] VITALS: BP 132/71
[2023-01-23] MEDS: MONTELUKAST 10 MG TAB PO SCH (21:29)
[2023-01-23] MEDS: traZODone 50 MG TAB PO SCH (21:29)
[2023-01-23] MEDS: MIRTAZAPINE 15 MG TAB PO SCH (21:30)
[2023-01-23] MEDS: ITRACONAZOLE 100 MG PO SCH (21:31)
[2023-01-23] MEDS: LevoFLOXacin 750 MG TABLET PO SCH (21:35)
[2023-01-23 22:36] VITALS: BP 130/71
[2023-01-24 06:45] VITALS: BP 143/79
[2023-01-24] MEDS: CEFIDEROCOL SULFATE TOSYLATE 2 GM in D5W 100 ML IV SCH ×3 (06:53→23:39)
[2023-01-24 06:58] LABS: BASO % 0.1 % (0.0-1.0); EOS % 0.4 % (0.0-3.0); HEMATOCRIT 33.1 % (36.0-47.0); HEMOGLOBIN 10.7 g/dl (12.0-15.5); LYMPH # 0.9 10^3/uL (1.5-5.0); LYMPH % 10.3 % (24.0-44.0); MEAN CORPUSCULAR HEMOGLOBIN 31.3 pg (27.0-33.0); MEAN CORPUSCULAR HGB CONC 32.3 g/dl (32.0-36.5); MEAN CORPUSCULAR VOLUME 96.8 fl (80.0-96.0); MONO # 0.6 10^3/uL (0.0-0.8); NEUTROPHILS # 6.8 10^3/uL (1.5-8.5); NEUTROPHILS % 81.2 % (36.0-66.0); PLATELET COUNT, AUTOMATED 137 10^3/uL (150-450); RED BLOOD COUNT 3.42 10^6/uL (4.00-5.40); WHITE BLOOD COUNT 8.3 10^3/uL (4.0-10.0)
[2023-01-24 07:28] LABS: BLOOD UREA NITROGEN 21 MG/DL (9-23); CALCIUM LEVEL 8.3 MG/DL (8.3-10.6); CARBON DIOXIDE LEVEL > 40.0 MMOL/L (20-31); CHLORIDE LEVEL 96 MMOL/L (98-107); CREATININE FOR GFR 0.71 MG/DL (0.55-1.30); GLOMERULAR FILTRATION RATE > 60.0 (>45); GLUCOSE, FASTING 79 MG/DL (74-106); MAGNESIUM LEVEL 2.1 MG/DL (1.8-2.4); POTASSIUM SERUM 3.9 MMOL/L (3.5-5.1); SODIUM LEVEL 140 MMOL/L (136-145)
[2023-01-24] MEDS: SYMBICORT 160/4.5MCG INHALER 6GM INH SCH ×2 (07:40→19:15)
[2023-01-24] MEDS: SODIUM CHLORIDE HYPERTONIC 3% 15ML NEB SOL INH SCH ×4 (07:40→19:15)
[2023-01-24] MEDS: IPRATROPIUM 0.5MG/ALBUTEROL 2.5MG INH SOL UD 3ML (DUONEB) NEB SCH ×4 (07:40→19:15)
[2023-01-24] MEDS: ENOXAPARIN 40MG/0.4ML SYRINGE (J1650 PER 10MG) SC SCH (08:04)
[2023-01-24] MEDS: FAMOTIDINE 20 MG TAB PO SCH (08:04)
[2023-01-24] MEDS: FERROUS SULFATE 325MG TAB PO SCH ×2 (08:05→21:09)
[2023-01-24] MEDS: METOPROLOL TART 25 MG TABLET PO SCH ×2 (08:05→21:15)
[2023-01-24] MEDS: SPIRONOLACTONE 25 MG TAB PO SCH (08:05)
[2023-01-24] MEDS: levETIRAcetam 250MG TABLET (KEPPRA) PO SCH ×2 (08:05→21:09)
[2023-01-24] MEDS: TORSEMIDE 10 MG TABLET PO SCH ×2 (08:06→21:15)
[2023-01-24] MEDS: OMEPRAZOLE 20MG CAP PO SCH ×2 (08:06→21:08)
[2023-01-24] MEDS: predniSONE 20 MG TAB PO SCH (08:06)
[2023-01-24] MEDS: POTASSIUM CHLORIDE 10MEQ SR TABLET PO SCH ×2 (08:07→21:08)
[2023-01-24] MEDS: VERAPAMIL 120MG SR TAB PO SCH (08:07)
[2023-01-24 09:00] VITALS: BP 132/72
[2023-01-24] MEDS: LevoFLOXacin 750 MG TABLET PO SCH (17:56)
[2023-01-24] MEDS: MONTELUKAST 10 MG TAB PO SCH (21:08)
[2023-01-24] MEDS: traZODone 50 MG TAB PO SCH (21:09)
[2023-01-24] MEDS: MIRTAZAPINE 15 MG TAB PO SCH (21:09)
[2023-01-24] MEDS: ITRACONAZOLE 100 MG PO SCH (21:10)
[2023-01-24 21:12] VITALS: BP 137/74
[2023-01-25 05:45] VITALS: BP 139/76
[2023-01-25 06:08] LABS: IgG SERUM (part of Subclasses) 767 mg/dL (586-1602); IgG Subclass 1 461 mg/dL (248-810); IgG Subclass 2 135 mg/dL (130-555); IgG Subclass 3 51 mg/dL (15-102); IgG Subclass 4 1 mg/dL (2-96)
[2023-01-25] MEDS: CEFIDEROCOL SULFATE TOSYLATE 2 GM in D5W 100 ML IV SCH (06:22)
[2023-01-25 06:24] LABS: BASO % 0.1 % (0.0-1.0); EOS # 0.1 10^3/uL (0.0-0.5); EOS % 0.9 % (0.0-3.0); HEMOGLOBIN 11.1 g/dl (12.0-15.5); LYMPH # 0.9 10^3/uL (1.5-5.0); LYMPH % 10.9 % (24.0-44.0); MEAN CORPUSCULAR HGB CONC 31.7 g/dl (32.0-36.5); MEAN CORPUSCULAR VOLUME 97.8 fl (80.0-96.0); MONO # 0.6 10^3/uL (0.0-0.8); MONO % 7.3 % (2.0-8.0); NEUTROPHILS # 6.3 10^3/uL (1.5-8.5); NEUTROPHILS % 79.3 % (36.0-66.0); PLATELET COUNT, AUTOMATED 145 10^3/uL (150-450); RED BLOOD COUNT 3.58 10^6/uL (4.00-5.40)
[2023-01-25 06:54] LABS: BLOOD UREA NITROGEN 21 MG/DL (9-23); CALCIUM LEVEL 8.3 MG/DL (8.3-10.6); CARBON DIOXIDE LEVEL > 40.0 MMOL/L (20-31); CHLORIDE LEVEL 96 MMOL/L (98-107); CREATININE FOR GFR 0.79 MG/DL (0.55-1.30); GLOMERULAR FILTRATION RATE > 60.0 (>45); GLUCOSE, FASTING 107 MG/DL (74-106); POTASSIUM SERUM 3.8 MMOL/L (3.5-5.1); SODIUM LEVEL 141 MMOL/L (136-145)
[2023-01-25] MEDS: IPRATROPIUM 0.5MG/ALBUTEROL 2.5MG INH SOL UD 3ML (DUONEB) NEB SCH ×2 (07:39→11:25)
[2023-01-25] MEDS: SYMBICORT 160/4.5MCG INHALER 6GM INH SCH (07:39)
[2023-01-25] MEDS: SODIUM CHLORIDE HYPERTONIC 3% 15ML NEB SOL INH SCH ×2 (07:39→11:25)
[2023-01-25] MEDS: TORSEMIDE 10 MG TABLET PO SCH (09:40)
[2023-01-25] MEDS: OMEPRAZOLE 20MG CAP PO SCH (09:41)
[2023-01-25 09:42] VITALS: BP 137/66
[2023-01-25] MEDS: FERROUS SULFATE 325MG TAB PO SCH (09:42)
[2023-01-25] MEDS: predniSONE 20 MG TAB PO SCH (09:42)
[2023-01-25] MEDS: METOPROLOL TART 25 MG TABLET PO SCH (09:42)
[2023-01-25] MEDS: POTASSIUM CHLORIDE 10MEQ SR TABLET PO SCH (09:42)
[2023-01-25] MEDS: FAMOTIDINE 20 MG TAB PO SCH (09:42)
[2023-01-25] MEDS: SPIRONOLACTONE 25 MG TAB PO SCH (09:42)
[2023-01-25] MEDS: levETIRAcetam 250MG TABLET (KEPPRA) PO SCH (09:42)
[2023-01-25] MEDS: VERAPAMIL 120MG SR TAB PO SCH (09:43)
[2023-01-25] MEDS: ENOXAPARIN 40MG/0.4ML SYRINGE (J1650 PER 10MG) SC SCH (09:43)
[2023-01-25] MEDS ORDERED: LEVO1TAB40 PO (14:08)
[2023-01-25] MEDS ORDERED: PRED10TA2 PO ×2 (14:08)
[2023-01-25 16:30] VITALS: BP 137/66
[2023-01-26 15:08] LABS: BODY FLUID CULTURE Not indicated. (.); LEGIONELLA ANTIGEN URINE Negative (Negative); ORGANISM ID Not indicated. (.); SPECIMEN SOURCE Urine (.); URINE STREP PNEUMONIAE ANTIGEN Negative (Negative)
== END 2023-01-25 17:05 | disposition home or self-care (01) | DRG 871 ==
LOC: M ED 07:33 → M ED INP 12:05 → ENRESERV 12:29 → M PCU 13:52 → M MS5PR 01-21 16:45
PROVIDERS: ADMIT Internal Medicine; ATTEND Internal Medicine
DX: A41.9 Sepsis, unspecified organism (principal); J15.0 Pneumonia due to Klebsiella pneumoniae; J96.21 Acute and chronic respiratory failure with hypoxia; J96.22 Acute and chronic respiratory failure with hypercapnia; B44.9 Aspergillosis, unspecified; I50.32 Chronic diastolic (congestive) heart failure; M48.56XA Collapsed vertebra, not elsewhere classified, lumbar region, initial encounter for fracture; J44.1 Chronic obstructive pulmonary disease with (acute) exacerbation; J44.0 Chronic obstructive pulmonary disease with (acute) lower respiratory infection; D84.9 Immunodeficiency, unspecified; D50.9 Iron deficiency anemia, unspecified; Z66 Do not resuscitate; I27.29 Other secondary pulmonary hypertension; I11.0 Hypertensive heart disease with heart failure; K21.9 Gastro-esophageal reflux disease without esophagitis; F32.A Depression, unspecified; G40.909 Epilepsy, unspecified, not intractable, without status epilepticus; Z99.81 Dependence on supplemental oxygen; Z86.711 Personal history of pulmonary embolism; K44.9 Diaphragmatic hernia without obstruction or gangrene; K22.2 Esophageal obstruction; E11.9 Type 2 diabetes mellitus without complications; M81.0 Age-related osteoporosis without current pathological fracture; H35.30 Unspecified macular degeneration; K64.9 Unspecified hemorrhoids; Z90.49 Acquired absence of other specified parts of digestive tract; Z90.79 Acquired absence of other genital organ(s); Z79.52 Long term (current) use of systemic steroids; Z20.822 Contact with and (suspected) exposure to COVID-19; Z79.899 Other long term (current) drug therapy; Z88.1 Allergy status to other antibiotic agents; Z88.5 Allergy status to narcotic agent; Z88.8 Allergy status to other drugs, medicaments and biological substances

== ENCOUNTER → 2023-04-25 | Outpatient (CLI) | payer MEDICARE, BC ==
[~2023-04-25] MED LIST changes: +LEVO1TAB40 PO; +SODI3NEB INH
[2023-04-25 12:54] LABS: ABG BASE EXCESS 9.7 (-2.0-2.0); ABG HCO3 38.5 MMOL/L (22.0-26.0); ABG O2 SATURATION 92.2 % (95.0-99.0); ABG PARTIAL PRESSURE O2 68.2 mmHg (75.0-100.0); ABG STANDARD HCO3 33.3 MMOL/L. (22.0-26.0); ABG TOTAL CO2 40.7 MMOL/L (23.0-31.0)
[2023-04-25 13:29] LABS: BASO % 0.3 % (0.0-1.0); HEMATOCRIT 42.1 % (36.0-47.0); HEMOGLOBIN 13.6 g/dl (12.0-15.5); LYMPH # 0.5 10^3/uL (1.5-5.0); LYMPH % 3.9 % (24.0-44.0); MEAN CORPUSCULAR HEMOGLOBIN 32.5 pg (27.0-33.0); MEAN CORPUSCULAR HGB CONC 32.3 g/dl (32.0-36.5); MEAN CORPUSCULAR VOLUME 100.7 fl (80.0-96.0); MONO # 0.2 10^3/uL (0.0-0.8); MONO % 1.8 % (2.0-8.0); NEUTROPHILS # 11.7 10^3/uL (1.5-8.5); NEUTROPHILS % 93.3 % (36.0-66.0); PLATELET COUNT, AUTOMATED 152 10^3/uL (150-450); RED BLOOD COUNT 4.18 10^6/uL (4.00-5.40); WHITE BLOOD COUNT 12.5 10^3/uL (4.0-10.0)
[2023-04-25 14:00] LABS: ALBUMIN 3.8 G/DL (3.2-5.2); ALKALINE PHOSPHATASE 75 U/L (46-116); ALT/SGPT 12 U/L (7.0-40); AST/SGOT 9 U/L (<34); BILIRUBIN,TOTAL 0.3 MG/DL (0.3-1.2); BLOOD UREA NITROGEN 16 MG/DL (9-23); CALCIUM LEVEL 8.5 MG/DL (8.3-10.6); CARBON DIOXIDE LEVEL > 40.0 MMOL/L (20-31); CHLORIDE LEVEL 91 MMOL/L (98-107); CHOLESTEROL LEVEL 261 MG/DL (<200); CHOLESTEROL RISK RATIO 5.39 (<5); CREATININE FOR GFR 0.98 MG/DL (0.55-1.30); GLOMERULAR FILTRATION RATE > 60.0 (>45); GLUCOSE, FASTING 204 MG/DL (74-106); HDL CHOLESTEROL 48.4 MG/DL (>40); LDL CHOLESTEROL 148.6 MG/DL (<100); MAGNESIUM LEVEL 2.2 MG/DL (1.8-2.4); NON-HDL-C 212.6 MG/DL; POTASSIUM SERUM 4.6 MMOL/L (3.5-5.1); SODIUM LEVEL 137 MMOL/L (136-145); TOTAL PROTEIN 6.2 G/DL (5.7-8.2); TRIGLYCERIDES LEVEL 320 MG/DL (<150)
== END ==
LOC: M LAB 12:18
PROVIDERS: ATTEND Internal Medicine
DX: J44.9 Chronic obstructive pulmonary disease, unspecified (principal); I27.23 Pulmonary hypertension due to lung diseases and hypoxia; I50.32 Chronic diastolic (congestive) heart failure

== ENCOUNTER → 2023-06-01 | Outpatient (REF) | payer MEDICARE, BC | LOC: M LAB REF 11:36 | PROVIDERS: ATTEND Internal Medicine Pulmonary Disease | DX: J47.9 Bronchiectasis, uncomplicated (principal) ==

== ENCOUNTER → 2023-06-19 | Outpatient (REF) | payer MEDICARE, BC | LOC: M SFHCPLAZ 11:04 | PROVIDERS: ATTEND Internal Medicine Infectious Disease | DX: J47.1 Bronchiectasis with (acute) exacerbation (principal) ==

== ENCOUNTER → 2023-07-11 | Outpatient (CLI) | payer MEDICARE, BC ==
[~2023-07-11] MED LIST changes: +ALBU2.5V10 INH; +CEFD300CAP PO; -MIRT-62 PO; +MIRT-88 PO; +PRED5TA PO; +RISATAB3 PO
[2023-07-11 14:04] LABS: ABG BASE EXCESS 12.1 (-2.0-2.0); ABG HCO3 42.4 MMOL/L (22.0-26.0); ABG O2 SATURATION 98.2 % (95.0-99.0); ABG TOTAL CO2 45.1 MMOL/L (23.0-31.0); ABG pH (ARTERIAL) 7.298 UNITS (7.350-7.450)
[2023-07-11 14:17] LABS: BASO # 0.1 10^3/uL (0.0-0.2); BASO % 0.4 % (0.0-1.0); HEMATOCRIT 42.2 % (36.0-47.0); HEMOGLOBIN 12.9 g/dl (12.0-15.5); LYMPH # 0.4 10^3/uL (1.5-5.0); LYMPH % 3.3 % (24.0-44.0); MEAN CORPUSCULAR HEMOGLOBIN 32.1 pg (27.0-33.0); MEAN CORPUSCULAR HGB CONC 30.6 g/dl (32.0-36.5); MONO # 0.2 10^3/uL (0.0-0.8); MONO % 1.7 % (2.0-8.0); NEUTROPHILS # 12.3 10^3/uL (1.5-8.5); NEUTROPHILS % 93.8 % (36.0-66.0); PLATELET COUNT, AUTOMATED 167 10^3/uL (150-450); RED BLOOD COUNT 4.02 10^6/uL (4.00-5.40); WHITE BLOOD COUNT 13.1 10^3/uL (4.0-10.0)
[2023-07-11 14:35] LABS: ABG PARTIAL PRESSURE CO2 88.5 mmHg (35.0-45.0)
[2023-07-11 14:53] LABS: ALBUMIN 3.4 G/DL (3.2-5.2); ALKALINE PHOSPHATASE 74 U/L (46-116); ALT/SGPT 12 U/L (7.0-40); AST/SGOT 26 U/L (<34); BILIRUBIN,TOTAL 0.3 MG/DL (0.3-1.2); BLOOD UREA NITROGEN 17 MG/DL (9-23); CALCIUM LEVEL 8.5 MG/DL (8.3-10.6); CARBON DIOXIDE LEVEL > 40.0 MMOL/L (20-31); CHLORIDE LEVEL 93 MMOL/L (98-107); CREATININE FOR GFR 0.83 MG/DL (0.55-1.30); GLOMERULAR FILTRATION RATE > 60.0 (>45); GLUCOSE, FASTING 189 MG/DL (74-106); POTASSIUM SERUM 5.4 MMOL/L (3.5-5.1); SODIUM LEVEL 144 MMOL/L (136-145); TOTAL PROTEIN 6.7 G/DL (5.7-8.2)
[2023-07-11 15:00] LABS: ERYTHROCYTE SEDIMENTATION RATE 42 mm/hr (0-30)
== END ==
LOC: M LAB 13:38
PROVIDERS: ATTEND Internal Medicine Infectious Disease
DX: J96.91 Respiratory failure, unspecified with hypoxia (principal); J47.1 Bronchiectasis with (acute) exacerbation

== ENCOUNTER 2023-07-13 15:58 | Inpatient (IN) | payer MEDICARE, BC ==
[~2023-07-13] VITALS: Ht 144.8 cm; Wt 47.2 kg
[2023-07-13] VITALS (8 sets, daily range): BP systolic 164; BP diastolic 73; TEMP 96.3; O2SAT 84–96
[~2023-07-13 15:58] MED LIST changes: -ALBU2.5V10 INH; -CEFD300CAP PO; -PRED5TA PO; -RISATAB3 PO
[2023-07-13] MEDS ORDERED: IPRATROPIUM 0.5MG/ALBUTEROL 2.5MG INH SOL UD 3ML (DUONEB) NEB ONE (17:30)
[2023-07-13 17:38] LABS: ABG BASE EXCESS 12.1 (-2.0-2.0); ABG HCO3 41.1 MMOL/L (22.0-26.0); ABG O2 SATURATION 90.7 % (95.0-99.0); ABG STANDARD HCO3 35.7 MMOL/L. (22.0-26.0); ABG TOTAL CO2 43.5 MMOL/L (23.0-31.0); ABG pH (ARTERIAL) 7.341 UNITS (7.350-7.450)
[2023-07-13 17:42] LABS: ABG PARTIAL PRESSURE CO2 77.8 mmHg (35.0-45.0)
[2023-07-13 17:51] LABS: BASO % 0.2 % (0.0-1.0); HEMATOCRIT 39.7 % (36.0-47.0); HEMOGLOBIN 12.2 g/dl (12.0-15.5); LYMPH # 0.7 10^3/uL (1.5-5.0); LYMPH % 5.1 % (24.0-44.0); MEAN CORPUSCULAR HEMOGLOBIN 31.4 pg (27.0-33.0); MEAN CORPUSCULAR HGB CONC 30.7 g/dl (32.0-36.5); MEAN CORPUSCULAR VOLUME 102.3 fl (80.0-96.0); MONO # 0.5 10^3/uL (0.0-0.8); MONO % 3.9 % (2.0-8.0); NEUTROPHILS # 11.5 10^3/uL (1.5-8.5); NEUTROPHILS % 89.8 % (36.0-66.0); PLATELET COUNT, AUTOMATED 165 10^3/uL (150-450); RED BLOOD COUNT 3.88 10^6/uL (4.00-5.40); WHITE BLOOD COUNT 12.9 10^3/uL (4.0-10.0)
[2023-07-13] MEDS ORDERED: ISOVUE-370 76% 100ML VIAL As Ordered ONE (18:05)
[2023-07-13 18:07] LABS: ALBUMIN 3.4 G/DL (3.2-5.2); ALKALINE PHOSPHATASE 78 U/L (46-116); ALT/SGPT 13 U/L (7.0-40); AST/SGOT 28 U/L (<34); BILIRUBIN,DIRECT < 0.1 MG/DL (<0.4); BILIRUBIN,TOTAL 0.2 MG/DL (0.3-1.2); BLOOD UREA NITROGEN 18 MG/DL (9-23); CALCIUM LEVEL 8.7 MG/DL (8.3-10.6); CARBON DIOXIDE LEVEL > 40.0 MMOL/L (20-31); CHLORIDE LEVEL 91 MMOL/L (98-107); CREATININE FOR GFR 0.77 MG/DL (0.55-1.30); GLOMERULAR FILTRATION RATE > 60.0 (>45); GLUCOSE, FASTING 182 MG/DL (74-106); POTASSIUM SERUM 4.7 MMOL/L (3.5-5.1); SODIUM LEVEL 141 MMOL/L (136-145); TOTAL PROTEIN 6.6 G/DL (5.7-8.2)
[2023-07-13 19:08] LABS: RSV AMPLIFICATION NEGATIVE (NEGATIVE)
[2023-07-13 19:45] LABS: CK-MB VALUE MASS < 1.0 NG/ML (<3.6)
[2023-07-13] MEDS ORDERED: methylPREDNISolone 125MG 2ML VIAL IV ONE (19:50)
[2023-07-13] MEDS ORDERED: ACETAMINOPHEN TAB 650MG DOSE (2X325MG) PO PRN (19:50)
[2023-07-13] MEDS ORDERED: MOM 30ML SUSPENSION UDC PO PRN (19:50)
[2023-07-13] MEDS ORDERED: MAALOX 30 ML SUSP *UDC PO PRN (19:50)
[2023-07-13 19:55] LABS: CPK CREATINE PHOSPHOKINASE 25 U/L (34-145)
[2023-07-13] MEDS ORDERED: MED REC IN PROGRESS XX SCH (19:55)
[2023-07-13] MEDS: BUDESONIDE 0.5 MG/2 ML INHALATION SUSPENSION INH SCH (20:00)
[2023-07-13] MEDS ORDERED: GLUCAGON INJ 1MG VIAL SC PRN (20:10)
[2023-07-13] MEDS ORDERED: DEXTROSE 50% 50ML SYRINGE IV PRN (20:10)
[2023-07-13] MEDS ORDERED: GLUCOSE 4GM CHEW TABLET PO PRN (20:10)
[2023-07-13] MEDS: IPRATROPIUM 0.5MG/ALBUTEROL 2.5MG INH SOL UD 3ML (DUONEB) NEB SCH ×2 (20:15→23:20)
[2023-07-13 20:24] LABS: PROCALCITONIN 0.12 ng/ml
[2023-07-13] MEDS ORDERED: MED REC CURRENTLY UNOBTAINABLE XX SCH (20:25)
[2023-07-13] MEDS: INSULIN LISPRO (NovoLOG) PER UNIT SC SCH (21:00)
[2023-07-13] MEDS: PIPERACILLIN/TAZOBACTAM SOD 3.375 GM in D5W MINI-BAG PLUS 50 ML IV SCH (22:07)
[2023-07-13] MEDS ORDERED: RISATAB3 PO (22:38)
[2023-07-13] MEDS ORDERED: CEFD300CAP PO (22:38)
[2023-07-13] MEDS ORDERED: TORS20TA2 PO ×2 (22:38)
[2023-07-13] MEDS ORDERED: STIO1AER INH (22:38)
[2023-07-13] MEDS ORDERED: ALBU2.5V10 INH (22:38)
[2023-07-13] MEDS ORDERED: PRED5TA PO (22:38)
[2023-07-13] MEDS ORDERED: PRED10TA2 PO (22:38)
[2023-07-13] MEDS ORDERED: HOME MED LIST COMPLETE! XX SCH (22:40)
[2023-07-14] VITALS (8 sets, daily range): BP systolic 112–161; BP diastolic 54–71; TEMP 97.2–99; O2SAT 88–99
[2023-07-14] MEDS: IPRATROPIUM 0.5MG/ALBUTEROL 2.5MG INH SOL UD 3ML (DUONEB) NEB SCH ×5 (03:35→19:57)
[2023-07-14] MEDS: methylPREDNISolone 125MG 2ML VIAL IV SCH ×2 (04:01→11:03)
[2023-07-14 05:11] LABS: HEMOGLOBIN 11.6 g/dl (12.0-15.5); MEAN CORPUSCULAR HEMOGLOBIN 31.4 pg (27.0-33.0); MEAN CORPUSCULAR HGB CONC 31.4 g/dl (32.0-36.5); MEAN CORPUSCULAR VOLUME 100.3 fl (80.0-96.0); PLATELET COUNT, AUTOMATED 148 10^3/uL (150-450); RED BLOOD COUNT 3.69 10^6/uL (4.00-5.40); WHITE BLOOD COUNT 9.5 10^3/uL (4.0-10.0)
[2023-07-14 05:27] LABS: HEMOGLOBIN A1c 5.4 % (4.0-6.0)
[2023-07-14 05:38] LABS: BLOOD UREA NITROGEN 18 MG/DL (9-23); CALCIUM LEVEL 8.6 MG/DL (8.3-10.6); CARBON DIOXIDE LEVEL > 40.0 MMOL/L (20-31); CHLORIDE LEVEL 91 MMOL/L (98-107); CREATININE FOR GFR 0.75 MG/DL (0.55-1.30); GLOMERULAR FILTRATION RATE > 60.0 (>45); GLUCOSE, FASTING 238 MG/DL (74-106); MAGNESIUM LEVEL 2.4 MG/DL (1.8-2.4); POTASSIUM SERUM 3.9 MMOL/L (3.5-5.1); SODIUM LEVEL 141 MMOL/L (136-145)
[2023-07-14] MEDS: PIPERACILLIN/TAZOBACTAM SOD 3.375 GM in D5W MINI-BAG PLUS 50 ML IV SCH ×2 (06:13→15:02)
[2023-07-14] MEDS ORDERED: IPRATROPIUM 0.5MG/ALBUTEROL 2.5MG INH SOL UD 3ML (DUONEB) NEB PRN (07:15)
[2023-07-14] MEDS: BUDESONIDE 0.5 MG/2 ML INHALATION SUSPENSION INH SCH (07:21)
[2023-07-14] MEDS ORDERED: SYMBICORT 160/4.5MCG INHALER 6GM INH SCH (08:00)
[2023-07-14] MEDS: TIOTROPIUM INHALER/CAPSULE (SPIRIVA) INH SCH ×2 (08:00→15:30)
[2023-07-14] MEDS: INSULIN LISPRO (NovoLOG) PER UNIT SC SCH ×4 (09:00→20:21)
[2023-07-14] MEDS: ENOXAPARIN 40MG/0.4ML SYRINGE (J1650 PER 10MG) SC SCH (09:01)
[2023-07-14 10:26] LABS: ABG BASE EXCESS 10.1 (-2.0-2.0); ABG HCO3 37.9 MMOL/L (22.0-26.0); ABG PARTIAL PRESSURE O2 77.6 mmHg (75.0-100.0); ABG STANDARD HCO3 33.8 MMOL/L. (22.0-26.0); ABG TOTAL CO2 39.9 MMOL/L (23.0-31.0); ABG pH (ARTERIAL) 7.374 UNITS (7.350-7.450)
[2023-07-14 10:30] LABS: ABG PARTIAL PRESSURE CO2 66.4 mmHg (35.0-45.0)
[2023-07-14] MEDS: DOXYCYCLINE HYCLATE 100MG TABLET PO SCH ×2 (13:42→20:13)
[2023-07-14] MEDS: CALCIUM/VITAMIN D 500 MG TAB PO SCH (13:42)
[2023-07-14] MEDS: levETIRAcetam 250MG TABLET (KEPPRA) PO SCH ×2 (13:42→20:13)
[2023-07-14] MEDS: FERROUS SULFATE 325MG TAB PO SCH ×2 (13:42→20:13)
[2023-07-14] MEDS: METOPROLOL TART 25 MG TABLET PO SCH ×2 (13:43→20:15)
[2023-07-14] MEDS: POTASSIUM CHLORIDE 10MEQ SR TABLET PO SCH ×2 (15:02→20:13)
[2023-07-14] MEDS: OMEPRAZOLE 20MG CAP PO SCH ×2 (15:03→20:12)
[2023-07-14] MEDS: VERAPAMIL 120MG SR TAB PO SCH (15:03)
[2023-07-14] MEDS: SPIRONOLACTONE 25 MG TAB PO SCH (15:04)
[2023-07-14] MEDS: FAMOTIDINE 20 MG TAB PO SCH (15:08)
[2023-07-14] MEDS: SODIUM CHLORIDE HYPERTONIC 3% 15ML NEB SOL INH SCH ×2 (15:30→19:57)
[2023-07-14] MEDS: TORSEMIDE 10 MG TABLET PO SCH (17:26)
[2023-07-14] MEDS: SYMBICORT 160/4.5MCG INHALER 6GM INH SCH (19:58)
[2023-07-14] MEDS ORDERED: VANCOMYCIN HCL 1,000 MG, VIAL MATE ADAPTER 1 EACH in D5W 250 ML IV ONE (20:00)
[2023-07-14] MEDS: MONTELUKAST 10 MG TAB PO SCH (20:12)
[2023-07-14] MEDS: LACTOBACILLUS ACIDOPHILUS CAP (BACID) PO SCH (20:12)
[2023-07-14] MEDS: traZODone 50 MG TAB PO SCH (20:12)
[2023-07-14] MEDS: MIRTAZAPINE 15 MG TAB PO SCH (20:13)
[2023-07-14] MEDS: ITRACONAZOLE 100 MG PO SCH (20:15)
[2023-07-14] MEDS: CEFIDEROCOL SULFATE TOSYLATE 2 GM in D5W 100 ML IV SCH (20:24)
[2023-07-14] MEDS ORDERED: NON-FORMULARY COMPOUNDED MEDICATION PO SCH (21:00)
[2023-07-15] VITALS (8 sets, daily range): BP systolic 110–136; BP diastolic 56–77; TEMP 97.8–98.7; O2SAT 93–99
[2023-07-15] MEDS: IPRATROPIUM 0.5MG/ALBUTEROL 2.5MG INH SOL UD 3ML (DUONEB) NEB SCH ×4 (01:12→19:20)
[2023-07-15] MEDS: SODIUM CHLORIDE HYPERTONIC 3% 15ML NEB SOL INH SCH ×4 (01:12→19:20)
[2023-07-15] MEDS ORDERED: VANCOMYCIN HCL 750 MG, VIAL MATE ADAPTER 1 EACH in D5W 250 ML IV SCH (04:00)
[2023-07-15 04:43] LABS: HEMOGLOBIN 10.6 g/dl (12.0-15.5); MEAN CORPUSCULAR HEMOGLOBIN 31.8 pg (27.0-33.0); MEAN CORPUSCULAR HGB CONC 32.1 g/dl (32.0-36.5); MEAN CORPUSCULAR VOLUME 99.1 fl (80.0-96.0); PLATELET COUNT, AUTOMATED 147 10^3/uL (150-450); RED BLOOD COUNT 3.33 10^6/uL (4.00-5.40)
[2023-07-15 05:12] LABS: BLOOD UREA NITROGEN 23 MG/DL (9-23); CALCIUM LEVEL 8.2 MG/DL (8.3-10.6); CARBON DIOXIDE LEVEL > 40.0 MMOL/L (20-31); CHLORIDE LEVEL 95 MMOL/L (98-107); CREATININE FOR GFR 0.71 MG/DL (0.55-1.30); GLOMERULAR FILTRATION RATE > 60.0 (>45); GLUCOSE, FASTING 130 MG/DL (74-106); MAGNESIUM LEVEL 2.4 MG/DL (1.8-2.4); POTASSIUM SERUM 4.2 MMOL/L (3.5-5.1); SODIUM LEVEL 143 MMOL/L (136-145)
[2023-07-15] MEDS: CEFIDEROCOL SULFATE TOSYLATE 2 GM in D5W 100 ML IV SCH ×3 (05:32→20:06)
[2023-07-15] MEDS: INSULIN LISPRO (NovoLOG) PER UNIT SC SCH ×4 (07:30→20:07)
[2023-07-15] MEDS: SYMBICORT 160/4.5MCG INHALER 6GM INH SCH ×2 (07:41→19:21)
[2023-07-15] MEDS: TIOTROPIUM INHALER/CAPSULE (SPIRIVA) INH SCH (07:44)
[2023-07-15] MEDS: methylPREDNISolone 40MG 1ML VIAL IV SCH ×2 (09:22→20:05)
[2023-07-15] MEDS: OMEPRAZOLE 20MG CAP PO SCH ×2 (09:23→20:07)
[2023-07-15] MEDS: levETIRAcetam 250MG TABLET (KEPPRA) PO SCH ×2 (09:23→20:07)
[2023-07-15] MEDS: FAMOTIDINE 20 MG TAB PO SCH (09:23)
[2023-07-15] MEDS: POTASSIUM CHLORIDE 10MEQ SR TABLET PO SCH ×2 (09:23→20:06)
[2023-07-15] MEDS: FERROUS SULFATE 325MG TAB PO SCH (09:23)
[2023-07-15] MEDS: CALCIUM/VITAMIN D 500 MG TAB PO SCH (09:23)
[2023-07-15] MEDS: TORSEMIDE 20 MG TAB PO SCH (09:24)
[2023-07-15] MEDS: SPIRONOLACTONE 25 MG TAB PO SCH (09:24)
[2023-07-15] MEDS: VERAPAMIL 120MG SR TAB PO SCH (09:24)
[2023-07-15] MEDS: ENOXAPARIN 40MG/0.4ML SYRINGE (J1650 PER 10MG) SC SCH (09:25)
[2023-07-15] MEDS: DOXYCYCLINE HYCLATE 100MG TABLET PO SCH ×2 (09:25→20:06)
[2023-07-15] MEDS: METOPROLOL TART 25 MG TABLET PO SCH ×2 (09:25→20:07)
[2023-07-15] MEDS ORDERED: VANCOMYCIN HCL 500 MG in D5W MINI-BAG PLUS 100 ML IV SCH (17:00)
[2023-07-15] MEDS: TORSEMIDE 10 MG TABLET PO SCH (17:13)
[2023-07-15] MEDS: VANCOMYCIN HCL 500 MG in D5W MINI-BAG PLUS 100 ML IV SCH (17:54)
[2023-07-15] MEDS: ITRACONAZOLE 100 MG PO SCH (20:06)
[2023-07-15] MEDS: MIRTAZAPINE 15 MG TAB PO SCH (20:06)
[2023-07-15] MEDS: LACTOBACILLUS ACIDOPHILUS CAP (BACID) PO SCH (20:07)
[2023-07-15] MEDS: MONTELUKAST 10 MG TAB PO SCH (20:07)
[2023-07-15] MEDS: traZODone 50 MG TAB PO SCH (20:07)
[2023-07-16] VITALS: BP 140/63; TEMP 97.9; O2SAT 89
[2023-07-16] MEDS: IPRATROPIUM 0.5MG/ALBUTEROL 2.5MG INH SOL UD 3ML (DUONEB) NEB SCH ×4 (01:11→19:19)
[2023-07-16] MEDS: SODIUM CHLORIDE HYPERTONIC 3% 15ML NEB SOL INH SCH ×4 (01:11→19:19)
[2023-07-16 04:00] VITALS: BP 171/74; TEMP 98.1; O2SAT 97
[2023-07-16 04:33] LABS: HEMATOCRIT 33.9 % (36.0-47.0); HEMOGLOBIN 10.6 g/dl (12.0-15.5); MEAN CORPUSCULAR HEMOGLOBIN 31.5 pg (27.0-33.0); MEAN CORPUSCULAR HGB CONC 31.3 g/dl (32.0-36.5); MEAN CORPUSCULAR VOLUME 100.9 fl (80.0-96.0); PLATELET COUNT, AUTOMATED 145 10^3/uL (150-450); RED BLOOD COUNT 3.36 10^6/uL (4.00-5.40); WHITE BLOOD COUNT 9.4 10^3/uL (4.0-10.0)
[2023-07-16] MEDS: CEFIDEROCOL SULFATE TOSYLATE 2 GM in D5W 100 ML IV SCH ×3 (04:50→20:11)
[2023-07-16 04:56] LABS: BLOOD UREA NITROGEN 23 MG/DL (9-23); CARBON DIOXIDE LEVEL > 40.0 MMOL/L (20-31); CHLORIDE LEVEL 95 MMOL/L (98-107); CREATININE FOR GFR 0.75 MG/DL (0.55-1.30); GLOMERULAR FILTRATION RATE > 60.0 (>45); GLUCOSE, FASTING 181 MG/DL (74-106); MAGNESIUM LEVEL 2.3 MG/DL (1.8-2.4); POTASSIUM SERUM 4.9 MMOL/L (3.5-5.1); SODIUM LEVEL 140 MMOL/L (136-145)
[2023-07-16] MEDS: VANCOMYCIN HCL 500 MG in D5W MINI-BAG PLUS 100 ML IV SCH (06:46)
[2023-07-16 08:00] VITALS: BP 138/60; TEMP 97.9; O2SAT 98
[2023-07-16] MEDS: TIOTROPIUM INHALER/CAPSULE (SPIRIVA) INH SCH (08:00)
[2023-07-16] MEDS: SYMBICORT 160/4.5MCG INHALER 6GM INH SCH ×2 (08:08→19:19)
[2023-07-16 08:09] VITALS: O2SAT 97
[2023-07-16] MEDS: FAMOTIDINE 20 MG TAB PO SCH (08:39)
[2023-07-16] MEDS: INSULIN LISPRO (NovoLOG) PER UNIT SC SCH ×4 (08:39→20:13)
[2023-07-16] MEDS: CALCIUM/VITAMIN D 500 MG TAB PO SCH (08:39)
[2023-07-16] MEDS: ENOXAPARIN 40MG/0.4ML SYRINGE (J1650 PER 10MG) SC SCH (08:39)
[2023-07-16] MEDS: methylPREDNISolone 40MG 1ML VIAL IV SCH (08:39)
[2023-07-16 08:40] LABS: VITAMIN B12 LEVEL 219 PG/ML (211-911)
[2023-07-16] MEDS: TORSEMIDE 20 MG TAB PO SCH (08:40)
[2023-07-16] MEDS: METOPROLOL TART 25 MG TABLET PO SCH ×2 (08:40→20:12)
[2023-07-16] MEDS: SPIRONOLACTONE 25 MG TAB PO SCH (08:40)
[2023-07-16] MEDS: OMEPRAZOLE 20MG CAP PO SCH ×2 (08:40→20:13)
[2023-07-16] MEDS: DOXYCYCLINE HYCLATE 100MG TABLET PO SCH ×2 (08:40→20:13)
[2023-07-16] MEDS: POTASSIUM CHLORIDE 10MEQ SR TABLET PO SCH ×2 (08:41→20:12)
[2023-07-16] MEDS: VERAPAMIL 120MG SR TAB PO SCH (08:41)
[2023-07-16] MEDS: levETIRAcetam 250MG TABLET (KEPPRA) PO SCH ×2 (08:41→20:13)
[2023-07-16 08:55] LABS: FOLATE > 24.0 NG/ML (>5.4)
[2023-07-16 16:00] VITALS: BP 124/58; TEMP 97.5; O2SAT 95
[2023-07-16] MEDS: TORSEMIDE 10 MG TABLET PO SCH (17:14)
[2023-07-16 20:04] VITALS: BP 146/65; TEMP 98.3; O2SAT 89
[2023-07-16] MEDS: ITRACONAZOLE 100 MG PO SCH (20:10)
[2023-07-16] MEDS: traZODone 50 MG TAB PO SCH (20:11)
[2023-07-16] MEDS: MIRTAZAPINE 15 MG TAB PO SCH (20:13)
[2023-07-16] MEDS: MONTELUKAST 10 MG TAB PO SCH (20:13)
[2023-07-16] MEDS: LACTOBACILLUS ACIDOPHILUS CAP (BACID) PO SCH (20:13)
[2023-07-17] MEDS: SODIUM CHLORIDE HYPERTONIC 3% 15ML NEB SOL INH SCH ×4 (01:08→20:05)
[2023-07-17] MEDS: IPRATROPIUM 0.5MG/ALBUTEROL 2.5MG INH SOL UD 3ML (DUONEB) NEB SCH ×4 (01:08→20:05)
[2023-07-17] MEDS: CEFIDEROCOL SULFATE TOSYLATE 2 GM in D5W 100 ML IV SCH ×3 (05:01→20:00)
[2023-07-17 06:05] LABS: HEMATOCRIT 35.2 % (36.0-47.0); MEAN CORPUSCULAR HEMOGLOBIN 31.4 pg (27.0-33.0); MEAN CORPUSCULAR HGB CONC 31.3 g/dl (32.0-36.5); MEAN CORPUSCULAR VOLUME 100.6 fl (80.0-96.0); PLATELET COUNT, AUTOMATED 163 10^3/uL (150-450); WHITE BLOOD COUNT 12.4 10^3/uL (4.0-10.0)
[2023-07-17 06:26] LABS: VANCOMYCIN RANDOM 16.5 UG/ML
[2023-07-17 06:29] LABS: BLOOD UREA NITROGEN 23 MG/DL (9-23); CALCIUM LEVEL 8.2 MG/DL (8.3-10.6); CARBON DIOXIDE LEVEL > 40.0 MMOL/L (20-31); CHLORIDE LEVEL 94 MMOL/L (98-107); CREATININE FOR GFR 0.93 MG/DL (0.55-1.30); GLOMERULAR FILTRATION RATE > 60.0 (>45); GLUCOSE, FASTING 93 MG/DL (74-106); POTASSIUM SERUM 4.8 MMOL/L (3.5-5.1); SODIUM LEVEL 141 MMOL/L (136-145)
[2023-07-17] MEDS: TIOTROPIUM INHALER/CAPSULE (SPIRIVA) INH SCH (07:10)
[2023-07-17] MEDS: SYMBICORT 160/4.5MCG INHALER 6GM INH SCH ×2 (07:13→20:05)
[2023-07-17] MEDS: INSULIN LISPRO (NovoLOG) PER UNIT SC SCH ×4 (07:30→20:36)
[2023-07-17 07:56] VITALS: BP 138/65; TEMP 98.2; O2SAT 94
[2023-07-17] MEDS ORDERED: VANCOMYCIN HCL 500 MG in D5W MINI-BAG PLUS 100 ML IV SCH (08:00)
[2023-07-17] MEDS: ENOXAPARIN 40MG/0.4ML SYRINGE (J1650 PER 10MG) SC SCH (09:24)
[2023-07-17] MEDS: methylPREDNISolone 40MG 1ML VIAL IV SCH (09:24)
[2023-07-17] MEDS: DOXYCYCLINE HYCLATE 100MG TABLET PO SCH ×2 (09:25→19:51)
[2023-07-17] MEDS: POTASSIUM CHLORIDE 10MEQ SR TABLET PO SCH ×2 (09:25→19:52)
[2023-07-17] MEDS: levETIRAcetam 250MG TABLET (KEPPRA) PO SCH ×2 (09:27→19:51)
[2023-07-17] MEDS: CALCIUM/VITAMIN D 500 MG TAB PO SCH (09:27)
[2023-07-17] MEDS: VERAPAMIL 120MG SR TAB PO SCH (09:27)
[2023-07-17] MEDS: TORSEMIDE 20 MG TAB PO SCH (09:27)
[2023-07-17] MEDS: FAMOTIDINE 20 MG TAB PO SCH (09:27)
[2023-07-17] MEDS: SPIRONOLACTONE 25 MG TAB PO SCH (09:27)
[2023-07-17] MEDS: METOPROLOL TART 25 MG TABLET PO SCH ×2 (09:27→19:52)
[2023-07-17] MEDS: OMEPRAZOLE 20MG CAP PO SCH ×2 (09:28→19:51)
[2023-07-17] MEDS: CYANOCOBALAMIN 500 MCG TAB PO SCH (11:30)
[2023-07-17 12:15] VITALS: BP 130/78; TEMP 98.1; O2SAT 94
[2023-07-17 14:00] VITALS: BP 123/55; TEMP 98.8; O2SAT 90
[2023-07-17] MEDS: TORSEMIDE 10 MG TABLET PO SCH (17:35)
[2023-07-17] MEDS: ITRACONAZOLE 100 MG PO SCH (19:50)
[2023-07-17] MEDS: traZODone 50 MG TAB PO SCH (19:51)
[2023-07-17] MEDS: MIRTAZAPINE 15 MG TAB PO SCH (19:51)
[2023-07-17] MEDS: MONTELUKAST 10 MG TAB PO SCH (19:51)
[2023-07-17] MEDS: LACTOBACILLUS ACIDOPHILUS CAP (BACID) PO SCH (19:51)
[2023-07-17 20:29] VITALS: BP 135/63; TEMP 98.8; O2SAT 88
[2023-07-18] MEDS: SODIUM CHLORIDE HYPERTONIC 3% 15ML NEB SOL INH SCH ×4 (02:00→20:59)
[2023-07-18] MEDS: IPRATROPIUM 0.5MG/ALBUTEROL 2.5MG INH SOL UD 3ML (DUONEB) NEB SCH ×4 (02:11→20:59)
[2023-07-18] MEDS: CEFIDEROCOL SULFATE TOSYLATE 2 GM in D5W 100 ML IV SCH ×3 (04:22→20:18)
[2023-07-18 05:33] VITALS: BP 137/65; TEMP 98.2; O2SAT 98
[2023-07-18] MEDS: INSULIN LISPRO (NovoLOG) PER UNIT SC SCH ×4 (07:14→21:00)
[2023-07-18 07:31] LABS: HEMATOCRIT 44.3 % (36.0-47.0); MEAN CORPUSCULAR HEMOGLOBIN 31.5 pg (27.0-33.0); MEAN CORPUSCULAR HGB CONC 31.6 g/dl (32.0-36.5); MEAN CORPUSCULAR VOLUME 99.8 fl (80.0-96.0); PLATELET COUNT, AUTOMATED 161 10^3/uL (150-450); RED BLOOD COUNT 4.44 10^6/uL (4.00-5.40); WHITE BLOOD COUNT 10.9 10^3/uL (4.0-10.0)
[2023-07-18] MEDS: SYMBICORT 160/4.5MCG INHALER 6GM INH SCH ×2 (07:53→21:00)
[2023-07-18] MEDS: TIOTROPIUM INHALER/CAPSULE (SPIRIVA) INH SCH (07:53)
[2023-07-18 07:59] LABS: BLOOD UREA NITROGEN 21 MG/DL (9-23); CALCIUM LEVEL 8.8 MG/DL (8.3-10.6); CARBON DIOXIDE LEVEL > 40.0 MMOL/L (20-31); CHLORIDE LEVEL 90 MMOL/L (98-107); CREATININE FOR GFR 0.74 MG/DL (0.55-1.30); GLOMERULAR FILTRATION RATE > 60.0 (>45); GLUCOSE, FASTING 78 MG/DL (74-106); MAGNESIUM LEVEL 2.4 MG/DL (1.8-2.4); POTASSIUM SERUM 4.4 MMOL/L (3.5-5.1); SODIUM LEVEL 141 MMOL/L (136-145)
[2023-07-18] MEDS: VANCOMYCIN HCL 750 MG, VIAL MATE ADAPTER 1 EACH in D5W 250 ML IV SCH (08:48)
[2023-07-18] MEDS: CYANOCOBALAMIN 500 MCG TAB PO SCH (08:49)
[2023-07-18] MEDS: predniSONE 20 MG TAB PO SCH (08:49)
[2023-07-18] MEDS: OMEPRAZOLE 20MG CAP PO SCH ×2 (08:49→20:20)
[2023-07-18] MEDS: ENOXAPARIN 40MG/0.4ML SYRINGE (J1650 PER 10MG) SC SCH (08:49)
[2023-07-18] MEDS: levETIRAcetam 250MG TABLET (KEPPRA) PO SCH ×2 (08:49→20:20)
[2023-07-18] MEDS: POTASSIUM CHLORIDE 10MEQ SR TABLET PO SCH ×2 (08:49→20:19)
[2023-07-18] MEDS: VERAPAMIL 120MG SR TAB PO SCH (08:50)
[2023-07-18] MEDS: SPIRONOLACTONE 25 MG TAB PO SCH (08:50)
[2023-07-18] MEDS: DOXYCYCLINE HYCLATE 100MG TABLET PO SCH (08:50)
[2023-07-18] MEDS: CALCIUM/VITAMIN D 500 MG TAB PO SCH (08:50)
[2023-07-18] MEDS: FAMOTIDINE 20 MG TAB PO SCH (08:50)
[2023-07-18] MEDS: TORSEMIDE 20 MG TAB PO SCH (08:50)
[2023-07-18] MEDS: METOPROLOL TART 25 MG TABLET PO SCH ×2 (08:50→20:22)
[2023-07-18 14:00] VITALS: BP 130/57; TEMP 97.9; O2SAT 92
[2023-07-18 16:45] VITALS: BP 143/68
[2023-07-18] MEDS: TORSEMIDE 10 MG TABLET PO SCH (16:45)
[2023-07-18] MEDS: MIRTAZAPINE 15 MG TAB PO SCH (20:19)
[2023-07-18] MEDS: MONTELUKAST 10 MG TAB PO SCH (20:19)
[2023-07-18] MEDS: LACTOBACILLUS ACIDOPHILUS CAP (BACID) PO SCH (20:19)
[2023-07-18] MEDS: traZODone 50 MG TAB PO SCH (20:20)
[2023-07-18] MEDS: ITRACONAZOLE 100 MG PO SCH (20:21)
[2023-07-18 20:22] VITALS: TEMP 97.9; O2SAT 96
[2023-07-19] MEDS: IPRATROPIUM 0.5MG/ALBUTEROL 2.5MG INH SOL UD 3ML (DUONEB) NEB SCH ×4 (01:49→19:35)
[2023-07-19] MEDS: SODIUM CHLORIDE HYPERTONIC 3% 15ML NEB SOL INH SCH ×4 (01:49→19:35)
[2023-07-19] MEDS: CEFIDEROCOL SULFATE TOSYLATE 2 GM in D5W 100 ML IV SCH ×3 (04:00→20:00)
[2023-07-19 05:07] VITALS: BP 136/70; TEMP 98.6; O2SAT 97
[2023-07-19 07:10] LABS: HEMATOCRIT 37.4 % (36.0-47.0); MEAN CORPUSCULAR HEMOGLOBIN 31.9 pg (27.0-33.0); MEAN CORPUSCULAR HGB CONC 31.8 g/dl (32.0-36.5); MEAN CORPUSCULAR VOLUME 100.3 fl (80.0-96.0); RED BLOOD COUNT 3.73 10^6/uL (4.00-5.40); WHITE BLOOD COUNT 9.9 10^3/uL (4.0-10.0)
[2023-07-19] MEDS: INSULIN LISPRO (NovoLOG) PER UNIT SC SCH ×4 (07:30→19:55)
[2023-07-19 07:44] LABS: VANCOMYCIN LEVEL TROUGH 13.4 UG/ML (10.0-20.0)
[2023-07-19 07:47] LABS: BLOOD UREA NITROGEN 23 MG/DL (9-23); CALCIUM LEVEL 8.1 MG/DL (8.3-10.6); CARBON DIOXIDE LEVEL > 40.0 MMOL/L (20-31); CHLORIDE LEVEL 91 MMOL/L (98-107); CREATININE FOR GFR 0.75 MG/DL (0.55-1.30); GLOMERULAR FILTRATION RATE > 60.0 (>45); GLUCOSE, FASTING 90 MG/DL (74-106); MAGNESIUM LEVEL 2.3 MG/DL (1.8-2.4); POTASSIUM SERUM 4.1 MMOL/L (3.5-5.1); SODIUM LEVEL 141 MMOL/L (136-145)
[2023-07-19 08:12] LABS: HEMOGLOBIN 11.9 g/dl (12.0-15.5); PLATELET COUNT, AUTOMATED 138 10^3/uL (150-450)
[2023-07-19] MEDS: SYMBICORT 160/4.5MCG INHALER 6GM INH SCH ×2 (08:17→19:35)
[2023-07-19] MEDS: ENOXAPARIN 40MG/0.4ML SYRINGE (J1650 PER 10MG) SC SCH (09:18)
[2023-07-19] MEDS: VANCOMYCIN HCL 750 MG, VIAL MATE ADAPTER 1 EACH in D5W 250 ML IV SCH (09:18)
[2023-07-19] MEDS: CALCIUM/VITAMIN D 500 MG TAB PO SCH (09:19)
[2023-07-19] MEDS: OMEPRAZOLE 20MG CAP PO SCH ×2 (09:19→19:55)
[2023-07-19] MEDS: METOPROLOL TART 25 MG TABLET PO SCH ×2 (09:19→19:54)
[2023-07-19] MEDS: predniSONE 20 MG TAB PO SCH (09:19)
[2023-07-19] MEDS: levETIRAcetam 250MG TABLET (KEPPRA) PO SCH ×2 (09:19→19:54)
[2023-07-19] MEDS: FAMOTIDINE 20 MG TAB PO SCH (09:20)
[2023-07-19] MEDS: TORSEMIDE 20 MG TAB PO SCH (09:20)
[2023-07-19] MEDS: CYANOCOBALAMIN 500 MCG TAB PO SCH (09:20)
[2023-07-19] MEDS: POTASSIUM CHLORIDE 10MEQ SR TABLET PO SCH ×2 (09:20→19:54)
[2023-07-19] MEDS: VERAPAMIL 120MG SR TAB PO SCH (09:20)
[2023-07-19] MEDS: SPIRONOLACTONE 25 MG TAB PO SCH (09:21)
[2023-07-19 14:00] VITALS: BP 123/85; TEMP 98.1; O2SAT 88
[2023-07-19] MEDS: TORSEMIDE 10 MG TABLET PO SCH (17:42)
[2023-07-19] MEDS: MONTELUKAST 10 MG TAB PO SCH (19:53)
[2023-07-19] MEDS: ITRACONAZOLE 100 MG PO SCH (19:53)
[2023-07-19 19:54] VITALS: TEMP 98.8; O2SAT 96
[2023-07-19] MEDS: LACTOBACILLUS ACIDOPHILUS CAP (BACID) PO SCH (19:54)
[2023-07-19] MEDS: MIRTAZAPINE 15 MG TAB PO SCH (19:54)
[2023-07-19] MEDS: traZODone 50 MG TAB PO SCH (19:56)
[2023-07-20] MEDS: SODIUM CHLORIDE HYPERTONIC 3% 15ML NEB SOL INH SCH ×4 (01:07→19:15)
[2023-07-20] MEDS: IPRATROPIUM 0.5MG/ALBUTEROL 2.5MG INH SOL UD 3ML (DUONEB) NEB SCH ×4 (01:07→19:15)
[2023-07-20] MEDS: CEFIDEROCOL SULFATE TOSYLATE 2 GM in D5W 100 ML IV SCH ×3 (04:03→20:16)
[2023-07-20 05:19] VITALS: BP 143/76; TEMP 97.9; O2SAT 93
[2023-07-20 07:26] LABS: HEMATOCRIT 33.1 % (36.0-47.0); HEMOGLOBIN 10.5 g/dl (12.0-15.5); MEAN CORPUSCULAR HEMOGLOBIN 31.6 pg (27.0-33.0); MEAN CORPUSCULAR HGB CONC 31.7 g/dl (32.0-36.5); MEAN CORPUSCULAR VOLUME 99.7 fl (80.0-96.0); PLATELET COUNT, AUTOMATED 138 10^3/uL (150-450); RED BLOOD COUNT 3.32 10^6/uL (4.00-5.40); WHITE BLOOD COUNT 10.4 10^3/uL (4.0-10.0)
[2023-07-20] MEDS: INSULIN LISPRO (NovoLOG) PER UNIT SC SCH ×4 (07:30→20:06)
[2023-07-20] MEDS: SYMBICORT 160/4.5MCG INHALER 6GM INH SCH ×2 (07:35→19:14)
[2023-07-20 08:00] LABS: BLOOD UREA NITROGEN 24 MG/DL (9-23); CALCIUM LEVEL 7.9 MG/DL (8.3-10.6); CARBON DIOXIDE LEVEL > 40.0 MMOL/L (20-31); CHLORIDE LEVEL 94 MMOL/L (98-107); GLOMERULAR FILTRATION RATE > 60.0 (>45); GLUCOSE, FASTING 88 MG/DL (74-106); MAGNESIUM LEVEL 2.2 MG/DL (1.8-2.4); POTASSIUM SERUM 4.1 MMOL/L (3.5-5.1); SODIUM LEVEL 143 MMOL/L (136-145)
[2023-07-20] MEDS: VANCOMYCIN HCL 750 MG, VIAL MATE ADAPTER 1 EACH in D5W 250 ML IV SCH (08:44)
[2023-07-20] MEDS: ENOXAPARIN 40MG/0.4ML SYRINGE (J1650 PER 10MG) SC SCH (08:46)
[2023-07-20] MEDS: CYANOCOBALAMIN 500 MCG TAB PO SCH (08:47)
[2023-07-20] MEDS: VERAPAMIL 120MG SR TAB PO SCH (08:47)
[2023-07-20] MEDS: predniSONE 20 MG TAB PO SCH (08:47)
[2023-07-20] MEDS: CALCIUM/VITAMIN D 500 MG TAB PO SCH (08:48)
[2023-07-20] MEDS: FAMOTIDINE 20 MG TAB PO SCH (08:48)
[2023-07-20] MEDS: levETIRAcetam 250MG TABLET (KEPPRA) PO SCH ×2 (08:48→20:17)
[2023-07-20] MEDS: POTASSIUM CHLORIDE 10MEQ SR TABLET PO SCH ×2 (08:48→20:17)
[2023-07-20] MEDS: METOPROLOL TART 25 MG TABLET PO SCH ×2 (08:49→20:18)
[2023-07-20] MEDS: OMEPRAZOLE 20MG CAP PO SCH ×2 (08:49→20:17)
[2023-07-20] MEDS: TORSEMIDE 20 MG TAB PO SCH (08:49)
[2023-07-20] MEDS: SPIRONOLACTONE 25 MG TAB PO SCH (08:49)
[2023-07-20 14:00] VITALS: BP 118/57; TEMP 98.8; O2SAT 89
[2023-07-20] MEDS: TORSEMIDE 10 MG TABLET PO SCH (17:19)
[2023-07-20 19:58] VITALS: BP 124/63; TEMP 97.9; O2SAT 93
[2023-07-20] MEDS: traZODone 50 MG TAB PO SCH (20:17)
[2023-07-20] MEDS: LACTOBACILLUS ACIDOPHILUS CAP (BACID) PO SCH (20:17)
[2023-07-20] MEDS: MIRTAZAPINE 15 MG TAB PO SCH (20:17)
[2023-07-20] MEDS: MONTELUKAST 10 MG TAB PO SCH (20:18)
[2023-07-20] MEDS: ITRACONAZOLE 100 MG PO SCH (20:20)
[2023-07-21] MEDS: IPRATROPIUM 0.5MG/ALBUTEROL 2.5MG INH SOL UD 3ML (DUONEB) NEB SCH ×2 (01:06→07:58)
[2023-07-21] MEDS: SODIUM CHLORIDE HYPERTONIC 3% 15ML NEB SOL INH SCH ×2 (01:07→07:58)
[2023-07-21 06:56] LABS: HEMATOCRIT 34.8 % (36.0-47.0); MEAN CORPUSCULAR HEMOGLOBIN 31.5 pg (27.0-33.0); MEAN CORPUSCULAR HGB CONC 31.6 g/dl (32.0-36.5); MEAN CORPUSCULAR VOLUME 99.7 fl (80.0-96.0); PLATELET COUNT, AUTOMATED 148 10^3/uL (150-450); RED BLOOD COUNT 3.49 10^6/uL (4.00-5.40); WHITE BLOOD COUNT 11.3 10^3/uL (4.0-10.0)
[2023-07-21 07:29] LABS: BLOOD UREA NITROGEN 22 MG/DL (9-23); CALCIUM LEVEL 8.4 MG/DL (8.3-10.6); CARBON DIOXIDE LEVEL > 40.0 MMOL/L (20-31); CHLORIDE LEVEL 95 MMOL/L (98-107); CREATININE FOR GFR 0.85 MG/DL (0.55-1.30); GLOMERULAR FILTRATION RATE > 60.0 (>45); GLUCOSE, FASTING 74 MG/DL (74-106); MAGNESIUM LEVEL 2.4 MG/DL (1.8-2.4); POTASSIUM SERUM 4.2 MMOL/L (3.5-5.1); SODIUM LEVEL 143 MMOL/L (136-145)
[2023-07-21] MEDS: INSULIN LISPRO (NovoLOG) PER UNIT SC SCH (07:30)
[2023-07-21 07:58] VITALS: O2SAT 95
[2023-07-21] MEDS: SYMBICORT 160/4.5MCG INHALER 6GM INH SCH (07:58)
[2023-07-21] MEDS: predniSONE 20 MG TAB PO SCH (08:09)
[2023-07-21] MEDS: levETIRAcetam 250MG TABLET (KEPPRA) PO SCH (08:09)
[2023-07-21] MEDS: ENOXAPARIN 40MG/0.4ML SYRINGE (J1650 PER 10MG) SC SCH (08:09)
[2023-07-21] MEDS: TORSEMIDE 20 MG TAB PO SCH (08:10)
[2023-07-21] MEDS: OMEPRAZOLE 20MG CAP PO SCH (08:11)
[2023-07-21] MEDS: CALCIUM/VITAMIN D 500 MG TAB PO SCH (08:11)
[2023-07-21] MEDS: POTASSIUM CHLORIDE 10MEQ SR TABLET PO SCH (08:11)
[2023-07-21] MEDS: CYANOCOBALAMIN 500 MCG TAB PO SCH (08:11)
[2023-07-21 08:12] VITALS: BP 123/62
[2023-07-21] MEDS: SPIRONOLACTONE 25 MG TAB PO SCH (08:12)
[2023-07-21] MEDS: VERAPAMIL 120MG SR TAB PO SCH (08:12)
[2023-07-21] MEDS: FAMOTIDINE 20 MG TAB PO SCH (08:12)
[2023-07-21] MEDS: METOPROLOL TART 25 MG TABLET PO SCH (08:13)
[2023-07-21] MEDS ORDERED: VITA500T40 PO (09:35)
[2023-07-21] MEDS ORDERED: PRED20TA PO (10:12)
== END 2023-07-21 11:50 | disposition home health service (06) | DRG 189 ==
LOC: M ED 15:58 → M ED INP 19:46 → EEVIPCON 19:46 → M ICU 21:54 → M MSPAV 07-17 12:00
PROVIDERS: ADMIT Family Medicine; ATTEND Internal Medicine
DX: J96.22 Acute and chronic respiratory failure with hypercapnia (principal); J47.1 Bronchiectasis with (acute) exacerbation; I50.32 Chronic diastolic (congestive) heart failure; D84.9 Immunodeficiency, unspecified; E87.29 Other acidosis; B44.1 Other pulmonary aspergillosis; J96.21 Acute and chronic respiratory failure with hypoxia; G40.909 Epilepsy, unspecified, not intractable, without status epilepticus; I27.20 Pulmonary hypertension, unspecified; I27.81 Cor pulmonale (chronic); K21.9 Gastro-esophageal reflux disease without esophagitis; I11.0 Hypertensive heart disease with heart failure; E53.8 Deficiency of other specified B group vitamins; E11.9 Type 2 diabetes mellitus without complications; M81.0 Age-related osteoporosis without current pathological fracture; F32.A Depression, unspecified; H35.30 Unspecified macular degeneration; D53.9 Nutritional anemia, unspecified; Z88.8 Allergy status to other drugs, medicaments and biological substances; Z79.899 Other long term (current) drug therapy; Z79.52 Long term (current) use of systemic steroids; Z99.81 Dependence on supplemental oxygen; K44.9 Diaphragmatic hernia without obstruction or gangrene; K59.00 Constipation, unspecified; Z66 Do not resuscitate

== ENCOUNTER 2023-08-10 02:11 | Inpatient (IN) | payer MEDICARE, BC ==
[2023-08-10] VITALS (23 sets, daily range): BP systolic 112–171; BP diastolic 57–78; TEMP 97.9–99.5; O2SAT 79–99
[~2023-08-10] VITALS: Ht 149.9 cm; Wt 47.5 kg
[~2023-08-10 02:11] MED LIST changes: +ALBU2.5V10 INH; +CEFD300CAP PO; +PRED5TA PO; +RISATAB3 PO; +VITA500T40 PO
[2023-08-10 02:37] LABS: BASO % 0.2 % (0.0-1.0); EOS # 0.1 10^3/uL (0.0-0.5); EOS % 0.8 % (0.0-3.0); HEMATOCRIT 36.2 % (36.0-47.0); HEMOGLOBIN 11.2 g/dl (12.0-15.5); LYMPH # 1.5 10^3/uL (1.5-5.0); LYMPH % 12.5 % (24.0-44.0); MEAN CORPUSCULAR HEMOGLOBIN 32.4 pg (27.0-33.0); MEAN CORPUSCULAR HGB CONC 30.9 g/dl (32.0-36.5); MEAN CORPUSCULAR VOLUME 104.6 fl (80.0-96.0); MONO # 0.9 10^3/uL (0.0-0.8); MONO % 7.9 % (2.0-8.0); NEUTROPHILS # 9.1 10^3/uL (1.5-8.5); NEUTROPHILS % 77.5 % (36.0-66.0); PLATELET COUNT, AUTOMATED 145 10^3/uL (150-450); RED BLOOD COUNT 3.46 10^6/uL (4.00-5.40); WHITE BLOOD COUNT 11.7 10^3/uL (4.0-10.0)
[2023-08-10] MEDS ORDERED: methylPREDNISolone 125MG 2ML VIAL IV ONE (02:40)
[2023-08-10 02:41] LABS: ABG PARTIAL PRESSURE CO2 114.6 mmHg (35.0-45.0); ABG PARTIAL PRESSURE O2 168.5 mmHg (75.0-100.0); ABG pH (ARTERIAL) 7.301 UNITS (7.350-7.450)
[2023-08-10 02:42] LABS: ABG BASE EXCESS 23.2 (-2.0-2.0); ABG HCO3 55.2 MMOL/L (22.0-26.0); ABG TOTAL CO2 58.8 MMOL/L (23.0-31.0)
[2023-08-10 02:43] LABS: ABG O2 SATURATION 98.9 % (95.0-99.0)
[2023-08-10 03:08] LABS: ALKALINE PHOSPHATASE 88 U/L (46-116); ALT/SGPT 11 U/L (7.0-40); AST/SGOT 37 U/L (<34); BILIRUBIN,DIRECT < 0.1 MG/DL (<0.4); BILIRUBIN,TOTAL 0.2 MG/DL (0.3-1.2); BLOOD UREA NITROGEN 23 MG/DL (9-23); CALCIUM LEVEL 8.7 MG/DL (8.3-10.6); CARBON DIOXIDE LEVEL > 40.0 MMOL/L (20-31); CHLORIDE LEVEL 94 MMOL/L (98-107); CK-MB VALUE MASS < 1.0 NG/ML (<3.6); CPK CREATINE PHOSPHOKINASE 38 U/L (34-145); CREATININE FOR GFR 0.89 MG/DL (0.55-1.30); GLOMERULAR FILTRATION RATE > 60.0 (>45); GLUCOSE, FASTING 159 MG/DL (74-106); MB/CK RELATIVE INDEX 2.63 (< OR =4); POTASSIUM SERUM 5.1 MMOL/L (3.5-5.1); SODIUM LEVEL 144 MMOL/L (136-145); TOTAL PROTEIN 6.3 G/DL (5.7-8.2)
[2023-08-10] MEDS ORDERED: ISOVUE-370 76% 100ML VIAL As Ordered ONE (03:39)
[2023-08-10 04:18] LABS: CK-MB VALUE MASS < 1.0 NG/ML (<3.6)
[2023-08-10 04:22] LABS: CPK CREATINE PHOSPHOKINASE 29 U/L (34-145); MB/CK RELATIVE INDEX 3.44 (< OR =4)
[2023-08-10] MEDS ORDERED: IPRATROPIUM 0.5MG/ALBUTEROL 2.5MG INH SOL UD 3ML (DUONEB) NEB PRN (05:50)
[2023-08-10] MEDS ORDERED: PIPERACILLIN/TAZOBACTAM SOD 4.5 GM in D5W MINI-BAG PLUS 50 ML IV ONE (06:00)
[2023-08-10] MEDS ORDERED: GLUCOSE 4GM CHEW TABLET PO PRN (06:05)
[2023-08-10] MEDS ORDERED: ALBUTEROL SULFATE 2.5MG/0.5ML INH NEB SOLN NEB PRN (06:05)
[2023-08-10] MEDS ORDERED: DEXTROSE 50% 50ML SYRINGE IV PRN (06:05)
[2023-08-10] MEDS ORDERED: GLUCAGON INJ 1MG VIAL SC PRN (06:05)
[2023-08-10 06:22] LABS: ABG BASE EXCESS 25.4 (-2.0-2.0); ABG HCO3 59.2 MMOL/L (22.0-26.0); ABG PARTIAL PRESSURE O2 198.1 mmHg (75.0-100.0); ABG STANDARD HCO3 50.5 MMOL/L. (22.0-26.0); ABG TOTAL CO2 63.5 MMOL/L (23.0-31.0)
[2023-08-10 06:24] LABS: PROCALCITONIN 0.15 ng/ml
[2023-08-10 06:25] LABS: ABG pH (ARTERIAL) 7.244 UNITS (7.350-7.450)
[2023-08-10] MEDS ORDERED: HOME MED LIST COMPLETE! XX SCH ×2 (07:20→07:45)
[2023-08-10] MEDS ORDERED: AZIT-12 PO (07:42)
[2023-08-10] MEDS ORDERED: OXYC-517 PO (07:42)
[2023-08-10] MEDS ORDERED: VITA500T37 PO (07:42)
[2023-08-10 08:45] LABS: VENOUS BASE EXCESS 20.3 (-2.0-2.0); VENOUS HCO3 49.3 MMOL/L (23.0-27.0); VENOUS PARTIAL PRESSURE CO2 81.2 mmHg (38.0-50.0); VENOUS PH 7.401 UNITS (7.330-7.430); VENOUS STANDARD HCO3 44.3 MMOL/L; VENOUS TOTAL CO2 51.8 MMOL/L (24.0-28.0)
[2023-08-10] MEDS ORDERED: methylPREDNISolone 125MG 2ML VIAL IV SCH (09:00)
[2023-08-10] MEDS: IPRATROPIUM 0.5MG/ALBUTEROL 2.5MG INH SOL UD 3ML (DUONEB) NEB SCH ×4 (09:03→23:36)
[2023-08-10] MEDS: SYMBICORT 160/4.5MCG INHALER 6GM INH SCH ×2 (09:03→20:47)
[2023-08-10] MEDS: INSULIN LISPRO (NovoLOG) PER UNIT SC SCH ×4 (09:11→20:25)
[2023-08-10] MEDS: ENOXAPARIN 40MG/0.4ML SYRINGE (J1650 PER 10MG) SC SCH (10:18)
[2023-08-10] MEDS: PANTOPRAZOLE 40MG VIAL IV SCH (10:18)
[2023-08-10] MEDS: PIPERACILLIN/TAZOBACTAM SOD 4.5 GM in D5W MINI-BAG PLUS 50 ML IV SCH ×3 (13:37→23:19)
[2023-08-10] MEDS: METOPROLOL TART 25 MG TABLET PO SCH ×2 (13:41→20:28)
[2023-08-10] MEDS: levETIRAcetam 250MG TABLET (KEPPRA) PO SCH ×2 (13:41→20:29)
[2023-08-10] MEDS: AZITHROMYCIN 250MG TABLET PO SCH (13:49)
[2023-08-10] MEDS: SPIRONOLACTONE 25 MG TAB PO SCH (13:54)
[2023-08-10] MEDS: TORSEMIDE 20 MG TAB PO SCH (13:54)
[2023-08-10] MEDS: OMEPRAZOLE 20MG CAP PO SCH ×2 (13:54→20:29)
[2023-08-10] MEDS: VERAPAMIL 120MG SR TAB PO SCH (14:08)
[2023-08-10] MEDS: methylPREDNISolone 125MG 2ML VIAL IV SCH (20:26)
[2023-08-10] MEDS: traZODone 50 MG TAB PO SCH (20:28)
[2023-08-10] MEDS: MONTELUKAST 10 MG TAB PO SCH (20:28)
[2023-08-10] MEDS: ITRACONAZOLE 100 MG PO SCH (20:28)
[2023-08-10] MEDS: MIRTAZAPINE 15 MG TAB PO SCH (20:29)
[2023-08-10] MEDS: TORSEMIDE 10 MG TABLET PO SCH (20:29)
[2023-08-10] MEDS ORDERED: ENTER DRUG NAME HERE (PATIENT'S OWN MED) MT SCH (21:00)
[2023-08-11] VITALS (16 sets, daily range): BP systolic 114–164; BP diastolic 55–74; TEMP 97.8–98.1; O2SAT 89–97
[2023-08-11] MEDS: IPRATROPIUM 0.5MG/ALBUTEROL 2.5MG INH SOL UD 3ML (DUONEB) NEB SCH ×6 (03:26→23:12)
[2023-08-11] MEDS: PIPERACILLIN/TAZOBACTAM SOD 4.5 GM in D5W MINI-BAG PLUS 50 ML IV SCH (05:19)
[2023-08-11 05:54] LABS: VENOUS BASE EXCESS 18.7 (-2.0-2.0); VENOUS HCO3 47.1 MMOL/L (23.0-27.0); VENOUS O2 SATURATION 95.3 % (60.0-80.0); VENOUS PARTIAL PRESSURE CO2 78.6 mmHg (38.0-50.0); VENOUS PARTIAL PRESSURE O2 83.5 mmHg (30.0-50.0); VENOUS PH 7.395 UNITS (7.330-7.430); VENOUS STANDARD HCO3 42.8 MMOL/L; VENOUS TOTAL CO2 49.5 MMOL/L (24.0-28.0)
[2023-08-11 06:27] LABS: ALBUMIN 2.6 G/DL (3.2-5.2); BLOOD UREA NITROGEN 26 MG/DL (9-23); CALCIUM LEVEL 8.6 MG/DL (8.3-10.6); CARBON DIOXIDE LEVEL > 40.0 MMOL/L (20-31); CHLORIDE LEVEL 93 MMOL/L (98-107); CREATININE FOR GFR 0.94 MG/DL (0.55-1.30); GLOMERULAR FILTRATION RATE > 60.0 (>45); GLUCOSE, FASTING 196 MG/DL (74-106); PHOSPHORUS LEVEL 4.8 MG/DL (2.4-5.1); POTASSIUM SERUM 4.1 MMOL/L (3.5-5.1); SODIUM LEVEL 145 MMOL/L (136-145)
[2023-08-11] MEDS: SYMBICORT 160/4.5MCG INHALER 6GM INH SCH ×2 (07:45→19:06)
[2023-08-11] MEDS: AZITHROMYCIN 250MG TABLET PO SCH (08:48)
[2023-08-11] MEDS: OMEPRAZOLE 20MG CAP PO SCH ×2 (08:49→20:43)
[2023-08-11] MEDS: METOPROLOL TART 25 MG TABLET PO SCH ×2 (08:49→20:45)
[2023-08-11] MEDS: levETIRAcetam 250MG TABLET (KEPPRA) PO SCH ×2 (08:49→20:43)
[2023-08-11] MEDS: TORSEMIDE 20 MG TAB PO SCH (08:49)
[2023-08-11] MEDS: methylPREDNISolone 125MG 2ML VIAL IV SCH ×2 (08:50→20:45)
[2023-08-11] MEDS: ENOXAPARIN 40MG/0.4ML SYRINGE (J1650 PER 10MG) SC SCH (08:50)
[2023-08-11] MEDS: PANTOPRAZOLE 40MG VIAL IV SCH (08:50)
[2023-08-11] MEDS: INSULIN LISPRO (NovoLOG) PER UNIT SC SCH ×4 (08:50→20:41)
[2023-08-11] MEDS: SPIRONOLACTONE 25 MG TAB PO SCH (08:51)
[2023-08-11] MEDS: VERAPAMIL 120MG SR TAB PO SCH (08:51)
[2023-08-11] MEDS: MINOCYCLINE 50 MG CAP PO SCH ×2 (13:52→20:44)
[2023-08-11] MEDS: MONTELUKAST 10 MG TAB PO SCH (20:42)
[2023-08-11] MEDS: traZODone 50 MG TAB PO SCH (20:43)
[2023-08-11] MEDS: MIRTAZAPINE 15 MG TAB PO SCH (20:44)
[2023-08-11] MEDS: TORSEMIDE 10 MG TABLET PO SCH (20:44)
[2023-08-11] MEDS: ITRACONAZOLE 100 MG PO SCH (20:45)
[2023-08-12] VITALS (8 sets, daily range): BP systolic 105–157; BP diastolic 60–93; TEMP 97.5–98.6; O2SAT 89–96
[2023-08-12] MEDS: IPRATROPIUM 0.5MG/ALBUTEROL 2.5MG INH SOL UD 3ML (DUONEB) NEB SCH ×6 (03:03→23:25)
[2023-08-12 05:44] LABS: BASO % 0.1 % (0.0-1.0); HEMATOCRIT 31.6 % (36.0-47.0); HEMOGLOBIN 10.3 g/dl (12.0-15.5); LYMPH # 0.3 10^3/uL (1.5-5.0); MEAN CORPUSCULAR HEMOGLOBIN 32.6 pg (27.0-33.0); MEAN CORPUSCULAR HGB CONC 32.6 g/dl (32.0-36.5); MONO # 0.2 10^3/uL (0.0-0.8); MONO % 2.3 % (2.0-8.0); NEUTROPHILS # 7.9 10^3/uL (1.5-8.5); NEUTROPHILS % 93.8 % (36.0-66.0); PLATELET COUNT, AUTOMATED 145 10^3/uL (150-450); RED BLOOD COUNT 3.16 10^6/uL (4.00-5.40); WHITE BLOOD COUNT 8.4 10^3/uL (4.0-10.0)
[2023-08-12 05:48] LABS: ABG BASE EXCESS 17.2 (-2.0-2.0); ABG HCO3 43.5 MMOL/L (22.0-26.0); ABG O2 SATURATION 94.7 % (95.0-99.0); ABG PARTIAL PRESSURE O2 77.7 mmHg (75.0-100.0); ABG STANDARD HCO3 41.1 MMOL/L. (22.0-26.0); ABG TOTAL CO2 45.3 MMOL/L (23.0-31.0)
[2023-08-12 05:53] LABS: ABG PARTIAL PRESSURE CO2 61.1 mmHg (35.0-45.0)
[2023-08-12 06:15] LABS: BLOOD UREA NITROGEN 31 MG/DL (9-23); CALCIUM LEVEL 8.4 MG/DL (8.3-10.6); CARBON DIOXIDE LEVEL > 40.0 MMOL/L (20-31); CHLORIDE LEVEL 89 MMOL/L (98-107); CREATININE FOR GFR 0.88 MG/DL (0.55-1.30); GLOMERULAR FILTRATION RATE > 60.0 (>45); GLUCOSE, FASTING 222 MG/DL (74-106); POTASSIUM SERUM 3.6 MMOL/L (3.5-5.1); SODIUM LEVEL 142 MMOL/L (136-145)
[2023-08-12] MEDS: SYMBICORT 160/4.5MCG INHALER 6GM INH SCH ×2 (07:57→20:02)
[2023-08-12] MEDS: SODIUM CHLORIDE HYPERTONIC 3% 4ML NEB SOL INH SCH ×3 (08:00→20:02)
[2023-08-12] MEDS: TORSEMIDE 20 MG TAB PO SCH (08:36)
[2023-08-12] MEDS: SPIRONOLACTONE 25 MG TAB PO SCH (08:36)
[2023-08-12] MEDS: OMEPRAZOLE 20MG CAP PO SCH ×2 (08:37→20:26)
[2023-08-12] MEDS: MINOCYCLINE 50 MG CAP PO SCH ×2 (08:37→20:26)
[2023-08-12] MEDS: levETIRAcetam 250MG TABLET (KEPPRA) PO SCH ×2 (08:37→20:26)
[2023-08-12] MEDS: AZITHROMYCIN 250MG TABLET PO SCH (08:37)
[2023-08-12] MEDS: VERAPAMIL 120MG SR TAB PO SCH (08:38)
[2023-08-12] MEDS: methylPREDNISolone 125MG 2ML VIAL IV SCH ×2 (08:38→20:28)
[2023-08-12] MEDS: METOPROLOL TART 25 MG TABLET PO SCH ×2 (08:38→20:27)
[2023-08-12] MEDS: ENOXAPARIN 40MG/0.4ML SYRINGE (J1650 PER 10MG) SC SCH (08:39)
[2023-08-12] MEDS: INSULIN LISPRO (NovoLOG) PER UNIT SC SCH ×4 (08:39→21:00)
[2023-08-12 17:08] LABS: MYCOPLASMA PNEUMONIAE IgG <100 U/mL (0-99); MYCOPLASMA PNEUMONIAE IgM <770 U/mL (0-769)
[2023-08-12] MEDS: MONTELUKAST 10 MG TAB PO SCH (20:26)
[2023-08-12] MEDS: traZODone 50 MG TAB PO SCH (20:26)
[2023-08-12] MEDS: TORSEMIDE 10 MG TABLET PO SCH (20:27)
[2023-08-12] MEDS: ITRACONAZOLE 100 MG PO SCH (20:28)
[2023-08-12] MEDS: MIRTAZAPINE 15 MG TAB PO SCH (20:28)
[2023-08-13] MEDS: IPRATROPIUM 0.5MG/ALBUTEROL 2.5MG INH SOL UD 3ML (DUONEB) NEB SCH ×6 (03:23→23:20)
[2023-08-13 05:05] VITALS: BP 149/76; TEMP 97.3; O2SAT 94
[2023-08-13 05:49] LABS: BASO % 0.1 % (0.0-1.0); HEMATOCRIT 35.1 % (36.0-47.0); HEMOGLOBIN 11.4 g/dl (12.0-15.5); LYMPH # 0.2 10^3/uL (1.5-5.0); LYMPH % 2.2 % (24.0-44.0); MEAN CORPUSCULAR HGB CONC 32.5 g/dl (32.0-36.5); MEAN CORPUSCULAR VOLUME 98.6 fl (80.0-96.0); MONO # 0.2 10^3/uL (0.0-0.8); MONO % 2.5 % (2.0-8.0); NEUTROPHILS # 6.8 10^3/uL (1.5-8.5); NEUTROPHILS % 94.5 % (36.0-66.0); PLATELET COUNT, AUTOMATED 151 10^3/uL (150-450); RED BLOOD COUNT 3.56 10^6/uL (4.00-5.40); WHITE BLOOD COUNT 7.2 10^3/uL (4.0-10.0)
[2023-08-13 06:20] LABS: BLOOD UREA NITROGEN 36 MG/DL (9-23); CALCIUM LEVEL 8.4 MG/DL (8.3-10.6); CARBON DIOXIDE LEVEL > 40.0 MMOL/L (20-31); CHLORIDE LEVEL 86 MMOL/L (98-107); CREATININE FOR GFR 0.87 MG/DL (0.55-1.30); GLOMERULAR FILTRATION RATE > 60.0 (>45); GLUCOSE, FASTING 207 MG/DL (74-106); POTASSIUM SERUM 2.8 MMOL/L (3.5-5.1); SODIUM LEVEL 138 MMOL/L (136-145)
[2023-08-13] MEDS ORDERED: KCL 10MEQ/100ML SWI (KRUN) 10 MEQ in IV 1 EA IV ONE (07:00)
[2023-08-13] MEDS ORDERED: POTASSIUM CHLORIDE 10MEQ SR TABLET PO ONE (07:00)
[2023-08-13] MEDS: SODIUM CHLORIDE HYPERTONIC 3% 4ML NEB SOL INH SCH ×3 (07:26→19:14)
[2023-08-13] MEDS: SYMBICORT 160/4.5MCG INHALER 6GM INH SCH ×2 (07:26→19:14)
[2023-08-13] MEDS: INSULIN LISPRO (NovoLOG) PER UNIT SC SCH ×4 (07:58→20:33)
[2023-08-13] MEDS: ENOXAPARIN 40MG/0.4ML SYRINGE (J1650 PER 10MG) SC SCH (07:59)
[2023-08-13] MEDS: MINOCYCLINE 50 MG CAP PO SCH ×2 (07:59→20:52)
[2023-08-13] MEDS: AZITHROMYCIN 250MG TABLET PO SCH (07:59)
[2023-08-13] MEDS: METOPROLOL TART 25 MG TABLET PO SCH ×2 (08:00→20:53)
[2023-08-13] MEDS: OMEPRAZOLE 20MG CAP PO SCH ×2 (08:01→20:52)
[2023-08-13] MEDS: levETIRAcetam 250MG TABLET (KEPPRA) PO SCH ×2 (08:03→20:53)
[2023-08-13] MEDS: SPIRONOLACTONE 25 MG TAB PO SCH (08:04)
[2023-08-13] MEDS: VERAPAMIL 120MG SR TAB PO SCH (08:05)
[2023-08-13] MEDS: methylPREDNISolone 125MG 2ML VIAL IV SCH (08:29)
[2023-08-13] MEDS: TORSEMIDE 20 MG TAB PO SCH (08:42)
[2023-08-13 14:30] VITALS: BP 126/65; TEMP 99.5; O2SAT 95
[2023-08-13 20:50] VITALS: BP 127/66; TEMP 98.4; O2SAT 94
[2023-08-13] MEDS: traZODone 50 MG TAB PO SCH (20:51)
[2023-08-13] MEDS: MONTELUKAST 10 MG TAB PO SCH (20:53)
[2023-08-13] MEDS: POTASSIUM CHLORIDE 10MEQ SR TABLET PO SCH (20:54)
[2023-08-13] MEDS: TORSEMIDE 10 MG TABLET PO SCH (20:54)
[2023-08-13] MEDS: MIRTAZAPINE 15 MG TAB PO SCH (20:54)
[2023-08-13] MEDS: ITRACONAZOLE 100 MG PO SCH (20:55)
[2023-08-14] MEDS: IPRATROPIUM 0.5MG/ALBUTEROL 2.5MG INH SOL UD 3ML (DUONEB) NEB SCH ×6 (03:21→23:52)
[2023-08-14 05:17] VITALS: BP 138/68; TEMP 98.2; O2SAT 95
[2023-08-14 06:00] LABS: HEMATOCRIT 29.9 % (36.0-47.0); HEMOGLOBIN 9.9 g/dl (12.0-15.5); LYMPH # 0.4 10^3/uL (1.5-5.0); LYMPH % 4.8 % (24.0-44.0); MEAN CORPUSCULAR HEMOGLOBIN 32.5 pg (27.0-33.0); MEAN CORPUSCULAR HGB CONC 33.1 g/dl (32.0-36.5); MONO # 0.7 10^3/uL (0.0-0.8); MONO % 7.5 % (2.0-8.0); NEUTROPHILS # 7.5 10^3/uL (1.5-8.5); NEUTROPHILS % 86.9 % (36.0-66.0); PLATELET COUNT, AUTOMATED 137 10^3/uL (150-450); RED BLOOD COUNT 3.05 10^6/uL (4.00-5.40); WHITE BLOOD COUNT 8.6 10^3/uL (4.0-10.0)
[2023-08-14 06:29] LABS: BLOOD UREA NITROGEN 36 MG/DL (9-23); CALCIUM LEVEL 8.1 MG/DL (8.3-10.6); CARBON DIOXIDE LEVEL > 40.0 MMOL/L (20-31); CHLORIDE LEVEL 93 MMOL/L (98-107); CREATININE FOR GFR 0.86 MG/DL (0.55-1.30); GLOMERULAR FILTRATION RATE > 60.0 (>45); GLUCOSE, FASTING 150 MG/DL (74-106); POTASSIUM SERUM 4.6 MMOL/L (3.5-5.1); SODIUM LEVEL 140 MMOL/L (136-145)
[2023-08-14] MEDS: SODIUM CHLORIDE HYPERTONIC 3% 4ML NEB SOL INH SCH ×3 (07:28→20:38)
[2023-08-14] MEDS: SYMBICORT 160/4.5MCG INHALER 6GM INH SCH ×2 (07:28→20:38)
[2023-08-14] MEDS: INSULIN LISPRO (NovoLOG) PER UNIT SC SCH ×4 (08:26→20:50)
[2023-08-14] MEDS: AZITHROMYCIN 250MG TABLET PO SCH (08:27)
[2023-08-14] MEDS: levETIRAcetam 250MG TABLET (KEPPRA) PO SCH ×2 (08:27→21:08)
[2023-08-14] MEDS: MINOCYCLINE 50 MG CAP PO SCH (08:27)
[2023-08-14] MEDS: VERAPAMIL 120MG SR TAB PO SCH (08:27)
[2023-08-14] MEDS: POTASSIUM CHLORIDE 10MEQ SR TABLET PO SCH ×2 (08:28→21:08)
[2023-08-14] MEDS: OMEPRAZOLE 20MG CAP PO SCH ×2 (08:29→21:06)
[2023-08-14] MEDS: TORSEMIDE 20 MG TAB PO SCH (08:29)
[2023-08-14] MEDS: SPIRONOLACTONE 25 MG TAB PO SCH (08:29)
[2023-08-14] MEDS: METOPROLOL TART 25 MG TABLET PO SCH ×2 (08:29→21:07)
[2023-08-14] MEDS: methylPREDNISolone 125MG 2ML VIAL IV SCH (08:30)
[2023-08-14] MEDS: ENOXAPARIN 40MG/0.4ML SYRINGE (J1650 PER 10MG) SC SCH (08:31)
[2023-08-14 14:00] VITALS: BP 133/57; TEMP 98.2; O2SAT 96
[2023-08-14] MEDS ORDERED: LINEZOLID 600 MG in IV 1 EA IV SCH (21:00)
[2023-08-14 21:05] VITALS: BP 138/61; TEMP 97.9; O2SAT 96
[2023-08-14] MEDS: ITRACONAZOLE 100 MG PO SCH (21:06)
[2023-08-14] MEDS: MONTELUKAST 10 MG TAB PO SCH (21:07)
[2023-08-14] MEDS: LevoFLOXacin 750 MG TABLET PO SCH (21:07)
[2023-08-14] MEDS: traZODone 50 MG TAB PO SCH (21:08)
[2023-08-14] MEDS: TORSEMIDE 10 MG TABLET PO SCH (21:13)
[2023-08-15] MEDS: IPRATROPIUM 0.5MG/ALBUTEROL 2.5MG INH SOL UD 3ML (DUONEB) NEB SCH ×5 (03:56→20:10)
[2023-08-15 05:20] VITALS: BP 142/75; TEMP 98.6; O2SAT 96
[2023-08-15 06:18] LABS: BASO % 0.1 % (0.0-1.0); HEMATOCRIT 32.9 % (36.0-47.0); HEMOGLOBIN 10.6 g/dl (12.0-15.5); LYMPH # 0.6 10^3/uL (1.5-5.0); MEAN CORPUSCULAR HEMOGLOBIN 32.4 pg (27.0-33.0); MEAN CORPUSCULAR HGB CONC 32.2 g/dl (32.0-36.5); MEAN CORPUSCULAR VOLUME 100.6 fl (80.0-96.0); MONO # 0.7 10^3/uL (0.0-0.8); MONO % 7.6 % (2.0-8.0); NEUTROPHILS # 7.9 10^3/uL (1.5-8.5); NEUTROPHILS % 85.1 % (36.0-66.0); PLATELET COUNT, AUTOMATED 147 10^3/uL (150-450); RED BLOOD COUNT 3.27 10^6/uL (4.00-5.40); WHITE BLOOD COUNT 9.2 10^3/uL (4.0-10.0)
[2023-08-15 06:46] LABS: BLOOD UREA NITROGEN 32 MG/DL (9-23); CARBON DIOXIDE LEVEL > 40.0 MMOL/L (20-31); CHLORIDE LEVEL 92 MMOL/L (98-107); CREATININE FOR GFR 0.82 MG/DL (0.55-1.30); GLOMERULAR FILTRATION RATE > 60.0 (>45); GLUCOSE, FASTING 91 MG/DL (74-106); POTASSIUM SERUM 4.8 MMOL/L (3.5-5.1); SODIUM LEVEL 141 MMOL/L (136-145)
[2023-08-15] MEDS: INSULIN LISPRO (NovoLOG) PER UNIT SC SCH ×4 (07:30→21:00)
[2023-08-15] MEDS: SYMBICORT 160/4.5MCG INHALER 6GM INH SCH ×2 (07:47→20:10)
[2023-08-15] MEDS: SODIUM CHLORIDE HYPERTONIC 3% 4ML NEB SOL INH SCH ×4 (07:48→20:10)
[2023-08-15] MEDS: AZITHROMYCIN 250MG TABLET PO SCH (09:13)
[2023-08-15] MEDS: SPIRONOLACTONE 25 MG TAB PO SCH (09:13)
[2023-08-15] MEDS: POTASSIUM CHLORIDE 10MEQ SR TABLET PO SCH ×2 (09:14→21:21)
[2023-08-15] MEDS: levETIRAcetam 250MG TABLET (KEPPRA) PO SCH ×2 (09:14→21:20)
[2023-08-15] MEDS: OMEPRAZOLE 20MG CAP PO SCH ×2 (09:14→21:21)
[2023-08-15] MEDS: TORSEMIDE 20 MG TAB PO SCH (09:15)
[2023-08-15] MEDS: methylPREDNISolone 125MG 2ML VIAL IV SCH (09:15)
[2023-08-15] MEDS: ENOXAPARIN 40MG/0.4ML SYRINGE (J1650 PER 10MG) SC SCH (09:15)
[2023-08-15] MEDS: METOPROLOL TART 25 MG TABLET PO SCH ×2 (09:16→21:22)
[2023-08-15] MEDS: LINEZOLID 600MG TABLET (ZYVOX) PO SCH ×2 (09:19→21:21)
[2023-08-15] MEDS: VERAPAMIL 120MG SR TAB PO SCH (09:19)
[2023-08-15 13:32] VITALS: O2SAT 96
[2023-08-15 14:00] VITALS: BP 125/64; TEMP 97.7; O2SAT 94
[2023-08-15 21:05] VITALS: BP 125/64; TEMP 98.8; O2SAT 98
[2023-08-15] MEDS: ITRACONAZOLE 100 MG PO SCH (21:20)
[2023-08-15] MEDS: TORSEMIDE 10 MG TABLET PO SCH (21:21)
[2023-08-15] MEDS: MONTELUKAST 10 MG TAB PO SCH (21:21)
[2023-08-15] MEDS: traZODone 50 MG TAB PO SCH (21:21)
[2023-08-16] MEDS: IPRATROPIUM 0.5MG/ALBUTEROL 2.5MG INH SOL UD 3ML (DUONEB) NEB SCH ×7 (00:24→23:22)
[2023-08-16 06:07] LABS: EOS % 0.1 % (0.0-3.0); HEMOGLOBIN 10.7 g/dl (12.0-15.5); LYMPH # 0.8 10^3/uL (1.5-5.0); LYMPH % 8.5 % (24.0-44.0); MEAN CORPUSCULAR HEMOGLOBIN 32.1 pg (27.0-33.0); MEAN CORPUSCULAR HGB CONC 32.4 g/dl (32.0-36.5); MEAN CORPUSCULAR VOLUME 99.1 fl (80.0-96.0); MONO # 0.6 10^3/uL (0.0-0.8); MONO % 6.6 % (2.0-8.0); NEUTROPHILS # 7.9 10^3/uL (1.5-8.5); NEUTROPHILS % 83.9 % (36.0-66.0); PLATELET COUNT, AUTOMATED 146 10^3/uL (150-450); RED BLOOD COUNT 3.33 10^6/uL (4.00-5.40); WHITE BLOOD COUNT 9.4 10^3/uL (4.0-10.0)
[2023-08-16 06:11] VITALS: BP 133/85; TEMP 98.2; O2SAT 95
[2023-08-16 06:33] LABS: BLOOD UREA NITROGEN 30 MG/DL (9-23); CALCIUM LEVEL 8.2 MG/DL (8.3-10.6); CARBON DIOXIDE LEVEL > 40.0 MMOL/L (20-31); CHLORIDE LEVEL 93 MMOL/L (98-107); CREATININE FOR GFR 0.91 MG/DL (0.55-1.30); GLOMERULAR FILTRATION RATE > 60.0 (>45); GLUCOSE, FASTING 90 MG/DL (74-106); POTASSIUM SERUM 4.4 MMOL/L (3.5-5.1); SODIUM LEVEL 139 MMOL/L (136-145)
[2023-08-16] MEDS: INSULIN LISPRO (NovoLOG) PER UNIT SC SCH ×4 (07:30→21:00)
[2023-08-16] MEDS: SYMBICORT 160/4.5MCG INHALER 6GM INH SCH ×2 (07:46→19:34)
[2023-08-16] MEDS: SODIUM CHLORIDE HYPERTONIC 3% 4ML NEB SOL INH SCH ×3 (07:47→19:33)
[2023-08-16] MEDS ORDERED: methylPREDNISolone 40MG 1ML VIAL IV SCH (09:00)
[2023-08-16] MEDS: SPIRONOLACTONE 25 MG TAB PO SCH (09:27)
[2023-08-16] MEDS: AZITHROMYCIN 250MG TABLET PO SCH (09:28)
[2023-08-16] MEDS: levETIRAcetam 250MG TABLET (KEPPRA) PO SCH ×2 (09:28→21:04)
[2023-08-16] MEDS: LINEZOLID 600MG TABLET (ZYVOX) PO SCH ×2 (09:28→21:04)
[2023-08-16] MEDS: OMEPRAZOLE 20MG CAP PO SCH ×2 (09:28→21:02)
[2023-08-16] MEDS: POTASSIUM CHLORIDE 10MEQ SR TABLET PO SCH ×2 (09:28→21:04)
[2023-08-16] MEDS: TORSEMIDE 20 MG TAB PO SCH (09:28)
[2023-08-16] MEDS: ENOXAPARIN 40MG/0.4ML SYRINGE (J1650 PER 10MG) SC SCH (09:29)
[2023-08-16] MEDS: METOPROLOL TART 25 MG TABLET PO SCH ×2 (09:29→21:05)
[2023-08-16] MEDS: VERAPAMIL 120MG SR TAB PO SCH (09:29)
[2023-08-16 11:15] VITALS: O2SAT 95
[2023-08-16 14:00] VITALS: BP 114/64; TEMP 97.7; O2SAT 94
[2023-08-16 18:07] LABS: CHLAMYDIA PNEUMONIAE IgG <1:100 (< 1:100); CHLAMYDIA PNEUMONIAE IgM 1:32 (< 1:10); CHLAMYDIA PSITTACI IgG <1:100 (< 1:100); CHLAMYDIA PSITTACI IgM <1:10 (< 1:10); CHLAMYDIA TRACHOMATIS IgG <1:100 (< 1:100); CHLAMYDIA TRACHOMATIS IgM <1:10 (< 1:10)
[2023-08-16 20:04] VITALS: BP 115/65; TEMP 97.9; O2SAT 98
[2023-08-16] MEDS: MICONAZOLE 2 % POWDER (DESENEX) TOP SCH (21:02)
[2023-08-16] MEDS: LevoFLOXacin 750 MG TABLET PO SCH (21:03)
[2023-08-16] MEDS: ITRACONAZOLE 100 MG PO SCH (21:03)
[2023-08-16] MEDS: MONTELUKAST 10 MG TAB PO SCH (21:04)
[2023-08-16] MEDS: traZODone 50 MG TAB PO SCH (21:04)
[2023-08-16] MEDS: TORSEMIDE 10 MG TABLET PO SCH (21:24)
[2023-08-17] MEDS: IPRATROPIUM 0.5MG/ALBUTEROL 2.5MG INH SOL UD 3ML (DUONEB) NEB SCH ×6 (03:00→23:19)
[2023-08-17 05:22] VITALS: BP 142/62; TEMP 98.1; O2SAT 97
[2023-08-17 06:27] LABS: BASO % 0.1 % (0.0-1.0); EOS % 0.1 % (0.0-3.0); HEMATOCRIT 32.5 % (36.0-47.0); HEMOGLOBIN 10.3 g/dl (12.0-15.5); LYMPH # 0.7 10^3/uL (1.5-5.0); LYMPH % 6.5 % (24.0-44.0); MEAN CORPUSCULAR HEMOGLOBIN 31.6 pg (27.0-33.0); MEAN CORPUSCULAR HGB CONC 31.7 g/dl (32.0-36.5); MEAN CORPUSCULAR VOLUME 99.7 fl (80.0-96.0); MONO # 0.5 10^3/uL (0.0-0.8); MONO % 4.9 % (2.0-8.0); NEUTROPHILS # 8.8 10^3/uL (1.5-8.5); NEUTROPHILS % 87.5 % (36.0-66.0); PLATELET COUNT, AUTOMATED 161 10^3/uL (150-450); RED BLOOD COUNT 3.26 10^6/uL (4.00-5.40)
[2023-08-17 06:36] LABS: BLOOD UREA NITROGEN 30 MG/DL (9-23); CALCIUM LEVEL 8.2 MG/DL (8.3-10.6); CARBON DIOXIDE LEVEL > 40.0 MMOL/L (20-31); CHLORIDE LEVEL 94 MMOL/L (98-107); CREATININE FOR GFR 0.96 MG/DL (0.55-1.30); GLOMERULAR FILTRATION RATE > 60.0 (>45); GLUCOSE, FASTING 75 MG/DL (74-106); POTASSIUM SERUM 4.5 MMOL/L (3.5-5.1); SODIUM LEVEL 140 MMOL/L (136-145)
[2023-08-17] MEDS: INSULIN LISPRO (NovoLOG) PER UNIT SC SCH ×4 (07:30→21:00)
[2023-08-17] MEDS: SYMBICORT 160/4.5MCG INHALER 6GM INH SCH ×2 (07:37→20:31)
[2023-08-17] MEDS: SODIUM CHLORIDE HYPERTONIC 3% 4ML NEB SOL INH SCH ×3 (07:39→20:31)
[2023-08-17 09:00] VITALS: O2SAT 96
[2023-08-17] MEDS: TORSEMIDE 20 MG TAB PO SCH (09:56)
[2023-08-17] MEDS: AZITHROMYCIN 250MG TABLET PO SCH (09:57)
[2023-08-17] MEDS: VERAPAMIL 120MG SR TAB PO SCH (09:57)
[2023-08-17] MEDS: POTASSIUM CHLORIDE 10MEQ SR TABLET PO SCH ×2 (09:57→20:04)
[2023-08-17] MEDS: METOPROLOL TART 25 MG TABLET PO SCH ×2 (09:58→20:05)
[2023-08-17] MEDS: OMEPRAZOLE 20MG CAP PO SCH ×2 (09:58→20:03)
[2023-08-17] MEDS: predniSONE 10MG TAB PO SCH (09:58)
[2023-08-17] MEDS: levETIRAcetam 250MG TABLET (KEPPRA) PO SCH ×2 (09:58→20:03)
[2023-08-17] MEDS: SPIRONOLACTONE 25 MG TAB PO SCH (09:58)
[2023-08-17] MEDS: ENOXAPARIN 40MG/0.4ML SYRINGE (J1650 PER 10MG) SC SCH (09:59)
[2023-08-17] MEDS: LINEZOLID 600MG TABLET (ZYVOX) PO SCH ×2 (09:59→20:05)
[2023-08-17] MEDS: MICONAZOLE 2 % POWDER (DESENEX) TOP SCH ×2 (10:48→20:03)
[2023-08-17 14:00] VITALS: BP 122/58; TEMP 97.9; O2SAT 93
[2023-08-17] MEDS: ITRACONAZOLE 100 MG PO SCH (20:03)
[2023-08-17] MEDS: traZODone 50 MG TAB PO SCH (20:04)
[2023-08-17] MEDS: MONTELUKAST 10 MG TAB PO SCH (20:05)
[2023-08-17] MEDS: TORSEMIDE 10 MG TABLET PO SCH (20:05)
[2023-08-17 20:06] VITALS: BP 119/58; TEMP 97.7; O2SAT 95
[2023-08-18] MEDS: IPRATROPIUM 0.5MG/ALBUTEROL 2.5MG INH SOL UD 3ML (DUONEB) NEB SCH ×2 (03:05→07:14)
[2023-08-18 06:00] VITALS: BP 117/62; TEMP 97.9; O2SAT 96
[2023-08-18 06:16] LABS: EOS % 0.1 % (0.0-3.0); HEMATOCRIT 31.2 % (36.0-47.0); HEMOGLOBIN 10.3 g/dl (12.0-15.5); LYMPH # 0.8 10^3/uL (1.5-5.0); LYMPH % 8.5 % (24.0-44.0); MEAN CORPUSCULAR HEMOGLOBIN 32.4 pg (27.0-33.0); MEAN CORPUSCULAR VOLUME 98.1 fl (80.0-96.0); MONO # 0.6 10^3/uL (0.0-0.8); MONO % 5.7 % (2.0-8.0); NEUTROPHILS # 8.2 10^3/uL (1.5-8.5); NEUTROPHILS % 84.5 % (36.0-66.0); PLATELET COUNT, AUTOMATED 158 10^3/uL (150-450); RED BLOOD COUNT 3.18 10^6/uL (4.00-5.40); WHITE BLOOD COUNT 9.7 10^3/uL (4.0-10.0)
[2023-08-18 06:33] LABS: BLOOD UREA NITROGEN 26 MG/DL (9-23); CALCIUM LEVEL 8.5 MG/DL (8.3-10.6); CARBON DIOXIDE LEVEL > 40.0 MMOL/L (20-31); CHLORIDE LEVEL 95 MMOL/L (98-107); CREATININE FOR GFR 0.93 MG/DL (0.55-1.30); GLOMERULAR FILTRATION RATE > 60.0 (>45); GLUCOSE, FASTING 96 MG/DL (74-106); POTASSIUM SERUM 4.3 MMOL/L (3.5-5.1); SODIUM LEVEL 140 MMOL/L (136-145)
[2023-08-18] MEDS: SYMBICORT 160/4.5MCG INHALER 6GM INH SCH (07:15)
[2023-08-18] MEDS: SODIUM CHLORIDE HYPERTONIC 3% 4ML NEB SOL INH SCH (07:15)
[2023-08-18] MEDS: INSULIN LISPRO (NovoLOG) PER UNIT SC SCH ×2 (07:30→12:37)
[2023-08-18] MEDS: AZITHROMYCIN 250MG TABLET PO SCH (08:09)
[2023-08-18] MEDS: ENOXAPARIN 40MG/0.4ML SYRINGE (J1650 PER 10MG) SC SCH (08:09)
[2023-08-18] MEDS: levETIRAcetam 250MG TABLET (KEPPRA) PO SCH (08:09)
[2023-08-18] MEDS: OMEPRAZOLE 20MG CAP PO SCH (08:09)
[2023-08-18] MEDS: TORSEMIDE 20 MG TAB PO SCH (08:10)
[2023-08-18] MEDS: predniSONE 10MG TAB PO SCH (08:10)
[2023-08-18 08:11] VITALS: BP 129/54
[2023-08-18] MEDS: SPIRONOLACTONE 25 MG TAB PO SCH (08:11)
[2023-08-18] MEDS: VERAPAMIL 120MG SR TAB PO SCH (08:11)
[2023-08-18] MEDS: POTASSIUM CHLORIDE 10MEQ SR TABLET PO SCH (08:11)
[2023-08-18] MEDS: METOPROLOL TART 25 MG TABLET PO SCH (08:12)
[2023-08-18] MEDS: LINEZOLID 600MG TABLET (ZYVOX) PO SCH (08:14)
[2023-08-18] MEDS: MICONAZOLE 2 % POWDER (DESENEX) TOP SCH (08:14)
[2023-08-18] MEDS ORDERED: LEVO1TAB40 PO (11:39)
[2023-08-18] MEDS ORDERED: PRED10TA2 PO (11:39)
[2023-08-18] MEDS ORDERED: LINE1TAB6 PO (11:39)
== END 2023-08-18 14:12 | disposition home or self-care (01) | DRG 193 ==
LOC: M ED 02:11 → EDBD 02:11 → M ED INP 05:40 → ENRESERV 08:40 → M ICU 09:51 → M MSPAV 08-12 10:41
PROVIDERS: ADMIT Internal Medicine Pulmonary Disease; ATTEND Internal Medicine Nephrology
DX: J18.9 Pneumonia, unspecified organism (principal); J96.21 Acute and chronic respiratory failure with hypoxia; J96.22 Acute and chronic respiratory failure with hypercapnia; G93.41 Metabolic encephalopathy; D80.3 Selective deficiency of immunoglobulin G [IgG] subclasses; I50.32 Chronic diastolic (congestive) heart failure; J47.0 Bronchiectasis with acute lower respiratory infection; E87.20 Acidosis, unspecified; J44.0 Chronic obstructive pulmonary disease with (acute) lower respiratory infection; I27.81 Cor pulmonale (chronic); I27.20 Pulmonary hypertension, unspecified; I11.0 Hypertensive heart disease with heart failure; K21.9 Gastro-esophageal reflux disease without esophagitis; E11.9 Type 2 diabetes mellitus without complications; F32.A Depression, unspecified; H35.30 Unspecified macular degeneration; G47.00 Insomnia, unspecified; G40.909 Epilepsy, unspecified, not intractable, without status epilepticus; K27.9 Peptic ulcer, site unspecified, unspecified as acute or chronic, without hemorrhage or perforation; K44.9 Diaphragmatic hernia without obstruction or gangrene; M81.0 Age-related osteoporosis without current pathological fracture; Z90.49 Acquired absence of other specified parts of digestive tract; Z90.79 Acquired absence of other genital organ(s); Z66 Do not resuscitate; Z79.52 Long term (current) use of systemic steroids; Z79.891 Long term (current) use of opiate analgesic; Z20.822 Contact with and (suspected) exposure to COVID-19; Z79.899 Other long term (current) drug therapy; Z88.1 Allergy status to other antibiotic agents; Z88.0 Allergy status to penicillin; Z88.8 Allergy status to other drugs, medicaments and biological substances; Z99.81 Dependence on supplemental oxygen; Z79.2 Long term (current) use of antibiotics; Z86.711 Personal history of pulmonary embolism

== ENCOUNTER 2023-08-23 10:57 | Inpatient (IN) | payer MEDICARE, BC ==
[~2023-08-23] VITALS: Ht 149.9 cm; Wt 46.2 kg
[~2023-08-23 10:57] MED LIST changes: +LINE1TAB6 PO; +OXYC-517 PO; +VITA500T37 PO
[2023-08-23 11:59] LABS: VENOUS BASE EXCESS 11.8 (-2.0-2.0); VENOUS O2 SATURATION 81.2 % (60.0-80.0); VENOUS PARTIAL PRESSURE CO2 91.8 mmHg (38.0-50.0); VENOUS PARTIAL PRESSURE O2 48.3 mmHg (30.0-50.0); VENOUS PH 7.278 UNITS (7.330-7.430); VENOUS STANDARD HCO3 35.1 MMOL/L; VENOUS TOTAL CO2 44.8 MMOL/L (24.0-28.0)
[2023-08-23 12:14] LABS: BASO # 0.1 10^3/uL (0.0-0.2); BASO % 0.2 % (0.0-1.0); HEMOGLOBIN 10.6 g/dl (12.0-15.5); LYMPH # 0.5 10^3/uL (1.5-5.0); LYMPH % 1.6 % (24.0-44.0); MEAN CORPUSCULAR HEMOGLOBIN 32.1 pg (27.0-33.0); MEAN CORPUSCULAR HGB CONC 31.2 g/dl (32.0-36.5); MONO # 0.4 10^3/uL (0.0-0.8); MONO % 1.3 % (2.0-8.0); NEUTROPHILS # 29.6 10^3/uL (1.5-8.5); NEUTROPHILS % 95.7 % (36.0-66.0); PLATELET COUNT, AUTOMATED 105 10^3/uL (150-450)
[2023-08-23 12:18] LABS: WHITE BLOOD COUNT 30.9 10^3/uL (4.0-10.0)
[2023-08-23 12:29] LABS: INR 1.04; PROTHROMBIN TIME 13.3 SECONDS (12.5-14.5)
[2023-08-23] MEDS ORDERED: dexAMETHasone 20MG/5ML VIAL IV ONE (12:30)
[2023-08-23 12:39] LABS: ALBUMIN 2.9 G/DL (3.2-5.2); ALKALINE PHOSPHATASE 71 U/L (46-116); ALT/SGPT 12 U/L (7.0-40); AST/SGOT 15 U/L (<34); BILIRUBIN,DIRECT 0.1 MG/DL (<0.4); BILIRUBIN,TOTAL 0.3 MG/DL (0.3-1.2); BLOOD UREA NITROGEN 20 MG/DL (9-23); CALCIUM LEVEL 8.5 MG/DL (8.3-10.6); CARBON DIOXIDE LEVEL > 40.0 MMOL/L (20-31); CHLORIDE LEVEL 94 MMOL/L (98-107); CREATININE FOR GFR 0.86 MG/DL (0.55-1.30); GLOMERULAR FILTRATION RATE > 60.0 (>45); GLUCOSE, FASTING 284 MG/DL (74-106); POTASSIUM SERUM 4.9 MMOL/L (3.5-5.1); SODIUM LEVEL 140 MMOL/L (136-145); THYROID STIMULATING HORMONE 1.493 uIU/ML (0.55-4.78); THYROXINE (T4) 6.1 UG/DL (4.5-10.9); TOTAL PROTEIN 5.8 G/DL (5.7-8.2)
[2023-08-23] MEDS ORDERED: cefTRIAXone SOD 2 GM in D5W MINI-BAG PLUS 50 ML IV ONE (12:50)
[2023-08-23 12:59] LABS: ABG BASE EXCESS 6.1 (-2.0-2.0); ABG HCO3 33.8 MMOL/L (22.0-26.0); ABG O2 SATURATION 93.3 % (95.0-99.0); ABG STANDARD HCO3 29.9 MMOL/L. (22.0-26.0); ABG TOTAL CO2 35.8 MMOL/L (23.0-31.0); ABG pH (ARTERIAL) 7.327 UNITS (7.350-7.450)
[2023-08-23] MEDS ORDERED: ISOVUE-370 76% 100ML VIAL As Ordered ONE (13:37)
[2023-08-23] MEDS ORDERED: ACETAMINOPHEN TAB 650MG DOSE (2X325MG) PO PRN (15:55)
[2023-08-23] MEDS ORDERED: GLUCOSE 4GM CHEW TABLET PO PRN (15:55)
[2023-08-23] MEDS ORDERED: GLUCAGON INJ 1MG VIAL SC PRN (15:55)
[2023-08-23] MEDS ORDERED: DEXTROSE 50% 50ML SYRINGE IV PRN (15:55)
[2023-08-23] MEDS ORDERED: ALBUTEROL SULFATE 2.5MG/0.5ML INH NEB SOLN NEB PRN (16:10)
[2023-08-23] MEDS ORDERED: MED REC IN PROGRESS XX SCH ×2 (17:15→17:25)
[2023-08-23 17:20] VITALS: BP 118/71; TEMP 98.8; O2SAT 94
[2023-08-23] MEDS ORDERED: HOME MED LIST COMPLETE! XX SCH (17:50)
[2023-08-23] MEDS: INSULIN LISPRO (NovoLOG) PER UNIT SC SCH (18:21)
[2023-08-23] MEDS: LACTOBACILLUS ACIDOPHILUS CAP (BACID) PO SCH (18:21)
[2023-08-23] MEDS: NS 1,000 ML IV SCH (18:33)
[2023-08-23] MEDS: LINEZOLID 600 MG in IV 1 EA IV SCH (18:33)
[2023-08-23] MEDS ORDERED: PILL CUTTER 1 EACH XX PRN (19:10)
[2023-08-23 20:00] VITALS: BP_SYST 110; BP_SYST 126; BP_DIAS 70; BP_DIAS 71; TEMP 98.1; TEMP 99; O2SAT 91; O2SAT 93
[2023-08-23] MEDS: IPRATROPIUM 0.5MG/ALBUTEROL 2.5MG INH SOL UD 3ML (DUONEB) NEB SCH (20:07)
[2023-08-23] MEDS: SODIUM CHLORIDE HYPERTONIC 3% 4ML NEB SOL INH SCH (20:07)
[2023-08-23] MEDS: traZODone 50 MG TAB PO SCH (20:58)
[2023-08-23] MEDS: MONTELUKAST 10 MG TAB PO SCH (20:58)
[2023-08-23] MEDS: OMEPRAZOLE 20MG CAP PO SCH (20:58)
[2023-08-23] MEDS: MIRTAZAPINE 15 MG TAB PO SCH (20:59)
[2023-08-23] MEDS: FERROUS SULFATE 325MG TAB PO SCH (20:59)
[2023-08-23] MEDS: POTASSIUM CHLORIDE 10MEQ SR TABLET PO SCH (20:59)
[2023-08-23] MEDS: METOPROLOL TART 25 MG TABLET PO SCH (20:59)
[2023-08-23] MEDS: FAMOTIDINE 20 MG TAB PO SCH (20:59)
[2023-08-23] MEDS: oxyCODONE 5MG TAB PO SCH (21:00)
[2023-08-23] MEDS: guaiFENesin ER TABLET 600 MG TAB PO SCH (21:00)
[2023-08-23] MEDS: methylPREDNISolone 125MG 2ML VIAL IV SCH (21:00)
[2023-08-23] MEDS: levETIRAcetam 250MG TABLET (KEPPRA) PO SCH (21:00)
[2023-08-23] MEDS: ITRACONAZOLE 100 MG PO SCH (21:03)
[2023-08-24] MEDS: LINEZOLID 600 MG in IV 1 EA IV SCH (05:49)
[2023-08-24 06:00] VITALS: BP 110/54; TEMP 98.6; O2SAT 98
[2023-08-24 06:50] LABS: HEMATOCRIT 30.2 % (36.0-47.0); HEMOGLOBIN 9.6 g/dl (12.0-15.5); MEAN CORPUSCULAR HGB CONC 31.8 g/dl (32.0-36.5); MEAN CORPUSCULAR VOLUME 100.7 fl (80.0-96.0); WHITE BLOOD COUNT 10.8 10^3/uL (4.0-10.0)
[2023-08-24 07:18] LABS: PLATELET COUNT, AUTOMATED 71 10^3/uL (150-450)
[2023-08-24 07:24] LABS: ALBUMIN 2.5 G/DL (3.2-5.2); ALKALINE PHOSPHATASE 55 U/L (46-116); ALT/SGPT 9 U/L (7.0-40); AST/SGOT < 8 U/L (<34); BILIRUBIN,TOTAL 0.3 MG/DL (0.3-1.2); BLOOD UREA NITROGEN 21 MG/DL (9-23); CALCIUM LEVEL 8.1 MG/DL (8.3-10.6); CARBON DIOXIDE LEVEL 38 MMOL/L (20-31); CHLORIDE LEVEL 98 MMOL/L (98-107); CREATININE FOR GFR 0.73 MG/DL (0.55-1.30); GLOMERULAR FILTRATION RATE > 60.0 (>45); GLUCOSE, FASTING 204 MG/DL (74-106); SODIUM LEVEL 140 MMOL/L (136-145); TOTAL PROTEIN 5.1 G/DL (5.7-8.2)
[2023-08-24] MEDS ORDERED: TIOTROPIUM INHALER/CAPSULE (SPIRIVA) INH SCH (08:00)
[2023-08-24] MEDS: IPRATROPIUM 0.5MG/ALBUTEROL 2.5MG INH SOL UD 3ML (DUONEB) NEB SCH ×4 (08:05→19:59)
[2023-08-24] MEDS: SODIUM CHLORIDE HYPERTONIC 3% 4ML NEB SOL INH SCH ×3 (08:11→19:59)
[2023-08-24] MEDS: methylPREDNISolone 125MG 2ML VIAL IV SCH (08:30)
[2023-08-24] MEDS: ENOXAPARIN 40MG/0.4ML SYRINGE (J1650 PER 10MG) SC SCH (08:30)
[2023-08-24] MEDS: OMEPRAZOLE 20MG CAP PO SCH ×2 (08:32→21:11)
[2023-08-24] MEDS: CYANOCOBALAMIN 500 MCG TAB PO SCH (08:32)
[2023-08-24] MEDS: AZITHROMYCIN 250MG TABLET PO SCH (08:32)
[2023-08-24] MEDS: guaiFENesin ER TABLET 600 MG TAB PO SCH ×2 (08:33→21:12)
[2023-08-24] MEDS: FAMOTIDINE 20 MG TAB PO SCH ×2 (08:33→21:13)
[2023-08-24] MEDS: levETIRAcetam 250MG TABLET (KEPPRA) PO SCH ×2 (08:33→21:10)
[2023-08-24] MEDS: FERROUS SULFATE 325MG TAB PO SCH ×2 (08:34→21:13)
[2023-08-24] MEDS: TORSEMIDE 20 MG TAB PO SCH (08:34)
[2023-08-24] MEDS: LACTOBACILLUS ACIDOPHILUS CAP (BACID) PO SCH ×2 (08:34→17:54)
[2023-08-24] MEDS: SPIRONOLACTONE 25 MG TAB PO SCH (08:34)
[2023-08-24] MEDS: POTASSIUM CHLORIDE 10MEQ SR TABLET PO SCH ×2 (08:34→21:12)
[2023-08-24] MEDS: oxyCODONE 5MG TAB PO SCH (08:35)
[2023-08-24] MEDS: INSULIN LISPRO (NovoLOG) PER UNIT SC SCH ×3 (08:51→17:55)
[2023-08-24] MEDS: METOPROLOL TART 25 MG TABLET PO SCH ×2 (08:51→21:00)
[2023-08-24] MEDS: VERAPAMIL 120MG SR TAB PO SCH (08:51)
[2023-08-24] MEDS: NS 1,000 ML IV SCH (08:52)
[2023-08-24] MEDS: SYMBICORT 160/4.5MCG INHALER 6GM INH SCH ×2 (11:25→19:59)
[2023-08-24 14:00] VITALS: BP 120/55; TEMP 98.2; O2SAT 97
[2023-08-24] MEDS: TORSEMIDE 10 MG TABLET PO SCH (17:54)
[2023-08-24 20:30] VITALS: BP 109/54; TEMP 98.2; O2SAT 96
[2023-08-24] MEDS ORDERED: methylPREDNISolone 40MG 1ML VIAL IV SCH (21:00)
[2023-08-24] MEDS: traZODone 50 MG TAB PO SCH (21:10)
[2023-08-24] MEDS: MIRTAZAPINE 15 MG TAB PO SCH (21:14)
[2023-08-24] MEDS: ITRACONAZOLE 100 MG PO SCH (21:14)
[2023-08-24] MEDS: MONTELUKAST 10 MG TAB PO SCH (21:14)
[2023-08-25 05:12] VITALS: BP 109/50; TEMP 97.7; O2SAT 93
[2023-08-25 05:58] LABS: HEMATOCRIT 28.2 % (36.0-47.0); HEMOGLOBIN 9.1 g/dl (12.0-15.5); MEAN CORPUSCULAR HEMOGLOBIN 32.3 pg (27.0-33.0); MEAN CORPUSCULAR HGB CONC 32.3 g/dl (32.0-36.5); RED BLOOD COUNT 2.82 10^6/uL (4.00-5.40); WHITE BLOOD COUNT 10.7 10^3/uL (4.0-10.0)
[2023-08-25 06:00] LABS: PLATELET COUNT, AUTOMATED 70 10^3/uL (150-450)
[2023-08-25] MEDS: SYMBICORT 160/4.5MCG INHALER 6GM INH SCH ×2 (07:36→19:31)
[2023-08-25] MEDS: IPRATROPIUM 0.5MG/ALBUTEROL 2.5MG INH SOL UD 3ML (DUONEB) NEB SCH ×4 (07:36→19:31)
[2023-08-25] MEDS: SODIUM CHLORIDE HYPERTONIC 3% 4ML NEB SOL INH SCH ×3 (07:36→19:31)
[2023-08-25] MEDS: LACTOBACILLUS ACIDOPHILUS CAP (BACID) PO SCH ×2 (08:49→17:45)
[2023-08-25] MEDS: INSULIN LISPRO (NovoLOG) PER UNIT SC SCH ×3 (08:49→17:45)
[2023-08-25] MEDS: predniSONE 20 MG TAB PO SCH (08:49)
[2023-08-25] MEDS: AZITHROMYCIN 250MG TABLET PO SCH (08:49)
[2023-08-25] MEDS: SPIRONOLACTONE 25 MG TAB PO SCH (08:49)
[2023-08-25] MEDS: guaiFENesin ER TABLET 600 MG TAB PO SCH ×2 (08:50→20:02)
[2023-08-25] MEDS: POTASSIUM CHLORIDE 10MEQ SR TABLET PO SCH ×2 (08:50→20:10)
[2023-08-25] MEDS: OMEPRAZOLE 20MG CAP PO SCH ×2 (08:50→20:03)
[2023-08-25] MEDS: CYANOCOBALAMIN 500 MCG TAB PO SCH (08:51)
[2023-08-25] MEDS: levETIRAcetam 250MG TABLET (KEPPRA) PO SCH ×2 (08:52→20:03)
[2023-08-25] MEDS: VERAPAMIL 120MG SR TAB PO SCH (08:52)
[2023-08-25] MEDS: TORSEMIDE 20 MG TAB PO SCH (08:53)
[2023-08-25] MEDS: FERROUS SULFATE 325MG TAB PO SCH ×2 (08:53→20:03)
[2023-08-25] MEDS: METOPROLOL TART 25 MG TABLET PO SCH ×2 (08:53→20:04)
[2023-08-25] MEDS: FAMOTIDINE 20 MG TAB PO SCH ×2 (08:53→20:03)
[2023-08-25] MEDS: ENOXAPARIN 40MG/0.4ML SYRINGE (J1650 PER 10MG) SC SCH (10:10)
[2023-08-25 14:00] VITALS: BP 120/46; TEMP 97.7; O2SAT 97
[2023-08-25 16:54] LABS: BLOOD UREA NITROGEN 26 MG/DL (7-21); CREATININE FOR GFR 0.9 MG/DL (0.7-1.5); GLOMERULAR FILTRATION RATE > 60.0 (>45); GLUCOSE, FASTING 219 MG/DL
[2023-08-25 16:55] LABS: ALBUMIN 3.1 G/DL (3.9-5.0); ALKALINE PHOSPHATASE 53 U/L (35-104); ALT/SGPT 9 U/L (1-33); AST/SGOT 9 U/L (5-40); BILIRUBIN,TOTAL < 0.7 MG/DL (0.2-1.3); CALCIUM LEVEL 8.6 MG/DL (8.8-10.2); CARBON DIOXIDE LEVEL 31 MEQ/L (22-30); CHLORIDE LEVEL 99 MEQ/L (98-107); POTASSIUM SERUM 5.1 MEQ/L (3.6-5.0); SODIUM LEVEL 141 MEQ/L (134-153); TOTAL PROTEIN 4.9 G/DL (6.3-8.2)
[2023-08-25] MEDS: TORSEMIDE 10 MG TABLET PO SCH (17:45)
[2023-08-25 19:58] VITALS: BP 133/58; TEMP 99; O2SAT 95
[2023-08-25] MEDS: traZODone 50 MG TAB PO SCH (20:04)
[2023-08-25] MEDS: MONTELUKAST 10 MG TAB PO SCH (20:04)
[2023-08-25] MEDS: MIRTAZAPINE 15 MG TAB PO SCH (20:04)
[2023-08-25] MEDS: ITRACONAZOLE 100 MG PO SCH (20:05)
[2023-08-26 06:00] VITALS: BP 134/58; TEMP 97.2; O2SAT 92
[2023-08-26 06:25] LABS: HEMOGLOBIN 9.9 g/dl (12.0-15.5); MEAN CORPUSCULAR VOLUME 97.1 fl (80.0-96.0); PLATELET COUNT, AUTOMATED 75 10^3/uL (150-450); RED BLOOD COUNT 3.09 10^6/uL (4.00-5.40); WHITE BLOOD COUNT 11.6 10^3/uL (4.0-10.0)
[2023-08-26] MEDS: SYMBICORT 160/4.5MCG INHALER 6GM INH SCH (07:51)
[2023-08-26] MEDS: SODIUM CHLORIDE HYPERTONIC 3% 4ML NEB SOL INH SCH ×2 (07:52→14:00)
[2023-08-26] MEDS: IPRATROPIUM 0.5MG/ALBUTEROL 2.5MG INH SOL UD 3ML (DUONEB) NEB SCH ×3 (07:52→15:43)
[2023-08-26] MEDS: AZITHROMYCIN 250MG TABLET PO SCH (09:04)
[2023-08-26] MEDS: guaiFENesin ER TABLET 600 MG TAB PO SCH (09:04)
[2023-08-26] MEDS: INSULIN LISPRO (NovoLOG) PER UNIT SC SCH ×2 (09:04→12:47)
[2023-08-26] MEDS: predniSONE 20 MG TAB PO SCH (09:04)
[2023-08-26] MEDS: CYANOCOBALAMIN 500 MCG TAB PO SCH (09:04)
[2023-08-26] MEDS: LACTOBACILLUS ACIDOPHILUS CAP (BACID) PO SCH (09:05)
[2023-08-26] MEDS: levETIRAcetam 250MG TABLET (KEPPRA) PO SCH (09:05)
[2023-08-26] MEDS: OMEPRAZOLE 20MG CAP PO SCH (09:05)
[2023-08-26] MEDS: FERROUS SULFATE 325MG TAB PO SCH (09:05)
[2023-08-26] MEDS: VERAPAMIL 120MG SR TAB PO SCH (09:06)
[2023-08-26] MEDS: POTASSIUM CHLORIDE 10MEQ SR TABLET PO SCH (09:06)
[2023-08-26] MEDS: FAMOTIDINE 20 MG TAB PO SCH (09:06)
[2023-08-26 09:07] VITALS: BP 130/64
[2023-08-26] MEDS: TORSEMIDE 20 MG TAB PO SCH (09:07)
[2023-08-26] MEDS: METOPROLOL TART 25 MG TABLET PO SCH (09:07)
[2023-08-26 14:00] VITALS: BP 118/56; TEMP 98.1; O2SAT 98
[2023-08-26] MEDS ORDERED: MUCI600T31 PO (15:05)
[2023-08-26] MEDS ORDERED: PRED20TA PO (15:05)
[2023-08-26] MEDS ORDERED: POTA-136 PO (15:13)
[2023-08-27 11:22] LABS: BLOOD UREA NITROGEN 26 MG/DL (7-21); GLUCOSE, FASTING 104 MG/DL
[2023-08-27 11:23] LABS: ALBUMIN 3.5 G/DL (3.9-5.0); ALKALINE PHOSPHATASE 59 U/L (35-104); ALT/SGPT 11 U/L (1-33); AST/SGOT 16 U/L (5-40); BILIRUBIN,TOTAL < 0.7 MG/DL (0.2-1.3); CALCIUM LEVEL 8.7 MG/DL (8.8-10.2); CARBON DIOXIDE LEVEL 33 MEQ/L (22-30); CHLORIDE LEVEL 93 MEQ/L (98-107); CREATININE FOR GFR 0.7 MG/DL (0.7-1.5); GLOMERULAR FILTRATION RATE > 60.0 (>45); POTASSIUM SERUM 4.7 MEQ/L (3.6-5.0); SODIUM LEVEL 138 MEQ/L (134-153); TOTAL PROTEIN 5.7 G/DL (6.3-8.2)
== END 2023-08-26 15:58 | disposition home or self-care (01) | DRG 871 ==
LOC: M ED 10:57 → M ED INP 15:54 → ENRESERV 16:26 → M MSPAV 17:23
PROVIDERS: ADMIT Internal Medicine; ATTEND Internal Medicine
DX: A41.9 Sepsis, unspecified organism (principal); J15.69 Pneumonia due to other Gram-negative bacteria; J44.0 Chronic obstructive pulmonary disease with (acute) lower respiratory infection; B44.1 Other pulmonary aspergillosis; I50.32 Chronic diastolic (congestive) heart failure; J96.11 Chronic respiratory failure with hypoxia; E87.20 Acidosis, unspecified; D84.9 Immunodeficiency, unspecified; J44.1 Chronic obstructive pulmonary disease with (acute) exacerbation; I27.81 Cor pulmonale (chronic); I11.0 Hypertensive heart disease with heart failure; E11.65 Type 2 diabetes mellitus with hyperglycemia; G40.909 Epilepsy, unspecified, not intractable, without status epilepticus; F32.A Depression, unspecified; K21.9 Gastro-esophageal reflux disease without esophagitis; K44.9 Diaphragmatic hernia without obstruction or gangrene; D50.9 Iron deficiency anemia, unspecified; I27.20 Pulmonary hypertension, unspecified; J44.81 Bronchiolitis obliterans and bronchiolitis obliterans syndrome; D69.6 Thrombocytopenia, unspecified; M81.0 Age-related osteoporosis without current pathological fracture; G47.33 Obstructive sleep apnea (adult) (pediatric); H35.30 Unspecified macular degeneration; Z86.711 Personal history of pulmonary embolism; Z79.52 Long term (current) use of systemic steroids; Z66 Do not resuscitate; Z79.891 Long term (current) use of opiate analgesic; Z79.2 Long term (current) use of antibiotics; Z79.899 Other long term (current) drug therapy; Z88.1 Allergy status to other antibiotic agents; Z88.5 Allergy status to narcotic agent; Z88.8 Allergy status to other drugs, medicaments and biological substances; Z20.822 Contact with and (suspected) exposure to COVID-19; Z99.81 Dependence on supplemental oxygen

== ENCOUNTER → 2023-08-30 | Outpatient (REF) | payer MEDICARE, BC ==
[~2023-08-30] MED LIST changes: +MUCI600T31 PO
[2023-08-31 15:42] LABS: LYMPHOCYTES 4 % (16-44); METAMYELOCYTES 1 % (0-0); MONOCYTES 1 % (0-5); NEUTROPHILS 93 % (28-66)
[2023-08-31 15:45] LABS: PLATELET ESTIMATE NORMAL (NORMAL)
== END ==
LOC: M LAB REF 12:18
PROVIDERS: ATTEND Internal Medicine
DX: D72.9 Disorder of white blood cells, unspecified (principal)

== ENCOUNTER 2023-10-03 08:17 | Inpatient (IN) | payer MEDICARE, BC ==
[2023-10-03] VITALS (17 sets, daily range): BP systolic 130–159; BP diastolic 63–74; TEMP 97–98; O2SAT 90–99
[~2023-10-03] VITALS: Ht 149.9 cm; Wt 42.3 kg
[2023-10-03] MEDS ORDERED: dexAMETHasone 20MG/5ML VIAL IV ONE (08:50)
[2023-10-03 09:17] LABS: BASO # 0.1 10^3/uL (0.0-0.2); BASO % 0.2 % (0.0-1.0); EOS % 0.2 % (0.0-3.0); HEMATOCRIT 37.2 % (36.0-47.0); HEMOGLOBIN 11.9 g/dl (12.0-15.5); LYMPH # 2.1 10^3/uL (1.5-5.0); LYMPH % 9.5 % (24.0-44.0); MEAN CORPUSCULAR HEMOGLOBIN 32.3 pg (27.0-33.0); MEAN CORPUSCULAR VOLUME 101.1 fl (80.0-96.0); MONO # 1.4 10^3/uL (0.0-0.8); MONO % 6.5 % (2.0-8.0); NEUTROPHILS # 18.1 10^3/uL (1.5-8.5); NEUTROPHILS % 81.8 % (36.0-66.0); PLATELET COUNT, AUTOMATED 205 10^3/uL (150-450); RED BLOOD COUNT 3.68 10^6/uL (4.00-5.40); WHITE BLOOD COUNT 22.1 10^3/uL (4.0-10.0)
[2023-10-03] MEDS: IPRATROPIUM 0.5MG/ALBUTEROL 2.5MG INH SOL UD 3ML (DUONEB) NEB PRN (09:20)
[2023-10-03 09:29] LABS: ABG HCO3 33.3 MMOL/L (22.0-26.0); ABG O2 SATURATION 97.4 % (95.0-99.0); ABG PARTIAL PRESSURE O2 108.7 mmHg (75.0-100.0); ABG STANDARD HCO3 29.9 MMOL/L. (22.0-26.0); ABG TOTAL CO2 35.1 MMOL/L (23.0-31.0); ABG pH (ARTERIAL) 7.353 UNITS (7.350-7.450)
[2023-10-03 09:35] LABS: ALBUMIN 3.1 G/DL (3.2-5.2); ALKALINE PHOSPHATASE 110 U/L (46-116); ALT/SGPT 13 U/L (7.0-40); AST/SGOT 22 U/L (<34); BILIRUBIN,DIRECT < 0.1 MG/DL (<0.4); BILIRUBIN,TOTAL 0.3 MG/DL (0.3-1.2); BLOOD UREA NITROGEN 23 MG/DL (9-23); CALCIUM LEVEL 8.6 MG/DL (8.3-10.6); CARBON DIOXIDE LEVEL 35 MMOL/L (20-31); CHLORIDE LEVEL 97 MMOL/L (98-107); CREATININE FOR GFR 0.87 MG/DL (0.55-1.30); GLOMERULAR FILTRATION RATE > 60.0 (>45); GLUCOSE, FASTING 131 MG/DL (74-106); POTASSIUM SERUM 4.4 MMOL/L (3.5-5.1); SODIUM LEVEL 138 MMOL/L (136-145); TOTAL PROTEIN 6.5 G/DL (5.7-8.2)
[2023-10-03 09:38] LABS: ABG PARTIAL PRESSURE CO2 61.2 mmHg (35.0-45.0)
[2023-10-03] MEDS ORDERED: DOXYCYCLINE HYCLATE 100MG TABLET PO ONE (10:05)
[2023-10-03] MEDS ORDERED: cefTRIAXone SOD 1 GM in D5W MINI-BAG PLUS 50 ML IV ONE (10:05)
[2023-10-03] MEDS ORDERED: MED REC IN PROGRESS XX SCH (10:10)
[2023-10-03] MEDS ORDERED: BUDE0.5S6 NEB (10:49)
[2023-10-03] MEDS ORDERED: PRED5TA PO (10:49)
[2023-10-03] MEDS ORDERED: POTA10CA60 PO (10:49)
[2023-10-03] MEDS ORDERED: YUPE175S NEB (10:49)
[2023-10-03] MEDS ORDERED: ARFO15VI18 NEB (10:49)
[2023-10-03] MEDS ORDERED: ISOVUE-370 76% 100ML VIAL As Ordered ONE (10:52)
[2023-10-03] MEDS ORDERED: HOME MED LIST COMPLETE! XX SCH (10:55)
[2023-10-03] MEDS ORDERED: MOM 30ML SUSPENSION UDC PO PRN (11:10)
[2023-10-03] MEDS: predniSONE 5 MG TAB PO SCH (12:42)
[2023-10-03] MEDS: AZITHROMYCIN 250MG TABLET PO SCH (12:55)
[2023-10-03] MEDS: levETIRAcetam 250MG TABLET (KEPPRA) PO SCH ×2 (12:56→20:19)
[2023-10-03 13:22] LABS: PROCALCITONIN 1.32 ng/ml
[2023-10-03 13:42] LABS: HIV 1&2 SCREEN NEGATIVE (NEGATIVE)
[2023-10-03] MEDS ORDERED: ALBUTEROL SULFATE 2.5MG/0.5ML INH NEB SOLN INH SCH (14:00)
[2023-10-03] MEDS: SODIUM CHLORIDE HYPERTONIC 3% 4ML NEB SOL INH SCH ×2 (14:00→19:49)
[2023-10-03] MEDS: IPRATROPIUM 0.5MG/ALBUTEROL 2.5MG INH SOL UD 3ML (DUONEB) INH SCH ×2 (14:03→19:42)
[2023-10-03] MEDS: CEFIDEROCOL SULFATE TOSYLATE 2 GM in D5W 100 ML IV SCH ×2 (16:02→23:59)
[2023-10-03] MEDS: BUDESONIDE 0.5 MG/2 ML INHALATION SUSPENSION NEB SCH (19:42)
[2023-10-03] MEDS: ARFORMOTEROL TARTRATE 15 MCG/2 ML INH SCH (20:00)
[2023-10-03] MEDS ORDERED: PILL CUTTER 1 EACH XX ONE (20:12)
[2023-10-03] MEDS: LACTOBACILLUS ACIDOPHILUS CAP (BACID) PO SCH (20:17)
[2023-10-03] MEDS: TORSEMIDE 10 MG TABLET PO SCH (20:18)
[2023-10-03] MEDS: traZODone 50 MG TAB PO SCH (20:18)
[2023-10-03] MEDS: FERROUS SULFATE 325MG TAB PO SCH (20:18)
[2023-10-03] MEDS: DOCUSATE SODIUM 100MG CAPSULE PO SCH (20:18)
[2023-10-03] MEDS: POTASSIUM CHLORIDE 10MEQ SR TABLET PO SCH (20:19)
[2023-10-03] MEDS: guaiFENesin ER TABLET 600 MG TAB PO SCH (20:19)
[2023-10-03] MEDS: METOPROLOL TART 25 MG TABLET PO SCH (20:19)
[2023-10-03] MEDS: FAMOTIDINE 20 MG TAB PO SCH (20:20)
[2023-10-03] MEDS: ITRACONAZOLE 100 MG PO SCH (20:20)
[2023-10-03] MEDS: OMEPRAZOLE 20MG CAP PO SCH (20:20)
[2023-10-03] MEDS: MIRTAZAPINE 15 MG TAB PO SCH (20:21)
[2023-10-03] MEDS: MONTELUKAST 10 MG TAB PO SCH (20:22)
[2023-10-03] MEDS: HEPARIN SOD (PORCINE) 5000UNITS/ML 1ML VIAL/SYRINGE SQ SCH (20:22)
[2023-10-03] MEDS: oxyCODONE 5MG TAB PO SCH ×2 (20:22→20:30)
[2023-10-04] VITALS (23 sets, daily range): BP systolic 112–161; BP diastolic 57–71; TEMP 97.1–98.1; O2SAT 92–100
[2023-10-04] MEDS: IPRATROPIUM 0.5MG/ALBUTEROL 2.5MG INH SOL UD 3ML (DUONEB) INH SCH ×4 (01:17→21:33)
[2023-10-04 07:13] LABS: BLOOD UREA NITROGEN 20 MG/DL (9-23); CALCIUM LEVEL 8.2 MG/DL (8.3-10.6); CARBON DIOXIDE LEVEL 37 MMOL/L (20-31); CHLORIDE LEVEL 98 MMOL/L (98-107); CREATININE FOR GFR 0.67 MG/DL (0.55-1.30); GLOMERULAR FILTRATION RATE > 60.0 (>45); GLUCOSE, FASTING 86 MG/DL (74-106); POTASSIUM SERUM 4.6 MMOL/L (3.5-5.1); SODIUM LEVEL 140 MMOL/L (136-145)
[2023-10-04] MEDS: BUDESONIDE 0.5 MG/2 ML INHALATION SUSPENSION NEB SCH ×2 (07:35→21:33)
[2023-10-04 07:53] LABS: BASO % 0.2 % (0.0-1.0); HEMOGLOBIN 10.4 g/dl (12.0-15.5); LYMPH # 0.7 10^3/uL (1.5-5.0); LYMPH % 5.6 % (24.0-44.0); MEAN CORPUSCULAR HEMOGLOBIN 31.3 pg (27.0-33.0); MEAN CORPUSCULAR HGB CONC 31.5 g/dl (32.0-36.5); MEAN CORPUSCULAR VOLUME 99.4 fl (80.0-96.0); MONO # 0.7 10^3/uL (0.0-0.8); MONO % 5.6 % (2.0-8.0); NEUTROPHILS # 10.2 10^3/uL (1.5-8.5); NEUTROPHILS % 87.1 % (36.0-66.0); PLATELET COUNT, AUTOMATED 171 10^3/uL (150-450); RED BLOOD COUNT 3.32 10^6/uL (4.00-5.40); WHITE BLOOD COUNT 11.7 10^3/uL (4.0-10.0)
[2023-10-04] MEDS: SODIUM CHLORIDE HYPERTONIC 3% 4ML NEB SOL INH SCH ×3 (08:00→21:33)
[2023-10-04] MEDS ORDERED: PILL CUTTER 1 EACH XX ONE (08:39)
[2023-10-04] MEDS: CEFIDEROCOL SULFATE TOSYLATE 2 GM in D5W 100 ML IV SCH ×2 (08:49→16:15)
[2023-10-04] MEDS: OMEPRAZOLE 20MG CAP PO SCH ×2 (08:49→21:06)
[2023-10-04] MEDS: oxyCODONE 5MG TAB PO SCH ×2 (08:49→21:00)
[2023-10-04] MEDS: TORSEMIDE 20 MG TAB PO SCH (08:50)
[2023-10-04] MEDS: AZITHROMYCIN 250MG TABLET PO SCH (08:50)
[2023-10-04] MEDS: VERAPAMIL 120MG SR TAB PO SCH (08:50)
[2023-10-04] MEDS: FERROUS SULFATE 325MG TAB PO SCH ×2 (08:50→21:03)
[2023-10-04] MEDS: predniSONE 5 MG TAB PO SCH (08:50)
[2023-10-04] MEDS: POTASSIUM CHLORIDE 10MEQ SR TABLET PO SCH ×2 (08:50→21:04)
[2023-10-04] MEDS: guaiFENesin ER TABLET 600 MG TAB PO SCH ×2 (08:51→21:05)
[2023-10-04] MEDS: METOPROLOL TART 25 MG TABLET PO SCH ×2 (08:51→21:00)
[2023-10-04] MEDS: FAMOTIDINE 20 MG TAB PO SCH ×2 (08:51→21:06)
[2023-10-04] MEDS: CYANOCOBALAMIN 500 MCG TAB PO SCH (08:51)
[2023-10-04] MEDS: DOCUSATE SODIUM 100MG CAPSULE PO SCH ×2 (08:51→21:02)
[2023-10-04] MEDS: SPIRONOLACTONE 25 MG TAB PO SCH (08:51)
[2023-10-04] MEDS: levETIRAcetam 250MG TABLET (KEPPRA) PO SCH ×2 (08:51→21:03)
[2023-10-04] MEDS: HEPARIN SOD (PORCINE) 5000UNITS/ML 1ML VIAL/SYRINGE SQ SCH ×2 (08:52→21:06)
[2023-10-04] MEDS ORDERED: CALCIUM/VITAMIN D 500 MG TAB PO SCH (09:00)
[2023-10-04] MEDS: CALCIUM/VITAMIN D 500 MG TAB PO SCH (09:44)
[2023-10-04] MEDS: YUPELRI 175 MCG/3 ML NEB SCH (13:38)
[2023-10-04] MEDS: LACTOBACILLUS ACIDOPHILUS CAP (BACID) PO SCH (21:02)
[2023-10-04] MEDS: TORSEMIDE 10 MG TABLET PO SCH (21:03)
[2023-10-04] MEDS: traZODone 50 MG TAB PO SCH (21:03)
[2023-10-04] MEDS: ITRACONAZOLE 100 MG PO SCH (21:05)
[2023-10-04] MEDS: MONTELUKAST 10 MG TAB PO SCH (21:06)
[2023-10-04] MEDS: MIRTAZAPINE 15 MG TAB PO SCH (21:06)
[2023-10-04] MEDS: ACETAMINOPHEN TAB 650MG DOSE (2X325MG) PO PRN (21:07)
[2023-10-05] VITALS (26 sets, daily range): BP systolic 114–144; BP diastolic 57–87; TEMP 97.2–97.8; O2SAT 92–100
[2023-10-05] MEDS: CEFIDEROCOL SULFATE TOSYLATE 2 GM in D5W 100 ML IV SCH ×3 (00:55→15:40)
[2023-10-05] MEDS: IPRATROPIUM 0.5MG/ALBUTEROL 2.5MG INH SOL UD 3ML (DUONEB) INH SCH ×5 (01:04→19:10)
[2023-10-05] MEDS: SODIUM CHLORIDE HYPERTONIC 3% 4ML NEB SOL INH SCH ×3 (07:16→19:11)
[2023-10-05] MEDS: ARFORMOTEROL TARTRATE 15 MCG/2 ML INH SCH ×2 (07:17→19:11)
[2023-10-05] MEDS: BUDESONIDE 0.5 MG/2 ML INHALATION SUSPENSION NEB SCH ×2 (07:17→19:10)
[2023-10-05 07:33] LABS: BASO % 0.2 % (0.0-1.0); EOS % 0.2 % (0.0-3.0); HEMATOCRIT 34.9 % (36.0-47.0); HEMOGLOBIN 11.2 g/dl (12.0-15.5); LYMPH # 1.1 10^3/uL (1.5-5.0); LYMPH % 8.1 % (24.0-44.0); MEAN CORPUSCULAR HEMOGLOBIN 32.1 pg (27.0-33.0); MEAN CORPUSCULAR HGB CONC 32.1 g/dl (32.0-36.5); MONO # 0.8 10^3/uL (0.0-0.8); MONO % 6.2 % (2.0-8.0); NEUTROPHILS # 11.1 10^3/uL (1.5-8.5); NEUTROPHILS % 84.3 % (36.0-66.0); PLATELET COUNT, AUTOMATED 177 10^3/uL (150-450); RED BLOOD COUNT 3.49 10^6/uL (4.00-5.40); WHITE BLOOD COUNT 13.2 10^3/uL (4.0-10.0)
[2023-10-05] MEDS: YUPELRI 175 MCG/3 ML NEB SCH (07:33)
[2023-10-05 08:08] LABS: BLOOD UREA NITROGEN 19 MG/DL (9-23); CALCIUM LEVEL 8.1 MG/DL (8.3-10.6); CARBON DIOXIDE LEVEL 40 MMOL/L (20-31); CHLORIDE LEVEL 95 MMOL/L (98-107); GLOMERULAR FILTRATION RATE > 60.0 (>45); GLUCOSE, FASTING 80 MG/DL (74-106); POTASSIUM SERUM 4.1 MMOL/L (3.5-5.1); SODIUM LEVEL 139 MMOL/L (136-145)
[2023-10-05 08:14] LABS: ERYTHROCYTE SEDIMENTATION RATE 45 mm/hr (0-30)
[2023-10-05 08:16] LABS: PROCALCITONIN 0.68 ng/ml
[2023-10-05] MEDS: guaiFENesin ER TABLET 600 MG TAB PO SCH ×2 (09:06→21:43)
[2023-10-05] MEDS: HEPARIN SOD (PORCINE) 5000UNITS/ML 1ML VIAL/SYRINGE SQ SCH ×2 (09:06→21:44)
[2023-10-05] MEDS: OMEPRAZOLE 20MG CAP PO SCH ×2 (09:07→21:43)
[2023-10-05] MEDS: predniSONE 5 MG TAB PO SCH (09:07)
[2023-10-05] MEDS: VERAPAMIL 120MG SR TAB PO SCH (09:09)
[2023-10-05] MEDS: CALCIUM/VITAMIN D 500 MG TAB PO SCH (09:10)
[2023-10-05] MEDS: TORSEMIDE 20 MG TAB PO SCH (09:10)
[2023-10-05] MEDS: POTASSIUM CHLORIDE 10MEQ SR TABLET PO SCH ×2 (09:14→21:42)
[2023-10-05] MEDS: AZITHROMYCIN 250MG TABLET PO SCH (09:14)
[2023-10-05] MEDS: levETIRAcetam 250MG TABLET (KEPPRA) PO SCH ×2 (09:14→21:42)
[2023-10-05] MEDS: oxyCODONE 5MG TAB PO SCH ×2 (09:14→21:00)
[2023-10-05] MEDS: CYANOCOBALAMIN 500 MCG TAB PO SCH (09:14)
[2023-10-05] MEDS: DOCUSATE SODIUM 100MG CAPSULE PO SCH ×2 (09:15→21:41)
[2023-10-05] MEDS: FAMOTIDINE 20 MG TAB PO SCH ×2 (09:15→21:43)
[2023-10-05] MEDS: METOPROLOL TART 25 MG TABLET PO SCH ×2 (09:15→21:43)
[2023-10-05] MEDS: FERROUS SULFATE 325MG TAB PO SCH ×2 (09:15→21:42)
[2023-10-05] MEDS: SPIRONOLACTONE 25 MG TAB PO SCH (09:16)
[2023-10-05 13:20] LABS: ABG HCO3 33.8 MMOL/L (22.0-26.0); ABG O2 SATURATION 96.9 % (95.0-99.0); ABG PARTIAL PRESSURE O2 97.5 mmHg (75.0-100.0); ABG STANDARD HCO3 29.8 MMOL/L. (22.0-26.0); ABG TOTAL CO2 35.8 MMOL/L (23.0-31.0); ABG pH (ARTERIAL) 7.336 UNITS (7.350-7.450)
[2023-10-05 13:23] LABS: ABG PARTIAL PRESSURE CO2 64.7 mmHg (35.0-45.0)
[2023-10-05] MEDS: LACTOBACILLUS ACIDOPHILUS CAP (BACID) PO SCH (21:41)
[2023-10-05] MEDS: TORSEMIDE 10 MG TABLET PO SCH (21:41)
[2023-10-05] MEDS: traZODone 50 MG TAB PO SCH (21:42)
[2023-10-05] MEDS: ITRACONAZOLE 100 MG PO SCH (21:43)
[2023-10-05] MEDS: MIRTAZAPINE 15 MG TAB PO SCH (21:43)
[2023-10-05] MEDS: MONTELUKAST 10 MG TAB PO SCH (21:44)
[2023-10-05] MEDS: ACETAMINOPHEN TAB 650MG DOSE (2X325MG) PO PRN (21:45)
[2023-10-06] VITALS (28 sets, daily range): BP systolic 99–190; BP diastolic 56–92; TEMP 96.6–99.2; O2SAT 75–100
[2023-10-06] MEDS: CEFIDEROCOL SULFATE TOSYLATE 2 GM in D5W 100 ML IV SCH ×2 (00:25→10:04)
[2023-10-06] MEDS: IPRATROPIUM 0.5MG/ALBUTEROL 2.5MG INH SOL UD 3ML (DUONEB) INH SCH ×7 (01:14→23:08)
[2023-10-06] MEDS: ARFORMOTEROL TARTRATE 15 MCG/2 ML INH SCH ×2 (07:06→19:24)
[2023-10-06] MEDS: SODIUM CHLORIDE HYPERTONIC 3% 4ML NEB SOL INH SCH ×3 (07:06→19:24)
[2023-10-06] MEDS: BUDESONIDE 0.5 MG/2 ML INHALATION SUSPENSION NEB SCH ×2 (07:06→19:23)
[2023-10-06] MEDS: YUPELRI 175 MCG/3 ML NEB SCH (07:07)
[2023-10-06 08:03] LABS: BASO % 0.2 % (0.0-1.0); EOS # 0.1 10^3/uL (0.0-0.5); EOS % 0.4 % (0.0-3.0); HEMATOCRIT 34.4 % (36.0-47.0); LYMPH # 1.1 10^3/uL (1.5-5.0); LYMPH % 8.6 % (24.0-44.0); MEAN CORPUSCULAR HEMOGLOBIN 31.7 pg (27.0-33.0); MEAN CORPUSCULAR VOLUME 99.1 fl (80.0-96.0); MONO # 0.8 10^3/uL (0.0-0.8); MONO % 6.7 % (2.0-8.0); NEUTROPHILS # 10.3 10^3/uL (1.5-8.5); NEUTROPHILS % 82.7 % (36.0-66.0); PLATELET COUNT, AUTOMATED 175 10^3/uL (150-450); RED BLOOD COUNT 3.47 10^6/uL (4.00-5.40); WHITE BLOOD COUNT 12.5 10^3/uL (4.0-10.0)
[2023-10-06 08:24] LABS: BLOOD UREA NITROGEN 17 MG/DL (9-23); CALCIUM LEVEL 8.4 MG/DL (8.3-10.6); CARBON DIOXIDE LEVEL 39 MMOL/L (20-31); CHLORIDE LEVEL 95 MMOL/L (98-107); CREATININE FOR GFR 0.76 MG/DL (0.55-1.30); GLOMERULAR FILTRATION RATE > 60.0 (>45); GLUCOSE, FASTING 81 MG/DL (74-106); POTASSIUM SERUM 4.4 MMOL/L (3.5-5.1); SODIUM LEVEL 141 MMOL/L (136-145)
[2023-10-06 09:13] LABS: ABG BASE EXCESS 4.6 (-2.0-2.0); ABG HCO3 31.6 MMOL/L (22.0-26.0); ABG O2 SATURATION 95.4 % (95.0-99.0); ABG PARTIAL PRESSURE CO2 58.1 mmHg (35.0-45.0); ABG STANDARD HCO3 28.6 MMOL/L. (22.0-26.0); ABG TOTAL CO2 33.4 MMOL/L (23.0-31.0); ABG pH (ARTERIAL) 7.354 UNITS (7.350-7.450)
[2023-10-06] MEDS: FERROUS SULFATE 325MG TAB PO SCH ×2 (10:05→21:04)
[2023-10-06] MEDS: HEPARIN SOD (PORCINE) 5000UNITS/ML 1ML VIAL/SYRINGE SQ SCH ×2 (10:05→21:08)
[2023-10-06] MEDS: levETIRAcetam 250MG TABLET (KEPPRA) PO SCH ×2 (10:05→21:05)
[2023-10-06] MEDS: METOPROLOL TART 25 MG TABLET PO SCH ×2 (10:06→21:06)
[2023-10-06] MEDS: SPIRONOLACTONE 25 MG TAB PO SCH (10:06)
[2023-10-06] MEDS: FAMOTIDINE 20 MG TAB PO SCH ×2 (10:06→21:05)
[2023-10-06] MEDS: guaiFENesin ER TABLET 600 MG TAB PO SCH ×2 (10:06→21:04)
[2023-10-06] MEDS: oxyCODONE 5MG TAB PO SCH ×2 (10:07→21:05)
[2023-10-06] MEDS: DOCUSATE SODIUM 100MG CAPSULE PO SCH ×2 (10:08→21:07)
[2023-10-06] MEDS: OMEPRAZOLE 20MG CAP PO SCH ×2 (10:08→21:04)
[2023-10-06] MEDS: VERAPAMIL 120MG SR TAB PO SCH (10:08)
[2023-10-06] MEDS: CALCIUM/VITAMIN D 500 MG TAB PO SCH (10:09)
[2023-10-06] MEDS: AZITHROMYCIN 250MG TABLET PO SCH (10:09)
[2023-10-06] MEDS: POTASSIUM CHLORIDE 10MEQ SR TABLET PO SCH ×2 (10:09→21:07)
[2023-10-06] MEDS: predniSONE 5 MG TAB PO SCH (10:09)
[2023-10-06] MEDS: TORSEMIDE 20 MG TAB PO SCH (10:10)
[2023-10-06] MEDS: CYANOCOBALAMIN 500 MCG TAB PO SCH (10:22)
[2023-10-06] MEDS ORDERED: hydrOXYzine 50 MG TAB PO ONE (11:00)
[2023-10-06] MEDS ORDERED: methylPREDNISolone 40MG 1ML VIAL IV ONE (12:00)
[2023-10-06] MEDS: LevoFLOXacin 750 MG TABLET PO SCH (16:22)
[2023-10-06] MEDS: ACETAMINOPHEN TAB 650MG DOSE (2X325MG) PO PRN (16:33)
[2023-10-06] MEDS: traZODone 50 MG TAB PO SCH (21:06)
[2023-10-06] MEDS: MONTELUKAST 10 MG TAB PO SCH (21:06)
[2023-10-06] MEDS: MIRTAZAPINE 15 MG TAB PO SCH (21:06)
[2023-10-06] MEDS: LACTOBACILLUS ACIDOPHILUS CAP (BACID) PO SCH (21:06)
[2023-10-06] MEDS: TORSEMIDE 10 MG TABLET PO SCH (21:11)
[2023-10-06] MEDS: ITRACONAZOLE 100 MG PO SCH (21:18)
[2023-10-07] VITALS (19 sets, daily range): BP systolic 99–152; BP diastolic 52–76; TEMP 96.3–97.8; O2SAT 90–100
[2023-10-07] MEDS: IPRATROPIUM 0.5MG/ALBUTEROL 2.5MG INH SOL UD 3ML (DUONEB) INH SCH ×6 (03:30→23:14)
[2023-10-07 06:13] LABS: BASO % 0.1 % (0.0-1.0); HEMATOCRIT 33.2 % (36.0-47.0); HEMOGLOBIN 11.1 g/dl (12.0-15.5); LYMPH # 0.5 10^3/uL (1.5-5.0); LYMPH % 4.6 % (24.0-44.0); MEAN CORPUSCULAR HGB CONC 33.4 g/dl (32.0-36.5); MEAN CORPUSCULAR VOLUME 95.7 fl (80.0-96.0); MONO # 0.6 10^3/uL (0.0-0.8); MONO % 6.2 % (2.0-8.0); NEUTROPHILS # 8.5 10^3/uL (1.5-8.5); NEUTROPHILS % 87.1 % (36.0-66.0); PLATELET COUNT, AUTOMATED 170 10^3/uL (150-450); RED BLOOD COUNT 3.47 10^6/uL (4.00-5.40); WHITE BLOOD COUNT 9.7 10^3/uL (4.0-10.0)
[2023-10-07 06:21] LABS: ERYTHROCYTE SEDIMENTATION RATE 53 mm/hr (0-30)
[2023-10-07 06:47] LABS: BLOOD UREA NITROGEN 21 MG/DL (9-23); CALCIUM LEVEL 7.8 MG/DL (8.3-10.6); CARBON DIOXIDE LEVEL 32 MMOL/L (20-31); CHLORIDE LEVEL 90 MMOL/L (98-107); GLOMERULAR FILTRATION RATE > 60.0 (>45); GLUCOSE, FASTING 70 MG/DL (74-106); POTASSIUM SERUM 5.4 MMOL/L (3.5-5.1); SODIUM LEVEL 131 MMOL/L (136-145)
[2023-10-07 07:58] LABS: PROCALCITONIN 0.27 ng/ml
[2023-10-07] MEDS: BUDESONIDE 0.5 MG/2 ML INHALATION SUSPENSION NEB SCH ×2 (08:05→19:36)
[2023-10-07] MEDS: SODIUM CHLORIDE HYPERTONIC 3% 4ML NEB SOL INH SCH ×3 (08:05→19:37)
[2023-10-07] MEDS: YUPELRI 175 MCG/3 ML NEB SCH (08:06)
[2023-10-07] MEDS: ARFORMOTEROL TARTRATE 15 MCG/2 ML INH SCH ×2 (08:06→19:37)
[2023-10-07] MEDS ORDERED: PATIROMER SORBITEX CALCIUM 8.4 GM POWDER PACKET (VELTASSA) PO ONE (09:00)
[2023-10-07] MEDS: POTASSIUM CHLORIDE 10MEQ SR TABLET PO SCH (09:00)
[2023-10-07] MEDS: oxyCODONE 5MG TAB PO SCH ×2 (09:48→21:19)
[2023-10-07] MEDS: predniSONE 5 MG TAB PO SCH (09:49)
[2023-10-07] MEDS: guaiFENesin ER TABLET 600 MG TAB PO SCH ×2 (09:49→21:19)
[2023-10-07] MEDS: CYANOCOBALAMIN 500 MCG TAB PO SCH (09:49)
[2023-10-07] MEDS: FERROUS SULFATE 325MG TAB PO SCH ×2 (09:49→21:22)
[2023-10-07] MEDS: SPIRONOLACTONE 25 MG TAB PO SCH (09:50)
[2023-10-07] MEDS: FAMOTIDINE 20 MG TAB PO SCH ×2 (09:50→21:19)
[2023-10-07] MEDS: OMEPRAZOLE 20MG CAP PO SCH ×2 (09:50→21:18)
[2023-10-07] MEDS: VERAPAMIL 120MG SR TAB PO SCH (09:50)
[2023-10-07] MEDS: AZITHROMYCIN 250MG TABLET PO SCH (09:50)
[2023-10-07] MEDS: DOCUSATE SODIUM 100MG CAPSULE PO SCH ×2 (09:50→21:00)
[2023-10-07] MEDS: levETIRAcetam 250MG TABLET (KEPPRA) PO SCH ×2 (09:50→21:18)
[2023-10-07] MEDS: TORSEMIDE 20 MG TAB PO SCH (09:51)
[2023-10-07] MEDS: HEPARIN SOD (PORCINE) 5000UNITS/ML 1ML VIAL/SYRINGE SQ SCH ×2 (09:51→21:18)
[2023-10-07] MEDS: METOPROLOL TART 25 MG TABLET PO SCH ×2 (09:51→21:21)
[2023-10-07] MEDS: CALCIUM/VITAMIN D 500 MG TAB PO SCH (09:51)
[2023-10-07] MEDS ORDERED: methylPREDNISolone 125MG 2ML VIAL IV ONE (13:00)
[2023-10-07] MEDS: LevoFLOXacin 750 MG TABLET PO SCH (13:43)
[2023-10-07] MEDS: ACETAMINOPHEN TAB 650MG DOSE (2X325MG) PO PRN (13:43)
[2023-10-07] MEDS: busPIRone 10 MG TAB PO PRN (15:09)
[2023-10-07] MEDS: LACTOBACILLUS ACIDOPHILUS CAP (BACID) PO SCH (21:18)
[2023-10-07] MEDS: traZODone 50 MG TAB PO SCH (21:18)
[2023-10-07] MEDS: MIRTAZAPINE 15 MG TAB PO SCH (21:19)
[2023-10-07] MEDS: ITRACONAZOLE 100 MG PO SCH (21:19)
[2023-10-07] MEDS: TORSEMIDE 10 MG TABLET PO SCH (21:19)
[2023-10-07] MEDS: MONTELUKAST 10 MG TAB PO SCH (21:19)
[2023-10-08] VITALS (20 sets, daily range): BP systolic 111–147; BP diastolic 54–76; TEMP 97–97.9; O2SAT 94–100
[2023-10-08] MEDS: IPRATROPIUM 0.5MG/ALBUTEROL 2.5MG INH SOL UD 3ML (DUONEB) INH SCH ×6 (03:05→23:29)
[2023-10-08 06:27] LABS: BASO % 0.2 % (0.0-1.0); HEMATOCRIT 31.9 % (36.0-47.0); HEMOGLOBIN 10.4 g/dl (12.0-15.5); LYMPH # 0.4 10^3/uL (1.5-5.0); LYMPH % 3.5 % (24.0-44.0); MEAN CORPUSCULAR HEMOGLOBIN 31.6 pg (27.0-33.0); MEAN CORPUSCULAR HGB CONC 32.6 g/dl (32.0-36.5); MONO # 0.6 10^3/uL (0.0-0.8); MONO % 5.7 % (2.0-8.0); NEUTROPHILS # 9.8 10^3/uL (1.5-8.5); PLATELET COUNT, AUTOMATED 184 10^3/uL (150-450); RED BLOOD COUNT 3.29 10^6/uL (4.00-5.40); WHITE BLOOD COUNT 10.9 10^3/uL (4.0-10.0)
[2023-10-08 06:53] LABS: BLOOD UREA NITROGEN 24 MG/DL (9-23); CALCIUM LEVEL 8.7 MG/DL (8.3-10.6); CARBON DIOXIDE LEVEL 35 MMOL/L (20-31); CHLORIDE LEVEL 90 MMOL/L (98-107); CREATININE FOR GFR 0.84 MG/DL (0.55-1.30); GLOMERULAR FILTRATION RATE > 60.0 (>45); GLUCOSE, FASTING 113 MG/DL (74-106); POTASSIUM SERUM 4.5 MMOL/L (3.5-5.1); SODIUM LEVEL 134 MMOL/L (136-145)
[2023-10-08] MEDS: ARFORMOTEROL TARTRATE 15 MCG/2 ML INH SCH ×2 (07:54→19:03)
[2023-10-08] MEDS: YUPELRI 175 MCG/3 ML NEB SCH (07:54)
[2023-10-08] MEDS: BUDESONIDE 0.5 MG/2 ML INHALATION SUSPENSION NEB SCH ×2 (07:54→19:02)
[2023-10-08] MEDS: SODIUM CHLORIDE HYPERTONIC 3% 4ML NEB SOL INH SCH ×3 (07:54→19:03)
[2023-10-08] MEDS: oxyCODONE 5MG TAB PO SCH ×2 (09:44→20:12)
[2023-10-08] MEDS: SPIRONOLACTONE 25 MG TAB PO SCH (09:44)
[2023-10-08] MEDS: CYANOCOBALAMIN 500 MCG TAB PO SCH (09:45)
[2023-10-08] MEDS: predniSONE 5 MG TAB PO SCH (09:45)
[2023-10-08] MEDS: AZITHROMYCIN 250MG TABLET PO SCH (09:45)
[2023-10-08] MEDS: HEPARIN SOD (PORCINE) 5000UNITS/ML 1ML VIAL/SYRINGE SQ SCH ×2 (09:46→20:10)
[2023-10-08] MEDS: levETIRAcetam 250MG TABLET (KEPPRA) PO SCH ×2 (09:46→20:10)
[2023-10-08] MEDS: OMEPRAZOLE 20MG CAP PO SCH ×2 (09:46→20:10)
[2023-10-08] MEDS: VERAPAMIL 120MG SR TAB PO SCH (09:47)
[2023-10-08] MEDS: busPIRone 10 MG TAB PO PRN (09:47)
[2023-10-08] MEDS: TORSEMIDE 20 MG TAB PO SCH (09:47)
[2023-10-08] MEDS: FERROUS SULFATE 325MG TAB PO SCH ×2 (09:47→20:12)
[2023-10-08] MEDS: CALCIUM/VITAMIN D 500 MG TAB PO SCH (09:47)
[2023-10-08] MEDS: FAMOTIDINE 20 MG TAB PO SCH ×2 (09:48→20:12)
[2023-10-08] MEDS: DOCUSATE SODIUM 100MG CAPSULE PO SCH ×2 (09:48→20:12)
[2023-10-08] MEDS: guaiFENesin ER TABLET 600 MG TAB PO SCH ×2 (09:48→20:11)
[2023-10-08] MEDS: METOPROLOL TART 25 MG TABLET PO SCH ×2 (09:48→20:11)
[2023-10-08] MEDS ORDERED: LevoFLOXacin 750 MG TABLET PO SCH (16:30)
[2023-10-08] MEDS: traZODone 50 MG TAB PO SCH (20:10)
[2023-10-08] MEDS: LACTOBACILLUS ACIDOPHILUS CAP (BACID) PO SCH (20:10)
[2023-10-08] MEDS: TORSEMIDE 10 MG TABLET PO SCH (20:11)
[2023-10-08] MEDS: MONTELUKAST 10 MG TAB PO SCH (20:11)
[2023-10-08] MEDS: MIRTAZAPINE 15 MG TAB PO SCH (20:13)
[2023-10-08] MEDS: ITRACONAZOLE 100 MG PO SCH (20:13)
[2023-10-09] VITALS: BP 129/65; TEMP 97.3; O2SAT 98
[2023-10-09] MEDS: IPRATROPIUM 0.5MG/ALBUTEROL 2.5MG INH SOL UD 3ML (DUONEB) INH SCH ×3 (02:54→10:59)
[2023-10-09 04:00] VITALS: BP 129/57; TEMP 97.1; O2SAT 93
[2023-10-09] MEDS: busPIRone 10 MG TAB PO PRN (04:29)
[2023-10-09] MEDS ORDERED: LevoFLOXacin 750 MG TABLET PO SCH ×2 (06:00→14:00)
[2023-10-09] MEDS: BUDESONIDE 0.5 MG/2 ML INHALATION SUSPENSION NEB SCH (07:21)
[2023-10-09 07:34] VITALS: BP 129/60; TEMP 97.6; O2SAT 95
[2023-10-09 07:37] LABS: BASO % 0.2 % (0.0-1.0); EOS % 0.1 % (0.0-3.0); HEMATOCRIT 33.5 % (36.0-47.0); HEMOGLOBIN 10.9 g/dl (12.0-15.5); LYMPH # 1.1 10^3/uL (1.5-5.0); LYMPH % 8.1 % (24.0-44.0); MEAN CORPUSCULAR HEMOGLOBIN 31.1 pg (27.0-33.0); MEAN CORPUSCULAR HGB CONC 32.5 g/dl (32.0-36.5); MEAN CORPUSCULAR VOLUME 95.4 fl (80.0-96.0); MONO % 7.3 % (2.0-8.0); NEUTROPHILS # 11.2 10^3/uL (1.5-8.5); NEUTROPHILS % 82.2 % (36.0-66.0); PLATELET COUNT, AUTOMATED 197 10^3/uL (150-450); RED BLOOD COUNT 3.51 10^6/uL (4.00-5.40); WHITE BLOOD COUNT 13.7 10^3/uL (4.0-10.0)
[2023-10-09] MEDS: ARFORMOTEROL TARTRATE 15 MCG/2 ML INH SCH (08:00)
[2023-10-09 08:09] LABS: BLOOD UREA NITROGEN 26 MG/DL (9-23); CALCIUM LEVEL 8.7 MG/DL (8.3-10.6); CARBON DIOXIDE LEVEL 37 MMOL/L (20-31); CHLORIDE LEVEL 89 MMOL/L (98-107); CREATININE FOR GFR 0.85 MG/DL (0.55-1.30); GLOMERULAR FILTRATION RATE > 60.0 (>45); GLUCOSE, FASTING 66 MG/DL (74-106); POTASSIUM SERUM 3.7 MMOL/L (3.5-5.1); SODIUM LEVEL 135 MMOL/L (136-145)
[2023-10-09 08:16] LABS: ERYTHROCYTE SEDIMENTATION RATE 26 mm/hr (0-30)
[2023-10-09] MEDS: CYANOCOBALAMIN 500 MCG TAB PO SCH (08:42)
[2023-10-09] MEDS: CALCIUM/VITAMIN D 500 MG TAB PO SCH (08:42)
[2023-10-09] MEDS: FERROUS SULFATE 325MG TAB PO SCH (08:42)
[2023-10-09] MEDS: HEPARIN SOD (PORCINE) 5000UNITS/ML 1ML VIAL/SYRINGE SQ SCH (08:42)
[2023-10-09] MEDS: OMEPRAZOLE 20MG CAP PO SCH (08:42)
[2023-10-09] MEDS: AZITHROMYCIN 250MG TABLET PO SCH (08:42)
[2023-10-09] MEDS: VERAPAMIL 120MG SR TAB PO SCH (08:42)
[2023-10-09 08:43] VITALS: BP 129/60
[2023-10-09] MEDS: METOPROLOL TART 25 MG TABLET PO SCH (08:43)
[2023-10-09] MEDS: TORSEMIDE 20 MG TAB PO SCH (08:43)
[2023-10-09] MEDS: FAMOTIDINE 20 MG TAB PO SCH (08:43)
[2023-10-09] MEDS: DOCUSATE SODIUM 100MG CAPSULE PO SCH (08:43)
[2023-10-09] MEDS: predniSONE 5 MG TAB PO SCH (08:43)
[2023-10-09] MEDS: guaiFENesin ER TABLET 600 MG TAB PO SCH (08:43)
[2023-10-09] MEDS: levETIRAcetam 250MG TABLET (KEPPRA) PO SCH (08:43)
[2023-10-09] MEDS: SPIRONOLACTONE 25 MG TAB PO SCH (08:43)
[2023-10-09] MEDS: oxyCODONE 5MG TAB PO SCH (08:44)
[2023-10-09] MEDS: SODIUM CHLORIDE HYPERTONIC 3% 4ML NEB SOL INH SCH (08:56)
[2023-10-09] MEDS: YUPELRI 175 MCG/3 ML NEB SCH (08:56)
[2023-10-09] MEDS ORDERED: predniSONE 20 MG TAB PO SCH (10:00)
[2023-10-09] MEDS ORDERED: PRED10TA2 PO (10:30)
[2023-10-09] MEDS ORDERED: PRED5TA PO (10:30)
[2023-10-09] MEDS ORDERED: BUSP10TA PO (10:30)
[2023-10-09] MEDS ORDERED: LEVO1TAB40 PO (10:30)
[2023-10-09] MEDS: ACETAMINOPHEN TAB 650MG DOSE (2X325MG) PO PRN (11:48)
[2023-10-09 12:48] VITALS: BP 130/70; O2SAT 98
[2023-10-09 17:07] LABS: BODY FLUID CULTURE Not indicated. (.); ORGANISM ID Not indicated. (.); SPECIMEN SOURCE Urine (.); URINE STREP PNEUMONIAE ANTIGEN Negative (Negative)
[2023-10-09 17:57] LABS: PROCALCITONIN 0.16 ng/ml
== END 2023-10-09 13:00 | disposition home or self-care (01) | DRG 177 ==
LOC: M ED 08:17 → M ED INP 11:07 → ENRESERV 11:34 → M PCU 12:29
PROVIDERS: ADMIT Student in an Organized Health Care Education/Training Program; ATTEND Student in an Organized Health Care Education/Training Program
DX: J15.69 Pneumonia due to other Gram-negative bacteria (principal); J96.21 Acute and chronic respiratory failure with hypoxia; J47.0 Bronchiectasis with acute lower respiratory infection; D84.9 Immunodeficiency, unspecified; B44.9 Aspergillosis, unspecified; I50.32 Chronic diastolic (congestive) heart failure; J96.12 Chronic respiratory failure with hypercapnia; I11.0 Hypertensive heart disease with heart failure; G40.909 Epilepsy, unspecified, not intractable, without status epilepticus; G89.29 Other chronic pain; J44.9 Chronic obstructive pulmonary disease, unspecified; E87.5 Hyperkalemia; J84.89 Other specified interstitial pulmonary diseases; I27.20 Pulmonary hypertension, unspecified; F32.A Depression, unspecified; K21.9 Gastro-esophageal reflux disease without esophagitis; G47.00 Insomnia, unspecified; Z88.8 Allergy status to other drugs, medicaments and biological substances; Z79.899 Other long term (current) drug therapy; I27.81 Cor pulmonale (chronic); Z79.52 Long term (current) use of systemic steroids; Z86.711 Personal history of pulmonary embolism; E11.9 Type 2 diabetes mellitus without complications; K44.9 Diaphragmatic hernia without obstruction or gangrene; H35.30 Unspecified macular degeneration; D50.9 Iron deficiency anemia, unspecified; K64.8 Other hemorrhoids; M81.0 Age-related osteoporosis without current pathological fracture; Z66 Do not resuscitate